=== PATIENT | female | born 1960 | race Caucasian/White ===

== ENCOUNTER 2020-07-20 10:47 | Outpatient (REF) | payer MEDICARE, OTHER, SELFPAY ==
[2020-07-20 12:17] LABS: MANUAL DIFF FLAG NO
[2020-07-20 12:38] LABS: Appearance Urine CLEAR; Color Urine YELLOW; Glucose Urine UA NEG (NEG); Leukocyte Esterase Urine NEG (NEG); Nitrite Urine NEG (NEG); PH 5.5 (5.0-8.0); Urine Blood NEG (NEG); Urine Ketones NEG (NEG); Urine Protein NEG (NEG-TRACE)
[2020-07-20 12:40] LABS: Basophils Percent Auto 0.5 % (0-2); Eosinophils Absolute Auto 0.1 X10*3/uL (0.0-0.4); Eosinophils Percent Auto 2.1 % (0-4); Hematocrit 36.8 % (37-47); Imm Gran Abs Auto 0.01 X10*3/uL (0.00-0.03); Imm Gran Pct Auto 0.2 % (0.0-0.4); Lymphocytes Absolute Auto 2.4 X10*3/uL (1.2-4.9); Lymphocytes Percent Auto 38.3 % (20-40); Mean Corpuscular HGB Conc 32.6 g/dl (31.0-35.0); Mean Corpuscular Hemoglobin 30.4 pg (27.0-33.0); Mean Corpuscular Volume 93.2 fL (80-98); Monocytes Absolute Auto 0.5 X10*3/uL (0.1-1.2); Monocytes Percent Auto 7.3 % (2-11); Neutrophils Absolute Auto 3.2 X10*3/uL (2.0-8.3); Neutrophils Percent Auto 51.6 % (45-73); Platelet Count 289 X10*3/uL (160-400); Red Blood Count 3.95 X10*6/uL (4.20-5.50); Red Cell Distribution Width 13.2 % (11.0-16.0); White Blood Count 6.2 X10*3/uL (4.8-10.8)
[2020-07-20 12:48] LABS: RBC Urine 0 /HPF (0); Squamous Epithelial Cell Urine TRACE /LPF; WBC Urine 0 /HPF (0-4)
[2020-07-20 13:18] LABS: Alanine Aminotransferase 17 U/L (0-31); Albumin Level 4.4 g/dL (3.5-5.0); Alkaline Phosphatase 54 U/L (39-117); Anion Gap 11 (12-20); Aspartate Amino Transferase 20 U/L (5-31); Bilirubin Total 0.3 mg/dL (0.0-1.0); Blood Urea Nitrogen 20 mg/dL (9-16); Calcium 8.9 mg/dL (8.4-10.2); Carbon Dioxide 25 mmol/L (22-29); Chloride 103 mmol/L (96-108); Cholesterol 201 mg/dL; Estimated Glomerular Filt Rate > 60; Glucose Fasting 85 mg/dL (60-99); HDL Cholesterol 62 mg/dL; LDL Cholesterol Calculated 114 mg/dl; Potassium 4.2 mmol/l (3.3-5.1); Total Protein 7.2 g/dL (6.5-8.0); Triglycerides 129 mg/dL
[2020-07-20 13:20] LABS: Sodium 135 mmol/L (135-145)
[2020-07-20 13:42] LABS: TSH reflex Free T4 0.51 mIU/mL (0.32-4.0)
[2020-07-20 13:46] LABS: Erythrocyte Sedimentation Rate 12 MM/HR (0-20)
== END 2020-07-20 10:48 | disposition home or self-care (01) ==
LOC: HO.LAB 10:47
PROVIDERS: PCP Internal Medicine; Visit Provider Internal Medicine
DX: E78.5 Hyperlipidemia, unspecified (principal); K59.00 Constipation, unspecified; N83.292 Other ovarian cyst, left side; M51.36 Other intervertebral disc degeneration, lumbar region; M47.12 Other spondylosis with myelopathy, cervical region; G43.909 Migraine, unspecified, not intractable, without status migrainosus; R32 Unspecified urinary incontinence; E66.3 Overweight
CPT/HCPCS: 36415; 80053; 80061; 81001; 84443; 85025; 85652

== ENCOUNTER 2020-11-17 09:11 | Outpatient (REF) | payer MEDICARE, SELFPAY ==
[2020-11-17 09:43] LABS: MANUAL DIFF FLAG NO
[2020-11-17 09:46] LABS: Basophils Percent Auto 0.5 % (0-2); Eosinophils Absolute Auto 0.1 X10*3/uL (0.0-0.4); Eosinophils Percent Auto 1.5 % (0-4); Hematocrit 37.3 % (37-47); Hemoglobin 12.4 g/dl (12.0-16.0); Imm Gran Abs Auto 0.02 X10*3/uL (0.00-0.03); Imm Gran Pct Auto 0.3 % (0.0-0.4); Lymphocytes Percent Auto 30.8 % (20-40); Mean Corpuscular HGB Conc 33.2 g/dl (31.0-35.0); Mean Corpuscular Hemoglobin 30.2 pg (27.0-33.0); Mean Corpuscular Volume 90.8 fL (80-98); Mean Platelet Volume 8.6 fL (9.4-12.3); Monocytes Absolute Auto 0.5 X10*3/uL (0.1-1.2); Neutrophils Absolute Auto 3.8 X10*3/uL (2.0-8.3); Neutrophils Percent Auto 58.9 % (45-73); Platelet Count 290 X10*3/uL (160-400); Red Blood Count 4.11 X10*6/uL (4.20-5.50); Red Cell Distribution Width 13.1 % (11.0-16.0); White Blood Count 6.5 X10*3/uL (4.8-10.8)
[2020-11-17 10:12] LABS: Alanine Aminotransferase 20 U/L (0-31); Albumin Level 4.4 g/dL (3.5-5.0); Alkaline Phosphatase 55 U/L (39-117); Anion Gap 12 (12-20); Aspartate Amino Transferase 21 U/L (5-31); Bilirubin Total 0.4 mg/dL (0.0-1.0); Blood Urea Nitrogen 15 mg/dL (9-16); Calcium 8.9 mg/dL (8.4-10.2); Carbon Dioxide 23 mmol/L (22-29); Chloride 109 mmol/L (96-108); Cholesterol 190 mg/dL; Estimated Glomerular Filt Rate > 60; Glucose Fasting 108 mg/dL (60-99); HDL Cholesterol 66 mg/dL; LDL Cholesterol Calculated 106 mg/dl; Potassium 4.2 mmol/L (3.3-5.1); Sodium 140 mmol/L (135-145); Total Protein 7.4 g/dL (6.5-8.0); Triglycerides 91 mg/dL
[2020-11-17 10:21] LABS: Glucose Urine UA NEG (NEG); Leukocyte Esterase Urine NEG (NEG); Nitrite Urine NEG (NEG); PH 7.5 (5.0-8.0); Specific Gravity - Urine 1.015 (1.005-1.025); Urine Blood NEG (NEG); Urine Ketones NEG (NEG); Urine Protein NEG (NEG-TRACE)
[2020-11-17 10:26] LABS: Appearance Urine CLEAR; Color Urine YELLOW
[2020-11-17 10:32] LABS: TSH reflex Free T4 0.22 uIU/mL (0.32-4.0)
[2020-11-17 11:07] LABS: Free T4 (Free Thyroxine) 0.84 ng/dL (0.71-1.85)
== END 2020-11-17 09:12 | disposition home or self-care (01) ==
LOC: HO.LAB 09:11
PROVIDERS: PCP Internal Medicine; Visit Provider Internal Medicine
DX: K21.9 Gastro-esophageal reflux disease without esophagitis (principal); E78.00 Pure hypercholesterolemia, unspecified; R32 Unspecified urinary incontinence; G43.909 Migraine, unspecified, not intractable, without status migrainosus; E66.3 Overweight
CPT/HCPCS: 36415; 80053; 80061; 81003; 84439; 84443; 85025

== ENCOUNTER 2021-03-04 07:56 | Outpatient (REF) | payer MEDICARE, SELFPAY ==
[2021-03-04 08:20] LABS: MANUAL DIFF FLAG NO
[2021-03-04 08:27] LABS: Basophils Percent Auto 0.4 % (0-2); Eosinophils Absolute Auto 0.1 X10*3/uL (0.0-0.4); Hematocrit 37.1 % (37-47); Hemoglobin 12.2 g/dl (12.0-16.0); Imm Gran Abs Auto 0.02 X10*3/uL (0.00-0.03); Imm Gran Pct Auto 0.3 % (0.0-0.4); Lymphocytes Absolute Auto 3.1 X10*3/uL (1.2-4.9); Lymphocytes Percent Auto 44.2 % (20-40); Mean Corpuscular HGB Conc 32.9 g/dl (31.0-35.0); Mean Corpuscular Hemoglobin 30.1 pg (27.0-33.0); Mean Corpuscular Volume 91.6 fL (80-98); Mean Platelet Volume 8.7 fL (9.4-12.3); Monocytes Absolute Auto 0.6 X10*3/uL (0.1-1.2); Monocytes Percent Auto 8.8 % (2-11); Neutrophils Absolute Auto 3.1 X10*3/uL (2.0-8.3); Neutrophils Percent Auto 44.3 % (45-73); Platelet Count 285 X10*3/uL (160-400); Red Blood Count 4.05 X10*6/uL (4.20-5.50); Red Cell Distribution Width 13.8 % (11.0-16.0)
[2021-03-04 08:56] LABS: Alanine Aminotransferase 23 U/L (0-31); Albumin Level 4.4 g/dL (3.5-5.0); Alkaline Phosphatase 54 U/L (39-117); Anion Gap 12 (12-20); Aspartate Amino Transferase 21 U/L (5-31); Bilirubin Total 0.3 mg/dL (0.0-1.0); Blood Urea Nitrogen 17 mg/dL (9-16); Calcium 9.6 mg/dL (8.4-10.2); Carbon Dioxide 25 mmol/L (22-29); Chloride 107 mmol/L (96-108); Cholesterol 202 mg/dL; Estimated Glomerular Filt Rate > 60; Glucose Fasting 100 mg/dL (60-99); HDL Cholesterol 66 mg/dL; LDL Cholesterol Calculated 109 mg/dl; Sodium 140 mmol/L (135-145); Total Protein 7.3 g/dL (6.5-8.0); Triglycerides 137 mg/dL
[2021-03-04 09:02] LABS: Glucose Urine UA NEG (NEG); Leukocyte Esterase Urine NEG (NEG); Nitrite Urine NEG (NEG); Urine Blood NEG (NEG); Urine Ketones NEG (NEG); Urine Protein NEG (NEG-TRACE)
[2021-03-04 09:03] LABS: Appearance Urine CLEAR; Color Urine YELLOW
[2021-03-04 09:18] LABS: Free T4 (Free Thyroxine) 0.85 ng/dL (0.71-1.85); Thyroid Stimulating Hormone 0.55 uIU/mL (0.32-4.0)
== END 2021-03-04 07:57 | disposition home or self-care (01) ==
LOC: HO.LAB 07:56
PROVIDERS: PCP Internal Medicine; Visit Provider Internal Medicine
DX: E66.3 Overweight (principal); E78.00 Pure hypercholesterolemia, unspecified; R79.89 Other specified abnormal findings of blood chemistry; N83.292 Other ovarian cyst, left side; R32 Unspecified urinary incontinence; K21.9 Gastro-esophageal reflux disease without esophagitis; K59.00 Constipation, unspecified
CPT/HCPCS: 36415; 80053; 80061; 81003; 84439; 84443; 85025

== ENCOUNTER 2021-05-20 08:24 | Outpatient (REF) | payer MEDICARE, SELFPAY ==
[2021-05-20 09:31] LABS: MANUAL DIFF FLAG NO
[2021-05-20 09:47] LABS: Appearance Urine CLEAR; Color Urine YELLOW; Glucose Urine UA NEG (NEG); Leukocyte Esterase Urine NEG (NEG); Nitrite Urine NEG (NEG); PH 6.5 (5.0-8.0); Specific Gravity - Urine 1.015 (1.005-1.025); Urine Blood NEG (NEG); Urine Ketones NEG (NEG); Urine Protein NEG (NEG-TRACE)
[2021-05-20 09:52] LABS: Basophils Percent Auto 0.3 % (0-2); Eosinophils Absolute Auto 0.1 X10*3/uL (0.0-0.4); Eosinophils Percent Auto 1.5 % (0-4); Hematocrit 38.2 % (37-47); Hemoglobin 12.5 g/dl (12.0-16.0); Imm Gran Abs Auto 0.02 X10*3/uL (0.00-0.03); Imm Gran Pct Auto 0.3 % (0.0-0.4); Lymphocytes Absolute Auto 2.8 X10*3/uL (1.2-4.9); Lymphocytes Percent Auto 42.7 % (20-40); Mean Corpuscular HGB Conc 32.7 g/dl (31.0-35.0); Mean Corpuscular Hemoglobin 29.8 pg (27.0-33.0); Mean Platelet Volume 8.8 fL (9.4-12.3); Monocytes Absolute Auto 0.6 X10*3/uL (0.1-1.2); Monocytes Percent Auto 9.2 % (2-11); Platelet Count 295 X10*3/uL (160-400); Red Cell Distribution Width 13.6 % (11.0-16.0); White Blood Count 6.6 X10*3/uL (4.8-10.8)
[2021-05-20 10:12] LABS: Alanine Aminotransferase 25 U/L (0-31); Albumin Level 4.2 g/dL (3.5-5.0); Alkaline Phosphatase 59 U/L (39-117); Anion Gap 11 (12-20); Aspartate Amino Transferase 23 U/L (5-31); Bilirubin Total 0.3 mg/dL (0.0-1.0); Blood Urea Nitrogen 14 mg/dL (9-16); Calcium 9.4 mg/dL (8.4-10.2); Carbon Dioxide 24 mmol/L (22-29); Chloride 108 mmol/L (96-108); Cholesterol 197 mg/dL; Estimated Glomerular Filt Rate > 60; Glucose Fasting 93 mg/dL (60-99); HDL Cholesterol 55 mg/dL; LDL Cholesterol Calculated 97 mg/dl; Potassium 4.2 mmol/L (3.3-5.1); Sodium 139 mmol/L (135-145); Total Protein 6.9 g/dL (6.5-8.0); Triglycerides 227 mg/dL
[2021-05-20 10:20] LABS: Free T4 (Free Thyroxine) 0.89 ng/dL (0.71-1.85); Thyroid Stimulating Hormone 0.57 uIU/mL (0.32-4.0)
== END 2021-05-20 08:25 | disposition home or self-care (01) ==
LOC: HO.LAB 08:24
PROVIDERS: PCP Internal Medicine; Visit Provider Internal Medicine
DX: E78.00 Pure hypercholesterolemia, unspecified (principal); R32 Unspecified urinary incontinence; R79.89 Other specified abnormal findings of blood chemistry; E66.3 Overweight; R53.83 Other fatigue; B94.8 Sequelae of other specified infectious and parasitic diseases; K21.9 Gastro-esophageal reflux disease without esophagitis
CPT/HCPCS: 36415; 80053; 80061; 81003; 84439; 84443; 85025

== ENCOUNTER 2021-05-25 07:41 | Outpatient (REF) | payer MEDICARE, SELFPAY ==
[2021-05-27 01:07] LABS: Follicle Stimulating Hormone 62.1 mIU/mL; Lutenizing Hormone 30.8 mIU/mL
[2021-06-01 21:46] LABS: Estrogen 166.5 pg/mL
== END 2021-05-25 07:42 | disposition home or self-care (01) ==
LOC: HO.LAB 07:41
PROVIDERS: PCP Internal Medicine; Visit Provider Internal Medicine
DX: R23.2 Flushing (principal); R61 Generalized hyperhidrosis
CPT/HCPCS: 36415; 82672; 83001; 83002

== ENCOUNTER → 2021-05-29 15:11 | Outpatient (BNVA) | payer MEDICARE, SELFPAY | PROVIDERS: PCP Internal Medicine; Visit Provider Internal Medicine | DX: M51.36 Other intervertebral disc degeneration, lumbar region (principal); E78.00 Pure hypercholesterolemia, unspecified; H72.90 Unspecified perforation of tympanic membrane, unspecified ear; E66.3 Overweight; F41.8 Other specified anxiety disorders; G93.3 Postviral and related fatigue syndromes; Z68.28 Body mass index [BMI] 28.0-28.9, adult; Z86.16 Personal history of COVID-19; Z79.899 Other long term (current) drug therapy | CPT/HCPCS: 99202 ==

== ENCOUNTER 2021-05-31 12:17 | Outpatient (REF) | payer MEDICARE, SELFPAY ==
--- NOTE | ~2021-05-31 | MM_ITS ---
EXAMINATION: MM SCREENING DIGITAL BREAST TOMOSYNTHESIS, BILATERAL CLINICAL INFORMATION: Screening. Asymptomatic. The lifetime risk of breast cancer based on the Tyrer-Cuzick Model is 4.8%. COMPARISON: Mammography: May 25, 2020 and studies dating back to January 29, 2014 TECHNIQUE: Digital breast tomosynthesis is performed in both the craniocaudal and mediolateral oblique views along with computer-aided detection (CAD). Synthesized 2D images are generated from the tomosynthesis. FINDINGS: There are scattered areas of fibroglandular density (ACR BI-RADS breast composition Category b). There are no significant masses, abnormal calcifications, or other abnormalities. MM/MM tomosynthesis screening BI IMPRESSION: There are no significant changes from prior study. ASSESSMENT: BI-RADS 1: Negative RECOMMENDATION: Routine annual mammography screening. This patient's information was entered into a reminder system with a target due date for their next mammogram.
== END 2021-05-31 12:18 | disposition home or self-care (01) ==
LOC: HO.MAMMO 12:17
PROVIDERS: PCP Internal Medicine; Visit Provider Internal Medicine
DX: Z12.31 Encounter for screening mammogram for malignant neoplasm of breast (principal)
CPT/HCPCS: 77063; 77067

== ENCOUNTER → 2021-06-26 14:50 | Outpatient (BNVA) | payer MEDICARE, SELFPAY | PROVIDERS: PCP Internal Medicine; Visit Provider Internal Medicine | DX: M51.36 Other intervertebral disc degeneration, lumbar region (principal); M54.16 Radiculopathy, lumbar region; M25.512 Pain in left shoulder; E78.00 Pure hypercholesterolemia, unspecified; U09.9 Post COVID-19 condition, unspecified | CPT/HCPCS: 99212 ==

== ENCOUNTER 2021-07-04 15:43 | Outpatient (REF) | payer MEDICARE, SELFPAY ==
--- NOTE | ~2021-07-04 | MR_ITS ---
EXAMINATION: MR LUMBAR SPINE WITHOUT CONTRAST CLINICAL INFORMATION: Pain degeneration, lumbar. COMPARISON: None TECHNIQUE: MRI of the lumbar spine was obtained using routine sequences without contrast. FINDINGS: The lumbar vertebral bodies maintain normal heights and alignment. The disc heights are preserved. Mild endplate edema is seen at the anterior-inferior corner of L1. Mild endplate edema is also seen superiorly at L5, asymmetrically on the right. The distal spinal cord appears normal. The conus medullaris terminates normally at the L2 level. The visualized paraspinal muscles and intra-abdominal and pelvic contents are within normal limits. SPINAL LEVELS: L1-L2: No posterior disc abnormality. No spinal canal or neural foraminal stenosis. L2-L3: No posterior disc abnormality. Mild facet arthropathy. No spinal canal or neural foraminal stenosis. L3-L4: Minimal disc bulging with mild facet arthropathy. No spinal canal or neural foraminal stenosis. L4-L5: Disc bulging with ligamentum flavum infolding moderate facet arthropathy. No spinal canal or neural foraminal stenosis. L5-S1: Disc bulging with ligamentum flavum infolding moderate facet arthropathy. Small left subarticular protrusion with annular fissuring without definite traversing nerve root compression. No spinal canal or neural foraminal stenosis. MR/MR lumbar spine wo con IMPRESSION: Mild degenerative spondylotic changes. No significant narrowing of the spinal canal or neural foramina. No nerve root compression is seen. A subarticular protrusion with annular fissuring is noted at L5-S1.
== END 2021-07-04 15:44 | disposition home or self-care (01) ==
LOC: HO.MRI 15:43
PROVIDERS: Visit Provider Internal Medicine
DX: M51.36 Other intervertebral disc degeneration, lumbar region (principal)
CPT/HCPCS: 72148

== ENCOUNTER → 2021-07-17 14:49 | Outpatient (BNVA) | payer MEDICARE, SELFPAY | PROVIDERS: PCP Internal Medicine; Visit Provider Internal Medicine | DX: M54.51 Vertebrogenic low back pain (principal); M47.812 Spondylosis without myelopathy or radiculopathy, cervical region; M51.36 Other intervertebral disc degeneration, lumbar region | CPT/HCPCS: 99212 ==

== ENCOUNTER 2021-08-17 08:28 | Outpatient (REF) | payer MEDICARE, SELFPAY ==
[2021-08-17 08:49] LABS: MANUAL DIFF FLAG NO
[2021-08-17 09:33] LABS: Basophils Percent Auto 0.3 % (0-2); Eosinophils Absolute Auto 0.1 X10*3/uL (0.0-0.4); Hematocrit 37.1 % (37.0-47.0); Hemoglobin 12.1 g/dl (12.0-16.0); Imm Gran Abs Auto 0.01 X10*3/uL (0.00-0.03); Imm Gran Pct Auto 0.1 % (0.0-0.4); Lymphocytes Absolute Auto 3.1 X10*3/uL (1.2-4.9); Lymphocytes Percent Auto 45.5 % (20-40); Mean Corpuscular HGB Conc 32.6 g/dl (31.0-35.0); Mean Corpuscular Hemoglobin 30.3 pg (27.0-33.0); Mean Platelet Volume 8.8 fL (9.4-12.3); Monocytes Absolute Auto 0.7 X10*3/uL (0.1-1.2); Monocytes Percent Auto 9.6 % (2-11); Neutrophils Absolute Auto 2.9 x10*3/uL (2.0-8.3); Neutrophils Percent Auto 42.5 % (45-73); Platelet Count 281 X10*3/uL (160-400); Red Blood Count 3.99 X10*6/uL (4.20-5.50); Red Cell Distribution Width 13.4 % (11.0-16.0); White Blood Count 6.8 X10*3/uL (4.8-10.8)
[2021-08-17 10:07] LABS: Alanine Aminotransferase 17 U/L (0-31); Albumin Level 4.2 g/dL (3.5-5.0); Alkaline Phosphatase 48 U/L (39-117); Anion Gap 10 (12-20); Aspartate Amino Transferase 19 U/L (5-31); Bilirubin Total 0.2 mg/dL (0.0-1.0); Blood Urea Nitrogen 13 mg/dL (9-16); Calcium 9.1 mg/dL (8.4-10.2); Carbon Dioxide 27 mmol/L (22-29); Chloride 107 mmol/L (96-108); Cholesterol 180 mg/dL; Estimated Glomerular Filt Rate > 60; Glucose Fasting 91 mg/dL (60-99); HDL Cholesterol 60 mg/dL; LDL Cholesterol Calculated 95 mg/dl; Potassium 4.2 mmol/L (3.3-5.1); Sodium 140 mmol/L (135-145); Total Protein 6.9 g/dL (6.5-8.0); Triglycerides 127 mg/dL
[2021-08-17 10:18] LABS: Free T4 (Free Thyroxine) 0.87 ng/dL (0.71-1.85); Thyroid Stimulating Hormone 0.48 uIU/mL (0.32-4.0); Vitamin D 25-OH Total 33.7 ng/mL (>30)
[2021-08-17 10:47] LABS: Appearance Urine CLEAR; Color Urine YELLOW; Glucose Urine UA NEG (NEG); Leukocyte Esterase Urine NEG (NEG); Nitrite Urine NEG (NEG); Urine Blood NEG (NEG); Urine Ketones NEG (NEG); Urine Protein NEG (NEG-TRACE)
== END 2021-08-17 08:29 | disposition home or self-care (01) ==
LOC: HO.LAB 08:28
PROVIDERS: PCP Internal Medicine; Visit Provider Internal Medicine
DX: E55.9 Vitamin D deficiency, unspecified (principal); E03.9 Hypothyroidism, unspecified; I10 Essential (primary) hypertension; E78.00 Pure hypercholesterolemia, unspecified
CPT/HCPCS: 36415; 80053; 80061; 81003; 82306; 84439; 84443; 85025

== ENCOUNTER 2021-08-23 06:12 | Outpatient (REF) | payer MEDICARE, SELFPAY ==
--- NOTE | ~2021-08-23 | FL_ITS ---
EXAMINATION: XR FLUOROSCOPY WITH IMAGES CLINICAL INFORMATION: M54.51 - Vertebrogenic low back pain COMPARISON: MR lumbar spine 07/04/2021 TECHNIQUE: Fluoroscopy performed by Dr. Narinder Verdin. Fluoroscopy time: 0.4 minutes DAP: 4.00 Gycm2 Images: 4 FINDINGS: There are spinal needles overlying the bilateral outer L4 and L5 neural foramen. There is contrast seen in the respective nerve sheaths and also at bilateral L3. Some early transforaminal epidural extension is suggested. No visible vascular communication. FL/FL guidance in treatment room IMPRESSION: Fluoroscopy for pain management procedures.
== END 2021-08-23 06:13 | disposition home or self-care (01) ==
LOC: HO.RADIR 06:12
PROVIDERS: Visit Provider Internal Medicine
DX: M47.816 Spondylosis without myelopathy or radiculopathy, lumbar region (principal); M51.36 Other intervertebral disc degeneration, lumbar region; M54.16 Radiculopathy, lumbar region; M54.51 Vertebrogenic low back pain; Z79.899 Other long term (current) drug therapy; Z80.0 Family history of malignant neoplasm of digestive organs; Z80.8 Family history of malignant neoplasm of other organs or systems
CPT/HCPCS: 64493; 64494; Q9967

== ENCOUNTER 2021-08-30 05:54 | Outpatient (REF) | payer MEDICARE, SELFPAY | END 2021-08-30 05:55 | disposition home or self-care (01) | LOC: HO.RADIR 05:54 | PROVIDERS: Visit Provider Internal Medicine | DX: Z13.89 Encounter for screening for other disorder (principal) ==

== ENCOUNTER → 2021-08-31 08:03 | Outpatient (BNVA) | payer MEDICARE, SELFPAY | PROVIDERS: PCP Internal Medicine; Visit Provider Nurse Practitioner Family | DX: M51.36 Other intervertebral disc degeneration, lumbar region (principal); M47.816 Spondylosis without myelopathy or radiculopathy, lumbar region | CPT/HCPCS: Q3014 ==

== ENCOUNTER 2021-11-01 06:38 | Outpatient (REF) | payer MEDICARE, SELFPAY ==
--- NOTE | ~2021-11-01 | FL_ITS ---
EXAMINATION: XR FLUOROSCOPY WITH IMAGES CLINICAL INFORMATION: Spondylosis without myelopathy or radiculopathy. COMPARISON: None. TECHNIQUE: Fluoroscopy performed by: Dr Epperson Fluoroscopy time: 0.2 minutes DAP: 0.7 Gycm2 Images: 3 FINDINGS: Images demonstrate needle placement and contrast injection adjacent to the bilateral lateral L3-L4 and L5 vertebral bodies. FL/FL guidance in treatment room IMPRESSION: Fluoroscopy guidance for pain management procedure.
== END 2021-11-01 06:39 | disposition home or self-care (01) ==
LOC: HO.RADIR 06:38
PROVIDERS: Visit Provider Internal Medicine
DX: M47.816 Spondylosis without myelopathy or radiculopathy, lumbar region (principal)
CPT/HCPCS: 64493; 64494; Q9967

== ENCOUNTER → 2021-11-03 09:40 | Outpatient (BNVA) | payer MEDICARE, SELFPAY | PROVIDERS: PCP Internal Medicine; Visit Provider Internal Medicine | DX: M47.816 Spondylosis without myelopathy or radiculopathy, lumbar region (principal); M54.51 Vertebrogenic low back pain; M51.36 Other intervertebral disc degeneration, lumbar region | CPT/HCPCS: Q3014 ==

== ENCOUNTER 2021-11-06 10:12 | Outpatient (REF) | payer MEDICARE, SELFPAY ==
[2021-11-06 11:42] LABS: Alanine Aminotransferase 13 U/L (0-31); Albumin Level 4.3 g/dL (3.5-5.0); Alkaline Phosphatase 50 U/L (39-117); Anion Gap 11 (12-20); Aspartate Amino Transferase 20 U/L (5-31); Bilirubin Total 0.4 mg/dL (0.0-1.0); Blood Urea Nitrogen 10 mg/dL (9-16); Calcium 9.8 mg/dL (8.4-10.2); Carbon Dioxide 26 mmol/L (22-29); Chloride 107 mmol/L (96-108); Cholesterol 187 mg/dL; Estimated Glomerular Filt Rate > 60; Glucose Fasting 97 mg/dL (60-99); HDL Cholesterol 62 mg/dL; LDL Cholesterol Calculated 106 mg/dl; Potassium 4.1 mmol/L (3.3-5.1); Sodium 140 mmol/L (135-145); Total Protein 7.1 g/dL (6.5-8.0); Triglycerides 98 mg/dL
[2021-11-06 11:52] LABS: Vitamin D 25-OH Total 36.9 ng/mL (>30)
== END 2021-11-06 10:13 | disposition home or self-care (01) ==
LOC: HO.LAB 10:12
PROVIDERS: PCP Internal Medicine; Visit Provider Internal Medicine
DX: E55.9 Vitamin D deficiency, unspecified (principal); E78.00 Pure hypercholesterolemia, unspecified
CPT/HCPCS: 36415; 80053; 80061; 82306; 84443

== ENCOUNTER → 2021-11-08 11:36 | Outpatient (REF) | payer MEDICARE, OTHER, SELFPAY ==
--- NOTE | 2021-11-08 11:41 | ECG_ITS ---
Test Reason : PREOP Blood Pressure : / mmHG Vent. Rate : 103 BPM Atrial Rate : 103 BPM P-R Int : 138 ms QRS Dur : 084 ms QT Int : 328 ms P-R-T Axes : 041 053 036 degrees QTc Int : 429 ms Sinus tachycardia Otherwise normal ECG When compared with ECG of 28-MAR-2009 11:44, No significant change was found Referred By: Richar Verma Electronically Signed By:Praful Pratt
[2021-11-08 11:44] LABS: MANUAL DIFF FLAG NO
[2021-11-08 12:07] LABS: Basophils Percent Auto 0.4 % (0-2); Eosinophils Absolute Auto 0.1 X10*3/uL (0.0-0.4); Eosinophils Percent Auto 1.5 % (0-4); Hematocrit 36.7 % (37.0-47.0); Imm Gran Abs Auto 0.03 X10*3/uL (0.00-0.03); Imm Gran Pct Auto 0.4 % (0.0-0.4); Lymphocytes Absolute Auto 2.6 X10*3/uL (1.2-4.9); Mean Corpuscular HGB Conc 32.7 g/dl (31.0-35.0); Mean Corpuscular Hemoglobin 30.5 pg (27.0-33.0); Mean Corpuscular Volume 93.1 fL (80.0-98.0); Mean Platelet Volume 8.8 fL (9.4-12.3); Monocytes Absolute Auto 0.7 X10*3/uL (0.1-1.2); Monocytes Percent Auto 9.6 % (2-11); Neutrophils Absolute Auto 4.1 x10*3/uL (2.0-8.3); Neutrophils Percent Auto 54.1 % (45-73); Platelet Count 277 X10*3/uL (160-400); Red Blood Count 3.94 X10*6/uL (4.20-5.50); Red Cell Distribution Width 13.2 % (11.0-16.0); White Blood Count 7.5 X10*3/uL (4.8-10.8)
[2021-11-08 12:11] LABS: Prothrombin Time 11.6 SEC (9.9-13.0)
[2021-11-08 12:14] LABS: Partial Thromboplastin Time 30.8 SEC (24.1-38.0)
== END ==
LOC: HO.CARD 11:36
PROVIDERS: PCP Internal Medicine; Visit Provider Internal Medicine
DX: Z01.818 Encounter for other preprocedural examination (principal)
CPT/HCPCS: 36415; 85025; 85610; 85730; 93005

== ENCOUNTER 2021-11-29 06:15 | Outpatient (REF) | payer MEDICARE, SELFPAY ==
--- NOTE | ~2021-11-29 | FL_ITS ---
EXAMINATION: XR FL GUIDANCE WITH IMAGES CLINICAL INFORMATION: Spondylosis without myelopathy or radiculopathy. COMPARISON: Previous exam most recent October 2021. TECHNIQUE: Fluoroscopy performed by JEFFREY Lou. Fluoroscopy Time: 0.3 minutes. DAP: 2 Gycm2. Images: 3. FINDINGS: Images demonstrate needle placement and contrast injection adjacent to the bilateral L3-L4 and L5 vertebral bodies. FL/FL guidance in treatment room IMPRESSION: Fluoroscopy guidance for pain management procedure.
== END 2021-11-29 06:16 | disposition home or self-care (01) ==
LOC: HO.RADIR 06:15
PROVIDERS: Visit Provider Internal Medicine
DX: M47.816 Spondylosis without myelopathy or radiculopathy, lumbar region (principal)
CPT/HCPCS: 64493; 64494; Q9967

== ENCOUNTER → 2022-01-12 09:40 | Outpatient (BNVA) | payer MEDICARE, SELFPAY | PROVIDERS: PCP Internal Medicine; Visit Provider Internal Medicine | DX: M47.816 Spondylosis without myelopathy or radiculopathy, lumbar region (principal) | CPT/HCPCS: Q3014 ==

== ENCOUNTER 2022-02-14 08:21 | Outpatient (REF) | payer MEDICARE, SELFPAY ==
[2022-02-14 09:07] LABS: Alanine Aminotransferase 19 U/L (0-31); Albumin Level 4.5 g/dL (3.5-5.0); Alkaline Phosphatase 57 U/L (39-117); Anion Gap 11 (12-20); Aspartate Amino Transferase 22 U/L (5-31); Bilirubin Total 0.5 mg/dL (0.0-1.0); Blood Urea Nitrogen 6 mg/dL (9-16); Calcium 9.8 mg/dL (8.4-10.2); Carbon Dioxide 28 mmol/L (22-29); Chloride 106 mmol/L (96-108); Cholesterol 200 mg/dL; Estimated Glomerular Filt Rate > 60; Glucose Fasting 109 mg/dL (60-99); HDL Cholesterol 63 mg/dL; LDL Cholesterol Calculated 119 mg/dl; Potassium 4.2 mmol/L (3.3-5.1); Sodium 141 mmol/L (135-145); Total Protein 7.4 g/dL (6.5-8.0); Triglycerides 90 mg/dL
== END 2022-02-14 08:22 | disposition home or self-care (01) ==
LOC: HO.LAB 08:21
PROVIDERS: PCP Internal Medicine; Visit Provider Internal Medicine
DX: E78.00 Pure hypercholesterolemia, unspecified (principal)
CPT/HCPCS: 36415; 80053; 80061

== ENCOUNTER 2022-03-07 08:56 | Day surgery (SDC) | payer MEDICARE, SELFPAY ==
--- NOTE | ~2022-03-07 | FL_ITS ---
EXAMINATION: XR FLUOROSCOPY WITH IMAGES CLINICAL INFORMATION: Lumbar MB RFA COMPARISON: MRI lumbar spine 07/04/2021 TECHNIQUE: Fluoroscopy performed by Dr. Narinder Verdin. Fluoroscopy time: 30 second Cumulative dose: 9.63 mGy Images: 2 FINDINGS: There are spinal needles overlying the outer left L3, L4, and L5 neural foramen. FL/FL guidance in OR IMPRESSION: Fluoroscopy for pain management procedures.
[2022-03-07 09:22] VITALS: BP 134/85; PULSE 104; RESP 16; TEMP 36.4; O2SAT 100; BMI 27.4
[2022-03-07 11:26] VITALS: BP 115/64; PULSE 108; RESP 18; TEMP 37.5; O2SAT 99
--- NOTE | 2022-03-13 13:21 | MHC.SHP ---
Pre-Procedural Eval Section A Date of Service: 03/07/22 The patient is an INPATIENT: No Changes since office visit: Yes Patient answered all questions The History & Physical has been completed within 30 days and I have reviewed it.: Yes Section B Chief Complaint: lumbar spondylosis Relevant Family History (Specify if Yes): No Relevant Social History: None Present Medications: see Short Stay Collaborative assessment Medical History: Significant History (low back pain) History of Previous Operations: No relevant previous surgery Allergies: Allergies Allergy/AdvReac Type Severity Reaction Status Date / Time No Known Allergies Allergy Verified 03/01/22 10:53 Review of Systems Sugical H&P ROS: Negative: Constitution, Cardiovascular, Respiratory and Neurological Exam Surgical H&P Exam: Normal: HEENT, Normal: Heart and Normal: Lungs Plan Diagnosis/Plan: Unchanged I have reviewed the history and physical and performed a pertinent physical examination on my patient. No changes have occurred unless specified.
--- NOTE | 2022-03-13 13:22 | PM.OP ---
Brief Operative Note Date of Service: 03/07/22 Pre-op diagnosis: Lumbar spondylosis Post-op diagnosis: same Procedure: Left L3, L4, L5 medial branch radiofrequency ablation Implants: None Surgeon: Narinder Verdin MD Anesthesia: local Was an Casino Supervisor used for this Procedure?: No Estimated blood loss (mL): 2 Pathology: none sent Condition: stable Disposition: same day
--- NOTE | 2022-03-13 13:28 | P.OP_ITS ---
Operative Note Operative Note Date of Service: 03/07/22 Narrative: Radiofrequency lesioning medial branch nerves, Left L3, L4 medial branches and L5 dorsal ramus (L4/5 and L5/S1) (2 levels, 3 nerves) After obtaining written consent, pre-procedure blood pressure and heart rate were stable and recorded in the nursing record. The patient was placed in the prone position. The lumbar area was prepped with chloraprep and draped in sterile fashion. The skin over the target for each medial branch nerve was anesthetized with 0.5% lidocaine. An 18 gauge radiofrequency cannula was advanced to each target site under fluoroscopic guidance. No paresthesias were elicited with needle placement and aspiration was negative for heme and CSF. Impedences were verified under 600 ohms. Sensory testing (50 Hz) and then motor testing (2 Hz) confirmed needle placement at each site within the appropriate voltage thresholds. Each site was injected with 0.5 ml 2% preservative-free lidocaine. Radiofrequency lesioning was performed for 90 seconds at 80 deg Celcius. Each site was then injected with 0.5ml 2% lidocaine. The needle was removed, skin cleansed and a sterile bandage was applied. The patient tolerated the procedure well and no complications were encountered. Following the proc edure the patient's vital signs were stable. The patient was discharged home in good condition with post-procedural instructions. Time Out: Immediately prior to the procedure, the following was verbally confirmed that there is a signed consent form and that the correct patient, planned procedure, site and side are consistent with documentation and that necessary equipment and/or blood products are available prior to the start of the case. Complications: none EBL: <5 cc
== END 2022-03-07 11:49 | disposition home or self-care (01) ==
PROVIDERS: PCP Internal Medicine; Visit Provider Internal Medicine
PROC: (CPT 64635; principal; 2022-03-07 10:00)
DX: M47.816 Spondylosis without myelopathy or radiculopathy, lumbar region (principal); F41.8 Other specified anxiety disorders
CPT/HCPCS: 64635; 64636

== ENCOUNTER → 2022-04-30 13:52 | Outpatient (BNVA) | payer MEDICARE, SELFPAY | PROVIDERS: PCP Internal Medicine; Visit Provider Internal Medicine | DX: M47.816 Spondylosis without myelopathy or radiculopathy, lumbar region (principal); M47.812 Spondylosis without myelopathy or radiculopathy, cervical region; Z79.899 Other long term (current) drug therapy | CPT/HCPCS: 99212 ==

== ENCOUNTER 2022-06-04 16:17 | Outpatient (REF) | payer MEDICARE, OTHER, SELFPAY ==
[2022-06-04 16:40] LABS: MANUAL DIFF FLAG NO
[2022-06-04 17:43] LABS: Basophils Percent Auto 0.6 % (0-2); Eosinophils Absolute Auto 0.1 X10*3/uL (0.0-0.4); Eosinophils Percent Auto 1.3 % (0-4); Hematocrit 38.3 % (37.0-47.0); Hemoglobin 12.4 g/dl (12.0-16.0); Imm Gran Abs Auto 0.01 X10*3/uL (0.00-0.03); Imm Gran Pct Auto 0.1 % (0.0-0.4); Lymphocytes Percent Auto 43.9 % (20-40); Mean Corpuscular HGB Conc 32.4 g/dl (31.0-35.0); Mean Corpuscular Hemoglobin 29.8 pg (27.0-33.0); Mean Corpuscular Volume 92.1 fL (80.0-98.0); Monocytes Absolute Auto 0.5 X10*3/uL (0.1-1.2); Monocytes Percent Auto 7.9 % (2-11); Neutrophils Absolute Auto 3.1 x10*3/uL (2.0-8.3); Neutrophils Percent Auto 46.2 % (45-73); Platelet Count 287 X10*3/uL (160-400); Red Blood Count 4.16 X10*6/uL (4.20-5.50); Red Cell Distribution Width 13.4 % (11.0-16.0); White Blood Count 6.7 X10*3/uL (4.8-10.8)
[2022-06-04 17:47] LABS: Appearance Urine Clear; Color Urine Yellow; Glucose Urine UA Negative (Negative); Leukocyte Esterase Urine Trace (Negative); Nitrite Urine Negative (Negative); PH 5.5 (5.0-9.0); UMIC TRIGGER UACC YES; Urine Blood Negative (Negative); Urine Ketones Negative (Negative); Urine Protein Negative (Neg-Trace)
[2022-06-04 17:53] LABS: Bacteria Urine None Seen (None Seen); Hyaline Casts Urine 0-2 /LPF (0-2); RBC Urine 0-2 /HPF (0-2); Squamous Epithelial Cell Urine 0-2 /HPF (0-2); WBC Urine 0-5 /HPF (0-5)
[2022-06-04 17:56] LABS: Estimated Average Glucose 103 mg/dL; Hemoglobin A1c % 5.2 %
[2022-06-04 18:04] LABS: Blood Urea Nitrogen 12 mg/dL (9-16); Estimated Glomerular Filt Rate > 60
[2022-06-04 18:10] LABS: Alanine Aminotransferase 18 U/L (0-31); Albumin Level 4.6 g/dL (3.5-5.0); Alkaline Phosphatase 53 U/L (39-117); Anion Gap 14 (12-20); Aspartate Amino Transferase 21 U/L (5-31); Blood Urea Nitrogen 12 mg/dL (9-16); Calcium 9.5 mg/dL (8.4-10.2); Carbon Dioxide 24 mmol/L (22-29); Chloride 106 mmol/L (96-108); Cholesterol 191 mg/dL; Estimated Glomerular Filt Rate > 60; Glucose Fasting 87 mg/dL (60-99); HDL Cholesterol 64 mg/dL; LDL Cholesterol Calculated 92 mg/dl; Potassium 4.2 mmol/L (3.3-5.1); Sodium 140 mmol/L (135-145); Total Protein 7.4 g/dL (6.5-8.0); Triglycerides 175 mg/dL
[2022-06-04 18:18] LABS: Bilirubin Total 0.3 mg/dL (0.0-1.0)
[2022-06-04 18:25] LABS: TSH reflex Free T4 0.53 uIU/mL (0.32-4.0); Vitamin D 25-OH Total 38.9 ng/mL (>30)
== END 2022-06-04 16:18 | disposition home or self-care (01) ==
LOC: HO.LAB 16:17
PROVIDERS: PCP Internal Medicine; Visit Provider Surgery
DX: R10.9 Unspecified abdominal pain (principal); E78.00 Pure hypercholesterolemia, unspecified; R73.01 Impaired fasting glucose; E55.9 Vitamin D deficiency, unspecified; I10 Essential (primary) hypertension
CPT/HCPCS: 36415; 80053; 80061; 81001; 82306; 82565; 83036; 84443; 84520; 85025; 99212

== ENCOUNTER 2022-06-06 11:56 | Outpatient (REF) | payer MEDICARE, OTHER, SELFPAY ==
--- NOTE | ~2022-06-06 | MM_ITS ---
EXAMINATION: MM SCREENING DIGITAL BREAST TOMOSYNTHESIS, BILATERAL CLINICAL INFORMATION: Screening. Asymptomatic. The lifetime risk of breast cancer based on the Tyrer-Cuzick Model is 5%. COMPARISON: Mammography: 05/31/2021, 05/25/2020, 05/22/2019, 05/16/2018 TECHNIQUE: Digital breast tomosynthesis is performed in both the craniocaudal and mediolateral oblique views along with computer-aided detection (CAD). Synthesized 2D images are generated from the tomosynthesis. FINDINGS: There are scattered areas of fibroglandular density (ACR BI-RADS breast composition Category b). There are no significant masses, abnormal calcifications, or other abnormalities. Parenchymal pattern is similar to prior studies. There is no developing density or architectural abnormality. The axilla and skin contours are unremarkable. No significant changes. MM/MM tomosynthesis screening BI IMPRESSION: No mammographic evidence of malignancy. ASSESSMENT: BI-RADS 1: Negative RECOMMENDATION: Routine annual mammography screening. This patient's information was entered into a reminder system with a target due date for their next mammogram.
== END 2022-06-06 11:57 | disposition home or self-care (01) ==
LOC: HO.MAMMO 11:56
PROVIDERS: PCP Internal Medicine; Visit Provider Internal Medicine
DX: Z12.31 Encounter for screening mammogram for malignant neoplasm of breast (principal)
CPT/HCPCS: 77063; 77067

== ENCOUNTER 2022-06-07 08:08 | Outpatient (REF) | payer MEDICARE, OTHER, SELFPAY ==
--- NOTE | ~2022-06-07 | CT_ITS ---
EXAMINATION: CT ABDOMEN AND PELVIS WITH CONTRAST CLINICAL INFORMATION: Unspecified abdominal pain. COMPARISON: X-ray abdomen 06/24/2018. TECHNIQUE: Multidetector volumetric images were obtained from the superior aspect of the liver through the pubic symphysis following administration 85 mL of Omnipaque 350 intravenous contrast. Sagittal and coronal reformatted images were obtained on the technologist's workstation. Oral contrast: No This CT examination was performed using dose optimization techniques as appropriate, variously including the following: *Automated exposure control *Adjustment of mA and/or kV according to patient size (this includes techniques or standardized protocols for targeted exams where dose is matched to indication/reason for exam; i.e. extremities or head) *Use of iterative reconstruction technique DLP: 298 mGy-cm FINDINGS: LUNG BASES: The lung bases are clear. Heart size is normal. LIVER, GALLBLADDER, AND BILIARY TREE: The liver is normal in size, shape, and attenuation. No focal hepatic lesion or biliary ductal dilatation is present. The gallbladder is unremarkable with no evidence of radiopaque gallstones, gallbladder wall thickening, or obvious pericholecystic inflammatory changes. PANCREAS: Unremarkable. SPLEEN: Unremarkable. ADRENAL GLANDS: Unremarkable. KIDNEYS AND URETERS: The kidneys are normal in size, shape, and attenuation. No hydronephrosis, hydroureter, or calculi seen. No perinephric stranding. BLADDER: Unremarkable. GASTROINTESTINAL TRACT: There is scattered stool and gas seen throughout the colon without distention. The small bowel loops are normal caliber. Appendix is normal caliber. Stomach is nondistended. ABDOMINAL WALL: Tiny umbilical hernia containing fat. LYMPH NODES: Normal. VASCULAR: Unremarkable. PELVIC VISCERA: The uterus is anteverted and appears unremarkable. There is no free fluid. No abnormal pelvic or inguinal lymph nodes. OSSEOUS STRUCTURES: No aggressive lytic or sclerotic process. CT/CT abdomen pelvis w IV con IMPRESSION: No acute intra-abdominal process seen. Moderate constipation without obstruction. Fleischner guidelines were followed.
[2022-06-07] MEDS: iohexoL 350 MG/ML 100 ML INFUS..BTL IV (09:03)
== END 2022-06-07 08:09 | disposition home or self-care (01) ==
LOC: HO.CT 08:08
PROVIDERS: PCP Internal Medicine; Visit Provider Surgery
DX: R10.9 Unspecified abdominal pain (principal)
CPT/HCPCS: 74177; Q9967

== ENCOUNTER 2022-06-13 11:13 | Day surgery (SDC) | payer MEDICARE, OTHER, SELFPAY ==
--- NOTE | ~2022-06-13 | FL_ITS ---
EXAMINATION: XR FLUOROSCOPY WITH IMAGES CLINICAL INFORMATION: Medial branch radiofrequency. COMPARISON: None. TECHNIQUE: Fluoroscopy performed by Dr. Verdin. Fluoroscopy time: 0.4. Cumulative Dose: 7.72 mGy. DAP: 1.07 Gycm2. Images: 3. FINDINGS: There are 3 digital images obtained. There are needles positioned adjacent to L4, L5 and S1 right pedicles for radiofrequency ablation. Visualized bones are grossly unremarkable. The disc heights L5-S1 and L4-L5 disc level is preserved. FL/FL guidance in OR IMPRESSION: Fluoroscopy guidance was provided to referring physician during pain management.
[2022-06-13 11:57] VITALS: BP 121/73; PULSE 103; RESP 18; TEMP 36.7; O2SAT 98; BMI 28.3
[2022-06-13 13:25] VITALS: PULSE 108; RESP 16; TEMP 36.8; O2SAT 99
--- NOTE | 2022-06-13 14:36 | MHC.SHP ---
Pre-Procedural Eval Section A Date of Service: 06/13/22 The patient is an INPATIENT: No Changes since office visit: Yes Patient answered all questions The History & Physical has been completed within 30 days and I have reviewed it.: No Section B Chief Complaint: Lumbar spondylosis Relevant Family History (Specify if Yes): No Relevant Social History: None Present Medications: see Short Stay Collaborative assessment Medical History: No relevant PMH History of Previous Operations: No relevant previous surgery Allergies: Allergies Allergy/AdvReac Type Severity Reaction Status Date / Time No Known Allergies Allergy Verified 06/12/22 15:24 Review of Systems Sugical H&P ROS: Negative: Constitution, Cardiovascular and Respiratory Exam Surgical H&P Exam: Normal: HEENT, Normal: Heart and Normal: Lungs Plan Diagnosis/Plan: Unchanged I have reviewed the history and physical and performed a pertinent physical examination on my patient. No changes have occurred unless specified.
--- NOTE | 2022-06-13 14:41 | PM.OP ---
Brief Operative Note Date of Service: 06/13/22 Pre-op diagnosis: Lumbar spondylosis Post-op diagnosis: same Procedure: Radiofrequency ablation of the L3, L4 medial branches and the L5 dorsal ramus Surgeon: Narinder Verdin MD Anesthesia: local Was an [employer] Operator used for this Procedure?: No Estimated blood loss (mL): 2 Pathology: none sent Condition: stable Disposition: same day
--- NOTE | 2022-06-13 14:42 | W.PM.OPN ---
Operative Note Operative Note Date of Service: 06/13/22 Narrative: Radiofrequency lesioning medial branch nerves, Right L3, L4 medial branches and L5 dorsal ramus (L4/5 and L5/S1) (2 levels, 3 nerves) After obtaining written consent, pre-procedure blood pressure and heart rate were stable and recorded in the nursing record. The patient was placed in the prone position. The lumbar area was prepped with chloraprep and draped in sterile fashion. The skin over the target for each medial branch nerve was anesthetized with 0.75% lidocaine. An 18 gauge radiofrequency cannula was advanced to each target site under fluoroscopic guidance. No paresthesias were elicited with needle placement and aspiration was negative for heme and CSF. Impedences were verified under 600 ohms. Sensory testing (50 Hz) and then motor testing (2 Hz) confirmed needle placement at each site within the appropriate voltage thresholds. Each site was injected with 0.5 ml 2% preservative-free lidocaine. Radiofrequency lesioning was performed for 90 seconds at 80 deg Celcius. Each site was then injected with 0.5ml ropivacaine 0.5%. The needle was removed, skin cleansed and a sterile bandage was applied. The patient tolerated the procedure well and no complications were encountered. Following the procedure the patient's vital signs were stable. The patient was discharged home in good condition with post-procedural instructions. Time Out: Immediately prior to the procedure, the following was verbally confirmed that there is a signed consent form and that the correct patient, planned procedure, site and side are consistent with documentation and that necessary equipment and/or blood products are available prior to the start of the case. Complications: none EBL: <5 cc
== END 2022-06-13 13:51 | disposition home or self-care (01) ==
PROVIDERS: PCP Internal Medicine; Visit Provider Internal Medicine
PROC: (CPT 64635; principal; 2022-06-13 12:30)
DX: M47.816 Spondylosis without myelopathy or radiculopathy, lumbar region (principal); M54.51 Vertebrogenic low back pain; M47.812 Spondylosis without myelopathy or radiculopathy, cervical region; R73.01 Impaired fasting glucose; E78.00 Pure hypercholesterolemia, unspecified; R94.6 Abnormal results of thyroid function studies; R53.83 Other fatigue; F32.A Depression, unspecified; F41.1 Generalized anxiety disorder; G43.909 Migraine, unspecified, not intractable, without status migrainosus; G47.00 Insomnia, unspecified; Z79.899 Other long term (current) drug therapy; Z98.890 Other specified postprocedural states
CPT/HCPCS: 64635; 64636

== ENCOUNTER → 2022-06-14 13:09 | Outpatient (BNVA) | payer MEDICARE, OTHER, SELFPAY | PROVIDERS: PCP Internal Medicine; Visit Provider Surgery | DX: R10.9 Unspecified abdominal pain (principal) | CPT/HCPCS: 99212 ==

== ENCOUNTER 2022-06-27 06:15 | Outpatient (REF) | payer MEDICARE, SELFPAY ==
--- NOTE | ~2022-06-27 | FL_ITS ---
EXAMINATION: XR FLUOROSCOPY WITH IMAGES CLINICAL INFORMATION: M47.812 - Spondylosis without myelopathy or radiculopathy, cervical region COMPARISON: None. TECHNIQUE: Fluoroscopy performed by Dr. Narinder Verdin. Fluoroscopy time: 0.2 minutes. Cumulative Dose: 2.7 mGy. DAP: 0.290 Gy-cm2. Images: 3. FINDINGS: There are spinal needles overlying the left lateral masses cervical spine approximately C3, C4, and C5. There is contrast in the paraspinal soft tissues and nerve sheaths. No visible vascular communication. There is anterior cervical vertebral spurring at C5. FL/FL guidance in treatment room IMPRESSION: Fluoroscopy for pain management procedure.
== END 2022-06-27 06:16 | disposition home or self-care (01) ==
LOC: CF 06:15
PROVIDERS: Visit Provider Internal Medicine
DX: M47.812 Spondylosis without myelopathy or radiculopathy, cervical region (principal)
CPT/HCPCS: 64490; 64491

== ENCOUNTER → 2022-06-29 11:37 | Outpatient (BNVA) | payer MEDICARE, SELFPAY | PROVIDERS: PCP Internal Medicine; Visit Provider Internal Medicine | DX: M47.812 Spondylosis without myelopathy or radiculopathy, cervical region (principal) | CPT/HCPCS: Q3014 ==

== ENCOUNTER 2022-07-24 09:15 | Outpatient (REF) | payer MEDICARE, OTHER, SELFPAY ==
--- NOTE | ~2022-07-24 | US_ITS ---
EXAMINATION: US ABDOMEN LIMITED CLINICAL INFORMATION: Unspecified abdominal pain, rule out gallstones. COMPARISON: CT abdomen and pelvis with contrast 06/07/2022. X-ray abdomen KUB 06/24/2018. TECHNIQUE: Real-time imaging of the right upper quadrant abdominal viscera. FINDINGS: PANCREAS: Normal. LIVER: Normal. The liver is normal in size. The liver contour is normal. Parenchymal echogenicity is normal. No focal hepatic lesion. There is no intrahepatic biliary duct dilatation seen. GALLBLADDER: The gallbladder is physiologically distended. Multiple mobile gallstones are present. No evidence of gallbladder wall thickening or pericholecystic fluid. There are echogenic nonmobile multiple lesions along the inner gallbladder wall most likely adenomyomatosis. COMMON BILE DUCT: Normal in caliber measuring 0.6 cm in diameter. RIGHT KIDNEY: Normal. No hydronephrosis. No renal calculi or focal parenchymal lesions. The kidney measures 11.1 cm in maximum dimension. FREE FLUID: None. US/US abdomen limited IMPRESSION: 1. Cholelithiasis without wall thickening or tenderness in the right upper quadrant. 2. Likely adenomyomatosis. 3. Visualized pancreas, liver, CBD and right kidney is unremarkable.
== END 2022-07-24 09:16 | disposition home or self-care (01) ==
LOC: HO.US 09:15
PROVIDERS: Visit Provider Surgery
DX: R10.9 Unspecified abdominal pain (principal)
CPT/HCPCS: 76705

== ENCOUNTER → 2022-08-01 11:33 | Outpatient (BNVA) | payer MEDICARE, SELFPAY | PROVIDERS: PCP Internal Medicine; Visit Provider Surgery | DX: K80.20 Calculus of gallbladder without cholecystitis without obstruction (principal) | CPT/HCPCS: 99212 ==

== ENCOUNTER 2022-09-11 06:50 | Day surgery (SDC) | payer MEDICARE, OTHER, SELFPAY ==
[2022-09-04 15:11] VITALS: BMI 28.4
[2022-09-05 16:08] VITALS: BMI 28.3
--- NOTE | 2022-09-06 15:11 | HO.ANESPROP2 ---
Documented by User: Lauren Kraus NP 09/06/22 15:13 HPI - Anesthesia Eval Consult details Narrative: 62yo F for Cholecystectomy Laparoscopic possible open PMFSH Active Problems Active Problems: All Active Problems (Updated 09/05/22 @ 16:07 by Юлия Crews RN) Hyperhidrosis (Acute) Shoulder pain (Acute) Preoperative examination (Acute) Tympanic membrane perforation, marginal (Acute) Gallstones (Acute) History of gallstones (Acute) Right sided abdominal pain (Acute) Impaired fasting glucose (Acute) Lumbar spondylosis (Acute) Vertebrogenic low back pain (Acute) Lumbar radiculitis (Acute) Tympanic membrane perforation (Acute) Persistent fatigue after COVID-19 (Acute) Low TSH level (Acute) Overweight (BMI 25.0-29.9) (Acute) Anxiety (Acute) Insomnia (Acute) Complex cyst of left ovary (Acute) Urinary incontinence (Acute) GERD without esophagitis (Acute) Constipation (Acute) Migraine (Acute) Degenerative arthritis of cervical spine (Acute) Lumbar degenerative disc disease (Acute) Pure hypercholesterolemia (Acute) Depression (Acute) Past Medical History Medical History Anxiety Complex cyst of left ovary Constipation Degenerative arthritis of cervical spine Depression Fatigue Gallstones GERD without esophagitis History of gallstones History of tachycardia Impaired fasting glucose Insomnia Low back pain Low TSH level Lumbar degenerative disc disease Lumbar radiculitis Lumbar spondylosis Migraine Overweight (BMI 25.0-29.9) Persistent fatigue after COVID-19 PONV (postoperative nausea and vomiting) Pure hypercholesterolemia Right sided abdominal pain Tympanic membrane perforation Urinary incontinence Vertebrogenic low back pain Family History Family History Father Colon cancer Mother Bone cancer Surgical History Surgical History History of bladder surgery History of nasal surgery History of surgery History of tympanoplasty of left ear Hx of colonoscopy Social History Social History Housing: House Are you a primary health care coach to a significant other at home: No Do you presently have visiting nurse or other home services: No Alcohol intake: current Alcohol intake frequency: holidays/special occasions only Alcohol type: wine Patient Tobacco Use Status: Never used Tobacco Second Hand Smoke Exposure: Yes Use of substances other than those prescribed or required for medical reasons: No Have you been hit, kicked, punched, or otherwise hurt by someone within the past year? If so, by whom?: No Are you DNR?: No Advance Directives: No Advance Directives Information Provided: Yes Advance Directives on File: No Recently lost weight without trying: No Poor oral hygiene: No (permanent bridge upper, 2 crowns front upper) service: No Current occupational status: disabled Cognitive needs: No Hearing needs: No Vision needs: No Meds Allergies Allergy/AdvReac Type Severity Reaction Status Date / Time No Known Allergies Allergy Verified 09/05/22 11:22 Home Medications Medication Instructions Recorded Confirmed Last Taken Type Probiotic 1 cap PO DAILY 09/05/22 09/05/22 Unknown History multivitamin 1 tab PO DAILY 09/05/22 09/05/22 Unknown History Exam Exam Date and Time: September 06, 2022 1511 Height,Weight and Vital Signs: Height 5 ft 1 in Weight 68.039 kg Pertinent Lab Results Pertinent Lab Results: Laboratory Tests 06/04/22 06/04/22 16:38 16:38 WBC 6.7 Hgb 12.4 Hct 38.3 Plt Count 287 Sodium 140 Potassium 4.2 Chloride 106 Carbon Dioxide 24 BUN 12 D Creatinine 0.78 Narrative Narrative: EKG 11/2021 Vent. Rate : 103 BPM ? ? Atrial Rate : 103 BPM ?? P-R Int : 138 ms? QRS Dur : 084 ms ? ? QT Int : 328 ms ? ? ? P-R-T Axes : 041 053 036 degrees ?? QTc Int : 429 ms ? Sinus tachycardia Otherwise normal ECG When compared with ECG of 28-MAR-2009 11:44, No significant change was found Assessment and Plan Assessment Anesthesia Assessment: Chart Reviewed Documented by User: Kat Meadows MD 09/11/22 09:00 PMF Past Medical History Medical History Anxiety Complex cyst of left ovary Constipation Degenerative arthritis of cervical spine Depression Fatigue Gallstones GERD without esophagitis History of gallstones History of tachycardia Impaired fasting glucose Insomnia Low back pain Low TSH level Lumbar degenerative disc disease Lumbar radiculitis Lumbar spondylosis Migraine Overweight (BMI 25.0-29.9) Persistent fatigue after COVID-19 PONV (postoperative nausea and vomiting) Pure hypercholesterolemia Right sided abdominal pain Tympanic membrane perforation Urinary incontinence Vertebrogenic low back pain Functional capacity: independent ambulation Patient : No Family History Family History Father Colon cancer Mother Bone cancer Family history of problems with anesthesia: No Surgical History Surgical History History of bladder surgery History of nasal surgery History of surgery History of tympanoplasty of left ear Hx of colonoscopy History of Problems with Anesthesia: No Social History Social History Housing: House Are you a primary health care coach to a significant other at home: No Do you presently have visiting nurse or other home services: No Alcohol intake: current Alcohol intake frequency: holidays/special occasions only Alcohol type: wine Patient Tobacco Use Status: Never used Tobacco Second Hand Smoke Exposure: Yes Use of substances other than those prescribed or required for medical reasons: No Have you been hit, kicked, punched, or otherwise hurt by someone within the past year? If so, by whom?: No Are you DNR?: No Advance Directives: No Advance Directives Information Provided: Yes Advance Directives on File: No Recently lost weight without trying: No Poor oral hygiene: No (permanent bridge upper, 2 crowns front upper) service: No Current occupational status: disabled Cognitive needs: No Hearing needs: No Vision needs: No Meds Allergies Allergy/AdvReac Type Severity Reaction Status Date / Time No Known Allergies Allergy Verified 09/05/22 11:22 Home Medications Medication Instructions Recorded Confirmed Last Taken Type Probiotic 1 cap PO DAILY 09/05/22 09/05/22 Unknown History multivitamin 1 tab PO DAILY 09/05/22 09/05/22 Unknown History Exam Airway Mallampati Class: II TM Dist: >3cm Neck ROM: Full Heart: RRR Lungs: CTA Assessment and Plan Final Anesthetic Review Family History of Problems with Anesthesia: No History of Problems with Anesthesia: No ASA Class: II Final Preanesthetic Review: No Changes in Pt Med Stat, Meds/Allgs Chart Reviewed, Consent Obtained/Reviewed and Anes Risks/Benef Reviewed Patient Risk: Intermediate Procedure Risk: Intermediate Anesthetic Plan Anesthetic Plan: GA Disposition: Standard PACU
[2022-09-11] VITALS (16 sets, daily range): BP systolic 115–157; BP diastolic 55–86; PULSE 90–116; RESP 16–20; TEMP 36.7–37.4; O2SAT 95–907
[2022-09-11] MEDS: Scopolamine 1.5 MG PATCH.TD.3 TRANSDERMA (07:19)
[2022-09-11] MEDS: Lactated Ringers 1,000 ML 100 ML IVCONT (07:26)
--- NOTE | 2022-09-11 08:24 | MHC.SHP ---
Pre-Procedural Eval Section A Date of Service: 09/11/22 Section B Chief Complaint: Calculus of gallbladder without cholecystitis Details of Present Illness: Has had chronic right-sided abdominal pain, along with gallstones Relevant Family History (Specify if Yes): No Relevant Social History: None Present Medications: see Short Stay Collaborative assessment Medical History: Significant History (Chronic back pain, shoulder pain, impaired fasting glucose) Allergies: Allergies Allergy/AdvReac Type Severity Reaction Status Date / Time No Known Allergies Allergy Verified 09/05/22 11:22 Review of Systems Sugical H&P ROS: Negative: Constitution, Cardiovascular, Respiratory, Neurological, Psychiatric, Hem-Onc, Allergic/Immunologic, Gastrointestinal, Genitourinary, Musculoskeletal, Integumentary, Endocrine and Eyes/Ears/Nose/Throat Exam Surgical H&P Exam: Normal: HEENT, Normal: Heart, Normal: Lungs, Normal: Extremities, Normal: Abdomen, Normal: Skin and Normal: Neurological Plan Diagnosis/Plan: Unchanged I have reviewed the history and physical and performed a pertinent physical examination on my patient. No changes have occurred unless specified. Time Spent With Patient Time: Total time managing care of this patient today ____ minutes.
--- NOTE | 2022-09-11 10:19 | P.CONAN_ITS ---
[facility] Active Problems Active Problems: All Active Problems (Updated 09/05/22 @ 16:07 by Юлия Crews RN) Hyperhidrosis (Acute) Shoulder pain (Acute) Preoperative examination (Acute) Tympanic membrane perforation, marginal (Acute) Gallstones (Acute) History of gallstones (Acute) Right sided abdominal pain (Acute) Impaired fasting glucose (Acute) Lumbar spondylosis (Acute) Vertebrogenic low back pain (Acute) Lumbar radiculitis (Acute) Tympanic membrane perforation (Acute) Persistent fatigue after COVID-19 (Acute) Low TSH level (Acute) Overweight (BMI 25.0-29.9) (Acute) Anxiety (Acute) Insomnia (Acute) Complex cyst of left ovary (Acute) Urinary incontinence (Acute) GERD without esophagitis (Acute) Constipation (Acute) Migraine (Acute) Degenerative arthritis of cervical spine (Acute) Lumbar degenerative disc disease (Acute) Pure hypercholesterolemia (Acute) Depression (Acute) Past Medical History Medical History Anxiety Complex cyst of left ovary Constipation Degenerative arthritis of cervical spine Depression Fatigue Gallstones GERD without esophagitis History of gallstones History of tachycardia Impaired fasting glucose Insomnia Low back pain Low TSH level Lumbar degenerative disc disease Lumbar radiculitis Lumbar spondylosis Migraine Overweight (BMI 25.0-29.9) Persistent fatigue after COVID-19 PONV (postoperative nausea and vomiting) Pure hypercholesterolemia Right sided abdominal pain Tympanic membrane perforation Urinary incontinence Vertebrogenic low back pain Functional capacity: independent ambulation Patient : No Family History Family History Father Colon cancer Mother Bone cancer Family history of problems with anesthesia: No Surgical History Surgical History History of bladder surgery History of nasal surgery History of surgery History of tympanoplasty of left ear Hx of colonoscopy History of Problems with Anesthesia: No Social History Social History Housing: House Are you a primary certified social workers in health care to a significant other at home: No Do you presently have visiting nurse or other home services: No Alcohol intake: current Alcohol intake frequency: holidays/special occasions only Alcohol type: wine Patient Tobacco Use Status: Never used Tobacco Second Hand Smoke Exposure: Yes Use of substances other than those prescribed or required for medical reasons: No Have you been hit, kicked, punched, or otherwise hurt by someone within the past year? If so, by whom?: No Are you DNR?: No Advance Directives: No Advance Directives Information Provided: Yes Advance Directives on File: No Recently lost weight without trying: No Patient : No Poor oral hygiene: No (permanent bridge upper, 2 crowns front upper) service: No Current occupational status: disabled Cognitive needs: No Hearing needs: No Vision needs: No Meds Allergies Allergy/AdvReac Type Severity Reaction Status Date / Time No Known Allergies Allergy Verified 09/05/22 11:22 Active Medications: Current Medications Fentanyl (Fentanyl Citrate/Pf 100 Mcg/2 Ml Vial) 25 mcg IVPUSH Q5M PRN; Protocol PRN Reason: Pain, Moderate (Pain Scale 4-6 Lactated Ringer's (Lr) 1,000 mls @ 100 mls/hr IVCONT .Q10H GABRIELLA Last Admin: 09/11/22 07:26 Dose: 100 mls/hr Ondansetron HCl (Ondansetron Hcl 4 Mg/2 Ml Vial) 4 mg IVPUSH ONCE PRN PRN Reason: Nausea and Vomiting Home Medications Medication Instructions Recorded Confirmed Last Taken Type Probiotic 1 cap PO DAILY 09/05/22 09/05/22 Unknown History multivitamin 1 tab PO DAILY 09/05/22 09/05/22 Unknown History Exam Exam Date and Time: September 11, 2022 1019 Height,Weight and Vital Signs: Height 5 ft 1 in Weight 68.039 kg Last Vital Signs Temp 98.0 F 09/11/22 07:14 Pulse 116 H 09/11/22 07:14 Resp 16 09/11/22 07:14 BP 133/83 09/11/22 07:14 Pulse Ox 99 09/11/22 07:14 O2 Del Method 09/11/22 07:14 Airway Mallampati Class: II TM Dist: >3cm Neck ROM: Full Heart: RRR Lungs: CTA Assessment and Plan Final Anesthetic Review Family History of Problems with Anesthesia: No History of Problems with Anesthesia: No ASA Class: III Final Preanesthetic Review: No Changes in Pt Med Stat, Meds/Allgs Chart Reviewed, Consent Obtained/Reviewed and Anes Risks/Benef Reviewed Patient Risk: Intermediate Procedure Risk: Low Anesthetic Plan Anesthetic Plan: GA Disposition: Standard PACU
--- NOTE | 2022-09-11 10:26 | W.PM.OPN ---
Operative Note Operative Note Date of Service: 09/11/22 Narrative: Preop diagnosis: Gallstones with symptoms Postop diagnosis: Gallstones with symptoms Procedure: Laparoscopic cholecystectomy Surgeon: Niles Sky MD apartment assistant manager: ALINE Rivera Patient is a 62 year female with chronic right-sided abdominal pain with note of gallstones. In view of her symptoms that appear to be suggestive of gallbladder disease, she wanted to proceed with cholecystectomy. She understood the technique of laparoscopic cholecystectomy and possible open cholecystectomy. She was aware of the risks, benefits, and alternatives She was brought to the operating room placed supine under general anesthesia via endotracheal tube. The abdomen was prepped and draped in the usual sterile fashion. Surgical time-out was done. The patient received Cefotan 2 g IV preoperatively I made a short supraumbilical incision using blade 15. This was carried down through the full-thickness of the skin subcutaneous fat down to the fascia. The fascia was incised. The peritoneum was entered. Through this incision a Wilbur port was introduced. Pneumoperitoneum was introduced to a pressure of 15 mm hg. From here on the rest of the procedure was done under vision with the laparoscope. With laparoscopic visualization a proceeded to then insert a 5/12 mm port in the epigastric area below the subcostal margin. Two 5 mm ports were introduced a small seizures below the subcostal margin along the anterior axillary line and the midclavicular line. The patient was placed in head-up and [id number] position. The gallbladder was seen. This was supple although large and did not appear to be acutely inflamed. I was able to apply grasper at the fundus and this was used to retract the gallbladder cephalad. I applied another grasper towards the pouch of the gallbladder and this was used to retract the gallbladder laterally. At this point therefore the gallbladder was being retracted in a cephalad and lateral fashion to put the area of the cystic duct on stretch. We then proceeded to gently dissect adhesions off of the neck of the gallbladder until was able to see the cystic duct. I carefully dissected the cystic duct using the [place] dissector to confirm its confluence with the neck of the gallbladder. By doing so we are able to achieve a critical view of the hepato cystic triangle. I could see the cystic artery as well alongside this. With the confluence of the thick duct with the neck of the gallbladder confirmed, I proceeded to apply clips on the cystic duct. Two clips were applied distally. The cystic duct was transected between clips with Endo scissors. We then proceeded to gently divide through the hilum with electrocautery until I reached the interface of the gallbladder wall and the liver bed. Made an incision on the peritoneum the gallbladder using electrocautery and define a plane of dissection between the gallbladder wall and the liver bed along this incision. I the gallbladder from the liver using combination of blunt dissection with the tip of the spatula and electrocautery. We proceeded to continue with this manner of dissection until the entire gallbladder was completely from the liver bed. The gallbladder was was then retrieved using an endobag through the umbilical incision We reinserted all ports and re-insufflated. There was note of some bleeding from the liver bed. We had to cauterize this multiple times. I then applied Surgicel. We observed for about 2 minutes until hemostasis was confirmed. Once we had achieved hemostasis, I observed all other 4 quadrants and there was no other pathology nor any evidence of any bleeding are bowel injury I re-examined the area of dissection. This remained dry. We left the Surgicel in place. I had ligated earlier because of a little bit of bile leak from a small tear in the gallbladder Once hemostasis was confirmed, we desufflated to the ports. I removed all ports under vision the laparoscoped. The umbilical port was removed last. The fascia of the umbilical incision was closed with [id number] Dexon 0 stitch. Skin closure was achieved on all incisions using Dexon 4-0 subcuticular running sutures. Steri-Strips and dressings were applied. All incisions were infiltrated with Marcaine 0.5% for postop analgesia. The procedure was then completed The patient tolerated procedure well. There were no immediate complications. Initial and final counts of sponges and instruments were correct. Estimated blood loss was about 75 cc The patient was extubated without difficulty and transferred to the recovery room with stable vital signs.
[2022-09-11] MEDS: fentaNYL citrate/PF 100 MCG/2 ML VIAL 25 MCG IVPUSH ×4 (10:47→11:08)
[2022-09-11] MEDS: Acetaminophen 1,000 MG/100 ML PIGGYBACK 400 MG IV (10:47)
--- NOTE | 2022-09-11 11:17 | P.CONAN_ITS ---
[facility] Active Problems Active Problems: All Active Problems (Updated 09/05/22 @ 16:07 by Юлия Crews RN) Hyperhidrosis (Acute) Shoulder pain (Acute) Preoperative examination (Acute) Tympanic membrane perforation, marginal (Acute) Gallstones (Acute) History of gallstones (Acute) Right sided abdominal pain (Acute) Impaired fasting glucose (Acute) Lumbar spondylosis (Acute) Vertebrogenic low back pain (Acute) Lumbar radiculitis (Acute) Tympanic membrane perforation (Acute) Persistent fatigue after COVID-19 (Acute) Low TSH level (Acute) Overweight (BMI 25.0-29.9) (Acute) Anxiety (Acute) Insomnia (Acute) Complex cyst of left ovary (Acute) Urinary incontinence (Acute) GERD without esophagitis (Acute) Constipation (Acute) Migraine (Acute) Degenerative arthritis of cervical spine (Acute) Lumbar degenerative disc disease (Acute) Pure hypercholesterolemia (Acute) Depression (Acute) Past Medical History Medical History Anxiety Complex cyst of left ovary Constipation Degenerative arthritis of cervical spine Depression Fatigue Gallstones GERD without esophagitis History of gallstones History of tachycardia Impaired fasting glucose Insomnia Low back pain Low TSH level Lumbar degenerative disc disease Lumbar radiculitis Lumbar spondylosis Migraine Overweight (BMI 25.0-29.9) Persistent fatigue after COVID-19 PONV (postoperative nausea and vomiting) Pure hypercholesterolemia Right sided abdominal pain Tympanic membrane perforation Urinary incontinence Vertebrogenic low back pain Functional capacity: independent ambulation Family History Family History Father Colon cancer Mother Bone cancer Family history of problems with anesthesia: No Surgical History Surgical History History of bladder surgery History of nasal surgery History of surgery History of tympanoplasty of left ear Hx of colonoscopy History of Problems with Anesthesia: No Social History Social History Housing: House Are you a primary career technical education instructor to a significant other at home: No Do you presently have visiting nurse or other home services: No Alcohol intake: current Alcohol intake frequency: holidays/special occasions only Alcohol type: wine Patient Tobacco Use Status: Never used Tobacco Second Hand Smoke Exposure: Yes Use of substances other than those prescribed or required for medical reasons: No Have you been hit, kicked, punched, or otherwise hurt by someone within the past year? If so, by whom?: No Are you DNR?: No Advance Directives: No Advance Directives Information Provided: Yes Advance Directives on File: No Recently lost weight without trying: No Patient : No Poor oral hygiene: No (permanent bridge upper, 2 crowns front upper) service: No Current occupational status: disabled Cognitive needs: No Hearing needs: No Vision needs: No Meds Allergies Allergy/AdvReac Type Severity Reaction Status Date / Time No Known Allergies Allergy Verified 09/05/22 11:22 Active Medications: Current Medications Fentanyl (Fentanyl Citrate/Pf 100 Mcg/2 Ml Vial) 25 mcg IVPUSH Q5M PRN; Protocol PRN Reason: Pain, Moderate (Pain Scale 4-6 Lactated Ringer's (Lr) 1,000 mls @ 100 mls/hr IVCONT .Q10H GABRIELLA Last Admin: 09/11/22 07:26 Dose: 100 mls/hr Ondansetron HCl (Ondansetron Hcl 4 Mg/2 Ml Vial) 4 mg IVPUSH ONCE PRN PRN Reason: Nausea and Vomiting Ondansetron HCl (Ondansetron Hcl 4 Mg/2 Ml Vial) 4 mg IVPUSH ONCE PRN PRN Reason: Nausea and Vomiting Home Medications Medication Instructions Recorded Confirmed Last Taken Type Probiotic 1 cap PO DAILY 09/05/22 09/05/22 Unknown History multivitamin 1 tab PO DAILY 09/05/22 09/05/22 Unknown History Exam Exam Date and Time: September 11, 2022 1117 Height,Weight and Vital Signs: Height 5 ft 1 in Weight 68.039 kg Last Vital Signs Temp 99.3 F 09/11/22 10:33 Pulse 94 09/11/22 11:03 Resp 18 09/11/22 11:08 BP 137/77 09/11/22 11:03 Pulse Ox 97 09/11/22 11:03 O2 Del Method 09/11/22 11:03 Airway Mallampati Class: II TM Dist: >3cm Neck ROM: Full Heart: RRR Lungs: CTA Assessment and Plan Final Anesthetic Review Family History of Problems with Anesthesia: No History of Problems with Anesthesia: No ASA Class: III Final Preanesthetic Review: No Changes in Pt Med Stat and Consent Obtained/Reviewed Patient Risk: Intermediate Procedure Risk: Low Anesthetic Plan Anesthetic Plan: GA Disposition: Standard PACU
[2022-09-11] MEDS: oxyCODONE HCl Immed Release 5 MG TABLET 10 MG PO (11:18)
[2022-09-11] MEDS: HYDROmorphone HCl 0.5 MG/0.5 ML SYRINGE IVPUSH (11:33)
== END 2022-09-11 12:30 | disposition home or self-care (01) ==
PROVIDERS: PCP Internal Medicine; Visit Provider Surgery
PROC: 0FT44ZZ Resection of Gallbladder, Percutaneous Endoscopic Approach (ICD-10-PCS; CPT 47562; principal; 2022-09-11 08:40)
DX: K80.10 Calculus of gallbladder with chronic cholecystitis without obstruction (principal); K82.8 Other specified diseases of gallbladder; K21.9 Gastro-esophageal reflux disease without esophagitis; K59.00 Constipation, unspecified; R73.01 Impaired fasting glucose; R53.83 Other fatigue; Z79.899 Other long term (current) drug therapy; Z86.16 Personal history of COVID-19
CPT/HCPCS: 47562; 88304; J0131; J1100; J1170; J2250; J2405; J2795; J3010

== ENCOUNTER 2022-09-27 10:39 | Outpatient (REF) | payer MEDICARE, MEDICAID, SELFPAY ==
[2022-09-27 11:27] LABS: MANUAL DIFF FLAG NO
[2022-09-27 11:48] LABS: Basophils Absolute Auto 0.1 X10*3/uL (0.0-0.2); Basophils Percent Auto 1.1 % (0-2); Eosinophils Absolute Auto 0.2 X10*3/uL (0.0-0.4); Eosinophils Percent Auto 2.6 % (0-4); Hematocrit 35.9 % (37.0-47.0); Hemoglobin 11.9 g/dl (12.0-16.0); Imm Gran Abs Auto 0.01 X10*3/uL (0.00-0.03); Imm Gran Pct Auto 0.2 % (0.0-0.4); Lymphocytes Absolute Auto 2.7 X10*3/uL (1.2-4.9); Lymphocytes Percent Auto 42.9 % (20-40); Mean Corpuscular HGB Conc 33.1 g/dl (31.0-35.0); Mean Corpuscular Hemoglobin 30.2 pg (27.0-33.0); Mean Corpuscular Volume 91.1 fL (80.0-98.0); Mean Platelet Volume 8.5 fL (9.4-12.3); Monocytes Absolute Auto 0.5 X10*3/uL (0.1-1.2); Monocytes Percent Auto 7.8 % (2-11); Neutrophils Absolute Auto 2.9 x10*3/uL (2.0-8.3); Neutrophils Percent Auto 45.4 % (45-73); Platelet Count 357 X10*3/uL (160-400); Red Blood Count 3.94 X10*6/uL (4.20-5.50); Red Cell Distribution Width 12.5 % (11.0-16.0); White Blood Count 6.3 X10*3/uL (4.8-10.8)
[2022-09-27 12:24] LABS: Alanine Aminotransferase 29 U/L (0-31); Albumin Level 4.2 g/dL (3.5-5.0); Alkaline Phosphatase 81 U/L (39-117); Anion Gap 12 (12-20); Aspartate Amino Transferase 21 U/L (5-31); Bilirubin Total 0.4 mg/dL (0.0-1.0); Blood Urea Nitrogen 17 mg/dL (9-16); Calcium 9.3 mg/dL (8.4-10.2); Carbon Dioxide 26 mmol/L (22-29); Chloride 105 mmol/L (96-108); Cholesterol 189 mg/dL; Estimated Glomerular Filt Rate > 60; Glucose Fasting 90 mg/dL (60-99); HDL Cholesterol 51 mg/dL; LDL Cholesterol Calculated 110 mg/dl; Potassium 4.3 mmol/L (3.3-5.1); Sodium 139 mmol/L (135-145); Total Protein 7.1 g/dL (6.5-8.0); Triglycerides 143 mg/dL
[2022-09-27 12:42] LABS: Free T4 (Free Thyroxine) 0.87 ng/dL (0.71-1.85); Vitamin D 25-OH Total 38.3 ng/mL (>30)
== END 2022-09-27 10:40 | disposition home or self-care (01) ==
LOC: HO.LAB 10:39
PROVIDERS: PCP Internal Medicine; Referring Provider Internal Medicine; Visit Provider Physician Assistant Surgical
DX: E55.9 Vitamin D deficiency, unspecified (principal); R79.89 Other specified abnormal findings of blood chemistry; E78.00 Pure hypercholesterolemia, unspecified; I10 Essential (primary) hypertension; Z48.815 Encounter for surgical aftercare following surgery on the digestive system; Z90.49 Acquired absence of other specified parts of digestive tract; Z79.891 Long term (current) use of opiate analgesic
CPT/HCPCS: 36415; 80053; 80061; 82306; 84439; 84443; 85025; 99212

== ENCOUNTER → 2022-10-08 13:31 | Outpatient (BNVA) | payer MEDICARE, MEDICAID, SELFPAY | PROVIDERS: PCP Internal Medicine; Visit Provider Internal Medicine | DX: H72.92 Unspecified perforation of tympanic membrane, left ear (principal); M47.816 Spondylosis without myelopathy or radiculopathy, lumbar region | CPT/HCPCS: 99212 ==

== ENCOUNTER 2022-10-31 06:02 | Outpatient (REF) | payer MEDICARE, MEDICAID, SELFPAY ==
--- NOTE | ~2022-10-31 | FL_ITS ---
EXAMINATION: XR FLUOROSCOPY WITH IMAGES CLINICAL INFORMATION: M47.812 - Spondylosis without myelopathy or radiculopathy, cervical region COMPARISON: Fluoroscopic spot views cervical spine 06/27/2022 TECHNIQUE: Fluoroscopy Supervised By: Dr. Narinder Verdin. Fluoroscopy Time: 0.2 minutes. Cumulative Dose: 1.43 mGy. DAP: 0.1978 Gycm2. Images: 2. FINDINGS: There are spinal needles overlying the left lateral masses cervical spine approximately C2, C3, and C4. There is contrast in the paraspinal soft tissues and nerve sheaths. No visible vascular communication. FL/FL guidance in treatment room IMPRESSION: Fluoroscopy for pain management procedure.
== END 2022-10-31 06:03 | disposition home or self-care (01) ==
LOC: CF 06:02
PROVIDERS: Visit Provider Internal Medicine
DX: M47.812 Spondylosis without myelopathy or radiculopathy, cervical region (principal)
CPT/HCPCS: 64490; 64491

== ENCOUNTER 2022-12-29 08:09 | Outpatient (REF) | payer MEDICARE, MEDICAID, SELFPAY ==
[2022-12-29 08:22] LABS: MANUAL DIFF FLAG NO
[2022-12-29 08:33] LABS: Basophils Percent Auto 0.5 % (0-2); Eosinophils Absolute Auto 0.1 X10*3/uL (0.0-0.4); Eosinophils Percent Auto 1.9 % (0-4); Hematocrit 34.8 % (37.0-47.0); Hemoglobin 11.5 g/dl (12.0-16.0); Imm Gran Abs Auto 0.01 X10*3/uL (0.00-0.03); Imm Gran Pct Auto 0.2 % (0.0-0.4); Lymphocytes Percent Auto 47.8 % (20-40); Mean Corpuscular Hemoglobin 30.7 pg (27.0-33.0); Mean Corpuscular Volume 92.8 fL (80.0-98.0); Mean Platelet Volume 8.6 fL (9.4-12.3); Monocytes Absolute Auto 0.6 X10*3/uL (0.1-1.2); Monocytes Percent Auto 8.6 % (2-11); Neutrophils Absolute Auto 2.6 x10*3/uL (2.0-8.3); Platelet Count 243 X10*3/uL (160-400); Red Blood Count 3.75 X10*6/uL (4.20-5.50); Red Cell Distribution Width 13.7 % (11.0-16.0); White Blood Count 6.4 X10*3/uL (4.8-10.8)
[2022-12-29 09:04] LABS: Alanine Aminotransferase 107 U/L (0-31); Albumin Level 4.1 g/dL (3.5-5.0); Alkaline Phosphatase 72 U/L (39-117); Anion Gap 11 (12-20); Aspartate Amino Transferase 51 U/L (5-31); Bilirubin Total 0.5 mg/dL (0.0-1.0); Blood Urea Nitrogen 10 mg/dL (9-16); Carbon Dioxide 24 mmol/L (22-29); Chloride 111 mmol/L (96-108); Cholesterol 175 mg/dL; Estimated Glomerular Filt Rate > 60; Glucose Fasting 95 mg/dL (60-99); HDL Cholesterol 54 mg/dL; LDL Cholesterol Calculated 98 mg/dl; Potassium 3.8 mmol/L (3.3-5.1); Sodium 142 mmol/L (135-145); Total Protein 6.5 g/dL (6.5-8.0); Triglycerides 115 mg/dL
[2022-12-29 09:07] LABS: Appearance Urine Clear; Color Urine Yellow; Glucose Urine UA Negative (Negative); Leukocyte Esterase Urine Negative (Negative); Nitrite Urine Negative (Negative); Urine Blood Negative (Negative); Urine Ketones Negative (Negative); Urine Protein Negative (Neg-Trace)
[2022-12-29 09:19] LABS: Free T4 (Free Thyroxine) 0.91 ng/dL (0.71-1.85); Thyroid Stimulating Hormone 0.48 uIU/mL (0.32-4.0); Vitamin D 25-OH Total 52.4 ng/mL (>30)
== END 2022-12-29 08:10 | disposition home or self-care (01) ==
LOC: HO.LAB 08:09
PROVIDERS: PCP Internal Medicine; Visit Provider Internal Medicine
DX: I10 Essential (primary) hypertension (principal); R30.0 Dysuria; E78.00 Pure hypercholesterolemia, unspecified; E03.9 Hypothyroidism, unspecified; E55.9 Vitamin D deficiency, unspecified
CPT/HCPCS: 36415; 80053; 80061; 81003; 82306; 84439; 84443; 85025

== ENCOUNTER 2023-01-17 07:59 | Outpatient (REF) | payer MEDICARE, MEDICAID, SELFPAY ==
--- NOTE | ~2023-01-17 | US_ITS ---
EXAMINATION: US ABDOMEN COMPLETE CLINICAL INFORMATION: Other specified abnormal findings of blood chemistry. COMPARISON: Ultrasound abdomen limited dated 07/24/2022. CT abdomen and pelvis with intravenous contrast dated 06/07/2022. X-ray abdomen dated 06/24/2018. Ultrasound abdomen complete dated 03/17/2009. TECHNIQUE: Real-time imaging of the abdominal viscera. FINDINGS: PANCREAS: Normal. ABDOMINAL AORTA: The proximal, mid, and distal segments are normal in caliber. INFERIOR VENA CAVA: Visualized portions are normal. LIVER: The liver is normal in size. The liver contour is normal. Parenchymal echogenicity is normal. No focal hepatic lesion. There is mild intrahepatic biliary duct dilatation. GALLBLADDER: Surgically absent. COMMON BILE DUCT: Slightly dilated measuring 1.0 cm in diameter. RIGHT KIDNEY: Normal. No hydronephrosis. No renal calculi or focal parenchymal lesions. The kidney measures 9.0 cm in maximum dimension. LEFT KIDNEY: Normal. No hydronephrosis. No renal calculi or focal parenchymal lesions. The kidney measures 10.9 cm in maximum dimension. SPLEEN: Normal. The spleen measures 8.6 cm in maximum dimension. FREE FLUID: None. US/US abdomen complete IMPRESSION: Slightly dilated intrahepatic and extrahepatic bile ducts. The common bile duct measures 1.0 cm. Post cholecystectomy.
--- NOTE | ~2023-01-17 | XR_ITS ---
EXAMINATION: Bilateral knee x-ray CLINICAL INFORMATION: Pain COMPARISON: None. TECHNIQUE: 3 views of each knee FINDINGS: Right: Bone alignment is normal. No acute fracture or dislocation. Mild arthritis at the patellofemoral joint with small osteophytes. Osteophyte at the quadriceps tendon insertion to the patella. Well-corticated soft tissue ossification projecting over the posterior medial femoral tibial joint questionable for ossified intra-articular loose body. No joint effusion. Left: Bone alignment is normal. No fracture or dislocation. Small osteophytes at the patellofemoral joint. Small osteophyte at the quadriceps tendon insertion to the patella. No joint effusion. XR/XR knee LT 4V IMPRESSION: Right: Mild degenerative changes at the patellofemoral joint. Small ossification in the posterior medial femoral tibial joint questionable for ossified intra-articular loose body. Left: Mild degenerative changes at the patellofemoral joint.
--- NOTE | ~2023-01-17 | XR_ITS ---
EXAMINATION: Bilateral knee x-ray CLINICAL INFORMATION: Pain COMPARISON: None. TECHNIQUE: 3 views of each knee FINDINGS: Right: Bone alignment is normal. No acute fracture or dislocation. Mild arthritis at the patellofemoral joint with small osteophytes. Osteophyte at the quadriceps tendon insertion to the patella. Well-corticated soft tissue ossification projecting over the posterior medial femoral tibial joint questionable for ossified intra-articular loose body. No joint effusion. Left: Bone alignment is normal. No fracture or dislocation. Small osteophytes at the patellofemoral joint. Small osteophyte at the quadriceps tendon insertion to the patella. No joint effusion. XR/XR knee RT 4V IMPRESSION: Right: Mild degenerative changes at the patellofemoral joint. Small ossification in the posterior medial femoral tibial joint questionable for ossified intra-articular loose body. Left: Mild degenerative changes at the patellofemoral joint.
== END 2023-01-17 08:00 | disposition home or self-care (01) ==
LOC: HO.US 07:59
PROVIDERS: PCP Internal Medicine; Visit Provider Internal Medicine
DX: M25.561 Pain in right knee (principal); M25.562 Pain in left knee; R10.11 Right upper quadrant pain; R19.7 Diarrhea, unspecified; R79.89 Other specified abnormal findings of blood chemistry; Z90.49 Acquired absence of other specified parts of digestive tract
CPT/HCPCS: 73564; 76700

== ENCOUNTER → 2023-02-11 09:48 | Outpatient (BNVA) | payer MEDICARE, MEDICAID, SELFPAY | PROVIDERS: PCP Internal Medicine; Visit Provider Internal Medicine | DX: M47.816 Spondylosis without myelopathy or radiculopathy, lumbar region (principal); M47.812 Spondylosis without myelopathy or radiculopathy, cervical region | CPT/HCPCS: 99212 ==

== ENCOUNTER 2023-03-27 05:58 | Outpatient (REF) | payer MEDICARE, MEDICAID, SELFPAY ==
--- NOTE | ~2023-03-27 | FL_ITS ---
EXAMINATION: XR FLUOROSCOPY WITH IMAGES CLINICAL INFORMATION: Spondylosis without myelopathy or radiculopathy, lumbar region. COMPARISON: None available. TECHNIQUE: Fluoroscopy Supervised By: Dr. Narinder Verdin. Fluoroscopy Time: 0.2 minutes. Cumulative Dose: 6.57 mGy. DAP: 0.814 Gycm2. Images: 3. FINDINGS: There are 3 digital images obtained with needle positioned bilaterally at L3, L4 and L5 pedicles with contrast opacifying the adjacent soft tissues. FL/FL guidance in treatment room IMPRESSION: Fluoroscopy was provided to referring physician for pain management.
== END 2023-03-27 05:59 | disposition home or self-care (01) ==
LOC: CF 05:58
PROVIDERS: Visit Provider Internal Medicine
DX: M47.816 Spondylosis without myelopathy or radiculopathy, lumbar region (principal)
CPT/HCPCS: 64493; 64494; J1040

== ENCOUNTER 2023-03-27 07:24 | Outpatient (AMB) | payer MEDICARE, MEDICAID, SELFPAY ==
[2023-03-27 07:28] VITALS: BP 110/66; PULSE 91; RESP 14; O2SAT 98
--- NOTE | 2023-03-27 07:28 | MHC.OFFVIS ---
Intake Vital Signs 03/27/23 07:28 BP 110/66 Blood Pressure Location Rt brachial Position Sitting Respiration 14 Pulse 91 Pulse Source Pulse Oximeter Pulse Oximetry (%) 98 Oxygen Delivery Method Room Air Intake Visit Reasons: ángela Dx L3-L4-L5 MBB Allergies No Known Allergies Allergy (Verified 03/27/23 07:29) HPI ángela Dx L3-L4-L5 MBB HPI Details Patient presents for scheduled procedure. Denies any recent cough, cold, infection, fever or other significant changes in medical history since last office visit. [facility] Medical History Allergic rhinitis Anxiety Bilateral knee pain Complex cyst of left ovary Constipation Degenerative arthritis of cervical spine Depression Fatigue Gallstones GERD without esophagitis History of gallstones History of tachycardia Impaired fasting glucose Insomnia Low back pain Low TSH level Lumbar degenerative disc disease Lumbar radiculitis Lumbar spondylosis Migraine Overweight (BMI 25.0-29.9) Persistent fatigue after COVID-19 PONV (postoperative nausea and vomiting) Pure hypercholesterolemia Right sided abdominal pain Tympanic membrane perforation Urinary incontinence Vertebrogenic low back pain Surgical History History of bladder surgery History of nasal surgery History of surgery History of tympanoplasty of left ear Hx laparoscopic cholecystectomy (~09/11/22) Hx of colonoscopy Family History Father Colon cancer Mother Bone cancer Social History Housing: House Are you a primary customer care specialist to a significant other at home: No Do you presently have visiting nurse or other home services: No Alcohol intake: current Alcohol intake frequency: holidays/special occasions only Alcohol type: wine Patient Tobacco Use Status: Never used Tobacco e-Cigarette/Vaping Use: Never Used Second Hand Smoke Exposure: Yes service: No Current occupational status: disabled Cognitive needs: No Hearing needs: No Vision needs: No Physical Exam Vital Signs: Last Vital Signs Pulse 91 03/27/23 07:28 Resp 14 03/27/23 07:28 BP 110/66 03/27/23 07:28 Pulse Ox 98 03/27/23 07:28 Oxygen Delivery Method Room Air 03/27/23 07:28 Office Procedures Lumbar/Sacral Facet Inj Details: Lumbar Medial Branch Block, Bilateral L3, L4 medial branches and L5 Dorsal Ramus (2 levels, 3 nerves) After obtaining written consent, pre-procedure blood pressure and pulse were recorded and are in the nursing record for review. The patient was placed in a prone position. The respective lumbosacral area was prepped with chloraprep and draped in sterile fashion. The skin over the target medial branch nerves was anesthetized with 0.5% lidocaine. A 22 gauge 3.5 inch needle was inserted into the target medial branch nerve under fluoroscopic guidance. No paresthesias were elicited with needle placement and aspiration was negative for blood and CSF. Next, 0.2cc of omnipaque 180 was injected to verify positioning. Next 0.5 ml 0.5% ropivicaine was injected (0.5cc total per level). The identical procedure was performed at the remaining levels. The skin was cleansed and a sterile bandage was applied. Following the procedure the patient's vital signs were stable. The patient tolerated the procedure well and no complications were encountered. Following the procedure the patient's vital signs were stable. The patient was discharged home in good condition with post-procedural instructions. Time Out: Immediately prior to the procedure, the following was verbally confirmed that there is a signed consent form and that the correct patient, planned procedure, site and side are consistent with documentation and that necessary equipment and/or blood products are available prior to the start of the case. Complications: none EBL: <5 cc 35319 - with Fluoroscopy 02714 - second level, with Fluoroscopy (bilateral) Procedure code (CPT) selection complete Results Reviewed Results Reviewed: 03/27/23 08:06 Lidocaine HCl 2 % MPF [Xylocaine 2 % MPF] 5 ml .ROUTE .STK-MED ONE methylPREDNISolone acetate [DEPO-MedroL] 80 mg .ROUTE .STK-MED ONE Assessment & Plan Assessment & Plan (1) Lumbar spondylosis: Code(s): M47.816 - Spondylosis without myelopathy or radiculopathy, lumbar region Plan Patient is status post bilateral L3, L4 MB and L5 DR blocks with local anesthetic only. Patient tolerated procedure well and was discharged home in stable condition with discharge instructions. All questions were answered. We will follow-up via telephone or in clinic to assess response to therapy. A follow-up appointment was made during today's visit. Orders: Orders FL guidance in treatment room Today M47.816 - Spondylosis without myelopathy or radiculopathy, lumbar region Coding Level of Care Code Procedure Only Diagnoses Lumbar spondylosis M47.816 CPT Codes Facet Injection-Lumbar/Sacral - CPT: 67805 - with Fluoroscopy ([id number]) Facet Injection-Lumbar/Sacral - CPT: 11332 - second level, with Fluoroscopy ([id number])
== END 2023-03-27 08:32 | disposition home or self-care (01) ==
PROVIDERS: PCP Internal Medicine; Visit Provider Internal Medicine
DX: M47.816 Spondylosis without myelopathy or radiculopathy, lumbar region (principal)
CPT/HCPCS: 64493; 64494

== ENCOUNTER 2023-04-11 09:42 | Outpatient (REF) | payer MEDICARE, MEDICAID, SELFPAY ==
[2023-04-11 09:55] LABS: MANUAL DIFF FLAG NO
[2023-04-11 10:30] LABS: Basophils Percent Auto 0.4 % (0-2); Eosinophils Absolute Auto 0.1 X10*3/uL (0.0-0.4); Eosinophils Percent Auto 0.8 % (0-4); Hematocrit 38.1 % (37.0-47.0); Hemoglobin 12.6 g/dl (12.0-16.0); Imm Gran Abs Auto 0.01 X10*3/uL (0.00-0.03); Imm Gran Pct Auto 0.1 % (0.0-0.4); Lymphocytes Absolute Auto 2.4 X10*3/uL (1.2-4.9); Lymphocytes Percent Auto 31.3 % (20-40); Mean Corpuscular HGB Conc 33.1 g/dl (31.0-35.0); Mean Corpuscular Hemoglobin 30.6 pg (27.0-33.0); Mean Corpuscular Volume 92.5 fL (80.0-98.0); Mean Platelet Volume 8.7 fL (9.4-12.3); Monocytes Absolute Auto 0.6 X10*3/uL (0.1-1.2); Monocytes Percent Auto 8.3 % (2-11); Neutrophils Absolute Auto 4.5 x10*3/uL (2.0-8.3); Neutrophils Percent Auto 59.1 % (45-73); Platelet Count 265 X10*3/uL (160-400); Red Blood Count 4.12 X10*6/uL (4.20-5.50); Red Cell Distribution Width 13.2 % (11.0-16.0); White Blood Count 7.6 X10*3/uL (4.8-10.8)
[2023-04-11 11:13] LABS: Alanine Aminotransferase 57 U/L (0-31); Albumin Level 4.3 g/dL (3.5-5.0); Alkaline Phosphatase 55 U/L (39-117); Anion Gap 17 (12-20); Aspartate Amino Transferase 33 U/L (5-31); Bilirubin Total 0.6 mg/dL (0.0-1.0); Blood Urea Nitrogen 12 mg/dL (9-16); Calcium 9.6 mg/dL (8.4-10.2); Carbon Dioxide 22 mmol/L (22-29); Chloride 106 mmol/L (96-108); Cholesterol 228 mg/dL; Estimated Glomerular Filt Rate > 60; Glucose Fasting 109 mg/dL (60-99); HDL Cholesterol 60 mg/dL; LDL Cholesterol Calculated 139 mg/dl; Potassium 3.8 mmol/L (3.3-5.1); Sodium 141 mmol/L (135-145); Total Protein 7.4 g/dL (6.5-8.0); Triglycerides 148 mg/dL
[2023-04-11 11:34] LABS: Free T4 (Free Thyroxine) 0.94 ng/dL (0.71-1.85); Thyroid Stimulating Hormone 0.18 uIU/mL (0.32-4.0)
== END 2023-04-11 09:43 | disposition home or self-care (01) ==
LOC: HO.LAB 09:42
PROVIDERS: PCP Internal Medicine; Visit Provider Internal Medicine
DX: I10 Essential (primary) hypertension (principal); R79.89 Other specified abnormal findings of blood chemistry; E78.00 Pure hypercholesterolemia, unspecified
CPT/HCPCS: 36415; 80053; 80061; 84439; 84443; 85025

== ENCOUNTER 2023-04-16 14:17 | Outpatient (AMB) | payer MEDICARE, MEDICAID, SELFPAY ==
--- NOTE | 2023-04-16 14:21 | A.OFFPC_ITS ---
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 Accompanied by: Self / Same As Patient Allergies No Known Allergies Allergy (Verified 04/16/23 19:15) Medication List - Last Reconciled 04/16/23 by Richar Verma MD cetirizine 10 mg PO DAILY PRN 90 days cyclobenzaprine 10 mg PO TID PRN gabapentin 600 mg PO TID 30 days lorazepam 1 mg PO BEDTIME PRN 30 days multivitamin 1 tab PO DAILY omeprazole 20 mg PO DAILY oxycodone-acetaminophen 5-325 mg 1 tab PO Q6H PRN 28 days paroxetine HCl 20 mg PO DAILY 30 days [Probiotic 1 cap PO DAILY] rosuvastatin 5 mg PO .every other day 60 days topiramate 25 mg PO BEDTIME trazodone 50 mg PO BEDTIME PRN 30 days zolpidem 10 mg PO BEDTIME PRN 30 days Tobacco use date assessed: 04/16/23 Dental Screening Dental Screen Date: 04/16/23 Did you have a dental visit in the last 12 months?: Yes Did you have a dental problem in the last 6 months where you did not have access to dental care?: No Was dental information given to patient?: Patient has dentist HPI 3 month f/u HPI Details Patient comes in today for her follow up visit States that she feels okay She denies any dizziness; still has on and off headaches Denies any chest pains, no increased SOB No nausea/vomiting, no abdominal pain No change in bowel habits noted States that her chronic neck pain, low back pain and joint pains remain adequately controlled on her current Rx Had her follow up labs done a few days ago - to discuss her results Would also like to know how her US done a couple of months ago came out [facility] Medical History Allergic rhinitis Anxiety Bilateral knee pain Complex cyst of left ovary Constipation Degenerative arthritis of cervical spine Depression Fatigue Gallstones GERD without esophagitis History of gallstones History of tachycardia Impaired fasting glucose Insomnia Low back pain Low TSH level Lumbar degenerative disc disease Lumbar radiculitis Lumbar spondylosis Migraine Overweight (BMI 25.0-29.9) Persistent fatigue after COVID-19 PONV (postoperative nausea and vomiting) Pure hypercholesterolemia Right sided abdominal pain Tympanic membrane perforation Urinary incontinence Vertebrogenic low back pain Surgical History History of bladder surgery History of nasal surgery History of surgery History of tympanoplasty of left ear Hx laparoscopic cholecystectomy (~09/11/22) Hx of colonoscopy Family History Father Colon cancer Mother Bone cancer Social History Housing: House Are you a primary veterinarian laboratory animal care to a significant other at home: No Do you presently have visiting nurse or other home services: No Alcohol intake: current Alcohol intake frequency: holidays/special occasions only Alcohol type: wine Patient Tobacco Use Status: Never used Tobacco e-Cigarette/Vaping Use: Never Used Second Hand Smoke Exposure: Yes service: No Current occupational status: disabled Cognitive needs: No Hearing needs: No Vision needs: No Questionnaire PHQ-9 Over the last 2 weeks, how often have you been bothered by any of the following problems? 1. Little interest or pleasure in doing things: several days 2. Feeling down, depressed, or hopeless: several days 3. Trouble falling or staying asleep, or sleeping too much: several days 4. Feeling tired or having little energy: several days 5. Poor appetite or overeating: not at all 6. Feeling bad about yourself - or that you are a failure or have let yourself or your family down: not at all 7. Trouble concentrating on things, such as reading the newspaper or watching television: not at all 8. Moving or speaking so slowly that other people could have noticed. Or the opposite - being so fidgety or restless that you have been moving around a lot more than usual: not at all 9. Thoughts that you would be better off or of hurting yourself in some way: not at all Total score: 4 Depression Screening Interpretation: Positive Depression Screening Follow-up: Existing condition and In treatment 94212 - PHQ-9 Billing: Yes Source: Developed by Drs. Angel Anthony, Clau Saleh, Guzman Moreno and colleagues, with an educational maria d from [employer]. Thrive Questionnaire Date Thrive assessed: 04/16/23 I am a: Patient What is your living situation today?: I have a steady place to live Within the past 12 months, did the food you bought not last and you didn't have the money to get more?: Never true Within the past 12 months, did you worry whether your food would run out before you got money to buy more?: Never true Do you have trouble paying for medicines?: No Do you have trouble getting transportation to medical appointments?: No Do you have trouble paying your heating and electricity bill?: No Do you have trouble taking care of your child, family member or friend?: No Do you have trouble with day-to-day activities such as bathing, preparing meals, shopping, managing finances, etc.?: No Are you currently unemployed and looking for a job?: No Are you interested in more education?: No Please select the resources that you would like help with: None Currently or been in a relationship where the following occur: no concerns reported AUDIT C Alcohol Use Questionnaire (AUDIT-C) 1. How often do you have a drink containing alcohol?: Monthly or less 2. How many drinks containing alcohol do you have on a typical day when you are drinking?: 1 or 2 3. How often do you have six or more drinks on one occasion?: Never Total Score: 1 Score Reviewed/Action Taken: Yes ACE-7 AMB Questionnaire ACE-7 Date ACE - 7 assessed: 04/16/23 Feeling nervous, anxious, or on edge: 0 = Not at all Not being able to stop or control worryin = Not at all Worrying too much about different things: 0 = Not at all Trouble relaxin = Not at all Being so restless that it is hard to sit still: 0 = Not at all Becoming easily annoyed or irritable: 0 = Not at all Feeling afraid as if something awful might happen: 0 = Not at all Total ACE-7 score (0-4 normal; 5-9 mild; 10-14 moderate; 15-21 severe): 0 Source: Developed by Clau Lozano Kurt Kroenke and colleagues, with an educational maria d from [employer]. ACE-7 Assessment Billing ACE-7 Assessment Tool: ACE-7 Assessment 79479 Review of Systems Const Denies chills, Reports difficulty sleeping, Reports fatigue, Denies fever(s) and Reports headache(s) (on and off) ENT Denies dysphagia, Denies dizziness, Denies otalgia, Reports headache(s) (on and off), Reports hearing loss, Reports neck pain (chronic), Reports tinnitus (left ear) and Denies sore throat Card Denies chest pain, Denies palpitations and Denies dyspnea Resp Denies cough and Denies dyspnea GI Denies abdominal pain, Denies constipation, Denies dysphagia, Denies heartburn, Reports loose stools (recurrent), Denies nausea and Denies vomiting Denies nocturia and Denies dysuria Musc Reports back pain (over the lumbar spine - chronic), Reports arthralgias (over both knees) and Reports neck pain (chronic) Neuro Denies dizziness and Reports headache(s) (on and off) Psych Reports depression (increasing) Endo Reports fatigue and Denies palpitations Physical exam (Primary Care) Vital Signs: Last Vital Signs Pulse 93 04/16/23 14:22 BP 122/86 04/16/23 14:22 Pulse Ox 98 04/16/23 14:22 Oxygen Delivery Method Room Air 04/16/23 14:22 BMI result Body Mass Index 26.9 Tobacco/Smoking Status: Tobacco use Status Tobacco use date assessed 04/16/23 04/16/23 14:27 Patient Tobacco Use Status Never used Tobacco 04/16/23 14:27 e-Cigarette/Vaping Use Never Used 04/16/23 14:27 PHQ-9: PHQ-9 Score PHQ-9: Total score 4 04/16/23 15:08 Depression Screening Interpretation: Positive Depression Screening Follow-up: Existing condition and In treatment Thrive Assessment: Date of Thrive Assessment Date Thrive assessed 04/16/23 04/16/23 14:27 Currently or been in a relationship where the following occur: no concerns reported Const General: no acute distress and alert Orientation/consciousness: patient oriented x3 HENMT Throat: Yes posterior oropharynx normal and Yes tonsils normal (no TP congestion noted) Neck Neck: Yes no lymphadenopathy and Yes tender (over the back of the neck - chronic) Resp Auscultation: clear to auscultation bilaterally, no rales and no wheezes Cardio Rate: regular rate Rhythm: regular rhythm Heart sounds: no murmurs GI Palpation (GI): Soft to palpation, Tenderness to palpation present (GI) (mild ) in the RUQ, no guarding, not rigid, No hepatosplenomegaly present and No Rebound tenderness present Back/Spine/Pelvis Cervical Spine: Cervical spine tenderness Thoracic/Lumbar Spine: lumbar spinal tenderness Neuro General: patient oriented x3 Extrem General: Yes no clubbing, cyanosis or edema Right lower extremity: knee Details: tenderness and crepitus; no swelling Left lower extremity: knee Details: tenderness and crepitus; no swelling Results Reviewed Results Reviewed: Laboratory Tests 04/11/23 04/11/23 09:53 09:53 WBC 7.6 Hgb 12.6 Hct 38.1 Plt Count 265 Sodium 141 Potassium 3.8 Creatinine 0.80 Estimated GFR > 60 Fasting Glucose 109 H Calcium 9.6 D AST 33 H ALT 57 H Triglycerides 148 Cholesterol 228 LDL Cholesterol, Calc 139 HDL Cholesterol 60 TSH 0.18 L Free T4 0.94 Assessment and Plan Assessment & Plan (1) Pure hypercholesterolemia: Code(s): E78.00 - Pure hypercholesterolemia, unspecified Plan: Results of her labs done a few days ago reviewed and discussed with patient - lipids have increased from previous Reinforced low cholesterol diet Atorvastatin 10 mg QD was previously held due to her elevated LFTs; will now D/C Atorvastatin and start patient on Rosuvastatin 5 mg QOD for now Will recheck her labs in 3 months for follow-up (2) Lumbar degenerative disc disease: Code(s): M51.36 - Other intervertebral disc degeneration, lumbar region Plan: Reinforced activity and weight lifting restrictions to avoid aggravating her back pain Continue?Cyclobenzaprine?10 mg 3 times a day as needed and?Oxycodone- Acetaminophen?5-325 mg 1 tablet every 6 hours as needed?as well as Gabapentin to 600 mg TID Follow up with pain management as scheduled; has been receiving injections into her lower back recently with some relief of her symptoms Is S/P RFA of the lumbar spine in February 2022 and diagnostic MBB of the cervical spine in June 2022 - states that her chronic pains have improved with ablation Tx (3) Degenerative arthritis of cervical spine: Code(s): M47.812 - Spondylosis without myelopathy or radiculopathy, cervical region Qualifiers: Spinal osteoarthritis complication: unspecified spinal osteoarthritis Qualified Code(s): M47.812 - Spondylosis without myelopathy or radiculopathy, cervical region Plan: States that her current medications help keep her neck pain manageable S/P RFA of the lumbar spine in February 2022 and diagnostic MBB of the cervical spine in June 2022 with (+) pain relief Follow up with pain management as scheduled (4) Migraine: Code(s): G43.909 - Migraine, unspecified, not intractable, without status migrainosus Qualifiers: Intractability: not intractable Migraine type: unspecified Status migrainosus presence: without status migrainosus Qualified Code(s): G43.909 - Migraine, unspecified, not intractable, without status migrainosus Plan: Reinforced avoidance of migraine triggers Continue Topiramate 50 mg 2 tablets once a day at bedtime for headache prophylaxis Continue Fioricet PRN Has been advised by Neurology in the past that her headaches are most likely multifactorial is and are not just simple migraine headaches and will most likely require a multifaceted approach involving medical as well as behavioral therapy and intervention -? was advised to continue to follow-up with her psychiatrist for this as well Follow up with neurology as scheduled (5) Constipation: Code(s): K59.00 - Constipation, unspecified Qualifiers: Constipation type: unspecified constipation type Qualified Code(s): K59.00 - Constipation, unspecified Plan: Most likely opioid-induced Encouraged increased oral fluids and dietary fiber Abdominal x-rays done a couple of years ago came out normal Continue Senna 8.6 mg 1-2 tablets daily at bedtime as needed (6) Allergic rhinitis: Code(s): J30.9 - Allergic rhinitis, unspecified Qualifiers: Allergic rhinitis seasonality: unspecified Allergic rhinitis trigger: unspecified Qualified Code(s): J30.9 - Allergic rhinitis, unspecified Plan: Continue Cetirizine 10 mg QD PRN (7) GERD without esophagitis: Code(s): K21.9 - Gastro-esophageal reflux disease without esophagitis Plan: Dietary restrictions reinforced Continue Omeprazole 20 mg QD (8) Low TSH level: Code(s): R79.89 - Other specified abnormal findings of blood chemistry Plan: Serum TSH is still low but her free T4 level is normal on her recent labs Patient is clinically euthyroid Will continue to monitor her TFTs regularly for now (9) Elevated LFTs: Comment: S/P lap gerald in September 2022 Code(s): R79.89 - Other specified abnormal findings of blood chemistry Plan: Improving - may have been related to her cholecystitis earlier this year Her liver appeared normal on abdominal US done in July 2022 Repeat abdominal US done in January 2023 also came out normal Will continue to monitor her LFTs regularly (10) Bilateral knee pain: Code(s): M25.561 - Pain in right knee; M25.562 - Pain in left knee Qualifiers: Chronicity: unspecified Qualified Code(s): M25.561 - Pain in right knee; M25.562 - Pain in left knee Plan: Bilateral knee x-rays done in January 2023 revealed (+) mild degenerative changes in the patellofemoral areas in both knees Will consider referring her to orthopedics for further management if her knee pain progresses (11) Urinary incontinence: Code(s): R32 - Unspecified urinary incontinence Qualifiers: Urinary Incontinence type: unspecified incontinence Qualified Code(s): R32 - Unspecified urinary incontinence Plan: Follow up with urology (Dr.? Back) as scheduled (12) Complex cyst of left ovary: Code(s): N83.292 - Other ovarian cyst, left side Plan: Is being followed by [facility] at [facility] regularly for this - her cyst has been < 1 cm and has remained stable in size over the past 2-3 years (likely a dermoid cyst) and will continue surveillance with regular ultrasound and CA-125 measurement (13) Insomnia: Code(s): G47.00 - Insomnia, unspecified Qualifiers: Insomnia type: unspecified Qualified Code(s): G47.00 - Insomnia, unspecified Plan: Sleep hygiene reinforced Continue Zolpidem 10 mg once a day at bedtime as needed and Trazodone 50 mg Q HS PRN only (14) Anxiety: Code(s): F41.9 - Anxiety disorder, unspecified Plan: Continue Lorazepam 1 mg daily at bedtime as needed (15) Depression: Code(s): F32.9 - Major depressive disorder, single episode, unspecified Qualifiers: Active/Remission status: currently active Depression Type: major depressive disorder Major depression episode severity: unspecified Major depression recurrence: recurrent Qualified Code(s): F33.9 - Major depressive disorder, recurrent, unspecified Plan: Continue Paroxetine 20 mg Q AM Follow-up with Psychiatry as scheduled (16) Overweight (BMI 25.0-29.9): Code(s): E66.3 - Overweight Plan: Reinforced diet/exercise as tolerated/lose weight Plan Follow up in 3 months Orders: Orders Complete Blood Count Auto Diff 3 Months I10 - Essential (primary) hypertension Comprehensive [place]. Panel Fast 3 Months E78.00 - Pure hypercholesterolemia, unspecified Lipid Panel 3 Months E78.00 - Pure hypercholesterolemia, unspecified UA CC w/rflx Micro + Cult 3 Months R30.0 - Dysuria Vitamin D 25-OH Total 3 Months E55.9 - Vitamin D deficiency, unspecified Free T4 (Free Thyroxine) 3 Months R79.89 - Other specified abnormal findings of blood chemistry Thyroid Stimulating Hormone 3 Months R79.89 - Other specified abnormal findings of blood chemistry Medications: New rosuvastatin 5 mg PO .every other day 30 tabs 2RF 60 days E78.00 - Pure hypercholesterolemia, unspecified Discontinued atorvastatin Discontinued Reason: Doctor's Order 10 mg PO DAILY 90 days 90 tabs 1RF Coding Level of Care Code Est Pt Level 4 (90919) Diagnoses Pure hypercholesterolemia E78.00 Lumbar degenerative disc disease M51.36 Degenerative arthritis of cervical spine M47.812 Spinal osteoarthritis complication: unspecified spinal osteoarthritis Migraine G43.909 Intractability: not intractable Migraine type: unspecified Status migrainosus presence: without status migrainosus Constipation K59.00 Constipation type: unspecified constipation type Allergic rhinitis J30.9 Allergic rhinitis seasonality: unspecified Allergic rhinitis trigger: unspecified GERD without esophagitis K21.9 Low TSH level R79.89 Elevated LFTs R79.89 Bilateral knee pain M25.561; M25.562 Chronicity: unspecified Urinary incontinence R32 Urinary Incontinence type: unspecified incontinence Complex cyst of left ovary N83.292 Insomnia G47.00 Insomnia type: unspecified Anxiety F41.9 Depression F33.9 Active/Remission status: currently active Depression Type: major depressive disorder Major depression episode severity: unspecified Major depression recurrence: recurrent Overweight (BMI 25.0-29.9) E66.3 Additional Codes ACE-7 Assessment Billing - ACE-7 Assessment Tool: ACE-7 Assessment 42889 ([id number])
[2023-04-16 14:22] VITALS: BP 122/86; PULSE 93; O2SAT 98; BMI 26.9
== END 2023-04-16 15:14 | disposition home or self-care (01) ==
PROVIDERS: Visit Provider Internal Medicine
DX: G43.909 Migraine, unspecified, not intractable, without status migrainosus (principal); K21.9 Gastro-esophageal reflux disease without esophagitis; F33.9 Major depressive disorder, recurrent, unspecified; F41.9 Anxiety disorder, unspecified; E78.00 Pure hypercholesterolemia, unspecified; M51.36 Other intervertebral disc degeneration, lumbar region; M47.812 Spondylosis without myelopathy or radiculopathy, cervical region; K59.00 Constipation, unspecified; J30.9 Allergic rhinitis, unspecified; R79.89 Other specified abnormal findings of blood chemistry; M25.561 Pain in right knee; M25.562 Pain in left knee
CPT/HCPCS: 99214

== ENCOUNTER 2023-06-12 11:46 | Outpatient (REF) | payer MEDICARE, MEDICAID, SELFPAY | END 2023-06-12 11:47 | disposition home or self-care (01) | LOC: HO.MAMMO 11:46 | PROVIDERS: PCP Internal Medicine; Visit Provider Internal Medicine | DX: Z12.31 Encounter for screening mammogram for malignant neoplasm of breast (principal) | CPT/HCPCS: 77063; 77067 ==

== ENCOUNTER → 2023-06-12 12:00 | Outpatient (BNV) | payer MEDICARE, MEDICAID, SELFPAY | PROVIDERS: PCP Internal Medicine; Visit Provider Radiology Diagnostic Radiology | DX: Z12.31 Encounter for screening mammogram for malignant neoplasm of breast (principal) | CPT/HCPCS: 77063; 77067 ==

== ENCOUNTER 2023-06-20 13:20 | Outpatient (AMB) | payer MEDICARE, MEDICAID, SELFPAY ==
--- NOTE | 2023-06-20 13:25 | A.OFFVIS_ITS ---
Intake Vital Signs 06/20/23 13:26 Height 5 ft 1 in Weight 139 lb BMI 26.3 BP 108/62 Blood Pressure Location Lt brachial Position Sitting Pulse 106 H Intake Visit Reasons: Recall colonoscopy 2018 Intake Note: This patient presents for a recall colonoscopy screening. Patient c/o; last colonoscopy 2018, reports no rectal bleeding, reports pain when has diarrhea, reports no constipation. 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 Accompanied by: Daughter Allergies No Known Allergies Allergy (Verified 06/20/23 13:32) Medication List - Last Reconciled 06/20/23 by Niles Sky MD cetirizine 10 mg PO DAILY PRN 90 days cyclobenzaprine 10 mg PO TID PRN gabapentin 600 mg PO TID 30 days lorazepam 1 mg PO BEDTIME PRN 30 days multivitamin 1 tab PO DAILY omeprazole 20 mg PO DAILY oxycodone-acetaminophen 5-325 mg 1 tab PO Q6H PRN 28 days paroxetine HCl 20 mg PO DAILY 30 days [Probiotic 1 cap PO DAILY] rosuvastatin 5 mg PO .every other day 60 days sodium,potassium,mag sulfates 17.5-3.13-1.6 gram (Suprep Bowel Prep Kit) DILUTE; drink full amount early evening before AND next morning at least 2 hr before procedure; follow w 960 mL water PO topiramate 25 mg PO BEDTIME trazodone 50 mg PO BEDTIME PRN 30 days zolpidem 10 mg PO BEDTIME PRN 30 days HPI Recall colonoscopy 2018 HPI Details 60-year-old female referred for a follow -up colonoscopy. She has a k nown family history of colon cancer. Her last colonoscopy was in 2009 and this was unremarkable. She undergoes screening colonoscopy every 5 years shows is due this year She denies any significant GI complaints at this time. Her father was diagnosed to have colon cancer at age of 62. [facility] Medical History (Updated 06/20/23 @ 13:32 by Niles Sky MD) Family history of colon cancer Bilateral knee pain Allergic rhinitis Low back pain Fatigue History of tachycardia PONV (postoperative nausea and vomiting) Gallstones History of gallstones Right sided abdominal pain Impaired fasting glucose Lumbar spondylosis Vertebrogenic low back pain Lumbar radiculitis Tympanic membrane perforation Persistent fatigue after COVID-19 Low TSH level Overweight (BMI 25.0-29.9) Anxiety Insomnia Complex cyst of left ovary Urinary incontinence GERD without esophagitis Constipation Migraine Degenerative arthritis of cervical spine Lumbar degenerative disc disease Pure hypercholesterolemia Depression Surgical History Hx laparoscopic cholecystectomy (~09/11/22) Hx of colonoscopy History of tympanoplasty of left ear History of surgery History of nasal surgery History of bladder surgery Family History Father Colon cancer Mother Bone cancer Social History Housing: House Are you a primary home care nurse to a significant other at home: No Do you presently have visiting nurse or other home services: No Alcohol intake: current Alcohol intake frequency: holidays/special occasions only Alcohol type: wine Patient Tobacco Use Status: Never used Tobacco e-Cigarette/Vaping Use: Never Used Second Hand Smoke Exposure: Yes service: No Current occupational status: disabled Cognitive needs: No Hearing needs: No Vision needs: No Review of Systems Const Denies chills and Denies fever(s) ENT Reports neck pain Card Denies chest pain, Denies dyspnea and Denies dyspnea on exertion Resp Denies cough, Denies dyspnea and Denies dyspnea on exertion GI Denies hematochezia and Denies change in bowel habits Denies hematuria Musc Reports back pain, Reports myalgias, Denies limited range of motion and Reports neck pain Neuro Denies focal weakness and Denies convulsions Psych Denies depression and Denies mood swings Physical Exam Const General: comfortable and no acute distress Orientation/consciousness: patient oriented x3 Neck Neck: Yes no lymphadenopathy Resp Auscultation: clear to auscultation bilaterally Cardio Rhythm: regular rhythm GI Palpation (GI): Soft to palpation, nontender and no guarding Neuro General: patient oriented x3 Assessment & Plan Assessment & Plan (1) Family history of colon cancer: Code(s): Z80.0 - Family history of malignant neoplasm of digestive organs Plan: I reviewed with her the technique of colonoscopy for screening. I explained the risks including but not limited to bleeding, perforation, as well as the benefits and alternatives. She understands and wants to proceed. She states that she is still familiar with the procedure. Medications: New sodium,potassium,mag sulfates 17.5-3.13-1.6 gram (Suprep Bowel Prep Kit) DILUTE; drink full amount early evening before AND next morning at least 2 hr before procedure; follow w 960 mL water PO 354 mL 0RF pain Coding Level of Care Code Est Pt Level 3 (03280) Diagnoses Family history of colon cancer Z80.0
[2023-06-20 13:26] VITALS: BP 108/62; PULSE 106; BMI 26.3
== END 2023-06-20 13:58 | disposition home or self-care (01) ==
PROVIDERS: PCP Internal Medicine; Visit Provider Surgery
DX: Z80.0 Family history of malignant neoplasm of digestive organs (principal)
CPT/HCPCS: 99213

== ENCOUNTER → 2023-06-20 13:20 | Outpatient (BNVA) | payer MEDICARE, MEDICAID, SELFPAY | PROVIDERS: PCP Internal Medicine; Visit Provider Surgery | DX: Z01.818 Encounter for other preprocedural examination (principal); Z80.0 Family history of malignant neoplasm of digestive organs | CPT/HCPCS: 99212 ==

== ENCOUNTER 2023-07-12 06:17 | Day surgery (SDC) | payer MEDICARE, MEDICAID, SELFPAY ==
[2023-07-09 15:38] VITALS: BMI 26.3
[2023-07-12 06:38] VITALS: BP 137/72; PULSE 90; RESP 16; TEMP 36.3; O2SAT 100
--- NOTE | 2023-07-12 07:15 | HO.ANESPROP2 ---
Documented by User: Lauren Kraus NP 07/11/23 09:40 HPI - Anesthesia Eval Consult details Narrative: 63yo F for Colonoscopy,poss Polypectomy s/p lap gerald 09/2022 with GA-ETT 7.5 PMFSH Active Problems Active Problems: All Active Problems (Updated 06/20/23 @ 13:32 by Niles Sky MD) Diarrhea (Acute) RUQ abdominal pain (Acute) Elevated LFTs (Acute) S/P laparoscopic cholecystectomy (Acute) Tympanic membrane perforation, marginal (Acute) Preoperative examination (Acute) Shoulder pain (Acute) Hyperhidrosis (Acute) Family history of colon cancer (Acute) Bilateral knee pain (Acute) Allergic rhinitis (Acute) Gallstones (Acute) History of gallstones (Acute) Right sided abdominal pain (Acute) Impaired fasting glucose (Acute) Lumbar spondylosis (Acute) Vertebrogenic low back pain (Acute) Lumbar radiculitis (Acute) Tympanic membrane perforation (Acute) Persistent fatigue after COVID-19 (Acute) Low TSH level (Acute) Overweight (BMI 25.0-29.9) (Acute) Anxiety (Acute) Insomnia (Acute) Complex cyst of left ovary (Acute) Urinary incontinence (Acute) GERD without esophagitis (Acute) Constipation (Acute) Migraine (Acute) Degenerative arthritis of cervical spine (Acute) Lumbar degenerative disc disease (Acute) Pure hypercholesterolemia (Acute) Depression (Acute) Past Medical History Medical History (Updated 06/20/23 @ 13:32 by Niles Sky MD) Family history of colon cancer Bilateral knee pain Allergic rhinitis Low back pain Fatigue History of tachycardia PONV (postoperative nausea and vomiting) Gallstones History of gallstones Right sided abdominal pain Impaired fasting glucose Lumbar spondylosis Vertebrogenic low back pain Lumbar radiculitis Tympanic membrane perforation Persistent fatigue after COVID-19 Low TSH level Overweight (BMI 25.0-29.9) Anxiety Insomnia Complex cyst of left ovary Urinary incontinence GERD without esophagitis Constipation Migraine Degenerative arthritis of cervical spine Lumbar degenerative disc disease Pure hypercholesterolemia Depression Family History Family History Father Colon cancer Mother Bone cancer Family history of problems with anesthesia: No Surgical History Surgical History (Updated 07/09/23 @ 15:36 by Maria Luisa Ross RN) Hx laparoscopic cholecystectomy (~01/03/23) Hx of colonoscopy History of tympanoplasty of left ear History of surgery History of nasal surgery History of bladder surgery History of Problems with Anesthesia: No Social History Social History Housing: House Are you a primary managed care coordinator to a significant other at home: No Do you presently have visiting nurse or other home services: No Alcohol intake: current Alcohol intake frequency: holidays/special occasions only Alcohol type: wine Patient Tobacco Use Status: Never used Tobacco e-Cigarette/Vaping Use: Never Used Second Hand Smoke Exposure: Yes Use of substances other than those prescribed or required for medical reasons: No Have you been hit, kicked, punched, or otherwise hurt by someone within the past year? If so, by whom?: No Are you DNR?: No Advance Directives: No Advance Directives Information Provided: Yes Advance Directives on File: No Recently lost weight without trying: No Eating poorly because of decreased appetite: No Nutrition Risks: No Nutritional Risk Poor oral hygiene: No (upper permanent bridge/2 crowns upper front) service: No Current occupational status: disabled Cognitive needs: No Hearing needs: No Vision needs: No Meds Allergies Allergy/AdvReac Type Severity Reaction Status Date / Time No Known Allergies Allergy Verified 07/12/23 06:44 Home Medications Medication Instructions Recorded Confirmed Last Taken Type Probiotic 1 cap PO DAILY 09/05/22 07/12/23 Unknown History multivitamin 1 tab PO DAILY 09/05/22 07/12/23 Unknown History Exam Exam Date and Time: July 11, 2023 0937 Height,Weight and Vital Signs: Height 5 ft 1 in Weight 63.049 kg Pertinent Lab Results Pertinent Lab Results: Laboratory Tests 04/11/23 09:53 WBC 7.6 Hgb 12.6 Hct 38.1 Plt Count 265 Sodium 141 Potassium 3.8 Chloride 106 Carbon Dioxide 22 BUN 12 Creatinine 0.80 Assessment and Plan Assessment Anesthesia Assessment: Chart Reviewed Final Anesthetic Review Family History of Problems with Anesthesia: No History of Problems with Anesthesia: No Documented by User: Melanie Reinoso DO 07/12/23 07:20 PMF Past Medical History Medical History (Updated 06/20/23 @ 13:32 by Niles Sky MD) Family history of colon cancer Bilateral knee pain Allergic rhinitis Low back pain Fatigue History of tachycardia PONV (postoperative nausea and vomiting) Gallstones History of gallstones Right sided abdominal pain Impaired fasting glucose Lumbar spondylosis Vertebrogenic low back pain Lumbar radiculitis Tympanic membrane perforation Persistent fatigue after COVID-19 Low TSH level Overweight (BMI 25.0-29.9) Anxiety Insomnia Complex cyst of left ovary Urinary incontinence GERD without esophagitis Constipation Migraine Degenerative arthritis of cervical spine Lumbar degenerative disc disease Pure hypercholesterolemia Depression Family History Family History Father Colon cancer Mother Bone cancer Family history of problems with anesthesia: No Surgical History Surgical History (Updated 07/09/23 @ 15:36 by Maria Luisa Ross RN) Hx laparoscopic cholecystectomy (~09/11/22) Hx of colonoscopy History of tympanoplasty of left ear History of surgery History of nasal surgery History of bladder surgery History of Problems with Anesthesia: No Social History Social History Housing: House Are you a primary managed care coordinator to a significant other at home: No Do you presently have visiting nurse or other home services: No Alcohol intake: current Alcohol intake frequency: holidays/special occasions only Alcohol type: wine Patient Tobacco Use Status: Never used Tobacco e-Cigarette/Vaping Use: Never Used Second Hand Smoke Exposure: Yes Use of substances other than those prescribed or required for medical reasons: No Have you been hit, kicked, punched, or otherwise hurt by someone within the past year? If so, by whom?: No Are you DNR?: No Advance Directives: No Advance Directives Information Provided: Yes Advance Directives on File: No Recently lost weight without trying: No Eating poorly because of decreased appetite: No Nutrition Risks: No Nutritional Risk Poor oral hygiene: No (upper permanent bridge/2 crowns upper front) service: No Current occupational status: disabled Cognitive needs: No Hearing needs: No Vision needs: No Meds Allergies Allergy/AdvReac Type Severity Reaction Status Date / Time No Known Allergies Allergy Verified 07/12/23 06:44 Home Medications Medication Instructions Recorded Confirmed Last Taken Type Probiotic 1 cap PO DAILY 09/05/22 07/12/23 Unknown History multivitamin 1 tab PO DAILY 09/05/22 07/12/23 Unknown History Exam Exam Date and Time: July 12, 2023 0715 Height,Weight and Vital Signs: Height 5 ft 1 in Weight 63.049 kg Vital Signs Temperature 97.4 F 07/12/23 06:38 Pulse Rate 90 07/12/23 06:38 Respiratory Rate 16 07/12/23 06:38 Blood Pressure 137/72 07/12/23 06:38 Pulse Oximetry 100 07/12/23 06:38 Oxygen Delivery Method Room Air 07/12/23 06:38 Temperature 97.4 F 07/12/23 06:38 Pulse Rate 90 07/12/23 06:38 Respiratory Rate 16 07/12/23 06:38 Blood Pressure 137/72 07/12/23 06:38 Pulse Oximetry 100 07/12/23 06:38 Oxygen Delivery Method Room Air 07/12/23 06:38 Airway Mallampati Class: II TM Dist: >3cm Neck ROM: Full Loose/Missing/Broken Teeth: No Heart: S1S2 Lungs: CTAB Assessment and Plan Assessment Anesthesia Assessment: Anesthesia Plan Discussed and Chart Reviewed Final Anesthetic Review Family History of Problems with Anesthesia: No History of Problems with Anesthesia: No NPO: Yes ASA Class: II Final Preanesthetic Review: No Changes in Pt Med Stat, Meds/Allgs Chart Reviewed, Consent Obtained/Reviewed and Anes Risks/Benef Reviewed Patient Risk: Low Procedure Risk: Low Anesthetic Plan Anesthetic Plan: MAC: and Agree w/ Assess. and Plan Disposition: Standard PACU
--- NOTE | 2023-07-12 07:21 | MHC.SHP ---
Pre-Procedural Eval Section A Date of Service: 07/12/23 The patient is an INPATIENT: No Changes since office visit: No Cold of Flu in the past 2 weeks, No New Medical Problems, No Changes in Medication and No Patient answered all questions The History & Physical has been completed within 30 days and I have reviewed it.: Yes Section B Chief Complaint: Family history of malignant neoplasm of digestive Allergies: Allergies Allergy/AdvReac Type Severity Reaction Status Date / Time No Known Allergies Allergy Verified 07/12/23 06:44 Plan I have reviewed the history and physical and performed a pertinent physical examination on my patient. No changes have occurred unless specified. Time Spent With Patient Time: Total time managing care of this patient today ____ minutes.
--- NOTE | 2023-07-12 08:01 | W.PM.OPN ---
Operative Note Operative Note Date of Service: 07/12/23 Narrative: Preop diagnosis: Family history of colon cancer Postop diagnosis: Normal colonoscopy findings Procedure: Colonoscopy Surgeon: Niles Sky MD The patient is a 63-year-old female with family history of colon cancer, and therefore undergoes a colonoscopy every 5 years. She understands the technique of the procedure as well as the risks, benefits, and alternatives. The patient was brought to the operating room and placed in left lateral decubitus position under monitored anesthesia care. A surgical time-out was done. A full digital rectal exam was done and this did not reveal any significant anal lesions. The tip of the Olympus colonoscope was gently introduced through the anal orifice advanced with insufflation all the way to the cecum. The cecum was intubated. The cecum was identified by visualization of the ileocecal valve as well as the appendiceal orifice. The cecal mucosa was unremarkable. The scope was gradually withdrawn with careful examination of the entire colonic mucosa being done with scope withdrawal. The patient had adequate bowel prep so it was unlikely that any lesion may have been missed. The rectum was reached and there were no lesions seen. The anal canal was unremarkable. The scope was then withdrawn completely with desufflation. The patient tolerated the procedure well. There were no immediate complications. Her next colonoscopy may be in the next 5 years.
[2023-07-12 08:05] VITALS: BP 84/42; PULSE 74; RESP 16; TEMP 36.3; O2SAT 96
[2023-07-12 08:20] VITALS: BP 101/61; PULSE 72; RESP 16; O2SAT 99
[2023-07-12 08:35] VITALS: BP 108/65; PULSE 68; RESP 16; TEMP 36.2; O2SAT 100
== END 2023-07-12 08:58 | disposition home or self-care (01) ==
PROVIDERS: PCP Internal Medicine; Visit Provider Surgery
PROC: 0DBE8ZZ Excision of Large Intestine, Via Natural or Artificial Opening Endoscopic (ICD-10-PCS; CPT G0105; principal; 2023-07-12 07:30)
DX: Z12.11 Encounter for screening for malignant neoplasm of colon (principal); Z80.0 Family history of malignant neoplasm of digestive organs; K59.00 Constipation, unspecified; K21.9 Gastro-esophageal reflux disease without esophagitis; R73.01 Impaired fasting glucose; E78.00 Pure hypercholesterolemia, unspecified; F32.A Depression, unspecified; F41.9 Anxiety disorder, unspecified; R53.83 Other fatigue; Z86.16 Personal history of COVID-19; E66.3 Overweight; Z68.26 Body mass index [BMI] 26.0-26.9, adult; Z79.899 Other long term (current) drug therapy; Z90.49 Acquired absence of other specified parts of digestive tract; Z98.890 Other specified postprocedural states
CPT/HCPCS: G0105

== ENCOUNTER → 2023-07-12 06:17 | Outpatient (BNV) | payer MEDICARE, MEDICAID, SELFPAY | PROVIDERS: PCP Internal Medicine; Visit Provider Surgery | DX: Z12.11 Encounter for screening for malignant neoplasm of colon (principal); Z80.0 Family history of malignant neoplasm of digestive organs | CPT/HCPCS: G0105 ==

== ENCOUNTER 2023-07-18 10:16 | Outpatient (REF) | payer MEDICARE, MEDICAID, SELFPAY ==
[2023-07-18 10:33] LABS: MANUAL DIFF FLAG NO
[2023-07-18 10:54] LABS: Basophils Percent Auto 0.4 % (0-2); Eosinophils Absolute Auto 0.1 X10*3/uL (0.0-0.4); Eosinophils Percent Auto 1.8 % (0-4); Hematocrit 36.2 % (37.0-47.0); Imm Gran Abs Auto 0.01 X10*3/uL (0.00-0.03); Imm Gran Pct Auto 0.2 % (0.0-0.4); Lymphocytes Absolute Auto 2.1 X10*3/uL (1.2-4.9); Lymphocytes Percent Auto 41.8 % (20-40); Mean Corpuscular HGB Conc 33.1 g/dl (31.0-35.0); Mean Corpuscular Hemoglobin 30.6 pg (27.0-33.0); Mean Corpuscular Volume 92.3 fL (80.0-98.0); Mean Platelet Volume 8.5 fL (9.4-12.3); Monocytes Absolute Auto 0.4 X10*3/uL (0.1-1.2); Neutrophils Absolute Auto 2.3 x10*3/uL (2.0-8.3); Neutrophils Percent Auto 46.8 % (45-73); Platelet Count 256 X10*3/uL (160-400); Red Blood Count 3.92 X10*6/uL (4.20-5.50); White Blood Count 4.9 X10*3/uL (4.8-10.8)
[2023-07-18 11:24] LABS: Alanine Aminotransferase 32 U/L (0-31); Albumin Level 4.3 g/dL (3.5-5.0); Alkaline Phosphatase 42 U/L (39-117); Anion Gap 12 (12-20); Aspartate Amino Transferase 30 U/L (5-31); Bilirubin Total 0.5 mg/dL (0.0-1.0); Blood Urea Nitrogen 15 mg/dL (9-16); Calcium 9.2 mg/dL (8.4-10.2); Carbon Dioxide 28 mmol/L (22-29); Chloride 104 mmol/L (96-108); Cholesterol 191 mg/dL (<200); Estimated Glomerular Filt Rate > 60; Glucose Fasting 96 mg/dL (60-99); HDL Cholesterol 61 mg/dL (>40); LDL Cholesterol Calculated 115 mg/dL (<100); Potassium 4.3 mmol/L (3.3-5.1); Sodium 140 mmol/L (135-145); Total Protein 7.3 g/dL (6.5-8.0); Triglycerides 78 mg/dL (<150)
[2023-07-18 11:52] LABS: Free T4 (Free Thyroxine) 0.83 ng/dL (0.71-1.85); Thyroid Stimulating Hormone 0.42 uIU/mL (0.32-4.0); Vitamin D 25-OH Total 54.3 ng/mL (>30)
[2023-07-18 12:09] LABS: Appearance Urine Clear; Color Urine Yellow; Glucose Urine UA Negative (Negative); Leukocyte Esterase Urine Trace (Negative); Nitrite Urine Negative (Negative); UMIC TRIGGER UACC YES; Urine Blood Negative (Negative); Urine Ketones Negative (Negative); Urine Protein Negative (Neg-Trace)
[2023-07-18 12:13] LABS: Bacteria Urine None Seen (None Seen); Hyaline Casts Urine 0-2 /LPF (0-2); RBC Urine 0-2 /HPF (0-2); Squamous Epithelial Cell Urine 0-2 /HPF (0-2); WBC Urine 0-5 /HPF (0-5)
== END 2023-07-18 10:17 | disposition home or self-care (01) ==
LOC: HO.LAB 10:16
PROVIDERS: PCP Internal Medicine; Visit Provider Internal Medicine
DX: E78.00 Pure hypercholesterolemia, unspecified (principal); R30.0 Dysuria; E55.9 Vitamin D deficiency, unspecified; R79.89 Other specified abnormal findings of blood chemistry
CPT/HCPCS: 36415; 80053; 80061; 81001; 82306; 84439; 84443; 85025

== ENCOUNTER 2023-07-22 14:43 | Outpatient (AMB) | payer MEDICARE, MEDICAID, SELFPAY ==
[2023-07-22 15:15] VITALS: BP 136/79; PULSE 111; RESP 12
--- NOTE | 2023-07-22 15:15 | A.OFFVIS_ITS ---
Intake Vital Signs 07/22/23 15:15 Height 5 ft 1 in BP 136/79 Blood Pressure Location Lt brachial Position Sitting Respiration 12 Pulse 111 H Pulse Source Pulse Oximeter Intake Visit Reasons: medicare denial MBB/confirmed Allergies No Known Allergies Allergy (Verified 07/22/23 15:16) Medication List - Last Reconciled 07/22/23 by Karolyn Crenshaw, ABEL cetirizine 10 mg PO DAILY PRN 90 days cyclobenzaprine 10 mg PO TID PRN gabapentin 600 mg PO TID 30 days lorazepam 1 mg PO BEDTIME PRN 30 days multivitamin 1 tab PO DAILY omeprazole 20 mg PO DAILY oxycodone-acetaminophen 5-325 mg 1 tab PO Q6H PRN 28 days paroxetine HCl 20 mg PO DAILY 30 days [Probiotic 1 cap PO DAILY] rosuvastatin 5 mg PO .every other day 60 days topiramate 25 mg PO BEDTIME trazodone 50 mg PO BEDTIME PRN 30 days zolpidem 10 mg PO BEDTIME PRN 30 days HPI medicare denial MBB/confirmed HPI Details 63-year-old female who presents today to the office for a follow-up. The patient?s procedure was declined by her insurance. Her pain is primarily axial in her neck and shoulders. Her left side is worse compared to right side. She also reports pain in her leg. She completed physical therapy for back pain last year. She has difficulty driving due to inability to rotate her neck laterally, which limits her transportation services. She walks with her dog daily. She occasionally performs physical therapy exercises at home. Past procedures: 03/27/23: Lumbar Medial Branch Block, Bi lateral L3, L4 medial branches and L5 Dorsal Ramus (2 levels, 3 nerves): Moderate relief 10/31/22: Diagnostic Cervical Medial Bra nch Block, Left C3, C4, C5 medial branches: 80% relief for 2 months 06/27/22: Left Diagnostic C3-C4-C5 MBBs ? 100% relief for 2 months. 03/07/22: Left L4-L5 Medial Branch RFA ? 100% relief. 11/29/21: Bilateral Diagnostic L3-L4-L5 M BBs - 80% pain relief for 2 days, more noticeable on the left side. 11/01/21: Bilateral Diagnostic L3-L4-L5 M BB ? 40% relief. 08/23/21 Bilateral Diagnostic L3-L4-L5 M BB ? 50% relief. [facility] Medical History (Updated 06/20/23 @ 13:32 by Niles Sky MD) Family history of colon cancer Bilateral knee pain Allergic rhinitis Low back pain Fatigue History of tachycardia PONV (postoperative nausea and vomiting) Gallstones History of gallstones Right sided abdominal pain Impaired fasting glucose Lumbar spondylosis Vertebrogenic low back pain Lumbar radiculitis Tympanic membrane perforation Persistent fatigue after COVID-19 Low TSH level Overweight (BMI 25.0-29.9) Anxiety Insomnia Complex cyst of left ovary Urinary incontinence GERD without esophagitis Constipation Migraine Degenerative arthritis of cervical spine Lumbar degenerative disc disease Pure hypercholesterolemia Depression Surgical History (Updated 07/09/23 @ 15:36 by Maria Luisa Ross RN) Hx laparoscopic cholecystectomy (~09/11/22) Hx of colonoscopy History of tympanoplasty of left ear History of surgery History of nasal surgery History of bladder surgery Family History Father Colon cancer Mother Bone cancer Social History Housing: House Are you a primary home care associate to a significant other at home: No Do you presently have visiting nurse or other home services: No Alcohol intake: current Alcohol intake frequency: holidays/special occasions only Alcohol type: wine Patient Tobacco Use Status: Never used Tobacco e-Cigarette/Vaping Use: Never Used Second Hand Smoke Exposure: Yes service: No Current occupational status: disabled Cognitive needs: No Hearing needs: No Vision needs: No Review of Systems Const All systems reviewed & are unremarkable except as noted in HPI and below Physical Exam Vital Signs: Last Vital Signs Pulse 111 H 07/22/23 15:15 Resp 12 07/22/23 15:15 BP 136/79 07/22/23 15:15 General: Appears afebrile. Alert and oriented. Mood and affect appropriate. Follows and participates in conversation appropriately. Respiratory effort is unlabored. Able to transition from sit to stand unassisted. Ambulates with bilaterally normal heel strike and toe off. Neck extension and lateral rotation are limited. Results Reviewed Results Reviewed: No imaging is available for review. Assessment & Plan Assessment & Plan (1) Degenerative arthritis of cervical spine: Code(s): M47.812 - Spondylosis without myelopathy or radiculopathy, cervical region Qualifiers: Spinal osteoarthritis complication: unspecified spinal osteoarthritis Qualified Code(s): M47.812 - Spondylosis without myelopathy or radiculopathy, cervical region Plan 63-year-old female with cervical spondylosis with excellent response to diagnostic cervical medial branch blocks in the past. She is interested in proceeding with therapeutic cervical MBBs given her good response to facet blocks in the past. We will plan to proceed with therapeutic medial branch blocks at C3, C4 and C5 for axial neck pain given more than 80% relief on diagnostic injections in the past. She is not interested in a radiofrequency ablation at this time. An KATYA questionnaire was administered on the last visit which showed a score of 36 indicating severe disability. For her low back pain encouraged her to continue her home exercise program. She last participated in formal PT last year and has materials with diagrams and pictures available from that time. She will resume and HEP with the same exercises for lumbar spondylosis and radiculitis. If these are not helpful we may consider a round of diagnostic lumbar medial branch blocks in the future. Scribed for Dr. Verdin by Delvin Howard, mobile paramedical examiner, on 07/22/2023. I, Dr. Verdin, have personally reviewed and agree with the information entered by the scribe. Coding Level of Care Code Est Pt Level 4 (30033) Diagnoses Osteoarthritis of cervical spine, unspecified spinal osteoarthritis complication status M47.812 Spinal osteoarthritis complication: unspecified spinal osteoarthritis
== END 2023-07-22 15:37 | disposition home or self-care (01) ==
PROVIDERS: PCP Internal Medicine; Visit Provider Internal Medicine
DX: M47.812 Spondylosis without myelopathy or radiculopathy, cervical region (principal)
CPT/HCPCS: 99213

== ENCOUNTER → 2023-07-22 14:43 | Outpatient (BNVA) | payer MEDICARE, MEDICAID, SELFPAY | PROVIDERS: PCP Internal Medicine; Visit Provider Internal Medicine | DX: M47.812 Spondylosis without myelopathy or radiculopathy, cervical region (principal) | CPT/HCPCS: 99212 ==

== ENCOUNTER 2023-07-23 14:16 | Outpatient (AMB) | payer MEDICARE, MEDICAID, SELFPAY ==
[2023-07-23 14:19] VITALS: BP 128/72; PULSE 90; O2SAT 96; BMI 26.3
--- NOTE | 2023-07-23 14:19 | MHC.PC.OV ---
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 Required: No Accompanied by: Self / Same As Patient Allergies No Known Allergies Allergy (Verified 07/23/23 15:32) Medication List - Last Reconciled 07/23/23 by Richar Verma MD cetirizine 10 mg PO DAILY PRN 90 days cyclobenzaprine 10 mg PO TID PRN gabapentin 600 mg PO TID 30 days lorazepam 1 mg PO BEDTIME PRN 30 days multivitamin 1 tab PO DAILY omeprazole 20 mg PO DAILY oxycodone-acetaminophen 5-325 mg 1 tab PO Q6H PRN 28 days paroxetine HCl 20 mg PO DAILY 30 days [Probiotic 1 cap PO DAILY] rosuvastatin 5 mg PO .every other day 60 days topiramate 25 mg PO BEDTIME trazodone 50 mg PO BEDTIME PRN 30 days zolpidem 10 mg PO BEDTIME PRN 30 days Tobacco use date assessed: 07/23/23 Dental Screening Dental Screen Date: 07/23/23 Did you have a dental visit in the last 12 months?: Yes Did you have a dental problem in the last 6 months where you did not have access to dental care?: No Was dental information given to patient?: Patient has dentist HPI 3mon f/u HPI Details Patient comes in today for her follow up visit States that she is still experiencing recurrent headaches - notes that she has migraine headaches at least a couple of times a week Relates (+) associated nausea and occasional photophobia with her migraine headaches Adds that she has been experiencing increased pain in her left ear for the past couple of weeks - states that her left ear also feels like there is some fluid in there but has not noticed any fluid draining from her ear She denies any fever or sore throat; notes (+) occasional dizziness Denies any ches pains, no increased SOB Still has occasional epigastric pain but no vomiting and no change in bowel habits noted She just had her repeat colonoscopy done with Dr. Sky a couple of weeks ago on 07/12/23- was advised that her colonoscopy came out okay and recommend repeat again in 5 years States that she still has chronic low back pain and multiple joint pains but her current Rx helps keep her pains manageable Needs her Percocet Rx refilled today Had her follow up labs done a few days ago - to discuss her results Would also like to get her flu shot today [facility] Medical History (Updated 07/24/23 @ 06:13 by Richar Verma MD) Family history of colon cancer Bilateral knee pain Allergic rhinitis Low back pain Fatigue History of tachycardia PONV (postoperative nausea and vomiting) Gallstones History of gallstones Right sided abdominal pain Impaired fasting glucose Lumbar spondylosis Vertebrogenic low back pain Lumbar radiculitis Tympanic membrane perforation Persistent fatigue after COVID-19 Low TSH level Overweight (BMI 25.0-29.9) Anxiety Insomnia Complex cyst of left ovary Urinary incontinence GERD without esophagitis Constipation Migraine Degenerative arthritis of cervical spine Lumbar degenerative disc disease Pure hypercholesterolemia Depression Surgical History (Updated 07/24/23 @ 06:00 by Richar Verma MD) Hx laparoscopic cholecystectomy (~09/11/22) Hx of colonoscopy History of tympanoplasty of left ear History of surgery History of nasal surgery History of bladder surgery Family History Father Colon cancer Mother Bone cancer Social History Housing: House Are you a primary acute care clinical nurse specialist to a significant other at home: No Do you presently have visiting nurse or other home services: No Alcohol intake: current Alcohol intake frequency: holidays/special occasions only Alcohol type: wine Patient Tobacco Use Status: Never used Tobacco e-Cigarette/Vaping Use: Never Used Second Hand Smoke Exposure: Yes service: No Current occupational status: disabled Cognitive needs: No Hearing needs: No Vision needs: No Questionnaire PHQ-9 Over the last 2 weeks, how often have you been bothered by any of the following problems? 1. Little interest or pleasure in doing things: several days 2. Feeling down, depressed, or hopeless: several days 3. Trouble falling or staying asleep, or sleeping too much: several days 4. Feeling tired or having little energy: several days 5. Poor appetite or overeating: not at all 6. Feeling bad about yourself - or that you are a failure or have let yourself or your family down: not at all 7. Trouble concentrating on things, such as reading the newspaper or watching television: not at all 8. Moving or speaking so slowly that other people could have noticed. Or the opposite - being so fidgety or restless that you have been moving around a lot more than usual: not at all 9. Thoughts that you would be better off or of hurting yourself in some way: not at all Total score: 4 Depression Screening Interpretation: Positive Depression Screening Follow-up: Existing condition and In treatment Depression Screening Done: Yes Source: Developed by Drs. Angel Anthony, Clau Saleh, Guzman Moreno and colleagues, with an educational maria d from [employer]. Thrive Questionnaire Date Thrive assessed: 07/23/23 I am a: Patient What is your living situation today?: I have a steady place to live Within the past 12 months, did the food you bought not last and you didn't have the money to get more?: Never true Within the past 12 months, did you worry whether your food would run out before you got money to buy more?: Never true Do you have trouble paying for medicines?: No Do you have trouble getting transportation to medical appointments?: No Do you have trouble paying your heating and electricity bill?: No Do you have trouble taking care of your child, family member or friend?: No Do you have trouble with day-to-day activities such as bathing, preparing meals, shopping, managing finances, etc.?: No Are you currently unemployed and looking for a job?: No Are you interested in more education?: No Please select the resources that you would like help with: None Currently or been in a relationship where the following occur: no concerns reported AUDIT C Alcohol Use Questionnaire (AUDIT-C) 1. How often do you have a drink containing alcohol?: Monthly or less 2. How many drinks containing alcohol do you have on a typical day when you are drinking?: 1 or 2 3. How often do you have six or more drinks on one occasion?: Never Total Score: 1 Score Reviewed/Action Taken: Yes ACE-7 AMB Questionnaire ACE-7 Date CAE - 7 assessed: 07/23/23 Feeling nervous, anxious, or on edge: 0 = Not at all Not being able to stop or control worryin = Not at all Worrying too much about different things: 0 = Not at all Trouble relaxin = Not at all Being so restless that it is hard to sit still: 0 = Not at all Becoming easily annoyed or irritable: 0 = Not at all Feeling afraid as if something awful might happen: 0 = Not at all Total ACE-7 score (0-4 normal; 5-9 mild; 10-14 moderate; 15-21 severe): 0 Source: Developed by Drs. Angel Anthony, Clau Saleh, Guzman Moreno and colleagues, with an educational maria d from [employer]. ACE-7 Assessment Billing ACE-7 Assessment Tool: ACE-7 Assessment 47409 Review of Systems Const Denies chills, Reports difficulty sleeping, Reports fatigue, Denies fever(s) and Reports headache(s) (on and off) ENT Denies dysphagia, Denies dizziness, Reports otalgia (left ear), Reports headache(s) (on and off), Reports hearing loss, Reports neck pain (chronic), Denies odynophagia, Reports tinnitus (left ear) and Denies sore throat Card Denies chest pain, Denies palpitations and Denies dyspnea Resp Denies cough and Denies dyspnea GI Denies abdominal pain, Denies constipation, Denies dysphagia, Denies heartburn, Reports loose stools (recurrent), Denies nausea, Denies odynophagia and Denies vomiting Denies nocturia and Denies dysuria Musc Reports back pain (over the lumbar spine - chronic), Reports myalgias, Reports arthralgias (over both knees) and Reports neck pain (chronic) Neuro Denies dizziness and Reports headache(s) (on and off) Psych Reports depression (increasing) Endo Reports fatigue and Denies palpitations Physical exam (Primary Care) Vital Signs: Last Vital Signs Pulse 90 07/23/23 14:19 BP 128/72 07/23/23 14:19 Pulse Ox 96 07/23/23 14:19 Oxygen Delivery Method Room Air 07/23/23 14:19 BMI result Body Mass Index 26.3 Tobacco/Smoking Status: Tobacco use Status Tobacco use date assessed 07/23/23 07/23/23 14:21 Patient Tobacco Use Status Never used Tobacco 07/23/23 14:21 e-Cigarette/Vaping Use Never Used 07/23/23 14:21 PHQ-9: PHQ-9 Score PHQ-9: Total score 4 07/23/23 15:45 Depression Screening Interpretation: Positive Depression Screening Follow-up: Existing condition and In treatment Thrive Assessment: Date of Thrive Assessment Date Thrive assessed 07/23/23 07/23/23 14:21 Currently or been in a relationship where the following occur: no concerns reported Const General: no acute distress Orientation/consciousness: patient oriented x3 HENMT Ears: TM normal on the right and Abnormal EAC present erythema (increased) on the left, edema on the left and EAC tenderness on the left; no otic discharge Throat: Yes posterior oropharynx normal and Yes tonsils normal (no TP congestion noted) Neck Neck: Yes no lymphadenopathy and Yes tender (over the back of the neck - chronic) Resp Auscultation: clear to auscultation bilaterally, no rales and no wheezes Cardio Rate: regular rate Rhythm: regular rhythm Heart sounds: no murmurs GI Palpation (GI): Soft to palpation, Tenderness to palpation present (GI) (mild ) in the RUQ, no guarding, not rigid, No hepatosplenomegaly present and No Rebound tenderness present Back/Spine/Pelvis Cervical Spine: Cervical spine tenderness Thoracic/Lumbar Spine: lumbar spinal tenderness Neuro General: patient oriented x3 Extrem General: Yes no clubbing, cyanosis or edema Right lower extremity: knee Details: tenderness and crepitus; no swelling Left lower extremity: knee Details: tenderness and crepitus; no swelling Office Procedures Flu Questionnaire Does the patient have a severe egg allergy?: No Does the patient have severe life threatening allergies?: No Does the patient have a fever or illness today?: No Has the patient ever had Guillain-Deshler Syndrome?: No Has the patient ever had any past reaction to a flu shot?: No Immunizations flu vacc [id number] 6mos up(PF) 60 mcg(15 mcgx4)/0.5 mL IM syringe Performing Provider: Richar Verma MD Performing Location: [facility] Administered by: Tyrese Jacobo on 07/23/23 15:45 Dose Route Admin Location Dispensed Lot Number Expiration Date NDC [employer] 0.5 mL IM Left Deltoid 0.5 mL [id number] 03/08/24 [id number] Smart Devices VIS Given Date VIS Provided VIS Publication Date 07/23/23 Single Vaccine 21 Eligibility Eligibility Date Funding Source Not [facility] Eligible 07/23/23 Private Results Reviewed Results Reviewed: Laboratory Tests 07/18/23 07/18/23 10:30 10:31 WBC 4.9 Hgb 12.0 Hct 36.2 L Plt Count 256 Sodium 140 Potassium 4.3 Creatinine 0.77 Estimated GFR > 60 Fasting Glucose 96 Calcium 9.2 AST 30 ALT 32 H Triglycerides 78 Cholesterol 191 LDL Cholesterol, Calc 115 H HDL Cholesterol 61 25-OH Vitamin D Total 54.3 TSH 0.42 Free T4 0.83 Ur Specific [place] 1.020 Urine Protein Negative Urine Glucose (UA) Negative Urine Blood Negative Assessment and Plan Assessment & Plan (1) Pure hypercholesterolemia: Code(s): E78.00 - Pure hypercholesterolemia, unspecified Plan: Results of her labs done a few days ago reviewed and discussed with patient - advised that her cholesterol numbers have improved slightly from previous Reinforced low cholesterol diet Continue Rosuvastatin 5 mg QOD - patient appears to be tolerating this well and her LFTs have remained normal so far Atorvastatin 10 mg QD was discontinued due to elevated LFTs Will recheck her labs and fasting lipids in 3 months for follow-up (2) Lumbar degenerative disc disease: Code(s): M51.36 - Other intervertebral disc degeneration, lumbar region Plan: Reinforced activity and weight lifting restrictions to avoid aggravating her back pain Continue?Cyclobenzaprine?10 mg 3 times a day as needed and?Oxycodone-Acetaminophen?5-325 mg 1 tablet every 6 hours as needed?as well as Gabapentin to 600 mg TID Follow up with pain management as scheduled; has been receiving injections into her lower back recently with some relief of her symptoms Is S/P RFA of the lumbar spine in February 2022 and diagnostic MBB of the cervical spine in June 2022 - states that her chronic pains have improved somewhat with ablation Tx but insurance is now declining to cover any further procedures and intervention for her chronic back pain and that pain management is still working on trying to get these approved (3) Degenerative arthritis of cervical spine: Code(s): M47.812 - Spondylosis without myelopathy or radiculopathy, cervical region Qualifiers: Spinal osteoarthritis complication: unspecified spinal osteoarthritis Qualified Code(s): M47.812 - Spondylosis without myelopathy or radiculopathy, cervical region Plan: States that her current medications help keep her neck pain manageable S/P RFA of the lumbar spine in February 2022 and diagnostic MBB of the cervical spine in June 2022 with (+) pain relief Follow up with pain management as scheduled (4) Migraine: Code(s): G43.909 - Migraine, unspecified, not intractable, without status migrainosus Qualifiers: Intractability: not intractable Migraine type: unspecified Status migrainosus presence: without status migrainosus Qualified Code(s): G43.909 - Migraine, unspecified, not intractable, without status migrainosus Plan: Reinforced avoidance of migraine triggers Will try increasing her Topiramate from 25 mg to 50 mg once a day at bedtime for headache prophylaxis Continue Fioricet PRN Has been advised by Neurology in the past that her headaches are most likely multifactorial is and are not just simple migraine headaches and will most likely require a multifaceted approach involving medical as well as behavioral therapy and intervention -? was advised to continue to follow-up with her psychiatrist for this as well Follow up with neurology as scheduled (5) Otitis externa of left ear: Code(s): H60.92 - Unspecified otitis externa, left ear Qualifiers: Otitis externa type: unspecified type Chronicity: acute Qualified Code(s): H60.502 - Unspecified acute noninfective otitis externa, left ear Plan: Will start patient on Augmentin 875 mg BID x 7 days (6) Constipation: Code(s): K59.00 - Constipation, unspecified Qualifiers: Constipation type: unspecified constipation type Qualified Code(s): K59.00 - Constipation, unspecified Plan: Most likely opioid-induced Encouraged increased oral fluids and dietary fiber Abdominal x-rays done a couple of years ago came out normal Continue Senna 8.6 mg 1-2 tablets daily at bedtime as needed (7) Allergic rhinitis: Code(s): J30.9 - Allergic rhinitis, unspecified Qualifiers: Allergic rhinitis seasonality: unspecified Allergic rhinitis trigger: unspecified Qualified Code(s): J30.9 - Allergic rhinitis, unspecified Plan: Continue Cetirizine 10 mg QD PRN (8) GERD without esophagitis: Code(s): K21.9 - Gastro-esophageal reflux disease without esophagitis Plan: Dietary restrictions reinforced Continue Omeprazole 20 mg QD (9) Low TSH level: Code(s): R79.89 - Other specified abnormal findings of blood chemistry Plan: Her TFTs were normal on her recent labs Patient is clinically euthyroid Will continue to monitor her TFTs regularly for now (10) Elevated LFTs: Comment: S/P lap gerald in September 2022 Code(s): R79.89 - Other specified abnormal findings of blood chemistry Plan: Resolved - may have been related to her cholecystitis earlier this year and also due to Atorvastatin Her liver appeared normal on abdominal US done in July 2022 Repeat abdominal US done in January 2023 also came out normal Will continue to monitor her LFTs regularly (11) Bilateral knee pain: Code(s): M25.561 - Pain in right knee; M25.562 - Pain in left knee Qualifiers: Chronicity: unspecified Qualified Code(s): M25.561 - Pain in right knee; M25.562 - Pain in left knee Plan: Bilateral knee x-rays done in January 2023 revealed (+) mild degenerative changes in the patellofemoral areas in both knees Will consider referring her to orthopedics for further management if her knee pain progresses (12) Urinary incontinence: Code(s): R32 - Unspecified urinary incontinence Qualifiers: Urinary Incontinence type: unspecified incontinence Qualified Code(s): R32 - Unspecified urinary incontinence Plan: Follow up with urology (Dr.? Back) as scheduled (13) Complex cyst of left ovary: Code(s): N83.292 - Other ovarian cyst, left side Plan: Is being followed by [facility] regularly for this - her cyst has been < 1 cm and has remained stable in size over the past 2-3 years (likely a dermoid cyst) and will continue surveillance with regular ultrasound and CA-125 measurement (14) Insomnia: Code(s): G47.00 - Insomnia, unspecified Qualifiers: Insomnia type: unspecified Qualified Code(s): G47.00 - Insomnia, unspecified Plan: Sleep hygiene reinforced Continue Zolpidem 10 mg once a day at bedtime as needed and Trazodone 50 mg Q HS PRN only (15) Anxiety: Code(s): F41.9 - Anxiety disorder, unspecified Plan: Continue Lorazepam 1 mg daily at bedtime as needed (16) Depression: Code(s): F32.9 - Major depressive disorder, single episode, unspecified Qualifiers: Active/Remission status: currently active Depression Type: major depressive disorder Major depression episode severity: unspecified Major depression recurrence: recurrent Qualified Code(s): F33.9 - Major depressive disorder, recurrent, unspecified Plan: Continue Paroxetine 20 mg Q AM Follow-up with Psychiatry as scheduled (17) Overweight (BMI 25.0-29.9): Code(s): E66.3 - Overweight Plan: Reinforced diet/exercise as tolerated/lose weight Plan Flu vaccine given today Follow up in 3 months Orders: Orders Complete Blood Count Auto Diff 3 Months I10 - Essential (primary) hypertension Influenza [id number] Immunization 07/23/23 Z23 - Encounter for immunization Thyroid Stimulating Hormone 3 Months R79.89 - Other specified abnormal findings of blood chemistry Free T4 (Free Thyroxine) 3 Months R79.89 - Other specified abnormal findings of blood chemistry UA CC w/rflx Micro + Cult 3 Months R30.0 - Dysuria Comprehensive [place]. Panel Fast 3 Months E78.00 - Pure hypercholesterolemia, unspecified Lipid Panel 3 Months E78.00 - Pure hypercholesterolemia, unspecified Vitamin D 25-OH Total 3 Months E55.9 - Vitamin D deficiency, unspecified Medications: New amoxicillin-pot clavulanate 875-125 mg 1 tab PO BID 7 days 14 tabs 0RF Changed From topiramate 25 mg PO BEDTIME 90 tabs 1RF for headache G43.909 - Migraine, unspecified, not intractable, without status migrainosus To topiramate 50 mg PO BEDTIME 30 days 30 tabs 3RF for headache prevention G43.909 - Migraine, unspecified, not intractable, without status migrainosus Refilled oxycodone-acetaminophen 5-325 mg 1 tab PO Q6H 28 days PRN 112 tabs 0RF pain M47.812 - Spondylosis without myelopathy or radiculopathy, cervical region, M51.36 - Other intervertebral disc degeneration, lumbar region Coding Level of Care Code Est Pt Level 4 (81905) Diagnoses Pure hypercholesterolemia E78.00 Lumbar degenerative disc disease M51.36 Osteoarthritis of cervical spine, unspecified spinal osteoarthritis complication status M47.812 Spinal osteoarthritis complication: unspecified spinal osteoarthritis Migraine without status migrainosus, not intractable, unspecified migraine type G43.909 Intractability: not intractable Migraine type: unspecified Status migrainosus presence: without status migrainosus Acute otitis externa of left ear, unspecified type H60.502 Otitis externa type: unspecified type Chronicity: acute Constipation, unspecified constipation type K59.00 Constipation type: unspecified constipation type Allergic rhinitis, unspecified seasonality, unspecified trigger J30.9 Allergic rhinitis seasonality: unspecified Allergic rhinitis trigger: unspecified GERD without esophagitis K21.9 Low TSH level R79.89 Elevated LFTs R79.89 Pain in both knees, unspecified chronicity M25.561; M25.562 Chronicity: unspecified Urinary incontinence, unspecified type R32 Urinary Incontinence type: unspecified incontinence Complex cyst of left ovary N83.292 Insomnia, unspecified type G47.00 Insomnia type: unspecified Anxiety F41.9 Episode of recurrent major depressive disorder, unspecified depression episode severity F33.9 Active/Remission status: currently active Depression Type: major depressive disorder Major depression episode severity: unspecified Major depression recurrence: recurrent Overweight (BMI 25.0-29.9) E66.3 Additional Codes ACE-7 Assessment Billing - ACE-7 Assessment Tool: ACE-7 Assessment [id number] ([id number])
== END 2023-07-23 15:46 | disposition home or self-care (01) ==
PROVIDERS: PCP Internal Medicine; Visit Provider Internal Medicine
DX: F41.9 Anxiety disorder, unspecified (principal); F32.9 Major depressive disorder, single episode, unspecified
CPT/HCPCS: 90471; 90686; 96127; 99214

== ENCOUNTER 2023-07-29 09:46 | Outpatient (AMB) | payer MEDICARE, MEDICAID, SELFPAY ==
--- NOTE | 2023-07-29 09:50 | MHC.OFFVIS ---
Intake Vital Signs 07/29/23 10:07 Height 5 ft 1 in Weight 138 lb 0.15 oz BMI 26.1 Pulse 62 Intake Visit Reasons: s/p colonoscopy Intake Note: Patient is seen in office for post op assessment post colonoscopy. Patient c/o: denies any concerns here for colonoscopy results Reporting Consultant Required: No Accompanied by: Other Relationship Allergies No Known Allergies Allergy (Verified 07/29/23 09:51) Medication List - Last Reconciled 07/29/23 by Niles Sky MD amoxicillin-pot clavulanate 875-125 mg 1 tab PO BID 7 days cetirizine 10 mg PO DAILY PRN 90 days cyclobenzaprine 10 mg PO TID PRN gabapentin 600 mg PO TID 30 days lorazepam 1 mg PO BEDTIME PRN 30 days multivitamin 1 tab PO DAILY omeprazole 20 mg PO DAILY oxycodone-acetaminophen 5-325 mg 1 tab PO Q6H PRN 28 days paroxetine HCl 20 mg PO DAILY 30 days [Probiotic 1 cap PO DAILY] rosuvastatin 5 mg PO .every other day 60 days topiramate 50 mg PO BEDTIME 30 days trazodone 50 mg PO BEDTIME PRN 30 days zolpidem 10 mg PO BEDTIME PRN 30 days HPI s/p colonoscopy HPI Details She had undergone colonoscopy last 07/12/2023 for family history of colon cancer. She tolerated procedure well. She denies any significant complaints at this time. [facility] Medical History Family history of colon cancer Bilateral knee pain Allergic rhinitis Low back pain Fatigue History of tachycardia PONV (postoperative nausea and vomiting) Gallstones History of gallstones Right sided abdominal pain Impaired fasting glucose Lumbar spondylosis Vertebrogenic low back pain Lumbar radiculitis Tympanic membrane perforation Persistent fatigue after COVID-19 Low TSH level Overweight (BMI 25.0-29.9) Anxiety Insomnia Complex cyst of left ovary Urinary incontinence GERD without esophagitis Constipation Migraine Degenerative arthritis of cervical spine Lumbar degenerative disc disease Pure hypercholesterolemia Depression Surgical History H/O colonoscopy (07/12/23) Hx laparoscopic cholecystectomy (~09/11/22) Hx of colonoscopy History of tympanoplasty of left ear History of surgery History of nasal surgery History of bladder surgery Family History Father Colon cancer Mother Bone cancer Social History Housing: House Are you a primary career and transition teacher to a significant other at home: No Do you presently have visiting nurse or other home services: No Alcohol intake: current Alcohol intake frequency: holidays/special occasions only Alcohol type: wine Patient Tobacco Use Status: Never used Tobacco e-Cigarette/Vaping Use: Never Used Second Hand Smoke Exposure: Yes service: No Current occupational status: disabled Cognitive needs: No Hearing needs: No Vision needs: No Review of Systems Const Denies chills and Denies fever(s) Card Denies chest pain, Denies dyspnea and Denies dyspnea on exertion Resp Denies cough, Denies dyspnea and Denies dyspnea on exertion GI Denies hematochezia and Denies change in bowel habits Denies hematuria Musc Denies back pain and Denies limited range of motion Neuro Denies focal weakness and Denies convulsions Psych Denies depression and Denies mood swings Physical Exam Vital Signs: Last Vital Signs Pulse 62 07/29/23 10:07 BMI result Body Mass Index 26.1 Const General: comfortable and no acute distress GI Palpation (GI): Soft to palpation, not firm and nontender Assessment & Plan Assessment & Plan (1) Family history of colon cancer: Code(s): Z80.0 - Family history of malignant neoplasm of digestive organs Plan: Status post colonoscopy. She had unremarkable colonoscopy and I did not find any polyps or any lesions. She should continue with a colonoscopy for screening every 5 years. I reminded her about this. She therefore can follow up with me on a p.r.n. basis. Coding Level of Care Code Global (93661) Diagnoses Family history of colon cancer Z80.0
[2023-07-29 10:07] VITALS: PULSE 62; BMI 26.1
== END 2023-07-29 10:34 | disposition home or self-care (01) ==
PROVIDERS: PCP Internal Medicine; Visit Provider Surgery
DX: Z80.0 Family history of malignant neoplasm of digestive organs (principal)
CPT/HCPCS: 99212

== ENCOUNTER → 2023-07-29 09:46 | Outpatient (BNVA) | payer MEDICARE, MEDICAID, SELFPAY | PROVIDERS: PCP Internal Medicine; Visit Provider Surgery | DX: Z09 Encounter for follow-up examination after completed treatment for conditions other than malignant neoplasm (principal); Z80.0 Family history of malignant neoplasm of digestive organs | CPT/HCPCS: 99212 ==

== ENCOUNTER 2023-10-17 09:59 | Outpatient (REF) | payer MEDICARE, MEDICAID, SELFPAY ==
[2023-10-17 10:20] LABS: MANUAL DIFF FLAG NO
[2023-10-17 10:46] LABS: Basophils Percent Auto 0.8 % (0-2); Eosinophils Absolute Auto 0.1 X10*3/uL (0.0-0.4); Eosinophils Percent Auto 1.7 % (0-4); Hematocrit 39.3 % (37.0-47.0); Hemoglobin 12.7 g/dl (12.0-16.0); Imm Gran Abs Auto 0.02 X10*3/uL (0.00-0.03); Imm Gran Pct Auto 0.4 % (0.0-0.4); Lymphocytes Absolute Auto 2.1 X10*3/uL (1.2-4.9); Lymphocytes Percent Auto 39.3 % (20-40); Mean Corpuscular HGB Conc 32.3 g/dl (31.0-35.0); Mean Corpuscular Hemoglobin 30.1 pg (27.0-33.0); Mean Corpuscular Volume 93.1 fL (80.0-98.0); Mean Platelet Volume 8.6 fL (9.4-12.3); Monocytes Absolute Auto 0.4 X10*3/uL (0.1-1.2); Neutrophils Absolute Auto 2.7 x10*3/uL (2.0-8.3); Neutrophils Percent Auto 50.8 % (45-73); Platelet Count 261 X10*3/uL (160-400); Red Blood Count 4.22 X10*6/uL (4.20-5.50); Red Cell Distribution Width 13.3 % (11.0-16.0); White Blood Count 5.3 X10*3/uL (4.8-10.8)
[2023-10-17 11:18] LABS: Appearance Urine Cloudy; Color Urine Yellow; Glucose Urine UA Negative (Negative); Leukocyte Esterase Urine Negative (Negative); Nitrite Urine Negative (Negative); PH >= 9.0 (5.0-9.0); Specific Gravity - Urine 1.015 (1.005-1.025); Urine Blood Negative (Negative); Urine Ketones Negative (Negative); Urine Protein Negative (Neg-Trace)
[2023-10-17 11:19] LABS: Alanine Aminotransferase 93 U/L (0-31); Albumin Level 4.6 g/dL (3.5-5.0); Alkaline Phosphatase 63 U/L (39-117); Anion Gap 12 (12-20); Aspartate Amino Transferase 49 U/L (5-31); Bilirubin Total 0.3 mg/dL (0.0-1.0); Blood Urea Nitrogen 14 mg/dL (9-16); Calcium 9.6 mg/dL (8.4-10.2); Carbon Dioxide 26 mmol/L (22-29); Chloride 105 mmol/L (96-108); Cholesterol 206 mg/dL (<200); Estimated Glomerular Filt Rate > 60; Glucose Fasting 97 mg/dL (60-99); HDL Cholesterol 79 mg/dL (>40); LDL Cholesterol Calculated 107 mg/dL (<100); Potassium 3.8 mmol/L (3.3-5.1); Sodium 139 mmol/L (135-145); Total Protein 7.7 g/dL (6.5-8.0); Triglycerides 102 mg/dL (<150)
[2023-10-17 11:42] LABS: Free T4 (Free Thyroxine) 0.86 ng/dL (0.71-1.85); Thyroid Stimulating Hormone 0.34 uIU/mL (0.32-4.0); Vitamin D 25-OH Total 58.8 ng/mL (>30)
== END 2023-10-17 10:00 | disposition home or self-care (01) ==
LOC: HO.LAB 09:59
PROVIDERS: PCP Internal Medicine; Visit Provider Internal Medicine
DX: I10 Essential (primary) hypertension (principal); R30.0 Dysuria; R79.89 Other specified abnormal findings of blood chemistry; E78.00 Pure hypercholesterolemia, unspecified; E55.9 Vitamin D deficiency, unspecified
CPT/HCPCS: 36415; 80053; 80061; 81003; 82306; 84439; 84443; 85025

== ENCOUNTER 2023-10-23 12:34 | Outpatient (AMB) | payer MEDICARE, MEDICAID, SELFPAY ==
[2023-10-23 12:47] VITALS: BP 122/74; PULSE 103; O2SAT 98; BMI 26.5
--- NOTE | 2023-10-23 12:47 | MHC.PC.OV ---
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 Required: No Accompanied by: Self / Same As Patient Allergies No Known Allergies Allergy (Verified 10/23/23 12:48) Tobacco use date assessed: 10/23/23 Dental Screening Dental Screen Date: 10/23/23 Did you have a dental visit in the last 12 months?: Yes Did you have a dental problem in the last 6 months where you did not have access to dental care?: No Was dental information given to patient?: Patient has dentist [facility] Medical History Family history of colon cancer Bilateral knee pain Allergic rhinitis Low back pain Fatigue History of tachycardia PONV (postoperative nausea and vomiting) Gallstones History of gallstones Right sided abdominal pain Impaired fasting glucose Lumbar spondylosis Vertebrogenic low back pain Lumbar radiculitis Tympanic membrane perforation Persistent fatigue after COVID-19 Low TSH level Overweight (BMI 25.0-29.9) Anxiety Insomnia Complex cyst of left ovary Urinary incontinence GERD without esophagitis Constipation Migraine Degenerative arthritis of cervical spine Lumbar degenerative disc disease Pure hypercholesterolemia Depression Surgical History H/O colonoscopy (07/12/23) Hx laparoscopic cholecystectomy (~09/11/22) Hx of colonoscopy History of tympanoplasty of left ear History of surgery History of nasal surgery History of bladder surgery Family History Father Colon cancer Mother Bone cancer Social History Housing: House Are you a primary acute care nursing assistant to a significant other at home: No Do you presently have visiting nurse or other home services: No Alcohol intake: current Alcohol intake frequency: holidays/special occasions only Alcohol type: wine Comment: pt reports this is her baseline pain level Patient Tobacco Use Status: Never used Tobacco e-Cigarette/Vaping Use: Never Used Second Hand Smoke Exposure: Yes service: No Current occupational status: disabled Cognitive needs: No Hearing needs: No Vision needs: No Questionnaire PHQ-9 Over the last 2 weeks, how often have you been bothered by any of the following problems? 1. Little interest or pleasure in doing things: several days 2. Feeling down, depressed, or hopeless: several days 3. Trouble falling or staying asleep, or sleeping too much: several days 4. Feeling tired or having little energy: several days 5. Poor appetite or overeating: not at all 6. Feeling bad about yourself - or that you are a failure or have let yourself or your family down: not at all 7. Trouble concentrating on things, such as reading the newspaper or watching television: not at all 8. Moving or speaking so slowly that other people could have noticed. Or the opposite - being so fidgety or restless that you have been moving around a lot more than usual: not at all 9. Thoughts that you would be better off or of hurting yourself in some way: not at all Total score: 4 Depression Screening Interpretation: Positive Depression Screening Follow-up: Existing condition and In treatment Depression Screening Done: Yes Source: Developed by Drs. Angel Anthony, Clau Saleh, Guzman Moreno and colleagues, with an educational maria d from [employer]. Thrive Questionnaire Date Thrive assessed: 10/23/23 I am a: Patient What is your living situation today?: I have a steady place to live Within the past 12 months, did the food you bought not last and you didn't have the money to get more?: Never true Within the past 12 months, did you worry whether your food would run out before you got money to buy more?: Never true Do you have trouble paying for medicines?: No Do you have trouble getting transportation to medical appointments?: No Do you have trouble paying your heating and electricity bill?: No Do you have trouble taking care of your child, family member or friend?: No Do you have trouble with day-to-day activities such as bathing, preparing meals, shopping, managing finances, etc.?: No Are you currently unemployed and looking for a job?: No Are you interested in more education?: No Please select the resources that you would like help with: None Currently or been in a relationship where the following occur: no concerns reported THRIVE Score: 0 AUDIT C Alcohol Use Questionnaire (AUDIT-C) 1. How often do you have a drink containing alcohol?: Monthly or less 2. How many drinks containing alcohol do you have on a typical day when you are drinking?: 1 or 2 3. How often do you have six or more drinks on one occasion?: Never Total Score: 1 Score Reviewed/Action Taken: Yes ACE-7 AMB Questionnaire ACE-7 Date ACE - 7 assessed: 10/23/23 Feeling nervous, anxious, or on edge: 0 = Not at all Not being able to stop or control worryin = Not at all Worrying too much about different things: 0 = Not at all Trouble relaxin = Not at all Being so restless that it is hard to sit still: 0 = Not at all Becoming easily annoyed or irritable: 0 = Not at all Feeling afraid as if something awful might happen: 0 = Not at all Total ACE-7 score (0-4 normal; 5-9 mild; 10-14 moderate; 15-21 severe): 0 Source: Developed by Drs. Angel Anthony, Clau Saleh, Guzman Moreno and colleagues, with an educational maria d from [employer]. ACE-7 Assessment Billing ACE-7 Assessment Tool: ACE-7 Assessment 64684 Physical exam (Primary Care) Tobacco/Smoking Status: Tobacco use Status Tobacco use date assessed 07/23/23 07/23/23 14:21 Patient Tobacco Use Status Never used Tobacco 07/23/23 14:21 e-Cigarette/Vaping Use Never Used 07/23/23 14:21 Depression Screening Interpretation: Positive Depression Screening Follow-up: Existing condition and In treatment Thrive Assessment: Date of Thrive Assessment Date Thrive assessed 07/23/23 07/23/23 14:21 Currently or been in a relationship where the following occur: no concerns reported Coding Additional Codes ACE-7 Assessment Billing - ACE-7 Assessment Tool: ACE-7 Assessment 13139 ([id number])
--- NOTE | 2023-10-23 13:24 | MHC.PC.OV ---
Vital Signs 10/23/23 12:47 Height 5 ft 1 in Weight 140 lb 8 oz BMI 26.5 BP 122/74 Blood Pressure Location Lt brachial Position Sitting Pulse 103 H Pulse Source Pulse Oximeter Pulse Oximetry (%) 98 Oxygen Delivery Method Room Air Intake Visit Reasons: 3mth f/u Accompanied by: Self / Same As Patient Allergies No Known Allergies Allergy (Verified 10/23/23 13:46) Medication List - Last Reconciled 10/23/23 by Richar Verma MD amoxicillin-pot clavulanate 875-125 mg 1 tab PO BID 7 days cetirizine 10 mg PO DAILY PRN 90 days cyclobenzaprine 10 mg PO TID PRN gabapentin 600 mg PO TID 30 days lorazepam 1 mg PO BEDTIME PRN 30 days multivitamin 1 tab PO DAILY omeprazole 20 mg PO DAILY oxycodone-acetaminophen 5-325 mg 1 tab PO Q6H PRN 28 days paroxetine HCl 20 mg PO DAILY 30 days [Probiotic 1 cap PO DAILY] rosuvastatin 5 mg PO .every other day 60 days topiramate 50 mg PO BEDTIME 30 days trazodone 50 mg PO BEDTIME PRN 30 days zolpidem 10 mg PO BEDTIME PRN 30 days Tobacco use date assessed: 10/23/23 Dental Screening Dental Screen Date: 10/23/23 Did you have a dental visit in the last 12 months?: Yes Did you have a dental problem in the last 6 months where you did not have access to dental care?: No Was dental information given to patient?: Patient has dentist HPI 3mth f/u HPI Details Patient comes in today for her follow up visit States that she still has on and off headaches but they are not much worse than before; she denies any dizziness Is again experiencing increased pain in her left ear, which she states has been going on for a few days now; denies any fever or sore throat Denies any chest pains, no increased SOB No nausea/vomiting, no abdominal pain No change in bowel habits noted States that her chronic low back pain and joint pains remain adequately controlled on her current Rx - needs her pain med and Cetirizine Rx refilled Relates increased neck pain lately - states that pain management was helping her but her insurance is now refusing to cover any further procedures for her Per pain management report, she was responding well to nerve blocks in the past but is unable to proceed due to insurance denials Had her follow up labs done last week - to discuss her results [facility] Medical History Family history of colon cancer Bilateral knee pain Allergic rhinitis Low back pain Fatigue History of tachycardia PONV (postoperative nausea and vomiting) Gallstones History of gallstones Right sided abdominal pain Impaired fasting glucose Lumbar spondylosis Vertebrogenic low back pain Lumbar radiculitis Tympanic membrane perforation Persistent fatigue after COVID-19 Low TSH level Overweight (BMI 25.0-29.9) Anxiety Insomnia Complex cyst of left ovary Urinary incontinence GERD without esophagitis Constipation Migraine Degenerative arthritis of cervical spine Lumbar degenerative disc disease Pure hypercholesterolemia Depression Surgical History H/O colonoscopy (07/12/23) Hx laparoscopic cholecystectomy (~09/11/22) Hx of colonoscopy History of tympanoplasty of left ear History of surgery History of nasal surgery History of bladder surgery Family History Father Colon cancer Mother Bone cancer Social History Housing: House Are you a primary child day care teacher to a significant other at home: No Do you presently have visiting nurse or other home services: No Alcohol intake: current Alcohol intake frequency: holidays/special occasions only Alcohol type: wine Comment: pt reports this is her baseline pain level Patient Tobacco Use Status: Never used Tobacco e-Cigarette/Vaping Use: Never Used Second Hand Smoke Exposure: Yes service: No Current occupational status: disabled Cognitive needs: No Hearing needs: No Vision needs: No Questionnaire PHQ-9 Over the last 2 weeks, how often have you been bothered by any of the following problems? 1. Little interest or pleasure in doing things: several days 2. Feeling down, depressed, or hopeless: several days 3. Trouble falling or staying asleep, or sleeping too much: several days 4. Feeling tired or having little energy: several days 5. Poor appetite or overeating: not at all 6. Feeling bad about yourself - or that you are a failure or have let yourself or your family down: not at all 7. Trouble concentrating on things, such as reading the newspaper or watching television: not at all 8. Moving or speaking so slowly that other people could have noticed. Or the opposite - being so fidgety or restless that you have been moving around a lot more than usual: not at all 9. Thoughts that you would be better off or of hurting yourself in some way: not at all Total score: 4 Depression Screening Interpretation: Positive Depression Screening Follow-up: Existing condition and In treatment Depression Screening Done: Yes 35329 - PHQ-9 Billing: Yes Source: Developed by Drs. Angel Anthony, lCau Saleh, Guzman Moreno and colleagues, with an educational maria d from [employer] Thrive Questionnaire Date Thrive assessed: 10/23/23 I am a: Patient What is your living situation today?: I have a steady place to live Within the past 12 months, did the food you bought not last and you didn't have the money to get more?: Never true Within the past 12 months, did you worry whether your food would run out before you got money to buy more?: Never true Do you have trouble paying for medicines?: No Do you have trouble getting transportation to medical appointments?: No Do you have trouble paying your heating and electricity bill?: No Do you have trouble taking care of your child, family member or friend?: No Do you have trouble with day-to-day activities such as bathing, preparing meals, shopping, managing finances, etc.?: No Are you currently unemployed and looking for a job?: No Are you interested in more education?: No Please select the resources that you would like help with: None Currently or been in a relationship where the following occur: no concerns reported THRIVE Score: 0 AUDIT C Alcohol Use Questionnaire (AUDIT-C) 1. How often do you have a drink containing alcohol?: Monthly or less 2. How many drinks containing alcohol do you have on a typical day when you are drinking?: 1 or 2 3. How often do you have six or more drinks on one occasion?: Never Total Score: 1 Score Reviewed/Action Taken: Yes ACE-7 AMB Questionnaire ACE-7 Date ACE - 7 assessed: 10/23/23 Feeling nervous, anxious, or on edge: 0 = Not at all Not being able to stop or control worryin = Not at all Worrying too much about different things: 0 = Not at all Trouble relaxin = Not at all Being so restless that it is hard to sit still: 0 = Not at all Becoming easily annoyed or irritable: 0 = Not at all Feeling afraid as if something awful might happen: 0 = Not at all Total ACE-7 score (0-4 normal; 5-9 mild; 10-14 moderate; 15-21 severe): 0 Source: Developed by Drs. Angel Anthony, Clau Saleh, Guzman Moreno and colleagues, with an educational maria d from [employer] ACE-7 Assessment Billing ACE-7 Assessment Tool: ACE-7 Assessment 53648 Review of Systems Const Denies chills, Reports difficulty sleeping, Reports fatigue, Denies fever(s) and Reports headache(s) (on and off) ENT Denies dysphagia, Denies dizziness, Reports otalgia (increased pain in the left ear), Reports headache(s) (on and off), Reports hearing loss, Reports neck pain (chronic - increasing lately), Denies odynophagia, Reports tinnitus (left ear) and Denies sore throat Card Denies chest pain, Denies palpitations and Denies dyspnea Resp Denies cough and Denies dyspnea GI Denies abdominal pain, Denies hematochezia, Denies constipation, Denies dysphagia, Denies heartburn, Reports loose stools (at times), Denies nausea, Denies odynophagia and Denies vomiting Denies nocturia, Denies dysuria and Denies urinary urgency Musc Reports back pain (over the lumbar spine - chronic), Reports myalgias, Reports arthralgias (over both knees) and Reports neck pain (chronic - increasing lately) Skin/Breast Denies rash Neuro Denies dizziness and Reports headache(s) (on and off) Psych Reports depression (increasing) Endo Reports fatigue and Denies palpitations Physical exam (Primary Care) Vital Signs: Last Vital Signs Pulse 103 H 10/23/23 12:47 BP 122/74 10/23/23 12:47 Pulse Ox 98 10/23/23 12:47 Oxygen Delivery Method Room Air 10/23/23 12:47 BMI result Body Mass Index 26.5 Tobacco/Smoking Status: Tobacco use Status Tobacco use date assessed 10/23/23 10/23/23 13:27 Patient Tobacco Use Status Never used Tobacco 10/23/23 13:27 e-Cigarette/Vaping Use Never Used 10/23/23 13:27 PHQ-9: PHQ-9 Score PHQ-9: Total score 4 10/23/23 13:34 Depression Screening Interpretation: Positive Depression Screening Follow-up: Existing condition and In treatment Thrive Assessment: Date of Thrive Assessment Date Thrive assessed 10/23/23 10/23/23 13:27 Currently or been in a relationship where the following occur: no concerns reported Const General: no acute distress HENMT Ears: TM's normal bilaterally and Abnormal EAC present erythema on the left and EAC tenderness on the left Throat: Yes posterior oropharynx normal and Yes tonsils normal (no TP congestion noted) Neck Neck: Yes no lymphadenopathy and Yes tender (over the back of the neck - increased lately) Thyroid: Thyroid normal Resp Auscultation: clear to auscultation bilaterally, no rales and no wheezes Cardio Rate: regular rate Rhythm: regular rhythm Heart sounds: no murmurs GI Palpation (GI): Soft to palpation, Tenderness to palpation present (GI) (mild ) in the RUQ, no guarding and No Rebound tenderness present Auscultation: normal bowel sounds General: Yes no CVA tenderness Back/Spine/Pelvis Back: no CVA tenderness Cervical Spine: Cervical spine tenderness Thoracic/Lumbar Spine: lumbar spinal tenderness Extrem General: Yes no clubbing, cyanosis or edema Right lower extremity: knee Details: tenderness and crepitus; no swelling Left lower extremity: knee Details: tenderness and crepitus; no swelling Results Reviewed Results Reviewed: Laboratory Tests 10/17/23 10/17/23 10/17/23 10:15 10:15 10:19 WBC 5.3 Hgb 12.7 Hct 39.3 Plt Count 261 Sodium 139 Potassium 3.8 Creatinine 0.83 Estimated GFR > 60 Fasting Glucose 97 Calcium 9.6 AST 49 H ALT 93 H Triglycerides 102 Cholesterol 206 H LDL Cholesterol, Calc HDL Cholesterol 25-OH Vitamin D Total 58.8 TSH 0.34 Free T4 0.86 Ur Specific [place] 1.015 Urine Protein Negative Urine Glucose (UA) Negative Urine Blood Negative Urine Nitrite Negative Ur Leukocyte Esterase Negative 10/17/23 10/17/23 10:19 10:19 WBC Hgb Hct Plt Count Sodium Potassium Creatinine Estimated GFR Fasting Glucose Calcium AST ALT Triglycerides Cholesterol LDL Cholesterol, Calc 107 H HDL Cholesterol 79 25-OH Vitamin D Total TSH Free T4 Ur Specific [place] Urine Protein Urine Glucose (UA) Urine Blood Urine Nitrite Ur Leukocyte Esterase Assessment and Plan Assessment & Plan (1) Pure hypercholesterolemia: Code(s): E78.00 - Pure hypercholesterolemia, unspecified Plan: Results of her labs done last week reviewed and discussed with patient Reinforced low cholesterol diet Patient was tolerating Rosuvastatin 5 mg QOD previously but as her LFTs are now starting to go up again, will try to have her lower this further to 1 tablet every 3 days Atorvastatin 10 mg QD was discontinued previously due to elevated LFTs Will recheck her labs and fasting lipids in 3 months for follow-up and advised that if her LFTs stay elevated or go up further, then we will need to completely take her off Rosuvastatin and will then need to consider switching her over to the newer injectable PCSK9 inhibitors but will again have to deal with trying to get her insurance to cover the Rx (as it seems like her insurance is really NOT WILLING TO COVER anything other than the basic and cheaper meds or procedures) (2) Lumbar degenerative disc disease: Code(s): M51.36 - Other intervertebral disc degeneration, lumbar region Plan: Reinforced activity and weight lifting restrictions to avoid aggravating her back pain Continue?Cyclobenzaprine?10 mg 3 times a day as needed and?Oxycodone-Acetaminophen?5-325 mg 1 tablet every 6 hours as needed?as well as Gabapentin to 600 mg TID Follow up with pain management as scheduled; has received injections into her lower back before with some relief of her symptoms (3) Degenerative arthritis of cervical spine: Code(s): M47.812 - Spondylosis without myelopathy or radiculopathy, cervical region Qualifiers: Spinal osteoarthritis complication: unspecified spinal osteoarthritis Qualified Code(s): M47.812 - Spondylosis without myelopathy or radiculopathy, cervical region Plan: States that her current medications help keep her neck pain manageable Is S/P RFA of the lumbar spine in February 2022 and diagnostic MBB of the cervical spine in June 2022 - states that her chronic pains have improved somewhat with ablation Tx but insurance is now declining to cover any further procedures and intervention for her chronic back pain Patient states that pain management has tried working on getting these approved unsuccessfully Have advised patient that her possibly only option now is to call up her insurance company herself and demand for an explanation as to why they would not cover the procedures if they are helping her and to emphatically ask them IF they would rather just have her keep taking more and more pain meds, which they may also not necessarily approve and even if they did, would not be in the patient's best interest (but may be on the insurance side as they always would prefer to save money rather than have patient's best interest as the primary objective) Follow up with pain management as scheduled (4) Migraine: Code(s): G43.909 - Migraine, unspecified, not intractable, without status migrainosus Qualifiers: Migraine type: unspecified Status migrainosus presence: without status migrainosus Intractability: not intractable Qualified Code(s): G43.909 - Migraine, unspecified, not intractable, without status migrainosus Plan: Reinforced avoidance of migraine triggers Continue Topiramate 50 mg once a day at bedtime for headache prophylaxis - states that her headaches are now back under control since her dose was raised at her last visit Continue Fioricet PRN She has been advised by Neurology in the past that her headaches are most likely multifactorial and are not just simple migraine headaches and will most likely require a multifaceted approach involving medical as well as behavioral therapy and intervention -? was advised to continue to follow-up with her psychiatrist for this as well Follow up with neurology as scheduled (5) Otitis externa of left ear: Code(s): H60.92 - Unspecified otitis externa, left ear Qualifiers: Otitis externa type: unspecified type Chronicity: acute Qualified Code(s): H60.502 - Unspecified acute noninfective otitis externa, left ear Plan: Will start patient on Cipro-HC otic 3 drops into the left ear BID x 7 days (6) Constipation: Code(s): K59.00 - Constipation, unspecified Qualifiers: Constipation type: unspecified constipation type Qualified Code(s): K59.00 - Constipation, unspecified Plan: Most likely opioid-induced Encouraged increased oral fluids and dietary fiber Abdominal x-rays done a couple of years ago came out normal Continue Senna 8.6 mg 1-2 tablets daily at bedtime as needed (7) Allergic rhinitis: Code(s): J30.9 - Allergic rhinitis, unspecified Qualifiers: Allergic rhinitis trigger: unspecified Allergic rhinitis seasonality: unspecified Qualified Code(s): J30.9 - Allergic rhinitis, unspecified Plan: Continue Cetirizine 10 mg QD PRN - Rx refilled (8) GERD without esophagitis: Code(s): K21.9 - Gastro-esophageal reflux disease without esophagitis Plan: Dietary restrictions reinforced Continue Omeprazole 20 mg QD (9) Low TSH level: Code(s): R79.89 - Other specified abnormal findings of blood chemistry Plan: Her TFTs were normal on her recent labs Patient is clinically euthyroid Will continue to monitor her TFTs regularly for now (10) Elevated LFTs: Comment: S/P rakan gerald in September 2022 Code(s): R79.89 - Other specified abnormal findings of blood chemistry Plan: Advised that her LFTs have increased again significantly from previous Her liver appeared normal on abdominal US done in July 2022 Repeat abdominal US done in January 2023 also came out normal Will continue to monitor her LFTs regularly and if her LFTs stay high or go up further even after she cut back on her Rosuvastatin dosing starting today to every 3 days, then we will need to find a different method of controlling her cholesterol levels (11) Bilateral knee pain: Code(s): M25.561 - Pain in right knee; M25.562 - Pain in left knee Qualifiers: Chronicity: unspecified Qualified Code(s): M25.561 - Pain in right knee; M25.562 - Pain in left knee Plan: Bilateral knee x-rays done in January 2023 revealed (+) mild degenerative changes in the patellofemoral areas in both knees Will consider referring her to orthopedics for further management if her knee pain progresses (12) Urinary incontinence: Code(s): R32 - Unspecified urinary incontinence Qualifiers: Urinary Incontinence type: unspecified incontinence Qualified Code(s): R32 - Unspecified urinary incontinence Plan: Follow up with urology (Dr.? Back) as scheduled (13) Complex cyst of left ovary: Code(s): N83.292 - Other ovarian cyst, left side Plan: Is being followed by [facility] regularly for this - her cyst has been < 1 cm and has remained stable in size over the past 2-3 years (likely a dermoid cyst) and will continue surveillance with regular ultrasound and CA-125 measurement (14) Insomnia: Code(s): G47.00 - Insomnia, unspecified Qualifiers: Insomnia type: unspecified Qualified Code(s): G47.00 - Insomnia, unspecified Plan: Sleep hygiene reinforced Continue Zolpidem 10 mg once a day at bedtime as needed and Trazodone 50 mg Q HS PRN only (15) Anxiety: Code(s): F41.9 - Anxiety disorder, unspecified Plan: Continue Lorazepam 1 mg daily at bedtime as needed (16) Depression: Code(s): F32.9 - Major depressive disorder, single episode, unspecified Qualifiers: Depression Type: major depressive disorder Major depression recurrence: recurrent Active/Remission status: currently active Major depression episode severity: unspecified Qualified Code(s): F33.9 - Major depressive disorder, recurrent, unspecified Plan: Continue Paroxetine 20 mg Q AM Follow-up with Psychiatry as scheduled (17) Overweight (BMI 25.0-29.9): Code(s): E66.3 - Overweight Plan: Reinforced diet/exercise as tolerated/lose weight Plan Follow up in 3 months Orders: Orders Lipid Panel 3 Months E78.00 - Pure hypercholesterolemia, unspecified UA CC w/rflx Micro + Cult 3 Months R30.0 - Dysuria Complete Blood Count Auto Diff 3 Months D64.9 - Anemia, unspecified Comprehensive [place]. Panel Fast 3 Months E78.00 - Pure hypercholesterolemia, unspecified TSH reflex Free T4 3 Months E78.00 - Pure hypercholesterolemia, unspecified Vitamin D 25-OH Total 3 Months E55.9 - Vitamin D deficiency, unspecified Medications: New ciprofloxacin-hydrocortisone 0.2-1 % (Cipro HC) 3 drps otic (ear) left BID 7 days 10 mL 0RF Changed From rosuvastatin 5 mg PO .every other day 60 days 30 tabs 2RF E78.00 - Pure hypercholesterolemia, unspecified To rosuvastatin 5 mg PO Q3D 60 days 20 tabs 2RF E78.00 - Pure hypercholesterolemia, unspecified Refilled oxycodone-acetaminophen 5-325 mg 1 tab PO Q6H 28 days PRN 112 tabs 0RF pain M47.812 - Spondylosis without myelopathy or radiculopathy, cervical region, M51.36 - Other intervertebral disc degeneration, lumbar region cetirizine Take daily in the evening 10 mg PO DAILY 90 days PRN 90 tabs 1RF allergy symptoms Coding Level of Care Code Est Pt Level 4 (78016) Diagnoses Pure hypercholesterolemia E78.00 Lumbar degenerative disc disease M51.36 Osteoarthritis of cervical spine, unspecified spinal osteoarthritis complication status M47.812 Spinal osteoarthritis complication: unspecified spinal osteoarthritis Migraine without status migrainosus, not intractable, unspecified migraine type G43.909 Migraine type: unspecified Status migrainosus presence: without status migrainosus Intractability: not intractable Acute otitis externa of left ear, unspecified type H60.502 Otitis externa type: unspecified type Chronicity: acute Constipation, unspecified constipation type K59.00 Constipation type: unspecified constipation type Allergic rhinitis, unspecified seasonality, unspecified trigger J30.9 Allergic rhinitis trigger: unspecified Allergic rhinitis seasonality: unspecified GERD without esophagitis K21.9 Low TSH level R79.89 Elevated LFTs R79.89 Pain in both knees, unspecified chronicity M25.561; M25.562 Chronicity: unspecified Urinary incontinence, unspecified type R32 Urinary Incontinence type: unspecified incontinence Complex cyst of left ovary N83.292 Insomnia, unspecified type G47.00 Insomnia type: unspecified Anxiety F41.9 Episode of recurrent major depressive disorder, unspecified depression episode severity F33.9 Depression Type: major depressive disorder Major depression recurrence: recurrent Active/Remission status: currently active Major depression episode severity: unspecified Overweight (BMI 25.0-29.9) E66.3 Additional Codes ACE-7 Assessment Billing - ACE-7 Assessment Tool: ACE-7 Assessment 54397 ([id number])
== END 2023-10-23 14:08 | disposition home or self-care (01) ==
PROVIDERS: PCP Internal Medicine; Visit Provider Internal Medicine
DX: E78.00 Pure hypercholesterolemia, unspecified (principal); F33.9 Major depressive disorder, recurrent, unspecified; M51.36 Other intervertebral disc degeneration, lumbar region; M47.812 Spondylosis without myelopathy or radiculopathy, cervical region; G43.909 Migraine, unspecified, not intractable, without status migrainosus; H60.502 Unspecified acute noninfective otitis externa, left ear; K59.00 Constipation, unspecified; J30.9 Allergic rhinitis, unspecified; K21.9 Gastro-esophageal reflux disease without esophagitis; R79.89 Other specified abnormal findings of blood chemistry; M25.561 Pain in right knee; M25.562 Pain in left knee
CPT/HCPCS: 99214

== ENCOUNTER 2023-12-16 10:44 | Outpatient (AMB) | payer MEDICARE, MEDICAID, SELFPAY ==
--- NOTE | 2023-12-16 10:47 | MHC.OFFVIS ---
Intake Vital Signs 12/16/23 10:50 Height 5 ft 1 in Weight 139 lb BMI 26.3 BP 140/79 H Blood Pressure Location Lt brachial Position Sitting Respiration 12 Pulse 114 H Pulse Source Pulse Oximeter Pulse Oximetry (%) 99 Oxygen Delivery Method Room Air Intake Visit Reasons: Follow Up Allergies No Known Allergies Allergy (Verified 12/16/23 10:51) Medication List - Last Reconciled 12/16/23 by Karolyn Crenshaw LPN cetirizine 10 mg PO DAILY PRN 90 days cyclobenzaprine 10 mg PO TID PRN gabapentin 600 mg PO TID 30 days lorazepam 1 mg PO BEDTIME PRN 30 days multivitamin 1 tab PO DAILY omeprazole 20 mg PO DAILY oxycodone-acetaminophen 5-325 mg 1 tab PO Q6H PRN 28 days paroxetine HCl 20 mg PO DAILY 30 days [Probiotic 1 cap PO DAILY] rosuvastatin 5 mg PO Q3D 60 days topiramate 50 mg PO BEDTIME 30 days trazodone 50 mg PO BEDTIME PRN 30 days zolpidem 10 mg PO BEDTIME PRN 30 days HPI Follow Up HPI Details 63-year-old female who presents today to the office for a follow up. She reports worsening of the back pain, which is bothersome. Her left side is worse than her right side. She has a history of arthritis. She reports the worsening of her neck pain for the past two days. She has a limited ROM. She reports arm pain, which is manageable. Her insurance company denied her prior authorization. Scott disability score is 74% Lower back disability score is 68% Past procedures: 03/27/23: Lumbar Medial Branch Block, Bilateral L3, L4 medial branches and L5 Dorsal Ramus (2 levels, 3 nerves): Moderate relief 10/31/22: Diagnostic Cervical Medial Branch Block, Left C3, C4, C5 medial branches: 80% relief for 2 months 06/27/22: Left Diagnostic C3-C4-C5 MBBs ? 100% relief for 2 months. 03/07/22: Left L4-L5 Medial Branch RFA ? 100% relief. 11/29/21: Bilateral Diagnostic L3-L4-L5 MBBs - 80% pain relief for 2 days, more noticeable on the left side. 11/01/21: Bilateral Diagnostic L3-L4-L5 MBB ? 40% relief. 08/23/21 Bilateral Diagnostic L3-L4-L5 MBB ? 50% relief. [facility] Medical History Family history of colon cancer Bilateral knee pain Allergic rhinitis Low back pain Fatigue History of tachycardia PONV (postoperative nausea and vomiting) Gallstones History of gallstones Right sided abdominal pain Impaired fasting glucose Lumbar spondylosis Vertebrogenic low back pain Lumbar radiculitis Tympanic membrane perforation Persistent fatigue after COVID-19 Low TSH level Overweight (BMI 25.0-29.9) Anxiety Insomnia Complex cyst of left ovary Urinary incontinence GERD without esophagitis Constipation Migraine Degenerative arthritis of cervical spine Lumbar degenerative disc disease Pure hypercholesterolemia Depression Surgical History H/O colonoscopy (07/12/23) Hx laparoscopic cholecystectomy (~09/11/22) Hx of colonoscopy History of tympanoplasty of left ear History of surgery History of nasal surgery History of bladder surgery Family History Father Colon cancer Mother Bone cancer Social History Housing: House Are you a primary technical healthcare consultant to a significant other at home: No Do you presently have visiting nurse or other home services: No Alcohol intake: current Alcohol intake frequency: holidays/special occasions only Alcohol type: wine Comment: pt reports this is her baseline pain level Patient Tobacco Use Status: Never used Tobacco e-Cigarette/Vaping Use: Never Used Second Hand Smoke Exposure: Yes service: No Current occupational status: disabled Cognitive needs: No Hearing needs: No Vision needs: No Review of Systems Const All systems reviewed & are unremarkable except as noted in HPI and below Physical Exam Vital Signs: Last Vital Signs Pulse 114 H 12/16/23 10:50 Resp 12 12/16/23 10:50 BP 140/79 H 12/16/23 10:50 Pulse Ox 99 12/16/23 10:50 Oxygen Delivery Method Room Air 12/16/23 10:50 BMI result Body Mass Index 26.3 General: Appears afebrile. Alert and oriented. Mood and affect appropriate. Follows and participates in conversation appropriately. Respiratory effort is unlabored. Able to transition from sit to stand unassisted. Ambulates with bilaterally normal heel strike and toe off. Facet loading is positive, left more than right. Lumbar extension reproduces pain. Results Reviewed Results Reviewed: No imaging is available for review. Assessment & Plan Assessment & Plan (1) Lumbar spondylosis: Code(s): M47.816 - Spondylosis without myelopathy or radiculopathy, lumbar region Plan We will schedule her for a bilateral diagnostic lumbar L3-L4-L5 MBB. Discussed the risks and benefits of the procedure with the patient in detail. All questions were answered. The patient is on board with the plan. Justification for interventional therapy: ? Patient with average pain > 6/10 ? Patient has exhausted conservative therapy ? Patient unable to tolerate physical therapy due to pain ? Previous injection provided >75% relief x > 2 weeks. . Patient has a good understanding of their pain condition and has appropriate mental and social support Scribed for Dr. Verdin by Delvin Howard, anesthesiology medical doctor, on 12/16/2023. I, Dr. Verdin, have personally reviewed and agree with the information entered by the scribe. Coding Level of Care Code Est Pt Level 3 (37227) Diagnoses Lumbar spondylosis M47.816
[2023-12-16 10:50] VITALS: BP 140/79; PULSE 114; RESP 12; O2SAT 99; BMI 26.3
== END 2023-12-16 11:19 | disposition home or self-care (01) ==
PROVIDERS: PCP Internal Medicine; Visit Provider Internal Medicine
DX: M47.816 Spondylosis without myelopathy or radiculopathy, lumbar region (principal)
CPT/HCPCS: 99213

== ENCOUNTER → 2023-12-16 10:44 | Outpatient (BNVA) | payer MEDICARE, MEDICAID, SELFPAY | PROVIDERS: PCP Internal Medicine; Visit Provider Internal Medicine | DX: M47.816 Spondylosis without myelopathy or radiculopathy, lumbar region (principal) | CPT/HCPCS: 99212 ==

== ENCOUNTER 2024-01-27 09:38 | Outpatient (REF) | payer MEDICARE, MEDICAID, SELFPAY ==
[2024-01-27 09:57] LABS: MANUAL DIFF FLAG NO
[2024-01-27 10:08] LABS: Basophils Percent Auto 0.5 % (0-2); Eosinophils Absolute Auto 0.1 X10*3/uL (0.0-0.4); Eosinophils Percent Auto 1.6 % (0-4); Hematocrit 36.3 % (37.0-47.0); Imm Gran Abs Auto 0.01 X10*3/uL (0.00-0.03); Imm Gran Pct Auto 0.2 % (0.0-0.4); Mean Corpuscular HGB Conc 33.1 g/dl (31.0-35.0); Mean Corpuscular Hemoglobin 30.8 pg (27.0-33.0); Mean Corpuscular Volume 93.1 fL (80.0-98.0); Mean Platelet Volume 8.4 fL (9.4-12.3); Monocytes Absolute Auto 0.4 X10*3/uL (0.1-1.2); Monocytes Percent Auto 7.8 % (2-11); Neutrophils Absolute Auto 2.9 x10*3/uL (2.0-8.3); Neutrophils Percent Auto 52.9 % (45-73); Platelet Count 254 X10*3/uL (160-400); Red Cell Distribution Width 13.7 % (11.0-16.0); White Blood Count 5.5 X10*3/uL (4.8-10.8)
[2024-01-27 10:52] LABS: Appearance Urine Clear; Color Urine Yellow; Glucose Urine UA Negative (Negative); Leukocyte Esterase Urine Trace (Negative); Nitrite Urine Negative (Negative); UMIC TRIGGER UACC YES; Urine Blood Negative (Negative); Urine Ketones Negative (Negative); Urine Protein Negative (Neg-Trace)
[2024-01-27 11:07] LABS: Alanine Aminotransferase 88 U/L (0-31); Albumin Level 4.2 g/dL (3.5-5.0); Alkaline Phosphatase 61 U/L (39-117); Anion Gap 14 (12-20); Aspartate Amino Transferase 37 U/L (5-31); Bilirubin Total 0.4 mg/dL (0.0-1.0); Blood Urea Nitrogen 10 mg/dL (9-16); Carbon Dioxide 21 mmol/L (22-29); Chloride 109 mmol/L (96-108); Cholesterol 194 mg/dL (<200); Estimated Glomerular Filt Rate > 60; Glucose Fasting 101 mg/dL (60-99); HDL Cholesterol 67 mg/dL (>40); LDL Cholesterol Calculated 106 mg/dL (<100); Potassium 3.6 mmol/L (3.3-5.1); Sodium 140 mmol/L (135-145); TSH reflex Free T4 0.16 uIU/mL (0.32-4.0); Total Protein 7.2 g/dL (6.5-8.0); Triglycerides 105 mg/dL (<150); Vitamin D 25-OH Total 55.1 ng/mL (>30)
[2024-01-27 11:08] LABS: Bacteria Urine None Seen (None Seen); Hyaline Casts Urine 0-2 /LPF (0-2); RBC Urine 0-2 /HPF (0-2); Squamous Epithelial Cell Urine 0-2 /HPF (0-2); WBC Urine 0-5 /HPF (0-5)
[2024-01-27 11:37] LABS: Free T4 (Free Thyroxine) 0.92 ng/dL (0.71-1.85)
== END 2024-01-27 09:39 | disposition home or self-care (01) ==
LOC: HO.LAB 09:38
PROVIDERS: PCP Internal Medicine; Visit Provider Internal Medicine
DX: D64.9 Anemia, unspecified (principal); E78.00 Pure hypercholesterolemia, unspecified; E55.9 Vitamin D deficiency, unspecified
CPT/HCPCS: 36415; 80053; 80061; 81001; 82306; 84439; 84443; 85025

== ENCOUNTER 2024-01-29 12:32 | Outpatient (AMB) | payer MEDICARE, MEDICAID, SELFPAY ==
[2024-01-29 12:38] VITALS: BP 92/68; PULSE 103; O2SAT 98; BMI 26.3
--- NOTE | 2024-01-29 12:38 | A.OFFPC_ITS ---
Vital Signs 01/29/24 12:38 Height 5 ft 1 in Weight 139 lb 0.4 oz BMI 26.3 BP 92/68 Blood Pressure Location Lt brachial Position Sitting Pulse 103 H Pulse Source Pulse Oximeter Pulse Oximetry (%) 98 Oxygen Delivery Method Room Air Intake Visit Reasons: 3 months Allergies No Known Allergies Allergy (Verified 01/29/24 13:16) Medication List - Last Reconciled 01/29/24 by Richar Verma MD cetirizine 10 mg PO DAILY PRN 90 days cyclobenzaprine 10 mg PO TID PRN gabapentin 600 mg PO TID 30 days lorazepam 1 mg PO BEDTIME PRN 30 days multivitamin 1 tab PO DAILY omeprazole 20 mg PO DAILY oxycodone-acetaminophen 5-325 mg 1 tab PO Q6H PRN 28 days paroxetine HCl 20 mg PO DAILY 30 days [Probiotic 1 cap PO DAILY] rosuvastatin 5 mg PO Q3D 60 days topiramate 50 mg PO BEDTIME 30 days trazodone 50 mg PO BEDTIME PRN 30 days zolpidem 10 mg PO BEDTIME PRN 30 days Tobacco use date assessed: 10/23/23 Dental Screening Dental Screen Date: 10/23/23 HPI 3 months HPI Details Patient comes in today for her follow up visit States that she feels okay She denies any dizziness lately but still has on and off headaches Thinks that her headaches may be due to her chronic neck pain as well as her left ear pain - she continues to experience frequent (chronic) pain and discomfort in her left ear Denies any chest pains, no SOB No nausea/vomiting; still has recurrent right upper abdominal pain - states that this has been going on for a year or so now No change in bowel habits noted Still has chronic pains over her neck and lower back but states that her current Rx help keep her pains manageable Needs a few of her Rx refilled but states that they are not actually due until next week but would like to try having them refilled now as it is very difficult to call into the office on a regular day Had her follow up labs done a couple of days ago - to discuss her results [facility] Medical History Family history of colon cancer Bilateral knee pain Allergic rhinitis Low back pain Fatigue History of tachycardia PONV (postoperative nausea and vomiting) Gallstones History of gallstones Right sided abdominal pain Impaired fasting glucose Lumbar spondylosis Vertebrogenic low back pain Lumbar radiculitis Tympanic membrane perforation Persistent fatigue after COVID-19 Low TSH level Overweight (BMI 25.0-29.9) Anxiety Insomnia Complex cyst of left ovary Urinary incontinence GERD without esophagitis Constipation Migraine Degenerative arthritis of cervical spine Lumbar degenerative disc disease Pure hypercholesterolemia Depression Surgical History H/O colonoscopy (07/12/23) Hx laparoscopic cholecystectomy (~09/11/22) Hx of colonoscopy History of tympanoplasty of left ear History of surgery History of nasal surgery History of bladder surgery Family History Father Colon cancer Mother Bone cancer Social History Housing: House Are you a primary career development coordinator to a significant other at home: No Do you presently have visiting nurse or other home services: No Alcohol intake: current Alcohol intake frequency: holidays/special occasions only Alcohol type: wine Comment: pt reports this is her baseline pain level Patient Tobacco Use Status: Never used Tobacco e-Cigarette/Vaping Use: Never Used Second Hand Smoke Exposure: Yes service: No Current occupational status: disabled Cognitive needs: No Hearing needs: No Vision needs: No Questionnaire Thrive Questionnaire Date Thrive assessed: 10/23/23 AUDIT C Alcohol Use Questionnaire (AUDIT-C) 1. How often do you have a drink containing alcohol?: Monthly or less 2. How many drinks containing alcohol do you have on a typical day when you are drinking?: 1 or 2 3. How often do you have six or more drinks on one occasion?: Never Total Score: 1 Score Reviewed/Action Taken: Yes ACE-7 AMB Questionnaire ACE-7 Date ACE - 7 assessed: 10/23/23 Source: Developed by Drs. Angel Anthony, Clau Saleh, Guzman Moreno and colleagues, with an educational maria d from [email or web address]. Review of Systems Const Denies chills, Reports difficulty sleeping, Reports fatigue, Denies fever(s) and Reports headache(s) (on and off) ENT Denies dysphagia, Denies dizziness, Reports otalgia (in the left ear - chronic), Reports headache(s) (on and off), Reports hearing loss, Reports neck pain (chronic - increasing lately), Denies odynophagia, Reports tinnitus (in the left ear) and Denies sore throat Card Denies chest pain, Denies palpitations and Denies dyspnea Resp Denies cough and Denies dyspnea GI Reports abdominal pain (on and off, over the RUQ), Denies hematochezia, Denies constipation, Denies dysphagia, Denies heartburn, Reports loose stools (at times), Denies nausea, Denies odynophagia and Denies vomiting Denies nocturia, Denies dysuria and Denies urinary urgency Musc Reports back pain (over the lumbar spine - chronic), Reports myalgias, Reports arthralgias (over both knees) and Reports neck pain (chronic - increasing lately) Skin/Breast Denies rash Neuro Denies dizziness and Reports headache(s) (on and off) Psych Reports depression (increasing) Endo Reports fatigue and Denies palpitations Physical exam (Primary Care) Vital Signs: Last Vital Signs Pulse 103 H 01/29/24 12:38 BP 92/68 01/29/24 12:38 Pulse Ox 98 01/29/24 12:38 Oxygen Delivery Method Room Air 01/29/24 12:38 BMI result Body Mass Index 26.3 Tobacco/Smoking Status: Tobacco use Status Tobacco use date assessed 10/23/23 01/29/24 12:44 Patient Tobacco Use Status Never used Tobacco 01/29/24 12:44 e-Cigarette/Vaping Use Never Used 01/29/24 12:44 Thrive Assessment: Date of Thrive Assessment Date Thrive assessed 10/23/23 01/29/24 12:44 Const General: no acute distress and alert HENMT Ears: TM normal on the right, EAC's normal and TM abnormal perforated (complete perforation/absent TM) without discharge on the left Throat: Yes posterior oropharynx normal and Yes tonsils normal (no TP congestion noted) Neck Neck: Yes no lymphadenopathy and Yes tender (over the back of the neck - increased lately) Thyroid: Thyroid normal Resp Auscultation: clear to auscultation bilaterally, no rales and no wheezes Cardio Rate: regular rate Rhythm: regular rhythm Heart sounds: no murmurs GI Palpation (GI): Soft to palpation, Tenderness to palpation present (GI) (mild ) in the RUQ, no guarding and No Rebound tenderness present Auscultation: normal bowel sounds General: Yes no CVA tenderness Back/Spine/Pelvis Back: no CVA tenderness Cervical Spine: Cervical spine tenderness Thoracic/Lumbar Spine: lumbar spinal tenderness Skin Rashes: no rashes Extrem General: Yes no clubbing, cyanosis or edema Right lower extremity: knee Details: tenderness and crepitus; no swelling Left lower extremity: knee Details: tenderness and crepitus; no swelling Results Reviewed Results Reviewed: Laboratory Tests 01/27/24 09:56 WBC 5.5 Hgb 12.0 Hct 36.3 L Plt Count 254 Sodium 140 Potassium 3.6 Creatinine 0.75 Estimated GFR > 60 Fasting Glucose 101 H Calcium 9.0 D AST 37 H ALT 88 H Triglycerides 105 Cholesterol 194 LDL Cholesterol, Calc 106 H HDL Cholesterol 67 25-OH Vitamin D Total 55.1 TSH 0.16 L Free T4 0.92 Ur Specific [place] 1.020 Urine Protein Negative Urine Glucose (UA) Negative Urine Blood Negative Urine Nitrite Negative Assessment and Plan Assessment & Plan (1) Pure hypercholesterolemia: Code(s): E78.00 - Pure hypercholesterolemia, unspecified Plan: Results of her labs done a couple of days ago reviewed and discussed with patient Reinforced low cholesterol diet Patient was tolerating Rosuvastatin 5 mg QOD previously but as her LFTs were starting to go up again, she was instructed to lower her Rx further to 1 tablet every 3 days (Atorvastatin 10 mg QD was discontinued previously due to si gnificantly elevated LFTs) Will recheck her labs and fasting lipids in 4 months for follow-up Have again advised patient that if her LFTs stay elevated or go up further, we may need to completely take her off Rosuvastatin and will then have to consider switching her over to the newer injectable PCSK9 inhibitors (2) Elevated LFTs: Comment: S/P lap gerald in September 2022 Code(s): R79.89 - Other specified abnormal findings of blood chemistry Plan: Patient is advised that her LFTs remain elevated but have decreased slightly from previous Her liver appeared normal on abdominal US done in July 2022 Repeat abdominal US done in January 2023 also came out normal Will continue to monitor her LFTs regularly and if her LFTs stay high or go up further even after she cut back on her Rosuvastatin dosing starting today to every 3 days, then we will need to find a different method of controlling her cholesterol levels (3) RUQ abdominal pain: Code(s): R10.11 - Right upper quadrant pain Plan: Patient states that this has been going on for a while now and imaging studies done in the past couple of years (abdominal US) have not revealed any abnormality or etiology for her symptoms Will refer her to GI for further evaluation and management (4) Lumbar degenerative disc disease: Code(s): M51.36 - Other intervertebral disc degeneration, lumbar region Plan: Reinforced activity and weight lifting restrictions to avoid aggravating her back pain Continue?Cyclobenzaprine?10 mg 3 times a day as needed and?Oxycodone- Acetaminophen?5-325 mg 1 tablet every 6 hours as needed?as well as Gabapentin to 600 mg TID Follow up with pain management as scheduled; has received injections into her lower back before with some relief of her symptoms It also appears that pain management is currently planning to try her on PNS (5) Degenerative arthritis of cervical spine: Code(s): M47.812 - Spondylosis without myelopathy or radiculopathy, cervical region Qualifiers: Spinal osteoarthritis complication: unspecified spinal osteoarthritis Qualified Code(s): M47.812 - Spondylosis without myelopathy or radiculopathy, cervical region Plan: States that her current medications help keep her neck pain manageable Is S/P RFA of the lumbar spine in February 2022 and diagnostic MBB of the cervical spine in June 2022 - states that her chronic pains have improved somewhat with ablation Tx but insurance is now declining to cover any further procedures and intervention for her chronic back pain Patient states that pain management has tried working on getting these approved unsuccessfully It appears that pain management is now going to try her on a PNS device Follow up with pain management as scheduled (6) Migraine: Code(s): G43.909 - Migraine, unspecified, not intractable, without status migrainosus Qualifiers: Migraine type: unspecified Status migrainosus presence: without status migrainosus Intractability: not intractable Qualified Code(s): G43.909 - Migraine, unspecified, not intractable, without status migrainosus Plan: Reinforced avoidance of migraine triggers Continue Topiramate 50 mg once a day at bedtime for headache prophylaxis Continue Fioricet PRN She has been advised by Neurology in the past that her headaches are most likely multifactorial and are not just simple migraine headaches and will most likely require a multifaceted approach involving medical as well as behavioral therapy and intervention -? was advised to continue to follow-up with her psychiatrist for this as well Follow up with neurology as scheduled (7) Constipation: Code(s): K59.00 - Constipation, unspecified Qualifiers: Constipation type: unspecified constipation type Qualified Code(s): K59.00 - Constipation, unspecified Plan: Most likely opioid-induced Encouraged increased oral fluids and dietary fiber Abdominal x-rays done a couple of years ago came out normal Continue Senna 8.6 mg 1-2 tablets daily at bedtime as needed (8) Allergic rhinitis: Code(s): J30.9 - Allergic rhinitis, unspecified Qualifiers: Allergic rhinitis trigger: unspecified Allergic rhinitis seasonality: unspecified Qualified Code(s): J30.9 - Allergic rhinitis, unspecified Plan: Continue Cetirizine 10 mg QD PRN (9) GERD without esophagitis: Code(s): K21.9 - Gastro-esophageal reflux disease without esophagitis Plan: Dietary restrictions reinforced Continue Omeprazole 20 mg QD (10) Chronic left ear pain: Code(s): H92.02 - Otalgia, left ear; G89.29 - Other chronic pain Plan: S/P tympanoplasty in 2021 Patient is advised that she currently does NOT have any TM covering her left ear and as her inner ear is completely exposed to the elements, this may be the primary reason for her chronic left ear pain She currently does not have any ear drainage or discharge or any ear findings to make one suspect that she has an ear infection Have advised her to try wearing some ear plug or ear covering to help protect her inner ear and this may result in some improvement of her ear pain (11) Low TSH level: Code(s): R79.89 - Other specified abnormal findings of blood chemistry Plan: Her TFTs were normal on her recent labs Patient is clinically euthyroid Will continue to monitor her TFTs regularly (12) Bilateral knee pain: Code(s): M25.561 - Pain in right knee; M25.562 - Pain in left knee Qualifiers: Chronicity: unspecified Qualified Code(s): M25.561 - Pain in right knee; M25.562 - Pain in left knee Plan: Bilateral knee x-rays done in January 2023 revealed (+) mild degenerative changes in the patellofemoral areas in both knees Will consider referring her to orthopedics for further management if her knee pain progresses (13) Urinary incontinence: Code(s): R32 - Unspecified urinary incontinence Qualifiers: Urinary Incontinence type: unspecified incontinence Qualified Code(s): R32 - Unspecified urinary incontinence Plan: Follow up with urology (Dr.? Back) as scheduled (14) Complex cyst of left ovary: Code(s): N83.292 - Other ovarian cyst, left side Plan: Is being followed by [facility] Promotion [facility] at [facility] regularly for this - her cyst has been < 1 cm and has remained stable in size over the past 2-3 years (likely a dermoid cyst) and will continue surveillance with regular ultrasound and CA-125 measurement (15) Insomnia: Code(s): G47.00 - Insomnia, unspecified Qualifiers: Insomnia type: unspecified Qualified Code(s): G47.00 - Insomnia, unspecified Plan: Sleep hygiene reinforced Continue Zolpidem 10 mg once a day at bedtime as needed and Trazodone 50 mg Q HS PRN only (16) Anxiety: Code(s): F41.9 - Anxiety disorder, unspecified Plan: Continue Lorazepam 1 mg daily at bedtime as needed (17) Depression: Code(s): F32.9 - Major depressive disorder, single episode, unspecified Qualifiers: Depression Type: major depressive disorder Major depression recurrence: recurrent Active/Remission status: currently active Major depression episode severity: unspecified Qualified Code(s): F33.9 - Major depressive disorder, recurrent, unspecified Plan: Continue Paroxetine 20 mg Q AM Follow-up with Psychiatry as scheduled (18) Overweight (BMI 25.0-29.9): Code(s): E66.3 - Overweight Plan: Reinforced diet/exercise as tolerated/lose weight Plan Follow up in 4 months Orders: Orders UA CC w/rflx Micro + Cult 4 Months R30.0 - Dysuria TSH reflex Free T4 4 Months E78.00 - Pure hypercholesterolemia, unspecified Vitamin D 25-OH Total 4 Months E55.9 - Vitamin D deficiency, unspecified Complete Blood Count Auto Diff 4 Months D64.9 - Anemia, unspecified Lipid Panel 4 Months E78.00 - Pure hypercholesterolemia, unspecified Comprehensive [place]. Panel Fast 4 Months E78.00 - Pure hypercholesterolemia, unspecified Referrals Gastroenterology Referral R10.11 - Right upper quadrant pain Medications: Refilled lorazepam 1 mg PO BEDTIME 30 days PRN 30 tabs 1RF anxiety zolpidem 10 mg PO BEDTIME 30 days PRN 30 tabs 1RF insomnia cyclobenzaprine 10 mg PO TID PRN 90 tabs 1RF for muscle spasm Coding Level of Care Code Est Pt Level 4 (11486) Diagnoses Pure hypercholesterolemia E78.00 Elevated LFTs R79.89 RUQ abdominal pain R10.11 Lumbar degenerative disc disease M51.36 Osteoarthritis of cervical spine, unspecified spinal osteoarthritis complication status M47.812 Spinal osteoarthritis complication: unspecified spinal osteoarthritis Migraine without status migrainosus, not intractable, unspecified migraine type G43.909 Migraine type: unspecified Status migrainosus presence: without status migrainosus Intractability: not intractable Constipation, unspecified constipation type K59.00 Constipation type: unspecified constipation type Allergic rhinitis, unspecified seasonality, unspecified trigger J30.9 Allergic rhinitis trigger: unspecified Allergic rhinitis seasonality: unspecified GERD without esophagitis K21.9 Chronic left ear pain H92.02; G89.29 Low TSH level R79.89 Pain in both knees, unspecified chronicity M25.561; M25.562 Chronicity: unspecified Urinary incontinence, unspecified type R32 Urinary Incontinence type: unspecified incontinence Complex cyst of left ovary N83.292 Insomnia, unspecified type G47.00 Insomnia type: unspecified Anxiety F41.9 Episode of recurrent major depressive disorder, unspecified depression episode severity F33.9 Depression Type: major depressive disorder Major depression recurrence: recurrent Active/Remission status: currently active Major depression episode severity: unspecified Overweight (BMI 25.0-29.9) E66.3
== END 2024-01-29 13:37 | disposition home or self-care (01) ==
PROVIDERS: PCP Internal Medicine; Visit Provider Internal Medicine
DX: E78.00 Pure hypercholesterolemia, unspecified (principal); R79.89 Other specified abnormal findings of blood chemistry; R10.11 Right upper quadrant pain; F33.9 Major depressive disorder, recurrent, unspecified; M51.36 Other intervertebral disc degeneration, lumbar region; M47.812 Spondylosis without myelopathy or radiculopathy, cervical region; G43.909 Migraine, unspecified, not intractable, without status migrainosus; K59.00 Constipation, unspecified; J30.9 Allergic rhinitis, unspecified; K21.9 Gastro-esophageal reflux disease without esophagitis; H92.02 Otalgia, left ear; G89.29 Other chronic pain
CPT/HCPCS: 99214

== ENCOUNTER 2024-01-30 06:14 | Outpatient (REF) | payer MEDICARE, SELFPAY | END 2024-01-30 06:15 | disposition home or self-care (01) | LOC: CF 06:14 | PROVIDERS: Visit Provider Internal Medicine | DX: Z13.89 Encounter for screening for other disorder (principal) ==

== ENCOUNTER 2024-03-11 09:19 | Outpatient (AMB) | payer MEDICARE, MEDICAID, SELFPAY ==
[2024-03-11 09:22] VITALS: BP 134/71; PULSE 108; RESP 14; O2SAT 99; BMI 26.4
--- NOTE | 2024-03-11 09:22 | A.OFFVIS_ITS ---
Vital Signs 03/11/24 09:22 Height 5 ft 1 in Weight 140 lb BMI 26.4 BP 134/71 Blood Pressure Location Rt brachial Position Sitting Respiration 14 Pulse 108 H Pulse Source Pulse Oximeter Pulse Oximetry (%) 99 Oxygen Delivery Method Room Air Intake Visit Reasons: FOLLOW UP FOR BACK PAIN Allergies No Known Allergies Allergy (Verified 03/11/24 09:23) Medication List - Last Reconciled 03/11/24 by Karolyn Crenshaw LPN cetirizine 10 mg PO DAILY PRN 90 days cyclobenzaprine 10 mg PO TID PRN gabapentin 600 mg PO TID 30 days lorazepam 1 mg PO BEDTIME PRN 30 days multivitamin 1 tab PO DAILY omeprazole 20 mg PO DAILY oxycodone-acetaminophen 5-325 mg 1 tab PO Q6H PRN 28 days paroxetine HCl 20 mg PO DAILY 30 days [Probiotic 1 cap PO DAILY] rosuvastatin 5 mg PO Q3D 60 days topiramate 50 mg PO BEDTIME 30 days trazodone 50 mg PO BEDTIME PRN 30 days zolpidem 10 mg PO BEDTIME PRN 30 days HPI HPI FOLLOW UP FOR BACK PAIN: Details: 64-year-old female who presents to the office for follow up back pain. She complains of worsening back pain, left side worse than right side. She has a long history of arthritis. Also has neck pain for the past few days. She admits to having limited range of motion. She was unable to keep her appointment for the temporary medial branch nerve stimulator trial. Since then, she has decided against proceeding with the nerve stimulator placement. She is interested in other potential injection options. Her request for prior fluoro guided injections for lumbar medial branch therapeutic blocks have been denied in the past. Past procedures: 03/27/23: Lumbar Medial Branch Block, Bilateral L3, L4 medial branches and L5 Dorsal Ramus (2 levels, 3 nerves): Moderate relief 10/31/22: Diagnostic Cervical Medial Branch Block, Left C3, C4, C5 medial branches: 80% relief for 2 months 06/27/22: Left Diagnostic C3-C4-C5 MBBs ? 100% relief for 2 months. 03/07/22: Left L4-L5 Medial Branch RFA ? 100% relief. 11/29/21: Bilateral Diagnostic L3-L4-L5 MBBs - 80% pain relief for 2 days, more noticeable on the left side. 11/01/21: Bilateral Diagnostic L3-L4-L5 MBB ? 40% relief. 08/23/21 Bilateral Diagnostic L3-L4-L5 MBB ? 50% relief. PFSH Medical History Family history of colon cancer Bilateral knee pain Allergic rhinitis Low back pain Fatigue History of tachycardia PONV (postoperative nausea and vomiting) Gallstones History of gallstones Right sided abdominal pain Impaired fasting glucose Lumbar spondylosis Vertebrogenic low back pain Lumbar radiculitis Tympanic membrane perforation Persistent fatigue after COVID-19 Low TSH level Overweight (BMI 25.0-29.9) Anxiety Insomnia Complex cyst of left ovary Urinary incontinence GERD without esophagitis Constipation Migraine Degenerative arthritis of cervical spine Lumbar degenerative disc disease Pure hypercholesterolemia Depression Surgical History H/O colonoscopy (07/12/23) Hx laparoscopic cholecystectomy (~09/11/22) Hx of colonoscopy History of tympanoplasty of left ear History of surgery History of nasal surgery History of bladder surgery Family History Father Colon cancer Mother Bone cancer Social History Housing: House Are you a primary infant caregiver to a significant other at home: No Do you presently have visiting nurse or other home services: No Alcohol intake: current Alcohol intake frequency: holidays/special occasions only Alcohol type: wine Comment: pt reports this is her baseline pain level Patient Tobacco Use Status: Never used Tobacco e-Cigarette/Vaping Use: Never Used Second Hand Smoke Exposure: Yes service: No Current occupational status: disabled Cognitive needs: No Hearing needs: No Vision needs: No Review of Systems Const All systems reviewed & are unremarkable except as noted in HPI and below Physical Exam Vital Signs: Last Vital Signs Pulse 108 H 03/11/24 09:22 Resp 14 03/11/24 09:22 BP 134/71 03/11/24 09:22 Pulse Ox 99 03/11/24 09:22 Oxygen Delivery Method Room Air 03/11/24 09:22 BMI result Body Mass Index 26.4 General: Appears afebrile. Alert and oriented. Mood and affect appropriate. Follows and participates in conversation appropriately. Respiratory effort is unlabored. Able to transition from sit to stand unassisted. Office Procedures Lumbar/Sacral Facet Inj Details: Left L4/5 and L5/S1 Facet Injections (2 levels), US Guided After obtaining written consent, pre-procedure blood pressure and pulse were recorded and are in the nursing record for review. The patient was placed in a prone position. The respective lumbosacral area was prepped with chloraprep and draped in sterile fashion. A 21 guage 100mm echostim needle was inserted into the target facet joint under ultrasound guidance. No paresthesias were elicited with needle placement and aspiration was negative for blood and CSF. Next 20 mg of triamcinilone mixed with 1 ml 0.5% ropivicaine was injected (1 cc total per level). The identical procedure was performed at the remaining levels. The skin was cleansed and a sterile bandage was applied. Following the procedure the patient's vital signs were stable. The patient tolerated the procedure well and no complications were encountered. Following the procedure the patient's vital signs were stable. The patient was discharged home in good condition with post-procedural instructions. Time Out: Immediately prior to the procedure, the following was verbally confirmed that there is a signed consent form and that the correct patient, planned procedure, site and side are consistent with documentation and that necessary equipment and/or blood products are available prior to the start of the case. Complications: none EBL: <5 cc 70392 - with Fluoroscopy 12983 - second level, with Fluoroscopy Additional procedure code (CPT) needed Results Reviewed Results Reviewed: MR LUMBAR SPINE WITHOUT CONTRAST - 07/04/21 FINDINGS: The lumbar vertebral bodies maintain normal heights and alignment. The disc heights are preserved. Mild endplate edema is seen at the anterior-inferior corner of L1. Mild endplate edema is also seen superiorly at L5, asymmetrically on the right. The distal spinal cord appears normal. The conus medullaris terminates normally at the L2 level. The visualized paraspinal muscles and intra-abdominal and pelvic contents are within normal limits. SPINAL LEVELS: L1-L2: No posterior disc abnormality. No spinal canal or neural foraminal stenosis. L2-L3: No posterior disc abnormality. Mild facet arthropathy. No spinal canal or neural foraminal stenosis. L3-L4: Minimal disc bulging with mild facet arthropathy. No spinal canal or neural foraminal stenosis. L4-L5: Disc bulging with ligamentum flavum infolding moderate facet arthropathy. No spinal canal or neural foraminal stenosis. L5-S1: Disc bulging with ligamentum flavum infolding moderate facet arthropathy. Small left subarticular protrusion with annular fissuring without definite traversing nerve root compression. No spinal canal or neural foraminal stenosis. IMPRESSION: Mild degenerative spondylotic changes. No significant narrowing of the spinal canal or neural foramina. No nerve root compression is seen. A subarticular protrusion with annular fissuring is noted at L5-S1. Assessment & Plan Assessment & Plan (1) Lumbar spondylosis: Code(s): M47.816 - Spondylosis without myelopathy or radiculopathy, lumbar region Category: Medical Plan Patient is status post therapeutic left L4-L5 and L5-S1 facet injection in office under US guidance for chronic low back pain secondary to lumbar spondylosis. Patient tolerated procedure well and was discharged home in stable condition with discharge instructions. All questions were answered. Follow-up as needed. Scribed for Dr. Verdin by Remberto Kim, biomedical engineering technician, on 03/11/2024. I, Dr. Verdin, have personally reviewed and agree with the information entered by the scribe. Coding Level of Care Code Est Pt Level 3 (66926) Diagnoses Lumbar spondylosis M47.816 CPT Codes Facet Injection-Lumbar/Sacral - CPT: 10315 - with Fluoroscopy ([id number]) Facet Injection-Lumbar/Sacral - CPT: 84555 - second level, with Fluoroscopy ([id number])
== END 2024-03-11 09:57 | disposition home or self-care (01) ==
PROVIDERS: PCP Internal Medicine; Visit Provider Internal Medicine
DX: M47.816 Spondylosis without myelopathy or radiculopathy, lumbar region (principal)
CPT/HCPCS: 64493; 64494

== ENCOUNTER → 2024-03-11 09:19 | Outpatient (BNVA) | payer MEDICARE, SELFPAY | PROVIDERS: PCP Internal Medicine; Visit Provider Internal Medicine | DX: M47.816 Spondylosis without myelopathy or radiculopathy, lumbar region (principal) | CPT/HCPCS: 64493; 64494; J2795; J3301 ==

== ENCOUNTER 2024-05-04 10:44 | Outpatient (AMB) | payer MEDICARE, MEDICAID, SELFPAY ==
--- NOTE | 2024-05-04 10:51 | MHC.OFFVIS ---
Vital Signs 05/04/24 10:52 Height 5 ft 1 in Weight 140 lb BMI 26.4 BP 149/79 H Blood Pressure Location Lt brachial Position Sitting Respiration 16 Pulse 115 H Pulse Source Pulse Oximeter Pulse Oximetry (%) 99 Oxygen Delivery Method Room Air Intake Visit Reasons: Follow Up for back pain/Neck pain Allergies No Known Allergies Allergy (Verified 05/04/24 10:54) Medication List - Last Reconciled 05/04/24 by Karolyn Crenshaw LPN cetirizine 10 mg PO DAILY PRN 90 days cyclobenzaprine 10 mg PO TID PRN gabapentin 600 mg PO TID 30 days lorazepam 1 mg PO BEDTIME PRN 30 days multivitamin 1 tab PO DAILY omeprazole 20 mg PO DAILY oxycodone-acetaminophen 5-325 mg 1 tab PO Q6H PRN 28 days paroxetine HCl 20 mg PO DAILY 30 days [Probiotic 1 cap PO DAILY] rosuvastatin 5 mg PO Q3D 60 days topiramate 50 mg PO BEDTIME 30 days trazodone 50 mg PO BEDTIME PRN 30 days zolpidem 10 mg PO BEDTIME PRN 30 days HPI HPI Follow Up for back pain/Neck pain: Details: 64-year-old female who presents today to the office for follow up for back pain and neck pain. She had pain relief for one month, and then her pain returned to the baseline. She reports neck stiffness and has limited ROM. She states that she usually lay down on the bed for relief. She states that her back and her neck pain are bothersome. She is amenable to receive an injection today for pain relief. Past procedures: 03/11/24: Left L4/5 and L5/S1 Facet Injections (2 levels), US Guided: % relief. 03/27/23: Lumbar Medial Branch Block, Bilateral L3, L4 medial branches and L5 Dorsal Ramus (2 levels, 3 nerves): Moderate relief 10/31/22: Diagnostic Cervical Medial Branch Block, Left C3, C4, C5 medial branches: 80% relief for 2 months 06/27/22: Left Diagnostic C3-C4-C5 MBBs ? 100% relief for 2 months. 03/07/22: Left L4-L5 Medial Branch RFA ? 100% relief. 11/29/21: Bilateral Diagnostic L3-L4-L5 MBBs - 80% pain relief for 2 days, more noticeable on the left side. 11/01/21: Bilateral Diagnostic L3-L4-L5 MBB ? 40% relief. 08/23/21 Bilateral Diagnostic L3-L4-L5 MBB ? 50% relief. PFSH Medical History Family history of colon cancer Bilateral knee pain Allergic rhinitis Low back pain Fatigue History of tachycardia PONV (postoperative nausea and vomiting) Gallstones History of gallstones Right sided abdominal pain Impaired fasting glucose Lumbar spondylosis Vertebrogenic low back pain Lumbar radiculitis Tympanic membrane perforation Persistent fatigue after COVID-19 Low TSH level Overweight (BMI 25.0-29.9) Anxiety Insomnia Complex cyst of left ovary Urinary incontinence GERD without esophagitis Constipation Migraine Degenerative arthritis of cervical spine Lumbar degenerative disc disease Pure hypercholesterolemia Depression Surgical History H/O colonoscopy (07/12/23) Hx laparoscopic cholecystectomy (~09/11/22) Hx of colonoscopy History of tympanoplasty of left ear History of surgery History of nasal surgery History of bladder surgery Family History Father Colon cancer Mother Bone cancer Social History Housing: House Are you a primary youth career specialist to a significant other at home: No Do you presently have visiting nurse or other home services: No Alcohol intake: current Alcohol intake frequency: holidays/special occasions only Alcohol type: wine Comment: pt reports this is her baseline pain level Patient Tobacco Use Status: Never used Tobacco e-Cigarette/Vaping Use: Never Used Second Hand Smoke Exposure: Yes service: No Current occupational status: disabled Cognitive needs: No Hearing needs: No Vision needs: No Review of Systems Const All systems reviewed & are unremarkable except as noted in HPI and below Physical Exam Vital Signs: Last Vital Signs Pulse 115 H 05/04/24 10:52 Resp 16 05/04/24 10:52 BP 149/79 H 05/04/24 10:52 Pulse Ox 99 05/04/24 10:52 Oxygen Delivery Method Room Air 05/04/24 10:52 BMI result Body Mass Index 26.4 General: Appears afebrile. Alert and oriented. Mood and affect appropriate. Follows and participates in conversation appropriately. Respiratory effort is unlabored. Able to transition from sit to stand unassisted. Ambulates with bilaterally normal heel strike and toe off. There is tenderness overlying the sacroiliac joint. Office Procedures Joint Injection/Aspiration Joint Injection/Aspiration Details: Left intra-articular sacroiliac joint injection, US guided Primary Site: other (Left SI joint) Prep: site was prepped using sterile technique Injected: 40 mg of, Kenalog and with 1 mL of (lidocaine 1% and ropivacaine 0.5% each) Approach Used: other (Posterior approach, ultrasound-guided) Procedure: The patient tolerated the procedure well Coding Details: An ultrasound image of the injection was taken and stored in the permanent record. 68917 - Sacroiliac Procedure code (CPT) selection complete Results Reviewed Results Reviewed: No imaging is available for review. Assessment & Plan Assessment & Plan (1) Sacroiliac dysfunction: Code(s): M53.3 - Sacrococcygeal disorders, not elsewhere classified Category: Medical Plan Patient is status post left intraarticular sacroiliac joint injection, US guided . Patient tolerated procedure well and was discharged home in stable condition with discharge instructions.? All questions were answered. We will follow-up in two weeks via telephone or in clinic to assess response to therapy. A follow-up appointment was made during today's visit. Scribed for Dr. Verdin by Delvin Howard, medical science liaison, on 05/04/2024. I, Dr. Verdin, have personally reviewed and agree with the information entered by the scribe. Coding Level of Care Code Est Pt Level 3 (82794) Diagnoses Sacroiliac dysfunction M53.3 CPT Codes Coding - Joint 9: 69762 - Sacroiliac ([id number])
[2024-05-04 10:52] VITALS: BP 149/79; PULSE 115; RESP 16; O2SAT 99; BMI 26.4
== END 2024-05-04 11:30 | disposition home or self-care (01) ==
PROVIDERS: PCP Internal Medicine; Visit Provider Internal Medicine
DX: M53.3 Sacrococcygeal disorders, not elsewhere classified (principal)
CPT/HCPCS: 27096; 99213

== ENCOUNTER → 2024-05-04 10:44 | Outpatient (BNVA) | payer MEDICARE, MEDICAID, SELFPAY | PROVIDERS: PCP Internal Medicine; Visit Provider Internal Medicine | DX: M53.3 Sacrococcygeal disorders, not elsewhere classified (principal) | CPT/HCPCS: 27096; 99212; J2795; J3301 ==

== ENCOUNTER 2024-05-21 09:28 | Outpatient (REF) | payer MEDICARE, MEDICAID, SELFPAY ==
[2024-05-21 10:01] LABS: MANUAL DIFF FLAG NO
[2024-05-21 11:01] LABS: Basophils Absolute Auto 0.1 X10*3/uL (0.0-0.2); Basophils Percent Auto 0.5 % (0-2); Eosinophils Absolute Auto 0.1 X10*3/uL (0.0-0.4); Eosinophils Percent Auto 1.5 % (0-4); Hematocrit 37.8 % (37.0-47.0); Hemoglobin 12.7 g/dl (12.0-16.0); Imm Gran Abs Auto 0.03 X10*3/uL (0.00-0.03); Imm Gran Pct Auto 0.3 % (0.0-0.4); Lymphocytes Absolute Auto 2.6 X10*3/uL (1.2-4.9); Lymphocytes Percent Auto 27.4 % (20-40); Mean Corpuscular HGB Conc 33.6 g/dl (31.0-35.0); Mean Corpuscular Hemoglobin 31.6 pg (27.0-33.0); Mean Platelet Volume 8.6 fL (9.4-12.3); Monocytes Absolute Auto 0.8 X10*3/uL (0.1-1.2); Monocytes Percent Auto 8.4 % (2-11); Neutrophils Absolute Auto 5.8 x10*3/uL (2.0-8.3); Neutrophils Percent Auto 61.9 % (45-73); Platelet Count 276 X10*3/uL (160-400); Red Blood Count 4.02 X10*6/uL (4.20-5.50); Red Cell Distribution Width 13.3 % (11.0-16.0); White Blood Count 9.3 X10*3/uL (4.8-10.8)
[2024-05-21 11:43] LABS: Alanine Aminotransferase 75 U/L (0-31); Albumin Level 4.1 g/dL (3.5-5.0); Alkaline Phosphatase 40 U/L (39-117); Anion Gap 12 (12-20); Aspartate Amino Transferase 35 U/L (5-31); Bilirubin Total 0.3 mg/dL (0.0-1.0); Blood Urea Nitrogen 12 mg/dL (9-16); Calcium 9.3 mg/dL (8.4-10.2); Carbon Dioxide 26 mmol/L (22-29); Chloride 107 mmol/L (96-108); Cholesterol 208 mg/dL (<200); Estimated Glomerular Filt Rate > 60; Glucose Fasting 93 mg/dL (60-99); HDL Cholesterol 75 mg/dL (>40); LDL Cholesterol Calculated 116 mg/dL (<100); Potassium 3.7 mmol/L (3.3-5.1); Sodium 141 mmol/L (135-145); TSH reflex Free T4 0.31 uIU/mL (0.32-4.0); Triglycerides 85 mg/dL (<150)
[2024-05-21 12:13] LABS: Appearance Urine Clear; Color Urine Yellow; Glucose Urine UA Negative (Negative); Leukocyte Esterase Urine Negative (Negative); Nitrite Urine Negative (Negative); PH 6.5 (5.0-9.0); Urine Blood Negative (Negative); Urine Ketones Negative (Negative); Urine Protein Negative (Neg-Trace)
[2024-05-21 12:21] LABS: Free T4 (Free Thyroxine) 0.84 ng/dL (0.71-1.85)
== END 2024-05-21 09:29 | disposition home or self-care (01) ==
LOC: HO.LAB 09:28
PROVIDERS: PCP Internal Medicine; Visit Provider Internal Medicine
DX: D64.9 Anemia, unspecified (principal); R30.0 Dysuria; E55.9 Vitamin D deficiency, unspecified; E78.00 Pure hypercholesterolemia, unspecified
CPT/HCPCS: 36415; 80053; 80061; 81003; 82306; 84439; 84443; 85025

== ENCOUNTER 2024-05-27 13:19 | Outpatient (AMB) | payer MEDICARE, MEDICAID, SELFPAY ==
[2024-05-27 13:29] VITALS: BP 118/80; PULSE 98; O2SAT 100; BMI 26.3
--- NOTE | 2024-05-27 13:29 | MHC.PC.OV ---
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: No Accompanied by: Self / Same As Patient Allergies No Known Allergies Allergy (Verified 05/27/24 14:11) Medication List - Last Reconciled 05/27/24 by Richar Verma MD cetirizine 10 mg PO DAILY PRN 90 days cyclobenzaprine 10 mg PO TID PRN gabapentin 600 mg PO TID 30 days lorazepam 1 mg PO BEDTIME PRN 30 days multivitamin 1 tab PO DAILY omeprazole 20 mg PO DAILY oxycodone-acetaminophen 5-325 mg 1 tab PO Q6H PRN 28 days paroxetine HCl 20 mg PO DAILY 30 days [Probiotic 1 cap PO DAILY] rosuvastatin 5 mg PO Q3D 60 days topiramate 50 mg PO BEDTIME 30 days trazodone 50 mg PO BEDTIME PRN 30 days zolpidem 10 mg PO BEDTIME PRN 30 days Tobacco use date assessed: 05/27/24 Fall risk assessment: No Falls in past year Last assessed Fall Risk: 05/27/24 Dental Screening Dental Screen Date: 05/27/24 Did you have a dental visit in the last 12 months?: Yes Did you have a dental problem in the last 6 months where you did not have access to dental care?: No Was dental information given to patient?: Patient has dentist [facility] HPI Details Patient comes in today for her follow up visit Reports that she has been experiencing frequent / recurrent headaches lately - states that she would get at least 1 to 2 bouts of increased headaches, which she attributes to her migraine headaches flaring up or getting worse She continues to take her Topiramate 50 mg Q HS for headache prophylaxis but does not think that it is working as well now as it used to She also reports some blurring of her vision recently when her headaches occur She denies any dizziness Denies any chest pains, no increased SOB No nausea/vomiting, no abdominal pains No change in bowel habits noted States that her chronic neck and low back pain remain adequately controlled on her current Rx She had her follow up labs done last week - to discuss her results [facility] Medical History Persistent fatigue after COVID-19 Tympanic membrane perforation Vertebrogenic low back pain Right sided abdominal pain History of gallstones Gallstones Shoulder pain Preoperative examination Tympanic membrane perforation, marginal Elevated LFTs Otitis externa of left ear Family history of colon cancer Bilateral knee pain Allergic rhinitis Low back pain Fatigue History of tachycardia PONV (postoperative nausea and vomiting) Impaired fasting glucose Lumbar spondylosis Lumbar radiculitis Low TSH level Overweight (BMI 25.0-29.9) Anxiety Insomnia Complex cyst of left ovary Urinary incontinence GERD without esophagitis Constipation Migraine Degenerative arthritis of cervical spine Lumbar degenerative disc disease Pure hypercholesterolemia Depression Surgical History Hx laparoscopic cholecystectomy (~09/11/22) Hx of colonoscopy History of tympanoplasty of left ear History of surgery History of nasal surgery History of bladder surgery Family History Father Colon cancer Mother Bone cancer Social History Housing: House Are you a primary residential care facility manager to a significant other at home: No Do you presently have visiting nurse or other home services: No Alcohol intake: current Alcohol intake frequency: holidays/special occasions only Alcohol type: wine Comment: pt reports this is her baseline pain level Patient Tobacco Use Status: Never used Tobacco e-Cigarette/Vaping Use: Never Used Second Hand Smoke Exposure: Yes service: No Current occupational status: disabled Cognitive needs: No Hearing needs: No Vision needs: No Questionnaire PHQ-9 Over the last 2 weeks, how often have you been bothered by any of the following problems? 1. Little interest or pleasure in doing things: several days 2. Feeling down, depressed, or hopeless: several days 3. Trouble falling or staying asleep, or sleeping too much: several days 4. Feeling tired or having little energy: several days 5. Poor appetite or overeating: not at all 6. Feeling bad about yourself - or that you are a failure or have let yourself or your family down: not at all 7. Trouble concentrating on things, such as reading the newspaper or watching television: not at all 8. Moving or speaking so slowly that other people could have noticed. Or the opposite - being so fidgety or restless that you have been moving around a lot more than usual: not at all 9. Thoughts that you would be better off or of hurting yourself in some way: not at all Total score: 4 Depression Screening Interpretation: Positive Depression Screening Follow-up: Existing condition and In treatment Depression Screening Done: Yes 40889 - PHQ-9 Billing: Yes Source: Developed by Drs. Angel Anthony, Clau Saleh, Guzman Moreno and colleagues, with an educational maria d from [employer]. Thrive Questionnaire Date Thrive assessed: 05/27/24 I am a: Patient What is your living situation today?: I have a steady place to live Within the past 12 months, did the food you bought not last and you didn't have the money to get more?: Never true Within the past 12 months, did you worry whether your food would run out before you got money to buy more?: Never true Do you have trouble paying for medicines?: No Do you have trouble getting transportation to medical appointments?: No Do you have trouble paying your heating and electricity bill?: No Do you have trouble taking care of your child, family member or friend?: No Do you have trouble with day-to-day activities such as bathing, preparing meals, shopping, managing finances, etc.?: No Are you currently unemployed and looking for a job?: No Are you interested in more education?: No Please select the resources that you would like help with: None Currently or been in a relationship where the following occur: No concerns reported THRIVE Score: 0 AUDIT C Alcohol Use Questionnaire (AUDIT-C) 1. How often do you have a drink containing alcohol?: Monthly or less 2. How many drinks containing alcohol do you have on a typical day when you are drinking?: 1 or 2 3. How often do you have six or more drinks on one occasion?: Never Total Score: 1 Score Reviewed/Action Taken: Yes ACE-7 AMB Questionnaire ACE-7 Date ACE - 7 assessed: 05/27/24 Feeling nervous, anxious, or on edge: 0 = Not at all Not being able to stop or control worryin = Not at all Worrying too much about different things: 0 = Not at all Trouble relaxin = Not at all Being so restless that it is hard to sit still: 0 = Not at all Becoming easily annoyed or irritable: 0 = Not at all Feeling afraid as if something awful might happen: 0 = Not at all Total ACE-7 score (0-4 normal; 5-9 mild; 10-14 moderate; 15-21 severe): 0 Source: Developed by Drs. Angel Anthony, Clau Saleh, Guzman Moreno and colleagues, with an educational maria d from [employer]. Review of Systems Const Denies chills, Reports difficulty sleeping, Reports fatigue, Denies fever(s) and Reports headache(s) (increasing lately) ENT Denies dysphagia, Denies dizziness, Reports otalgia (in the left ear - chronic), Reports headache(s) (increasing lately), Reports hearing loss, Reports neck pain (chronic - increasing lately), Denies odynophagia, Reports tinnitus (in the left ear) and Denies sore throat Card Denies chest pain, Denies palpitations and Denies dyspnea Resp Denies cough and Denies dyspnea GI Reports abdominal pain (on and off, over the RUQ), Denies hematochezia, Denies constipation, Denies dysphagia, Denies heartburn, Reports loose stools (at times), Denies nausea, Denies odynophagia and Denies vomiting Denies nocturia, Denies dysuria and Denies urinary urgency Musc Reports back pain (over the lumbar spine - chronic), Reports myalgias, Reports arthralgias (over both knees) and Reports neck pain (chronic - increasing lately) Skin/Breast Denies rash Neuro Denies dizziness and Reports headache(s) (increasing lately) Psych Reports depression (increasing) Endo Reports fatigue and Denies palpitations Physical exam (Primary Care) Vital Signs: Last Vital Signs Pulse 98 05/27/24 13:29 BP 118/80 05/27/24 13:29 Pulse Ox 100 05/27/24 13:29 Oxygen Delivery Method Room Air 05/27/24 13:29 BMI result Body Mass Index 26.3 Tobacco/Smoking Status: Tobacco use Status Tobacco use date assessed 05/27/24 05/27/24 13:37 Patient Tobacco Use Status Never used Tobacco 05/27/24 13:37 e-Cigarette/Vaping Use Never Used 05/27/24 13:37 PHQ-9: PHQ-9 Score PHQ-9: Total score 4 05/27/24 14:24 Depression Screening Interpretation: Positive Depression Screening Follow-up: Existing condition and In treatment Thrive Assessment: Date of Thrive Assessment Date Thrive assessed 05/27/24 05/27/24 13:37 Currently or been in a relationship where the following occur: No concerns reported Const General: no acute distress and alert HENMT Ears: TM normal on the right, EAC's normal and TM abnormal perforated (complete perforation/absent TM) without discharge on the left Throat: Yes posterior oropharynx normal and Yes tonsils normal (no TP congestion noted) Neck Neck: Yes no lymphadenopathy and Yes tender (over the back of the neck - chronic) Thyroid: Thyroid normal Resp Auscultation: clear to auscultation bilaterally, no rales and no wheezes Cardio Rate: regular rate Rhythm: regular rhythm Heart sounds: no murmurs GI Palpation (GI): Soft to palpation, Tenderness to palpation present (GI) (mild ) in the RUQ, no guarding and No Rebound tenderness present Auscultation: normal bowel sounds General: Yes no CVA tenderness Back/Spine/Pelvis Back: no CVA tenderness Cervical Spine: Cervical spine tenderness Thoracic/Lumbar Spine: lumbar spinal tenderness Skin Rashes: no rashes Extrem General: Yes no clubbing, cyanosis or edema Right lower extremity: knee Details: tenderness and crepitus; no swelling Left lower extremity: knee Details: tenderness and crepitus; no swelling Results Reviewed Results Reviewed: Laboratory Tests 05/21/24 05/21/24 09:55 09:58 WBC 9.3 Hgb 12.7 Hct 37.8 Plt Count 276 Sodium 141 Potassium 3.7 Creatinine 0.91 Estimated GFR > 60 Fasting Glucose 93 AST 35 H ALT 75 H Triglycerides 85 Cholesterol 208 H LDL Cholesterol, Calc 116 H HDL Cholesterol 75 25-OH Vitamin D Total 53.0 TSH 0.31 L Free T4 0.84 Ur Specific [place] 1.010 Urine Protein Negative Urine Glucose (UA) Negative Urine Blood Negative Urine Nitrite Negative Ur Leukocyte Esterase Negative Assessment and Plan Assessment & Plan (1) Migraine: Code(s): G43.909 - Migraine, unspecified, not intractable, without status migrainosus Qualifiers: Intractability: not intractable Migraine type: unspecified Status migrainosus presence: without status migrainosus Qualified Code(s): G43.909 - Migraine, unspecified, not intractable, without status migrainosus Plan: Reinforced avoidance of migraine triggers Continue Continue Fioricet PRN and Topiramate 50 mg once a day at bedtime for headache prophylaxis for now As her headaches seem to have increased significantly recently and in the absence of any brain imaging studies done in many years, wiil send her for a head CT for further evaluation If her head CT comes back negative, can consider increasing her Topiramate dose She has reportedly been advised by Neurology in the past that her headaches are most likely multifactorial and are not just simple migraine headaches and will most likely require a multifaceted approach involving medical as well as behavioral therapy and intervention -? was advised to continue to follow-up with her psychiatrist for this as well Follow up with neurology as scheduled (2) Pure hypercholesterolemia: Code(s): E78.00 - Pure hypercholesterolemia, unspecified Plan: Results of her labs done last week reviewed and discussed with patient Reinforced low cholesterol diet Continue Rosuvastatin 5 mg every 3 days - her LFTs have not increased further since her last visit but have actually declined slightly from previous Patient was tolerating Rosuvastatin 5 mg but we had to cut her dosing back further from every other day to every 3 days at her last visit as her LFTs continued to increase despite her reduced dosing frequency (Atorvastatin 10 mg QD was discontinued previously due to significantly elevated LFTs) Will recheck her labs and fasting lipids in 4 months for follow-up If her LFTs starts increasing again despite being on the lowest dose and reduced dosing on Rosuvastatin, we may need to completely take her off the Rx and will then have to consider switching her over to one of the newer injectable PCSK9 inhibitors (3) Elevated LFTs: Comment: S/P lap gerald in September 2022 Code(s): R79.89 - Other specified abnormal findings of blood chemistry Plan: Patient is advised that her LFTs remain elevated but have decreased slightly from previous Her liver appeared normal on abdominal US done in July 2022; repeat abdominal US done in January 2023 also came out normal Will continue to monitor her LFTs regularly and if her LFTs stay high or go up further even after she cut back on her Rosuvastatin dosing starting today to every 3 days, then we will need to find a different method of controlling her cholesterol levels (4) RUQ abdominal pain: Code(s): R10.11 - Right upper quadrant pain Plan: Patient states that this has been going on for a while now and imaging studies done in the past couple of years (abdominal US) have not revealed any abnormality or etiology for her symptoms She has been referred to GI for further evaluation and management and she is scheduled to be seen by GI next week (5) Lumbar degenerative disc disease: Code(s): M51.36 - Other intervertebral disc degeneration, lumbar region Plan: Reinforced activity and weight lifting restrictions to avoid aggravating her back pain Continue?Cyclobenzaprine?10 mg 3 times a day as needed and?Oxycodone-Acetaminophen?5-325 mg 1 tablet every 6 hours as needed?as well as Gabapentin to 600 mg TID Follow up with pain management as scheduled She has received injections into her lower back before with some relief of her symptoms and it appears that pain management is also currently planning to try her on PNS for better pain control (6) Degenerative arthritis of cervical spine: Code(s): M47.812 - Spondylosis without myelopathy or radiculopathy, cervical region Qualifiers: Spinal osteoarthritis complication: unspecified spinal osteoarthritis Qualified Code(s): M47.812 - Spondylosis without myelopathy or radiculopathy, cervical region Plan: States that her current medications help keep her neck pain manageable Is S/P RFA of the lumbar spine in February 2022 and diagnostic MBB of the cervical spine in June 2022 - states that her chronic pains have improved somewhat with ablation Tx but insurance is now declining to cover any further procedures and intervention for her chronic back pain Patient states that pain management has tried working on getting these approved unsuccessfully It appears that pain management is now going to try her on a PNS device Follow up with pain management as scheduled (7) Constipation: Code(s): K59.00 - Constipation, unspecified Qualifiers: Constipation type: unspecified constipation type Qualified Code(s): K59.00 - Constipation, unspecified Plan: This is most likely opioid-induced Abdominal x-rays done a couple of years ago came out normal She is again encouraged on increased oral fluids and dietary fiber Continue Senna 8.6 mg 1-2 tablets daily at bedtime as needed (8) GERD without esophagitis: Code(s): K21.9 - Gastro-esophageal reflux disease without esophagitis Plan: Dietary restrictions reinforced Continue Omeprazole 20 mg QD (9) Allergic rhinitis: Code(s): J30.9 - Allergic rhinitis, unspecified Qualifiers: Allergic rhinitis seasonality: unspecified Allergic rhinitis trigger: unspecified Qualified Code(s): J30.9 - Allergic rhinitis, unspecified Plan: Continue Cetirizine 10 mg QD PRN (10) Chronic left ear pain: Code(s): H92.02 - Otalgia, left ear; G89.29 - Other chronic pain Plan: S/P tympanoplasty in 2021 Patient is advised that she currently does NOT have any TM covering her left ear and as her inner ear is completely exposed to the elements and is likely the primary reason for her chronic left ear pain She currently does not have any ear drainage or discharge or any ear findings to suggest that she has an ear infection Have advised her to try wearing some ear plug or ear covering to help protect her inner ear at all times and this may help, at least somewhat, with her ear pain (11) Low TSH level: Code(s): R79.89 - Other specified abnormal findings of blood chemistry Plan: Her free T4 remains normal on her recent labs and patient is clinically euthyroid Will continue to monitor her TFTs regularly (12) Bilateral knee pain: Code(s): M25.561 - Pain in right knee; M25.562 - Pain in left knee Qualifiers: Chronicity: unspecified Qualified Code(s): M25.561 - Pain in right knee; M25.562 - Pain in left knee Plan: Bilateral knee x-rays done in January 2023 revealed (+) mild degenerative changes in the patellofemoral areas in both knees Will consider referring her to orthopedics for further management if her knee pain progresses (13) Urinary incontinence: Code(s): R32 - Unspecified urinary incontinence Qualifiers: Urinary Incontinence type: unspecified incontinence Qualified Code(s): R32 - Unspecified urinary incontinence Plan: Follow up with urology (Dr.? Back) as scheduled (14) Complex cyst of left ovary: Code(s): N83.292 - Other ovarian cyst, left side Plan: She is being followed by [facility] regularly for this - her cyst has been < 1 cm and has remained stable in size over the past 2-3 years (likely a dermoid cyst) and will continue surveillance with regular ultrasound and CA-125 measurement (15) Insomnia: Code(s): G47.00 - Insomnia, unspecified Qualifiers: Insomnia type: unspecified Qualified Code(s): G47.00 - Insomnia, unspecified Plan: Sleep hygiene reinforced Continue Zolpidem 10 mg once a day at bedtime as needed and Trazodone 50 mg Q HS PRN only (16) Anxiety: Code(s): F41.9 - Anxiety disorder, unspecified Plan: Continue Lorazepam 1 mg daily at bedtime as needed (17) Depression: Code(s): F32.9 - Major depressive disorder, single episode, unspecified Qualifiers: Active/Remission status: currently active Depression Type: major depressive disorder Major depression episode severity: unspecified Major depression recurrence: recurrent Qualified Code(s): F33.9 - Major depressive disorder, recurrent, unspecified Plan: Continue Paroxetine 20 mg Q AM Follow-up with Psychiatry as scheduled (18) Overweight (BMI 25.0-29.9): Code(s): E66.3 - Overweight Plan: Reinforced diet; exercise and weight loss are not realistic given patient's multiple physical issues Plan Follow up in 4 months Orders: Orders CT head/brain wo IV con 18/24 R51.9 - Headache, unspecified Complete Blood Count Auto Diff 4 Months D64.9 - Anemia, unspecified UA CC w/rflx Micro + Cult 4 Months R30.0 - Dysuria Vitamin B12 and Folate 4 Months E53.8 - Deficiency of other specified B group vitamins Comprehensive [place]. Panel Fast 4 Months E78.00 - Pure hypercholesterolemia, unspecified Lipid Panel 4 Months E78.00 - Pure hypercholesterolemia, unspecified Free T4 (Free Thyroxine) 4 Months R79.89 - Other specified abnormal findings of blood chemistry Thyroid Stimulating Hormone 4 Months R79.89 - Other specified abnormal findings of blood chemistry Vitamin D 25-OH Total 4 Months E55.9 - Vitamin D deficiency, unspecified Coding Level of Care Code Est Pt Level 4 (93278) Complex EM visit Add On G2211 Diagnoses Migraine without status migrainosus, not intractable, unspecified migraine type G43.909 Intractability: not intractable Migraine type: unspecified Status migrainosus presence: without status migrainosus Pure hypercholesterolemia E78.00 Elevated LFTs R79.89 RUQ abdominal pain R10.11 Lumbar degenerative disc disease M51.36 Osteoarthritis of cervical spine, unspecified spinal osteoarthritis complication status M47.812 Spinal osteoarthritis complication: unspecified spinal osteoarthritis Constipation, unspecified constipation type K59.00 Constipation type: unspecified constipation type GERD without esophagitis K21.9 Allergic rhinitis, unspecified seasonality, unspecified trigger J30.9 Allergic rhinitis seasonality: unspecified Allergic rhinitis trigger: unspecified Chronic left ear pain H92.02; G89.29 Low TSH level R79.89 Pain in both knees, unspecified chronicity M25.561; M25.562 Chronicity: unspecified Urinary incontinence, unspecified type R32 Urinary Incontinence type: unspecified incontinence Complex cyst of left ovary N83.292 Insomnia, unspecified type G47.00 Insomnia type: unspecified Anxiety F41.9 Episode of recurrent major depressive disorder, unspecified depression episode severity F33.9 Active/Remission status: currently active Depression Type: major depressive disorder Major depression episode severity: unspecified Major depression recurrence: recurrent Overweight (BMI 25.0-29.9) E66.3
== END 2024-05-27 14:13 | disposition home or self-care (01) ==
PROVIDERS: PCP Internal Medicine; Visit Provider Internal Medicine
DX: G43.909 Migraine, unspecified, not intractable, without status migrainosus (principal); F33.9 Major depressive disorder, recurrent, unspecified; E78.00 Pure hypercholesterolemia, unspecified; R79.89 Other specified abnormal findings of blood chemistry; R10.11 Right upper quadrant pain; M51.36 Other intervertebral disc degeneration, lumbar region; M47.812 Spondylosis without myelopathy or radiculopathy, cervical region; K59.00 Constipation, unspecified; K21.9 Gastro-esophageal reflux disease without esophagitis; J30.9 Allergic rhinitis, unspecified; H92.02 Otalgia, left ear; M25.561 Pain in right knee

== ENCOUNTER → 2024-05-27 13:19 | Outpatient (BNVA) | payer MEDICARE, MEDICAID, SELFPAY | PROVIDERS: PCP Internal Medicine; Visit Provider Internal Medicine | DX: G43.909 Migraine, unspecified, not intractable, without status migrainosus (principal); E78.00 Pure hypercholesterolemia, unspecified; R79.89 Other specified abnormal findings of blood chemistry; R10.10 Upper abdominal pain, unspecified; M51.36 Other intervertebral disc degeneration, lumbar region; M47.812 Spondylosis without myelopathy or radiculopathy, cervical region | CPT/HCPCS: 99212 ==

== ENCOUNTER 2024-06-04 13:50 | Outpatient (AMB) | payer MEDICARE, MEDICAID, SELFPAY ==
--- NOTE | 2024-06-04 14:00 | A.OFFVIS_ITS ---
Vital Signs 06/04/24 14:01 Height 5 ft 1 in Weight 138 lb 14.259 oz BMI 26.2 BP 127/57 L Blood Pressure Location Lt brachial Position Sitting Pulse 107 H Intake Visit Reasons: RLQ pain Intake Note: Jayant presents in the for RLQ pains. CC: Pains in the stomach, Constipation and diarrhea, No blood in the stool but she does deal with acid reflux. Allergies No Known Allergies Allergy (Verified 06/04/24 14:02) HPI HPI RLQ pain: Details: 64-year-old female here for initial evaluation of right lower quadrant pain. She is referred by Richar Verma PMX Allergic rhinitis Diarrhea Hyperhidrosis Lumbar and cervical degenerative disc disease Sacroiliac dysfunction GERD Constipation Migraines High cholesterol Depression * SURGICAL HISTORY Cholecystectomy Colonoscopy Tympanoplasty Hand surgery Nasal surgery Bladder surgery * ALLERGIES: NKDA * FANCRU LABS: Laboratory Tests 05/21/24 09:55 WBC 9.3 Hgb 12.7 Hct 37.8 MCV 94.0 MCH 31.6 Plt Count 276 Estimated GFR > 60 Total Bilirubin 0.3 AST 35 H ALT 75 H Alkaline Phosphatase 40 TSH 0.31 L Free T4 0.84 US ABDOMEN 01/23/23 FINDINGS: PANCREAS: Normal. ABDOMINAL AORTA: The proximal, mid, and distal segments are normal in caliber. INFERIOR VENA CAVA: Visualized portions are normal. LIVER: The liver is normal in size. The liver contour is normal. Parenchymal echogenicity is normal. No focal hepatic lesion. There is mild intrahepatic biliary duct dilatation. GALLBLADDER: Surgically absent. COMMON BILE DUCT: Slightly dilated measuring 1.0 cm in diameter. RIGHT KIDNEY: Normal. No hydronephrosis. No renal calculi or focal parenchymal lesions. The kidney measures 9.0 cm in maximum dimension. LEFT KIDNEY: Normal. No hydronephrosis. No renal calculi or focal parenchymal lesions. The kidney measures 10.9 cm in maximum dimension. SPLEEN: Normal. The spleen measures 8.6 cm in maximum dimension. FREE FLUID: None. US/US abdomen complete IMPRESSION: Slightly dilated intrahepatic and extrahepatic bile ducts. The common bile duct measures 1.0 cm. Post cholecystectomy. TODAY'S VISIT Her [place] language is [place] but she speaks Latvian fairly well. She is here today with her daughter who is supportive. She has had many years of pain in the periumbilical area. She also has frequent diarrhea that is life limiting. Her pain is intermittent occurring most days but not every day. When it does happen it will last anywhere from 1-3 hours. It ranges in intensity from 6 to 7/10 in pain. She describes it as being mostly around the umbilicus. She has thought about whether it is related to eating or moving her bowels but maybe she will give this a little further thought as we go forward. She is managing with Pepto-Bismol and Imodium but with using this she is also having episodes of constipation. I think she may be going into a yo-yo cycle mostly caused by Pepto-Bismol. She is status post cholecystectomy by a couple of years so post cholecystectomy syndrome would certainly be prominent in the differential diagnosis. I think will start her on a trial of cholestyramine. We were also going to test her for food allergies, and rule out things like IBD, pancreatic insufficiency etc.. She is agreeable to these tests. She had an ultrasound that was ordered by Dr. Sky a year ago that did not show any severe abnormalities. She does have some transaminitis so I will also add some liver labs since I noticed it just to be complete her workup. This likely is just fatty liver and nothing to be concerned about. She denies any nausea vomiting, dysphagia, severe weight loss or gain. I have reviewed her medications and there is no medicine that by itself would be of concern for causing diarrhea as a side effect. Return office visit in 6 weeks [facility] Medical History (Updated 06/04/24 @ 15:08 by KAYLIE Grande) RUQ abdominal pain Lumbar radiculitis Persistent fatigue after COVID-19 Tympanic membrane perforation Vertebrogenic low back pain Right sided abdominal pain History of gallstones Gallstones Shoulder pain Preoperative examination Tympanic membrane perforation, marginal Elevated LFTs Otitis externa of left ear Family history of colon cancer Bilateral knee pain Allergic rhinitis Low back pain Fatigue History of tachycardia PONV (postoperative nausea and vomiting) Impaired fasting glucose Lumbar spondylosis Low TSH level Overweight (BMI 25.0-29.9) Anxiety Insomnia Complex cyst of left ovary Urinary incontinence GERD without esophagitis Constipation Migraine Degenerative arthritis of cervical spine Lumbar degenerative disc disease Pure hypercholesterolemia Depression Surgical History (Updated 06/04/24 @ 14:05 by JOAO Ge) History of esophagogastroduodenoscopy (EGD) Hx laparoscopic cholecystectomy (~09/11/22) Hx of colonoscopy History of tympanoplasty of left ear History of surgery History of nasal surgery History of bladder surgery Family History Father Colon cancer Mother Bone cancer Social History Housing: House Are you a primary group care worker to a significant other at home: No Do you presently have visiting nurse or other home services: No Alcohol intake: current Alcohol intake frequency: holidays/special occasions only Alcohol type: wine Comment: pt reports this is her baseline pain level Patient Tobacco Use Status: Never used Tobacco e-Cigarette/Vaping Use: Never Used Second Hand Smoke Exposure: Yes service: No Current occupational status: disabled Cognitive needs: No Hearing needs: No Vision needs: No Review of Systems Const Denies fatigue, Denies fever(s), Denies night sweats, Denies poor appetite and Denies weight loss ENT Reports Normal hearing present, Denies dental pain, Denies dysphagia, Denies hearing loss, Denies mouth pain, Denies odynophagia, Denies throat swelling, Denies tongue swelling and Reports other (Dentition adequate) Card Reports no additional complaints Resp Reports no additional complaints GI Details: Reports abdominal pain, Denies melena, Denies bloating, Denies hematochezia, Reports constipation, Denies GI cramping, Denies dysphagia, Denies excessive flatus, Denies early satiety, Denies dyspepsia, Denies heartburn, Reports diarrhea, Denies nausea, Denies odynophagia, Denies vomiting and Denies hematemesis Skin/Breast Denies pruritus, Denies lesions, Denies rash and Denies jaundice Neuro Reports Normal hearing present, Denies Abnormal speech present and Reports tremor(s) Endo Denies fatigue Aller/Immun Denies throat swelling and Denies tongue swelling Physical Exam Vital Signs: Last Vital Signs Pulse 107 H 06/04/24 14:01 BP 127/57 L 06/04/24 14:01 BMI result Body Mass Index 26.2 Const General: cooperative, no acute distress, well developed and well groomed Nutritional Appearance: well nourished and obese Orientation/consciousness: oriented to person, oriented to place and oriented to time Limitations: No language barrier HEENT Head: Yes normocephalic and Yes atraumatic Eyes General: appearance normal, both eyes and all related structures Pupils: Equal, round and reactive pupils present Neck Neck: Yes normal visual inspection and Yes no lymphadenopathy Thyroid: Thyroid normal Resp Effort & Inspection: normal respiratory effort and able to speak in complete sentences Auscultation: clear to auscultation bilaterally Cardio Rate: regular rate Rhythm: regular rhythm Heart sounds: Normal, physiologic split S2 sound present Peripheral pulses: radial pulses present and posterior tibial pulses present GI Inspection: No distended, No Abdominal panniculus present and Yes obesity Palpation (GI): Soft to palpation, nontender, no guarding, not rigid and No hepatosplenomegaly present Percussion: Yes normal to percussion Auscultation: normal bowel sounds Rectal Exam - Female: deferred Skin General skin exam: no rashes or lesions noted, turgor normal, skin not dry, no jaundice, No spider nevi and no striae Rashes: no rashes Nails: normal Neuro General: oriented to person, oriented to place and oriented to time Cranial nerves: Yes Equal, round and reactive pupils present and Yes Normal hearing present Speech: No Abnormal speech present Motor exam (neuro): Tremors during motor activity present (Upper extremities) Extrem General: Yes normal to inspection, No clubbing, No cyanosis and No edema Psych Appearance: grossly normal and well kempt Mental Status: mental status grossly normal Speech and movement: Normal speech and movement present Affect: normal affect Attitude: cooperative Thought process: Normal thought process present and not confabulating Thought content: Normal thought content present Insight: Limited insight present (Psych) Judgement: Limited judgement present (Psych) Assessment & Plan Assessment & Plan (1) Constipation: Code(s): K59.00 - Constipation, unspecified Category: Medical Qualifiers: Constipation type: unspecified constipation type Qualified Code(s): K59.00 - Constipation, unspecified (2) GERD without esophagitis: Code(s): K21.9 - Gastro-esophageal reflux disease without esophagitis Category: Medical (3) Diarrhea: Code(s): R19.7 - Diarrhea, unspecified Category: Medical (4) Periumbilical abdominal pain: Code(s): R10.33 - Periumbilical pain Category: Medical (5) Transaminitis: Code(s): R74.01 - Elevation of levels of liver transaminase levels Category: Medical Plan Her [place] language is Armenian but she speaks Latvian fairly well. She is here today with her daughter who is supportive. She has had many years of pain in the periumbilical area. She also has frequent diarrhea that is life limiting. Her pain is intermittent occurring most days but not every day. When it does happen it will last anywhere from 1-3 hours. It ranges in intensity from 6 to 7/10 in pain. She describes it as being mostly around the umbilicus. She has thought about whether it is related to eating or moving her bowels but maybe she will give this a little further thought as we go forward. She is managing with Pepto-Bismol and Imodium but with using this she is also having episodes of constipation. I think she may be going into a yo-yo cycle mostly caused by Pepto-Bismol. She is status post cholecystectomy by a couple of years so post cholecystectomy syndrome would certainly be prominent in the differential diagnosis. I think will start her on a trial of cholestyramine. We were also going to test her for food allergies, and rule out things like IBD, pancreatic insufficiency etc.. She is agreeable to these tests. She had an ultrasound that was ordered by Dr. Sky a year ago that did not show any severe abnormalities. She does have some transaminitis so I will also add some liver labs since I noticed it just to be complete her workup. This likely is just fatty liver and nothing to be concerned about. She denies any nausea vomiting, dysphagia, severe weight loss or gain. I have reviewed her medications and there is no medicine that by itself would be of concern for causing diarrhea as a side effect. Return office visit in 6 weeks Orders: Orders C Reactive Protein Today R19.7 - Diarrhea, unspecified, R74.01 - Elevation of levels of liver transaminase levels Pancreatic Elastase-1 Today R19.7 - Diarrhea, unspecified, R74.01 - Elevation of levels of liver transaminase levels Calprotectin, Fecal Today R19.7 - Diarrhea, unspecified, R74.01 - Elevation of levels of liver transaminase levels Rast Allergen Today R19.7 - Diarrhea, unspecified, R74.01 - Elevation of levels of liver transaminase levels HIV Ab/Ag Today R19.7 - Diarrhea, unspecified, R74.01 - Elevation of levels of liver transaminase levels Mitochondrial Antibody Today R19.7 - Diarrhea, unspecified, R74.01 - Elevation of levels of liver transaminase levels Alpha Fetoprotein Today R19.7 - Diarrhea, unspecified, R74.01 - Elevation of levels of liver transaminase levels Ferritin Today R19.7 - Diarrhea, unspecified, R74.01 - Elevation of levels of liver transaminase levels Transglutaminase Ab IgG Today R19.7 - Diarrhea, unspecified, R74.01 - Elevation of levels of liver transaminase levels Transglutaminase IgA Today R19.7 - Diarrhea, unspecified, R74.01 - Elevation of levels of liver transaminase levels Hepatitis A,B,C Profile Today R19.7 - Diarrhea, unspecified, R74.01 - Elevation of levels of liver transaminase levels Smooth Muscle Antibody Today R19.7 - Diarrhea, unspecified, R74.01 - Elevation of levels of liver transaminase levels Medications: New cholestyramine-aspartame 4 gram (Cholestyramine Light) administer w/meal; avoid other meds within 1hr before or 4-6hr after dose 4 grams PO BID 60 ea 6RF R10.33 - Periumbilical pain, R19.7 - Diarrhea, unspecified Coding Level of Care Code New Pt Level 3 (00882) Diagnoses Constipation, unspecified constipation type K59.00 Constipation type: unspecified constipation type GERD without esophagitis K21.9 Diarrhea R19.7 Periumbilical abdominal pain R10.33 Transaminitis R74.01
[2024-06-04 14:01] VITALS: BP 127/57; PULSE 107; BMI 26.2
== END 2024-06-04 15:35 | disposition home or self-care (01) ==
PROVIDERS: PCP Internal Medicine; Visit Provider Nurse Practitioner
DX: K59.00 Constipation, unspecified (principal); K21.9 Gastro-esophageal reflux disease without esophagitis; R19.7 Diarrhea, unspecified; R10.33 Periumbilical pain; R74.01 Elevation of levels of liver transaminase levels
CPT/HCPCS: 99203

== ENCOUNTER → 2024-06-04 13:50 | Outpatient (BNVA) | payer MEDICARE, SELFPAY | PROVIDERS: PCP Internal Medicine; Visit Provider Nurse Practitioner | DX: K21.9 Gastro-esophageal reflux disease without esophagitis (principal); K59.00 Constipation, unspecified; R10.31 Right lower quadrant pain; R19.7 Diarrhea, unspecified; R10.33 Periumbilical pain; R74.01 Elevation of levels of liver transaminase levels | CPT/HCPCS: 99202 ==

== ENCOUNTER 2024-06-15 10:58 | Outpatient (AMB) | payer MEDICARE, MEDICAID, SELFPAY ==
--- NOTE | 2024-06-15 11:09 | MHC.OFFVIS ---
Vital Signs 06/15/24 11:10 Height 5 ft 1 in Weight 138 lb BMI 26.1 BP 110/64 Blood Pressure Location Lt brachial Position Sitting Respiration 15 Pulse 98 Pulse Source Pulse Oximeter Pulse Oximetry (%) 96 Oxygen Delivery Method Room Air Intake Visit Reasons: Follow Up Back/Neck Pain Allergies No Known Allergies Allergy (Verified 06/15/24 11:11) Medication List - Last Reconciled 06/15/24 by Karolyn Crenshaw LPN cetirizine 10 mg PO DAILY PRN 90 days cholestyramine-aspartame 4 gram (Cholestyramine Light) 4 grams PO BID cyclobenzaprine 10 mg PO TID PRN gabapentin 600 mg PO TID 30 days lorazepam 1 mg PO BEDTIME PRN 30 days multivitamin 1 tab PO DAILY omeprazole 20 mg PO DAILY oxycodone-acetaminophen 5-325 mg 1 tab PO Q6H PRN 28 days paroxetine HCl 20 mg PO DAILY 30 days [Probiotic 1 cap PO DAILY] rosuvastatin 5 mg PO Q3D 60 days topiramate 50 mg PO BEDTIME 30 days trazodone 50 mg PO BEDTIME PRN 30 days zolpidem 10 mg PO BEDTIME PRN 30 days HPI HPI Follow Up Back/Neck Pain: Details: 64-year-old female who presents today to the office for follow up back and neck pain. The patient reports 80% relief following the procedure. She states that last injection provided good relief. She states that her most bothersome pain today is in the right back region. Past procedures: 05/04/2024: Left intra-articular sacroiliac joint injection, US guided: 80% relief. 03/11/24: Left L4/5 and L5/S1 Facet Injections (2 levels), US Guided: % relief. 03/27/23: Lumbar Medial Branch Block, Bilateral L3, L4 medial branches and L5 Dorsal Ramus (2 levels, 3 nerves): Moderate relief 10/31/22: Diagnostic Cervical Medial Branch Block, Left C3, C4, C5 medial branches: 80% relief for 2 months 06/27/22: Left Diagnostic C3-C4-C5 MBBs ? 100% relief for 2 months. 03/07/22: Left L4-L5 Medial Branch RFA ? 100% relief. 11/29/21: Bilateral Diagnostic L3-L4-L5 MBBs - 80% pain relief for 2 days, more noticeable on the left side. 11/01/21: Bilateral Diagnostic L3-L4-L5 MBB ? 40% relief. 08/23/21 Bilateral Diagnostic L3-L4-L5 MBB ? 50% relief. PFSH Medical History (Updated 06/04/24 @ 15:08 by KAYLIE Grande) RUQ abdominal pain Lumbar radiculitis Persistent fatigue after COVID-19 Tympanic membrane perforation Vertebrogenic low back pain Right sided abdominal pain History of gallstones Gallstones Shoulder pain Preoperative examination Tympanic membrane perforation, marginal Elevated LFTs Otitis externa of left ear Family history of colon cancer Bilateral knee pain Allergic rhinitis Low back pain Fatigue History of tachycardia PONV (postoperative nausea and vomiting) Impaired fasting glucose Lumbar spondylosis Low TSH level Overweight (BMI 25.0-29.9) Anxiety Insomnia Complex cyst of left ovary Urinary incontinence GERD without esophagitis Constipation Migraine Degenerative arthritis of cervical spine Lumbar degenerative disc disease Pure hypercholesterolemia Depression Surgical History (Updated 06/04/24 @ 14:05 by JOAO Ge) History of esophagogastroduodenoscopy (EGD) Hx laparoscopic cholecystectomy (~09/11/22) Hx of colonoscopy History of tympanoplasty of left ear History of surgery History of nasal surgery History of bladder surgery Family History Father Colon cancer Mother Bone cancer Social History Housing: House Are you a primary customer care coordinator to a significant other at home: No Do you presently have visiting nurse or other home services: No Alcohol intake: current Alcohol intake frequency: holidays/special occasions only Alcohol type: wine Comment: pt reports this is her baseline pain level Patient Tobacco Use Status: Never used Tobacco e-Cigarette/Vaping Use: Never Used Second Hand Smoke Exposure: Yes service: No Current occupational status: disabled Cognitive needs: No Hearing needs: No Vision needs: No Review of Systems Const All systems reviewed & are unremarkable except as noted in HPI and below Physical Exam Vital Signs: Last Vital Signs Pulse 98 06/15/24 11:10 Resp 15 06/15/24 11:10 BP 110/64 06/15/24 11:10 Pulse Ox 96 06/15/24 11:10 Oxygen Delivery Method Room Air 10/07/24 11:10 BMI result Body Mass Index 26.1 General: Appears afebrile. Alert and oriented. Mood and affect appropriate. Follows and participates in conversation appropriately. Respiratory effort is unlabored. Able to transition from sit to stand unassisted. Ambulates with bilaterally normal heel strike and toe off. Sacroiliac joint compression, thrust, and Dora are positive. Results Reviewed Results Reviewed: No imaging is available for review. Assessment & Plan Assessment & Plan (1) Sacroiliac dysfunction: Code(s): M53.3 - Sacrococcygeal disorders, not elsewhere classified Category: Medical Plan We will schedule her for a bilateral diagnostic sacroiliac joint injection. Discussed the risks and benefits of the procedure with the patient in detail. All questions were answered. The patient is on board with the plan. Justification for interventional therapy: ? Patient with average pain > 6/10 ? Patient has exhausted conservative therapy ? Patient unable to tolerate physical therapy due to pain. ? Previous injection provided 80% relief. . Patient has a good understanding of their pain condition and has appropriate mental and social support. Scribed for Dr. Verdin by Delvin Howard, medical claims assistant, on 06/15/2024. I, Dr. Verdin, have personally reviewed and agree with the information entered by the scribe. Coding Level of Care Code Est Pt Level 3 (18045) Diagnoses Sacroiliac dysfunction M53.3
[2024-06-15 11:10] VITALS: BP 110/64; PULSE 98; RESP 15; O2SAT 96; BMI 26.1
== END 2024-06-15 11:30 | disposition home or self-care (01) ==
LOC: HO.PMC 10:58
PROVIDERS: PCP Internal Medicine; Visit Provider Internal Medicine
DX: M53.3 Sacrococcygeal disorders, not elsewhere classified (principal)
CPT/HCPCS: 99213

== ENCOUNTER → 2024-06-15 10:58 | Outpatient (BNVA) | payer MEDICARE, SELFPAY | PROVIDERS: PCP Internal Medicine; Visit Provider Internal Medicine | DX: M53.3 Sacrococcygeal disorders, not elsewhere classified (principal); M54.2 Cervicalgia | CPT/HCPCS: 99212 ==

== ENCOUNTER 2024-06-17 11:28 | Outpatient (REF) | payer MEDICARE, SELFPAY ==
--- NOTE | ~2024-06-17 | MM_ITS ---
EXAMINATION: MM SCREENING DIGITAL BREAST TOMOSYNTHESIS, BILATERAL CLINICAL INFORMATION: Screening. Asymptomatic. COMPARISON: Mammography: Comparison is made with available priors TECHNIQUE: Digital breast mammography with tomosynthesis is performed in both the craniocaudal and mediolateral oblique views along with computer-aided detection (CAD). FINDINGS: There are scattered areas of fibroglandular density (ACR BI-RADS breast composition Category b). There are no significant masses, abnormal calcifications, or other abnormalities. MM/MM tomosynthesis screening BI IMPRESSION: No mammographic evidence of malignancy. ASSESSMENT: BI-RADS BI-RADS 1 - Negative RECOMMENDATION: Routine annual mammography screening. 1 year F/U This examination should not preclude the clinical evaluation of a suspicious palpable abnormality. This patient's information was entered into a reminder system with a target due date for their next mammogram. Electronically signed by: Emily Beaver DO 06/29/2024 05:58 PM EDT
== END 2024-06-17 11:29 | disposition home or self-care (01) ==
LOC: HO.MAMMO 11:28
PROVIDERS: PCP Internal Medicine; Visit Provider Internal Medicine
DX: Z12.31 Encounter for screening mammogram for malignant neoplasm of breast (principal)
CPT/HCPCS: 77063; 77067

== ENCOUNTER → 2024-06-17 11:45 | Outpatient (BNV) | payer MEDICARE, MEDICAID, SELFPAY | PROVIDERS: PCP Internal Medicine; Visit Provider Internal Medicine | DX: Z12.31 Encounter for screening mammogram for malignant neoplasm of breast (principal) | CPT/HCPCS: 77063; 77067 ==

== ENCOUNTER 2024-06-18 08:21 | Outpatient (REF) | payer MEDICARE, MEDICAID, SELFPAY ==
--- NOTE | ~2024-06-18 | CT_ITS ---
EXAMINATION: CT HEAD WITHOUT CONTRAST CLINICAL INFORMATION: R51.9 - Headache, unspecified COMPARISON: CT dated March 14, 2018. TECHNIQUE: Contiguous axial imaging was performed from the skull base to vertex without intravenous administration of contrast. This CT examination was performed using dose optimization techniques as appropriate, variously including the following: *Automated exposure control *Adjustment of mA and/or kV according to patient size (this includes techniques or standardized protocols for targeted exams where dose is matched to indication/reason for exam; i.e. extremities or head) *Use of iterative reconstruction technique DLP: 785 mGy-cm FINDINGS: Submitted for interpretation on August 18, 2024. Bony calvarium is intact. Skull base is intact. Well marginated bubbly abnormality in the posterior aspect of the left occipital condyle. No acute intracranial hemorrhage, mass effect, midline shift, hydrocephalus or herniation. Jaime-white matter differentiation is normal. Posterior cranial fossa contents demonstrated no acute intracranial hemorrhage or mass effect. Sellar/suprasellar region demonstrated no gross masses. There is a retention cysts versus polyp, right maxillary sinus. Tympanic cavities and mastoid air cells are aerated. CT/CT head/brain wo IV con IMPRESSION: No acute intracranial hemorrhage or acute brain abnormality by CT. Bubbly sclerotic marginated abnormality in the posterior left occipital condyle/occipital bone. Consider IV contrast enhanced MRI brain/ IAC protocol. Electronically signed by: Gustavo Cisneros MD 08/18/2024 11:53 AM EST
[2024-06-18 09:54] LABS: C Reactive Protein 0.15 mg/dL (< or = 0.50)
[2024-06-18 09:59] LABS: Ferritin 63 ng/mL (10-250)
[2024-06-18 12:36] LABS: HBS Num1 0.45 mIU/mL (0-7.99); HBc Num1 0.15 S/CO (0.00-0.79); HBsAGNum1 0.34 S/CO (0.00-0.99); HIV AB/AG Nonreactive (Nonreactive); HIV Num 1 0.05 S/CO (0.00-0.99); Hepatitis A Antibody IgM 0.31 Index (0-0.79); Hepatitis B Core Antibody Nonreactive (Nonreactive); Hepatitis B Surface Antigen Negative (Negative); ~HepC Num1 0.16 S/CO (0.00-0.79); ~Hepatitis A Antibody IgM Nonreactive (Nonreactive); ~Hepatitis B Surface Antibody NONREACTIVE (Nonreactive); ~Hepatitis C Antibody Nonreactive (Nonreactive)
[2024-06-22 21:28] LABS: Transglutaminase Ab IgG <1.0 U/mL; Transglutaminase IgA <1.0 U/mL
[2024-06-23 09:18] LABS: Alpha Fetoprotein 5.1 ng/mL
[2024-06-23 10:18] LABS: Mitochondrial Antibodies NEGATIVE (NEGATIVE)
[2024-06-24 14:09] LABS: Smooth Muscle Antibody <20 U (<20)
== END 2024-06-18 08:22 | disposition home or self-care (01) ==
LOC: HO.CT 08:21
PROVIDERS: Absent Provider Nurse Practitioner; PCP Internal Medicine; Visit Provider Internal Medicine
DX: Z11.4 Encounter for screening for human immunodeficiency virus [HIV] (principal); R51.9 Headache, unspecified; R19.7 Diarrhea, unspecified; R74.01 Elevation of levels of liver transaminase levels; Z11.59 Encounter for screening for other viral diseases; Z72.89 Other problems related to lifestyle
CPT/HCPCS: 36415; 70450; 82105; 82728; 86003; 86015; 86140; 86364; 86381; 86704; 86706; 86709; 86803; 87340; 87389

== ENCOUNTER → 2024-06-18 08:43 | Outpatient (BNV) | payer MEDICARE, MEDICAID, SELFPAY | PROVIDERS: Absent Provider Nurse Practitioner; PCP Internal Medicine; Visit Provider Radiology Diagnostic Radiology | DX: R51.9 Headache, unspecified (principal) | CPT/HCPCS: 70450 ==

== ENCOUNTER 2024-06-24 12:11 | Outpatient (REF) | payer MEDICARE, SELFPAY ==
[2024-07-01 19:23] LABS: Calprotectin, Fecal 117 mcg/g
[2024-07-02 21:13] LABS: Pancreatic Elastase-1 >500 mcg/g
== END 2024-06-24 12:12 | disposition home or self-care (01) ==
LOC: HO.LNP 12:11
PROVIDERS: Visit Provider Nurse Practitioner
DX: R19.7 Diarrhea, unspecified (principal); R74.01 Elevation of levels of liver transaminase levels
CPT/HCPCS: 82656; 83993

== ENCOUNTER 2024-07-02 06:22 | Outpatient (REF) | payer MEDICARE, SELFPAY | END 2024-07-02 06:23 | disposition home or self-care (01) | LOC: CF 06:22 | PROVIDERS: Visit Provider Internal Medicine | DX: M53.3 Sacrococcygeal disorders, not elsewhere classified (principal) | CPT/HCPCS: 27096; J2003; J2795 ==

== ENCOUNTER 2024-07-02 09:56 | Outpatient (AMB) | payer MEDICARE, MEDICAID, SELFPAY ==
[2024-07-02 10:06] VITALS: BP 121/75; PULSE 96; O2SAT 99
--- NOTE | 2024-07-02 10:06 | A.OFFVIS_ITS ---
Vital Signs 07/02/24 10:06 07/02/24 11:07 BP 121/75 130/74 Blood Pressure Location Lt brachial Rt brachial Position Sitting Sitting Pulse 96 90 Pulse Source Pulse Oximeter Pulse Oximeter Pulse Oximetry (%) 99 99 Oxygen Delivery Method Room Air Room Air Intake Visit Reasons: Clyde dx SIJ inj Allergies No Known Allergies Allergy (Verified 06/15/24 11:11) HPI HPI Clyde dx SIJ inj: Details: Patient presents for scheduled procedure. Denies any recent cough, cold, infection, fever or other significant changes in medical history since last office visit. [facility] Medical History (Updated 06/04/24 @ 15:08 by KAYLIE Grande) RUQ abdominal pain Lumbar radiculitis Persistent fatigue after COVID-19 Tympanic membrane perforation Vertebrogenic low back pain Right sided abdominal pain History of gallstones Gallstones Shoulder pain Preoperative examination Tympanic membrane perforation, marginal Elevated LFTs Otitis externa of left ear Family history of colon cancer Bilateral knee pain Allergic rhinitis Low back pain Fatigue History of tachycardia PONV (postoperative nausea and vomiting) Impaired fasting glucose Lumbar spondylosis Low TSH level Overweight (BMI 25.0-29.9) Anxiety Insomnia Complex cyst of left ovary Urinary incontinence GERD without esophagitis Constipation Migraine Degenerative arthritis of cervical spine Lumbar degenerative disc disease Pure hypercholesterolemia Depression Surgical History (Updated 06/04/24 @ 14:05 by JOAO Ge) History of esophagogastroduodenoscopy (EGD) Hx laparoscopic cholecystectomy (~09/11/22) Hx of colonoscopy History of tympanoplasty of left ear History of surgery History of nasal surgery History of bladder surgery Family History Father Colon cancer Mother Bone cancer Social History Housing: House Are you a primary career technical education teacher to a significant other at home: No Do you presently have visiting nurse or other home services: No Alcohol intake: current Alcohol intake frequency: holidays/special occasions only Alcohol type: wine Comment: pt reports this is her baseline pain level Patient Tobacco Use Status: Never used Tobacco e-Cigarette/Vaping Use: Never Used Second Hand Smoke Exposure: Yes service: No Current occupational status: disabled Cognitive needs: No Hearing needs: No Vision needs: No Physical Exam Vital Signs: Last Vital Signs Pulse 96 07/02/24 10:06 BP 121/75 07/02/24 10:06 Pulse Ox 99 07/02/24 10:06 Oxygen Delivery Method Room Air 07/02/24 10:06 Office Procedures Joint Injection/Aspiration Joint Injection/Aspiration Details: Diagnostic Sacroiliac Joint Injection, Bilateral The procedure, its benefits, and its risks were explained and written informed consent was obtained from the patient. Immediately prior to starting the pro cedure, a time-out safety check was conducted. The patient's identification, procedure name, procedure site, and procedure laterality were confirmed with the patient. ? Patient was placed prone on the fluoroscopy table and the lumbosacral area was prepped using ChloraPrep and draped with sterile draped in standard fashion. The C-arm was rotated in a contralateral oblique fashion until the medial border of the iliac crest no longer foreshadowed the posterior sacroiliac joint line. The skin and subcutaneous tissue was anesthetized using 1 mL of 0.75% plain lidocaine with 1.5-inch 25-gauge needle in the middle region of the joint line.? A 3.5-inch 22-gauge spinal needle with small bend on the tip was slowly advanced towards the joint line, coaxial to the x-ray beam. Once bony content was ob tained, the needle was easily slid into the intra-articular space.? Intra- articular needle position was confirmed using lateral fluoroscopy.? A total volume of 2.5mL of solution containing 0.5% of ropivacaine was injected intra- articularly. The stylet was reinserted and needle was removed. The same process was then repeated on the other side. The patient tolerated the procedure well. Patient denied any lower extremity weakness or numbness. Patient was observed for 30 min and was discharged after fulfilling the standard discharge criteria. Coding 54605 - Sacroiliac (Bilateral) Procedure code (CPT) selection complete Assessment & Plan Assessment & Plan (1) Sacroiliac dysfunction: Code(s): M53.3 - Sacrococcygeal disorders, not elsewhere classified Category: Medical Plan Patient is status post bilateral diagnostic SI joint injections. Patient tolerated procedure well and was discharged home in stable condition with discharge instructions. All questions were answered. We will follow-up via telephone or in clinic to assess response to therapy. A follow-up appointment was made during today's visit. Orders: Orders [place] guidance in treatment room Today M53.3 - Sacrococcygeal disorders, not elsewhere classified Coding Level of Care Code Procedure Only Diagnoses Sacroiliac dysfunction M53.3 CPT Codes Coding - Joint 9: 49115 - Sacroiliac ([id number])
[2024-07-02 11:07] VITALS: BP 130/74; PULSE 90; O2SAT 99
== END 2024-07-02 11:07 | disposition home or self-care (01) ==
LOC: HO.PMCPRC 09:56
PROVIDERS: PCP Internal Medicine; Visit Provider Internal Medicine
DX: M53.3 Sacrococcygeal disorders, not elsewhere classified (principal)
CPT/HCPCS: 27096

== ENCOUNTER 2024-07-06 09:48 | Outpatient (AMB) | payer MEDICARE, MEDICAID, SELFPAY ==
[2024-07-06 09:54] VITALS: BP 138/78; PULSE 88; RESP 14; O2SAT 98; BMI 26.1
--- NOTE | 2024-07-06 09:54 | A.OFFVIS_ITS ---
Vital Signs 07/06/24 09:54 Height 5 ft 1 in Weight 138 lb BMI 26.1 BP 138/78 Blood Pressure Location Lt brachial Position Sitting Respiration 14 Pulse 88 Pulse Source Pulse Oximeter Pulse Oximetry (%) 98 Oxygen Delivery Method Room Air Intake Visit Reasons: s/p ángela Dx SIJ inj Allergies No Known Allergies Allergy (Verified 07/07/24 16:14) HPI HPI s/p ángela Dx SIJ inj: Details: 64-year-old female who presents today to the office for a status post bilateral diagnostic sacroiliac joint injection. The patient reports >90% relief following the procedure. She has good response from the injection. She reports neck pain left more than right side. She previously had neck injections with us that provided good relief. She is amenable to proceed with temporary PNS device. Past procedures 07/02/2024: Diagnostic Sacroiliac Joint Injection, Bilateral: >90% relief. 05/04/2024: Left intra-articular sacroiliac joint injection, US guided: 80% relief. 03/11/24: Left L4/5 and L5/S1 Facet Injections (2 levels), US Guided: % relief. 03/27/23: Lumbar Medial Branch Block, Bilateral L3, L4 medial branches and L5 Dorsal Ramus (2 levels, 3 nerves): Moderate relief 10/31/22: Diagnostic Cervical Medial Branch Block, Left C3, C4, C5 medial branch es: 80% relief for 2 months 06/27/22: Left Diagnostic C3-C4-C5 MBBs ? 100% relief for 2 months. 03/07/22: Left L4-L5 Medial Branch RFA ? 100% relief. 11/29/21: Bilateral Diagnostic L3-L4-L5 MBBs - 80% pain relief for 2 days, more noticeable on the left side. 11/01/21: Bilateral Diagnostic L3-L4-L5 MBB ? 40% relief. 08/23/21 Bilateral Diagnostic L3-L4-L5 MBB ? 50% relief. [facility] Medical History (Updated 07/28/24 @ 10:41 by Narinder Verdin MD) Constipation RUQ abdominal pain Lumbar radiculitis Persistent fatigue after COVID-19 Tympanic membrane perforation Vertebrogenic low back pain Right sided abdominal pain History of gallstones Gallstones Shoulder pain Preoperative examination Tympanic membrane perforation, marginal Elevated LFTs Otitis externa of left ear Family history of colon cancer Bilateral knee pain Allergic rhinitis Low back pain Fatigue History of tachycardia PONV (postoperative nausea and vomiting) Impaired fasting glucose Lumbar spondylosis Low TSH level Overweight (BMI 25.0-29.9) Anxiety Insomnia Complex cyst of left ovary Urinary incontinence GERD without esophagitis Migraine Degenerative arthritis of cervical spine Lumbar degenerative disc disease Pure hypercholesterolemia Depression Surgical History (Updated 06/04/24 @ 14:05 by JOAO Ge) History of esophagogastroduodenoscopy (EGD) Hx laparoscopic cholecystectomy (~09/11/22) Hx of colonoscopy History of tympanoplasty of left ear History of surgery History of nasal surgery History of bladder surgery Family History Father Colon cancer Mother Bone cancer Social History Housing: House Are you a primary care program resident to a significant other at home: No Do you presently have visiting nurse or other home services: No Alcohol intake: current Alcohol intake frequency: holidays/special occasions only Alcohol type: wine Comment: pt reports this is her baseline pain level Patient Tobacco Use Status: Never used Tobacco e-Cigarette/Vaping Use: Never Used Second Hand Smoke Exposure: Yes service: No Current occupational status: disabled Cognitive needs: No Hearing needs: No Vision needs: No Review of Systems Const All systems reviewed & are unremarkable except as noted in HPI and below Physical Exam Vital Signs: Last Vital Signs Pulse 88 07/06/24 09:54 Resp 14 07/06/24 09:54 BP 138/78 07/06/24 09:54 Pulse Ox 98 07/06/24 09:54 Oxygen Delivery Method Room Air 07/06/24 09:54 BMI result Body Mass Index 26.1 General: Appears afebrile. Alert and oriented. Mood and affect appropriate. Follows and participates in conversation appropriately. Respiratory effort is unlabored. Able to transition from sit to stand unassisted. Ambulates with bilaterally normal heel strike and toe off. Results Reviewed Results Reviewed: No imaging is available for review. Assessment & Plan Assessment & Plan (1) Sacroiliac dysfunction: Code(s): M53.3 - Sacrococcygeal disorders, not elsewhere classified Category: Medical (2) Chronic neck pain: Code(s): M54.2 - Cervicalgia; G89.29 - Other chronic pain Category: Medical (3) Cervical spondylosis: Code(s): M47.812 - Spondylosis without myelopathy or radiculopathy, cervical region Category: Medical Plan Sacroiliac joint pain is well-controlled. Her main complaint today was axial neck pain that has not been responsive to conservative management. Discussed temporary peripheral nerve stimulator as a possible treatment options for her cervical pain. A brochure was provided to the patient today in the office. We will schedule her for a left C4 medial branch nerve stimulator for intractable neck pain. Discussed the risks and benefits of the procedure with the patient in detail. All questions were answered. The patient is on board with the plan. Justification for interventional therapy: ? Patient with average pain > 6/10 ? Patient has exhausted conservative therapy including PT. ? Patient unable to tolerate physical therapy due to pain . Patient has a good understanding of their pain condition and has appropriate mental and social support. She will follow up as needed when her SIJ pain returns to repeat the injections. Scribed for Dr. Verdin by Delvin Howard, medical staff credentialing coordinator, on 07/06/2024. I, Dr. Verdin, have personally reviewed and agree with the information entered by the scribe. Coding Level of Care Code Est Pt Level 3 (87309) Diagnoses Sacroiliac dysfunction M53.3 Chronic neck pain M54.2; G89.29 Cervical spondylosis M47.812
== END 2024-07-06 10:09 | disposition home or self-care (01) ==
LOC: HO.PMC 09:48
PROVIDERS: PCP Internal Medicine; Visit Provider Internal Medicine
DX: M53.3 Sacrococcygeal disorders, not elsewhere classified (principal); M54.2 Cervicalgia; G89.29 Other chronic pain; M47.812 Spondylosis without myelopathy or radiculopathy, cervical region
CPT/HCPCS: 99213

== ENCOUNTER → 2024-07-06 09:48 | Outpatient (BNVA) | payer MEDICARE, SELFPAY | PROVIDERS: PCP Internal Medicine; Visit Provider Internal Medicine | DX: M53.3 Sacrococcygeal disorders, not elsewhere classified (principal); M54.2 Cervicalgia; G89.29 Other chronic pain; M47.812 Spondylosis without myelopathy or radiculopathy, cervical region | CPT/HCPCS: 99212 ==

== ENCOUNTER → 2024-07-07 16:07 | Outpatient (BNVA) | payer MEDICARE, SELFPAY | PROVIDERS: PCP Internal Medicine; Visit Provider Nurse Practitioner ==

== ENCOUNTER → 2024-10-13 10:47 | Outpatient (BNV) | payer MEDICARE, MEDICAID, SELFPAY | PROVIDERS: PCP Internal Medicine; Visit Provider Radiology Diagnostic Radiology | DX: M89.9 Disorder of bone, unspecified (principal); Q78.2 Osteopetrosis | CPT/HCPCS: 70553 ==

== ENCOUNTER 2024-11-10 15:39 | Outpatient (AMB) | payer MEDICARE, MEDICAID, SELFPAY ==
[2024-11-10 15:47] VITALS: BP 122/86; PULSE 104; O2SAT 98; BMI 27.1
--- NOTE | 2024-11-10 15:47 | A.OFFPC_ITS ---
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: No Accompanied by: Self / Same As Patient Allergies No Known Allergies Allergy (Verified 11/10/24 16:17) Medication List - Last Reconciled 11/10/24 by Richar Verma MD cetirizine 10 mg PO DAILY PRN 90 days cholestyramine-aspartame 4 gram (Cholestyramine Light) 4 grams PO BID cyclobenzaprine 10 mg PO TID PRN fluticasone propionate 50 mcg/actuation 2 sprays intranasal DAILY gabapentin 600 mg PO TID 30 days lorazepam 1 mg PO BEDTIME PRN 30 days multivitamin 1 tab PO DAILY omeprazole 20 mg PO DAILY oxycodone-acetaminophen 5-325 mg 1 tab PO Q6H PRN 28 days paroxetine HCl 20 mg PO DAILY 30 days [Probiotic 1 cap PO DAILY] rosuvastatin 5 mg PO Q3D 60 days topiramate 50 mg PO BEDTIME 30 days trazodone 50 mg PO BEDTIME PRN 30 days zolpidem 10 mg PO BEDTIME PRN 30 days Tobacco use date assessed: 11/10/24 Fall risk assessment: 1 Fall in past year Last assessed Fall Risk: 11/10/24 Dental Screening Dental Screen Date: 11/10/24 Did you have a dental visit in the last 12 months?: Yes Did you have a dental problem in the last 6 months where you did not have access to dental care?: No Was dental information given to patient?: Patient has dentist HPI 4 months F/U - Reschedule HPI Details Patient comes in today for her follow up visit States that she is currently still experiencing some pain in her pelvic area but feels okay otherwise She missed her last appointment in August 2024 as she fell down her stairs at home and sustained a mildly displaced pelvic fracture, which fortunately did not require surgery She was initially sent to the ER from the walk-in clinic, where she first presented to for evaluation of her pelvic pain the day following her fall in August 2024, when outpatient x-rays done revealed the pelvic fracture She was evaluated at the ER and after determining that she does not require surgery, was discharged home and referred instead to [facility] for further management She was advised conservative treatment and to return for follow-up in 4 weeks with repeat x-ray She was seen again for follow-up by Orthopedics last week and was advised that she was progressing well and to continue with conservative management and to follow up again in 3 months Patient states that she is currently ambulating reasonably well and no longer requires the use of walker like she did in the beginning She denies any headaches or dizziness Denies any chest pains, no increased shortness of breath No nausea/vomiting, no abdominal pain No change in bowel habits noted She had her follow-up labs done last month - to discuss her results [facility] Medical History (Updated 11/11/24 @ 02:00 by Richar Verma MD) RUQ abdominal pain Elevated LFTs Constipation Pelvic fracture Lumbar radiculitis Persistent fatigue after COVID-19 Tympanic membrane perforation Vertebrogenic low back pain Right sided abdominal pain History of gallstones Gallstones Shoulder pain Preoperative examination Tympanic membrane perforation, marginal Otitis externa of left ear Family history of colon cancer Bilateral knee pain Allergic rhinitis Low back pain Fatigue History of tachycardia PONV (postoperative nausea and vomiting) Impaired fasting glucose Lumbar spondylosis Low TSH level Overweight (BMI 25.0-29.9) Anxiety Insomnia Complex cyst of left ovary Urinary incontinence GERD without esophagitis Migraine Degenerative arthritis of cervical spine Lumbar degenerative disc disease Pure hypercholesterolemia Depression Surgical History History of esophagogastroduodenoscopy (EGD) Hx laparoscopic cholecystectomy (~09/11/22) Hx of colonoscopy History of tympanoplasty of left ear History of surgery History of nasal surgery History of bladder surgery Family History Father Colon cancer Mother Bone cancer Social History Housing: House Are you a primary daycare director to a significant other at home: No Do you presently have visiting nurse or other home services: No Alcohol intake: current Alcohol intake frequency: holidays/special occasions only Alcohol type: wine Comment: pt reports this is her baseline pain level Patient Tobacco Use Status: Never used Tobacco e-Cigarette/Vaping Use: Never Used Second Hand Smoke Exposure: Yes service: No Current occupational status: disabled Cognitive needs: No Hearing needs: No Vision needs: No Questionnaire PHQ-9 Over the last 2 weeks, how often have you been bothered by any of the following problems? 1. Little interest or pleasure in doing things: several days 2. Feeling down, depressed, or hopeless: several days 3. Trouble falling or staying asleep, or sleeping too much: several days 4. Feeling tired or having little energy: several days 5. Poor appetite or overeating: not at all 6. Feeling bad about yourself - or that you are a failure or have let yourself or your family down: not at all 7. Trouble concentrating on things, such as reading the newspaper or watching television: not at all 8. Moving or speaking so slowly that other people could have noticed. Or the opposite - being so fidgety or restless that you have been moving around a lot more than usual: not at all 9. Thoughts that you would be better off or of hurting yourself in some way: not at all Total score: 4 Depression Screening Interpretation: Positive Depression Screening Follow-up: Existing condition and In treatment Depression Screening Done: Yes 62959 - PHQ-9 Billing: Yes Source: Developed by Drs. Angel Anthony, Clau Saleh, Guzman Moreno and colleagues, with an educational maria d from [employer]. Thrive Questionnaire Date Thrive assessed: 11/10/24 I am a: Patient What is your living situation today?: I have a steady place to live Within the past 12 months, did the food you bought not last and you didn't have the money to get more?: Never true Within the past 12 months, did you worry whether your food would run out before you got money to buy more?: Never true Do you have trouble paying for medicines?: No Do you have trouble getting transportation to medical appointments?: No Do you have trouble paying your heating and electricity bill?: No Do you have trouble taking care of your child, family member or friend?: No Do you have trouble with day-to-day activities such as bathing, preparing meals, shopping, managing finances, etc.?: No Are you currently unemployed and looking for a job?: No Are you interested in more education?: No Please select the resources that you would like help with: None Currently or been in a relationship where the following occur: No concerns reported THRIVE Score: 0 AUDIT C Alcohol Use Questionnaire (AUDIT-C) 1. How often do you have a drink containing alcohol?: Monthly or less 2. How many drinks containing alcohol do you have on a typical day when you are drinking?: 1 or 2 3. How often do you have six or more drinks on one occasion?: Never Total Score: 1 Score Reviewed/Action Taken: Yes ACE-7 AMB Questionnaire ACE-7 Date ACE - 7 assessed: 11/10/24 Feeling nervous, anxious, or on edge: 0 = Not at all Not being able to stop or control worryin = Not at all Worrying too much about different things: 0 = Not at all Trouble relaxin = Not at all Being so restless that it is hard to sit still: 0 = Not at all Becoming easily annoyed or irritable: 0 = Not at all Feeling afraid as if something awful might happen: 0 = Not at all Total ACE-7 score (0-4 normal; 5-9 mild; 10-14 moderate; 15-21 severe): 0 Source: Developed by Drs. Angel Anthony, Clau Saleh, Guzman Moreno and colleagues, with an educational amria d from [employer]. Review of Systems Const Denies chills, Reports difficulty sleeping, Reports fatigue, Denies fever(s) and Denies headache(s) ENT Denies dysphagia, Denies dizziness, Reports otalgia (in the left ear - chronic), Denies headache(s), Reports hearing loss, Reports neck pain (chronic - increasing lately), Denies odynophagia, Reports tinnitus (in the left ear) and Denies sore throat Card Denies chest pain, Denies palpitations and Denies dyspnea Resp Denies cough and Denies dyspnea GI Reports abdominal pain (on and off, over the RUQ), Denies hematochezia, Denies constipation, Denies dysphagia, Denies heartburn, Reports loose stools (at times), Denies nausea, Denies odynophagia and Denies vomiting Denies nocturia, Denies dysuria and Denies urinary urgency Musc Details: (+) pelvic pain Reports back pain (over the lumbar spine - chronic), Reports myalgias, Reports arthralgias (over both knees) and Reports neck pain (chronic - increasing lately) Skin/Breast Denies rash Neuro Denies dizziness and Denies headache(s) Psych Reports depression (increasing) Endo Reports fatigue and Denies palpitations Physical exam (Primary Care) Vital Signs: Last Vital Signs Pulse 104 H 11/10/24 15:47 BP 122/86 11/10/24 15:47 Pulse Ox 98 11/10/24 15:47 Oxygen Delivery Method Room Air 11/10/24 15:47 BMI result Body Mass Index 27.1 Tobacco/Smoking Status: Tobacco use Status Tobacco use date assessed 11/10/24 11/10/24 15:50 Patient Tobacco Use Status Never used Tobacco 11/10/24 15:50 e-Cigarette/Vaping Use Never Used 11/10/24 15:50 PHQ-9: PHQ-9 Score PHQ-9: Total score 4 11/10/24 16:21 Depression Screening Interpretation: Positive Depression Screening Follow-up: Existing condition and In treatment Thrive Assessment: Date of Thrive Assessment Date Thrive assessed 11/10/24 11/10/24 15:56 Currently or been in a relationship where the following occur: No concerns reported Const General: no acute distress and alert HENMT Ears: TM normal on the right, EAC's normal and TM abnormal perforated (complete perforation/absent TM) without discharge on the left Throat: Yes posterior oropharynx normal and Yes tonsils normal (no TP congestion noted) Neck Neck: Yes no lymphadenopathy and Yes tender (over the back of the neck - chronic) Thyroid: Thyroid normal Resp Auscultation: clear to auscultation bilaterally, no rales and no wheezes Cardio Rate: regular rate Rhythm: regular rhythm Heart sounds: no murmurs GI Palpation (GI): Soft to palpation, Tenderness to palpation present (GI) (mild ) in the RUQ, no guarding and No Rebound tenderness present Auscultation: normal bowel sounds General: Yes no CVA tenderness Back/Spine/Pelvis Back: no CVA tenderness Cervical Spine: Cervical spine tenderness Thoracic/Lumbar Spine: lumbar spinal tenderness Skin Rashes: no rashes Extrem General: Yes no clubbing, cyanosis or edema Right lower extremity: knee Details: tenderness and crepitus; no swelling Left lower extremity: knee Details: tenderness and crepitus; no swelling Results Reviewed Results Reviewed: Laboratory Tests 10/13/24 10/13/24 10:51 10:55 WBC 6.0 Hgb 12.6 Hct 38.0 Plt Count 281 Sodium 143 Potassium 3.7 Creatinine 0.77 Estimated GFR > 60 Fasting Glucose 91 Calcium 9.3 AST 24 ALT 22 Triglycerides 97 Cholesterol 188 LDL Cholesterol, Calc 102 H HDL Cholesterol 67 Vitamin B12 630 25-OH Vitamin D Total 91.7 TSH 0.42 Free T4 0.97 Ur Specific [place] 1.020 Urine Protein Negative Urine Glucose (UA) Negative Urine Blood Negative Urine Nitrite Negative Ur Leukocyte Esterase Negative Coding Level of Care Code Est Pt Level 4 (23911) Diagnoses Pure hypercholesterolemia E78.00 Migraine without status migrainosus, not intractable, unspecified migraine type G43.909 Migraine type: unspecified Status migrainosus presence: without status migrainosus Intractability: not intractable Elevated LFTs R79.89 RUQ abdominal pain R10.11 Degeneration of intervertebral disc of lumbar region with discogenic back pain M51.360 Disc-related pain type: discogenic back pain only Osteoarthritis of cervical spine, unspecified spinal osteoarthritis complication status M47.812 Spinal osteoarthritis complication: unspecified spinal osteoarthritis Closed displaced fracture of pelvis, unspecified part of pelvis, sequela S32 .9XXS Encounter type: sequela Pelvic bone location: unspecified part of pelvis Fracture type: closed Fracture alignment: displaced Constipation, unspecified constipation type K59.00 Constipation type: unspecified constipation type GERD without esophagitis K21.9 Allergic rhinitis, unspecified seasonality, unspecified trigger J30.9 Allergic rhinitis trigger: unspecified Allergic rhinitis seasonality: unspecified Chronic left ear pain H92.02; G89.29 Low TSH level R79.89 Pain in both knees, unspecified chronicity M25.561; M25.562 Chronicity: unspecified Urinary incontinence, unspecified type R32 Urinary Incontinence type: unspecified incontinence Complex cyst of left ovary N83.292 Insomnia, unspecified type G47.00 Insomnia type: unspecified Anxiety F41.9 Episode of recurrent major depressive disorder, unspecified depression episode severity F33.9 Depression Type: major depressive disorder Major depression recurrence: recurrent Active/Remission status: currently active Major depression episode severity: unspecified Overweight (BMI 25.0-29.9) E66.3 Additional Codes PHQ-9 - 54220 - PHQ-9 Billing: Yes ([id number]) Assessment & Plan Assessment & Plan (1) Pure hypercholesterolemia: Code(s): E78.00 - Pure hypercholesterolemia, unspecified Category: Medical Plan: Results of her labs done last month reviewed and discussed with patient Reinforced low cholesterol diet Continue Rosuvastatin 5 mg every 3 days - her LFTs have improved from previous and are now normal Patient was tolerating Rosuvastatin 5 mg but we had to cut her dosing back further from every other day to every 3 days at her last visit as her LFTs continued to increase despite her reduced dosing frequency (Atorvastatin 10 mg QD was discontinued previously due to significantly elevated LFTs) Will recheck her labs and fasting lipids again in 4 months for follow-up (2) Migraine: Code(s): G43.909 - Migraine, unspecified, not intractable, without status migrainosus Category: Medical Qualifiers: Migraine type: unspecified Status migrainosus presence: without status migrainosus Intractability: not intractable Qualified Code(s): G43.909 - Migraine, unspecified, not intractable, without status migrainosus Plan: Reinforced avoidance of migraine triggers Continue Continue Fioricet PRN and Topiramate 50 mg once a day at bedtime for headache prophylaxis for now She has reportedly been advised by Neurology in the past that her headaches are most likely multifactorial and are not just simple migraine headaches and will most likely require a multifaceted approach involving medical as well as behavioral therapy and intervention -? she was advised to continue to follow-up with her psychiatrist for this as well As her headaches have increased significantly recently and in the absence of any brain imaging studies done in many years, she was sent for a head CT for further evaluation; if her head CT comes back negative and her headaches continue to occur frequently, can consider increasing her Topiramate dose Her head CT done in June 2024 was normal except for (+) bubbly sclerotic marginated abnormality in the posterior left occipital condyle/occipital bone for which IV contrast enhanced MRI brain/ IAC protocol was recommended Patient underwent a brain MRI last month (October 2024) which revealed no abnormal enhancement within the posterior left occipital condyle/left occipital bone. Stable since prior CT dated March 14, 2018 - probable benign. There is also a probable 10 x 6 x 8 mm meningioma at the left lesser wing of the sphenoid. Nonspecific T2 FLAIR signal foci supratentorial compartment Follow up with neurology as scheduled (3) Elevated LFTs: Comment: S/P lap gerald in September 2022 Code(s): R79.89 - Other specified abnormal findings of blood chemistry Category: Medical Plan: Her LFTs are now normal again on her recent labs Her liver appeared normal on abdominal US done in July 2022; repeat abdominal US done in January 2023 also came out normal Will continue to monitor her LFTs regularly (4) RUQ abdominal pain: Code(s): R10.11 - Right upper quadrant pain Category: Medical Plan: Patient states that this has been going on for a while now and imaging studies done in the past couple of years (abdominal US) have not revealed any abnormality or etiology for her symptoms She has been referred to GI and was seen in May 2024 and will continue to follow up with GI for this issue (5) Lumbar degenerative disc disease: Code(s): M51.36 - Other intervertebral disc degeneration, lumbar region Category: Medical Qualifiers: Disc-related pain type: discogenic back pain only Qualified Code(s): M51.360 - Other intervertebral disc degeneration, lumbar region with discogenic back pain only Plan: Reinforced activity and weight lifting restrictions to avoid aggravating her back pain Continue?Cyclobenzaprine?10 mg 3 times a day as needed and?Oxycodone- Acetaminophen?5-325 mg 1 tablet every 6 hours as needed?as well as Gabapentin to 600 mg TID She has received injections into her lower back before from pain management with some relief of her symptoms and it appears that pain management was also planning to try her on PNS for better pain control but her pelvic fracture affected her schedule and delayed/postponed all of her appointments Have advised her to try reaching out to pain management again at some point soon and to resume her regular follow up appointments with them (6) Degenerative arthritis of cervical spine: Code(s): M47.812 - Spondylosis without myelopathy or radiculopathy, cervical region Category: Medical Qualifiers: Spinal osteoarthritis complication: unspecified spinal osteoarthritis Qualified Code(s): M47.812 - Spondylosis without myelopathy or radiculopathy, cervical region Plan: States that her current medications help keep her neck pain manageable Is S/P RFA of the lumbar spine in February 2022 and diagnostic MBB of the cervical spine in June 2022 - states that her chronic pains have improved somewhat with ablation Tx but insurance is now declining to cover any further procedures and intervention for her chronic back pain Patient states that pain management has tried working on getting these approved unsuccessfully It appears that pain management was going to try her on a PNS device at her last visit with them a few months ago Follow up with pain management as scheduled (7) Pelvic fracture: Code(s): S32.9XXA - Fracture of unspecified parts of lumbosacral spine and pelvis, initial encounter for closed fracture Category: Medical Qualifiers: Encounter type: sequela Pelvic bone location: unspecified part of pelvis Fracture type: closed Fracture alignment: displaced Qualified Code(s): S32.9XXS - Fracture of unspecified parts of lumbosacral spine and pelvis, sequela Plan: Her pelvic fracture was mildly displaced and she did not require surgery and is being managed conservatively by [facility] Follow up with [facility] as scheduled (8) Constipation: Code(s): K59.00 - Constipation, unspecified Category: Medical Qualifiers: Constipation type: unspecified constipation type Qualified Code(s): K59.00 - Constipation, unspecified Plan: This is most likely opioid-induced Abdominal x-rays done a couple of years ago came out normal She is again encouraged on increased oral fluids and dietary fiber Continue Senna 8.6 mg 1-2 tablets daily at bedtime as needed (9) GERD without esophagitis: Code(s): K21.9 - Gastro-esophageal reflux disease without esophagitis Category: Medical Plan: Dietary restrictions reinforced Continue Omeprazole 20 mg QD (10) Allergic rhinitis: Code(s): J30.9 - Allergic rhinitis, unspecified Category: Medical Qualifiers: Allergic rhinitis trigger: unspecified Allergic rhinitis seasonality: unspecified Qualified Code(s): J30.9 - Allergic rhinitis, unspecified Plan: Continue Cetirizine 10 mg QD PRN (11) Chronic left ear pain: Code(s): H92.02 - Otalgia, left ear; G89.29 - Other chronic pain Category: Medical Plan: S/P tympanoplasty in 2021 Patient is advised that she currently does NOT have any TM covering her left ear and as her inner ear is completely exposed to the elements and is likely the primary reason for her chronic left ear pain She currently does not have any ear drainage or discharge or any ear findings to suggest that she has an ear infection Have advised her to try wearing some ear plug or ear covering to help protect her inner ear at all times and this may help, at least somewhat, with her ear pain (12) Low TSH level: Code(s): R79.89 - Other specified abnormal findings of blood chemistry Category: Medical Plan: Her free T4 remains normal on her recent labs and patient is clinically euthyroid; her TSH level is actually normal on her recent labs Will continue to monitor her TFTs regularly (13) Bilateral knee pain: Code(s): M25.561 - Pain in right knee; M25.562 - Pain in left knee Category: Medical Qualifiers: Chronicity: unspecified Qualified Code(s): M25.561 - Pain in right knee; M25.562 - Pain in left knee Plan: Bilateral knee x-rays done in January 2023 revealed (+) mild degenerative changes in the patellofemoral areas in both knees Will consider referring her to orthopedics for further management if her knee pain progresse (14) Urinary incontinence: Code(s): R32 - Unspecified urinary incontinence Category: Medical Qualifiers: Urinary Incontinence type: unspecified incontinence Qualified Code(s): R32 - Unspecified urinary incontinence Plan: Follow up with urology (Dr.? Bcak) as scheduled (15) Complex cyst of left ovary: Code(s): N83.292 - Other ovarian cyst, left side Category: Medical Plan: She is being followed by [facility] regularly for this - her cyst has been < 1 cm and has remained stable in size over the past 2-3 years (likely a dermoid cyst) and will continue surveillance with regular ultrasound and CA-125 measurement (16) Insomnia: Code(s): G47.00 - Insomnia, unspecified Category: Medical Qualifiers: Insomnia type: unspecified Qualified Code(s): G47.00 - Insomnia, unspecified Plan: Sleep hygiene reinforced Continue Zolpidem 10 mg once a day at bedtime as needed and Trazodone 50 mg Q HS PRN only (17) Anxiety: Code(s): F41.9 - Anxiety disorder, unspecified Category: Medical Plan: Continue Lorazepam 1 mg daily at bedtime as needed (18) Depression: Code(s): F32.9 - Major depressive disorder, single episode, unspecified Category: Medical Qualifiers: Depression Type: major depressive disorder Major depression recurrence: recurrent Active/Remission status: currently active Major depression episode severity: unspecified Qualified Code(s): F33.9 - Major depressive disorder, recurrent, unspecified Plan: Continue Paroxetine 20 mg Q AM Follow-up with Psychiatry as scheduled (19) Overweight (BMI 25.0-29.9): Code(s): E66.3 - Overweight Category: Medical Plan: Reinforced diet; exercise and weight loss are not realistic given patient's multiple physical issues Plan Follow up in 4 months Orders: Orders Free T4 (Free Thyroxine) 4 Months R79.89 - Other specified abnormal findings of blood chemistry Complete Blood Count Auto Diff 4 Months D64.9 - Anemia, unspecified Comprehensive [place]. Panel Fast 4 Months E78.00 - Pure hypercholesterolemia, unspecified Lipid Panel 4 Months E78.00 - Pure hypercholesterolemia, unspecified UA CC w/rflx Micro + Cult 4 Months R30.0 - Dysuria Thyroid Stimulating Hormone 4 Months R79.89 - Other specified abnormal findings of blood chemistry Vitamin B12 and Folate 4 Months E53.8 - Deficiency of other specified B group vitamins Vitamin D 25-OH Total 4 Months E55.9 - Vitamin D deficiency, unspecified Medications: Refilled trazodone 50 mg PO BEDTIME 30 days PRN 30 tabs 1RF sleep oxycodone-acetaminophen 5-325 mg 1 tab PO Q6H 28 days PRN 112 tabs 0RF pain M47.812 - Spondylosis without myelopathy or radiculopathy, cervical region, M51.36 - Other intervertebral disc degeneration, lumbar region
== END 2024-11-10 16:30 | disposition home or self-care (01) ==
PROVIDERS: PCP Internal Medicine; Visit Provider Internal Medicine
DX: E78.00 Pure hypercholesterolemia, unspecified (principal); G43.909 Migraine, unspecified, not intractable, without status migrainosus; F33.9 Major depressive disorder, recurrent, unspecified; R79.89 Other specified abnormal findings of blood chemistry; R10.11 Right upper quadrant pain; M51.360 Other intervertebral disc degeneration, lumbar region with discogenic back pain only; M47.812 Spondylosis without myelopathy or radiculopathy, cervical region; S32.9XXS Fracture of unspecified parts of lumbosacral spine and pelvis, sequela; K59.00 Constipation, unspecified; K21.9 Gastro-esophageal reflux disease without esophagitis; J30.9 Allergic rhinitis, unspecified; H92.02 Otalgia, left ear

== ENCOUNTER → 2024-11-10 15:39 | Outpatient (BNVA) | payer MEDICARE, MEDICAID, SELFPAY | PROVIDERS: PCP Internal Medicine; Visit Provider Internal Medicine | DX: E78.00 Pure hypercholesterolemia, unspecified (principal); G43.909 Migraine, unspecified, not intractable, without status migrainosus; R79.89 Other specified abnormal findings of blood chemistry; R10.11 Right upper quadrant pain; M51.360 Other intervertebral disc degeneration, lumbar region with discogenic back pain only; M47.812 Spondylosis without myelopathy or radiculopathy, cervical region; S32.9XXS Fracture of unspecified parts of lumbosacral spine and pelvis, sequela; K59.00 Constipation, unspecified; K21.9 Gastro-esophageal reflux disease without esophagitis; J30.9 Allergic rhinitis, unspecified; H92.02 Otalgia, left ear; G89.29 Other chronic pain; M25.561 Pain in right knee; M25.562 Pain in left knee; R32 Unspecified urinary incontinence; N83.292 Other ovarian cyst, left side; G47.00 Insomnia, unspecified; F41.9 Anxiety disorder, unspecified; F33.9 Major depressive disorder, recurrent, unspecified; E66.3 Overweight | CPT/HCPCS: 96127; 99212 ==

== ENCOUNTER 2025-01-18 12:49 | Outpatient (AMB) | payer MEDICARE, MEDICAID, SELFPAY ==
--- NOTE | 2025-01-18 12:59 | MHC.OFFVIS ---
Vital Signs 01/18/25 13:00 Height 5 ft 1 in Weight 142 lb BMI 26.8 BP 148/83 H Blood Pressure Location Lt brachial Position Sitting Respiration 16 Pulse 117 H Pulse Source Pulse Oximeter Pulse Oximetry (%) 98 Oxygen Delivery Method Room Air Intake Visit Reasons: FU back pain patient req Mother Baby Rn Required: No Allergies No Known Allergies Allergy (Verified 01/18/25 13:01) Medication List - Last Reconciled 01/18/25 by Karolyn Crenshaw LPN cetirizine 10 mg PO DAILY PRN 90 days cholestyramine-aspartame 4 gram (Cholestyramine Light) 4 grams PO BID cyclobenzaprine 10 mg PO TID PRN fluticasone propionate 50 mcg/actuation 2 sprays intranasal DAILY gabapentin 600 mg PO TID 30 days lorazepam 1 mg PO BEDTIME PRN 30 days multivitamin 1 tab PO DAILY omeprazole 20 mg PO DAILY oxycodone-acetaminophen 5-325 mg 1 tab PO Q6H PRN 28 days paroxetine HCl 20 mg PO DAILY 30 days [Probiotic 1 cap PO DAILY] rosuvastatin 5 mg PO Q3D 60 days topiramate 50 mg PO BEDTIME 30 days trazodone 50 mg PO BEDTIME PRN 30 days zolpidem 10 mg PO BEDTIME PRN 30 days HPI HPI FU back pain patient req: Details: History of Present Illness The patient is a 64-year-old female presenting with chronic pain management. She reports a history of a pelvic fracture sustained after falling down stairs, which has led to chronic back and leg pain. Over time, her mobility has improved with walking, although she continues to experience significant pain, especially in her back and legs. Last round of SIJ injections was extremely helpful and she would like to repeat bilateral SI injections. Pain Description - Pain onset: Chronic - Quality and character: Persistent, excruciating pain in the low back overlying SIJs - Alleviating factors: Past sacroiliac joint injections >80% relief - Daily activities interference: Impaired walking, ongoing significant pain Physical Exam - SIJ TTP Pain Management - Affect: Reports impact on daily life, difficulty due to pain and mental distress - Analgesia: Current medications include gabapentin, duloxetine, meloxicam, and Topamax; post-lumbar puncture exacerbation discussed - Adverse Effects: Reports difficulty sleeping due to pain; uses tizanidine at night - Activities of Daily Living: Impairment in walking and increased mobility challenges; aims to improve functionality - Aberrant Drug Related Behaviors: NONE reported PFSH Medical History (Updated 11/11/24 @ 02:00 by Richar Verma MD) RUQ abdominal pain Elevated LFTs Constipation Pelvic fracture Lumbar radiculitis Persistent fatigue after COVID-19 Tympanic membrane perforation Vertebrogenic low back pain Right sided abdominal pain History of gallstones Gallstones Shoulder pain Preoperative examination Tympanic membrane perforation, marginal Otitis externa of left ear Family history of colon cancer Bilateral knee pain Allergic rhinitis Low back pain Fatigue History of tachycardia PONV (postoperative nausea and vomiting) Impaired fasting glucose Lumbar spondylosis Low TSH level Overweight (BMI 25.0-29.9) Anxiety Insomnia Complex cyst of left ovary Urinary incontinence GERD without esophagitis Migraine Degenerative arthritis of cervical spine Lumbar degenerative disc disease Pure hypercholesterolemia Depression Surgical History History of esophagogastroduodenoscopy (EGD) Hx laparoscopic cholecystectomy (~09/11/22) Hx of colonoscopy History of tympanoplasty of left ear History of surgery History of nasal surgery History of bladder surgery Family History Father Colon cancer Mother Bone cancer Social History Housing: House Are you a primary hearing healthcare practitioner to a significant other at home: No Do you presently have visiting nurse or other home services: No Alcohol intake: current Alcohol intake frequency: holidays/special occasions only Alcohol type: wine Comment: pt reports this is her baseline pain level Patient Tobacco Use Status: Never used Tobacco e-Cigarette/Vaping Use: Never Used Second Hand Smoke Exposure: Yes service: No Current occupational status: disabled Cognitive needs: No Hearing needs: No Vision needs: No Physical Exam Vital Signs: Last Vital Signs Pulse 117 H 01/18/25 13:00 Resp 16 01/18/25 13:00 BP 148/83 H 01/18/25 13:00 Pulse Ox 98 01/18/25 13:00 Oxygen Delivery Method Room Air 01/18/25 13:00 BMI result Body Mass Index 26.8 Assessment & Plan Assessment & Plan (1) Sacroiliac dysfunction: Code(s): M53.3 - Sacrococcygeal disorders, not elsewhere classified Category: Medical Plan Plan - Arrange repeat bilateral sacroiliac joint injections post-insurance approval for axial LBP localized to SI area. Patient was informed and verbally consented to the use of an ambient scribe for clinic note documentation during this visit. Discussion Notes We planned for bilateral sacroiliac joint injections, having previously secured relief from such procedures. Instructions were provided for contact and plan confirmation, ensuring insurance details are appropriately managed. Patient Instructions - Wait for a call from the office regarding the schedule for sacroiliac joint injections. - Monitor and report changes in pain or new symptoms to the office. - Engage in light physical activities as tolerated without overexertion. Coding Level of Care Code Est Pt Level 3 (17523) Diagnoses Sacroiliac dysfunction M53.3
[2025-01-18 13:00] VITALS: BP 148/83; PULSE 117; RESP 16; O2SAT 98; BMI 26.8
== END 2025-01-18 13:13 | disposition home or self-care (01) ==
LOC: HO.PMC 12:49
PROVIDERS: PCP Internal Medicine; Visit Provider Internal Medicine
DX: M53.3 Sacrococcygeal disorders, not elsewhere classified (principal)
CPT/HCPCS: 99213

== ENCOUNTER → 2025-01-18 12:49 | Outpatient (BNVA) | payer MEDICARE, MEDICAID, SELFPAY | PROVIDERS: PCP Internal Medicine; Visit Provider Internal Medicine | DX: M53.3 Sacrococcygeal disorders, not elsewhere classified (principal) | CPT/HCPCS: 99212 ==

== ENCOUNTER 2025-01-28 06:21 | Outpatient (REF) | payer MEDICARE, MEDICAID, SELFPAY ==
--- NOTE | ~2025-01-28 | FL_ITS ---
EXAMINATION: FL GUIDANCE ONLY HISTORY: M53.3 - Sacrococcygeal disorders, not elsewhere classified COMPARISON: None available. TECHNIQUE: Fluoroscopy time: 0.4 minutes. Cumulative Dose: 7.51 mGy. DAP: 0.0438 mGym2 Images: 5. FINDINGS: Fluoroscopic spot films of the pelvis demonstrate needles in the regions of the bilateral sacroiliac joints. FL/FL guidance in treatment room IMPRESSION: Fluoroscopy during procedure. Please see procedure report for additional information. Electronically signed by: Angel Houser MD 01/28/2025 02:30 PM EDT
== END 2025-01-28 06:22 | disposition home or self-care (01) ==
LOC: CF 06:21
PROVIDERS: Visit Provider Internal Medicine
DX: M53.3 Sacrococcygeal disorders, not elsewhere classified (principal)
CPT/HCPCS: 27096; J2003; J2795; J3301; Q9967

== ENCOUNTER 2025-01-28 12:44 | Outpatient (AMB) | payer MEDICARE, MEDICAID, SELFPAY ==
--- NOTE | 2025-01-28 12:48 | A.OFFVIS_ITS ---
Vital Signs 01/28/25 12:49 01/28/25 13:34 BP 118/76 121/80 Blood Pressure Location Lt brachial Lt brachial Position Sitting Sitting Respiration 16 20 Pulse 104 H 98 Pulse Source Pulse Oximeter Pulse Oximeter Pulse Oximetry (%) 96 98 Oxygen Delivery Method Room Air Room Air Intake Visit Reasons: [place] theraputic SIJ inj [employer]ner Required: No Allergies No Known Allergies Allergy (Verified 01/28/25 12:50) Medication List - Last Reconciled 01/28/25 by Karolyn Cernshaw LPN cetirizine 10 mg PO DAILY PRN 90 days cholestyramine-aspartame 4 gram (Cholestyramine Light) 4 grams PO BID cyclobenzaprine 10 mg PO TID PRN fluticasone propionate 50 mcg/actuation 2 sprays intranasal DAILY gabapentin 600 mg PO TID 30 days lorazepam 1 mg PO BEDTIME PRN 30 days multivitamin 1 tab PO DAILY omeprazole 20 mg PO DAILY oxycodone-acetaminophen 5-325 mg 1 tab PO Q6H PRN 28 days paroxetine HCl 20 mg PO DAILY 30 days [Probiotic 1 cap PO DAILY] rosuvastatin 5 mg PO Q3D 60 days topiramate 50 mg PO BEDTIME 30 days trazodone 50 mg PO BEDTIME PRN 30 days zolpidem 10 mg PO BEDTIME PRN 30 days HPI HPI [place] theraputic SIJ inj: Details: Patient presents for scheduled procedure. Denies any recent cough, cold, infection, fever or other significant changes in medical history since last office visit. [facility] Medical History (Updated 11/11/24 @ 02:00 by Richar Verma MD) RUQ abdominal pain Elevated LFTs Constipation Pelvic fracture Lumbar radiculitis Persistent fatigue after COVID-19 Tympanic membrane perforation Vertebrogenic low back pain Right sided abdominal pain History of gallstones Gallstones Shoulder pain Preoperative examination Tympanic membrane perforation, marginal Otitis externa of left ear Family history of colon cancer Bilateral knee pain Allergic rhinitis Low back pain Fatigue History of tachycardia PONV (postoperative nausea and vomiting) Impaired fasting glucose Lumbar spondylosis Low TSH level Overweight (BMI 25.0-29.9) Anxiety Insomnia Complex cyst of left ovary Urinary incontinence GERD without esophagitis Migraine Degenerative arthritis of cervical spine Lumbar degenerative disc disease Pure hypercholesterolemia Depression Surgical History History of esophagogastroduodenoscopy (EGD) Hx laparoscopic cholecystectomy (~09/11/22) Hx of colonoscopy History of tympanoplasty of left ear History of surgery History of nasal surgery History of bladder surgery Family History Father Colon cancer Mother Bone cancer Social History Housing: House Are you a primary direct care professional to a significant other at home: No Do you presently have visiting nurse or other home services: No Alcohol intake: current Alcohol intake frequency: holidays/special occasions only Alcohol type: wine Comment: pt reports this is her baseline pain level Patient Tobacco Use Status: Never used Tobacco e-Cigarette/Vaping Use: Never Used Second Hand Smoke Exposure: Yes service: No Current occupational status: disabled Cognitive needs: No Hearing needs: No Vision needs: No Physical Exam Vital Signs: Last Vital Signs Pulse 98 01/28/25 13:34 Resp 20 01/28/25 13:34 BP 121/80 01/28/25 13:34 Pulse Ox 98 01/28/25 13:34 Oxygen Delivery Method Room Air 01/28/25 13:34 Office Procedures AMB Joint Injection/Aspiration Joint Injection/Aspiration Details: Sacroiliac Joint Injection, BILATERAL The procedure, its benefits, and its risks were explained and written informed consent was obtained from the patient. Immediately prior to starting the procedure, a time-out safety check was conducted. The patient's identification, procedure name, procedure site, and procedure laterality were confirmed with the patient. ? Patient was placed prone on the fluoroscopy table and the lumbosacral area was prepped using ChloraPrep and draped with sterile drapein standard fashion. The C-arm was rotated in a contralateral oblique fashion until the medial border of the iliac crest no longer foreshadowed the posterior sacroiliac joint line. The skin and subcutaneous tissue was anesthetized using 1 mL of 0.75% plain lidocaine with 1.5-inch 25-gauge needle in the middle region of the joint line.? A 3.5-inch 22-gauge spinal needle with small bend on the tip was slowly advanced towards the joint line, coaxial to the x-ray beam. Once bony content was obtained, the needle was easily slid into the intra-articular space.? Intra-articular needle position was confirmed using lateral fluoroscopy.? A total volume of 2.5mL of solution containing 20 mg triamcinolone and rest 0.5% of ropivacaine was injected intra-articularly. The stylet was reinserted and needle was removed. The same process was repeated on the other side. The patient tolerated the procedure well. Patient denied any lower extremity weakness or numbness. Patient was observed for 30 min and was discharged after fulfilling the standard discharge criteria. Coding 72785 - Sacroiliac (Bilateral) Procedure code (CPT) selection complete Assessment & Plan Assessment & Plan (1) Sacroiliac dysfunction: Code(s): M53.3 - Sacrococcygeal disorders, not elsewhere classified Category: Medical Plan Patient is status post bilateral sacroiliac joint injections. Patient tolerated procedure well and was discharged home in stable condition with discharge instructions. All questions were answered. We will follow-up via telephone or in clinic to assess response to therapy. A follow-up appointment was made during today's visit. Orders: Orders AMB Joint Injection/Aspiration Today Narinder Verdin MD M53.3 - Sacrococcygeal disorders, not elsewhere classified [place] guidance in treatment room Today Yarelis Combs APRN, SENIOR PIPING DESIGNER M53.3 - Sacrococcygeal disorders, not elsewhere classified Coding Level of Care Code Procedure Only Diagnoses Sacroiliac dysfunction M53.3 CPT Codes Coding - Joint 9: 03511 - Sacroiliac ([id number])
[2025-01-28 12:49] VITALS: BP 118/76; PULSE 104; RESP 16; O2SAT 96
[2025-01-28 13:34] VITALS: BP 121/80; PULSE 98; RESP 20; O2SAT 98
== END 2025-01-28 13:35 | disposition home or self-care (01) ==
LOC: HO.PMCPRC 12:44
PROVIDERS: PCP Internal Medicine; Visit Provider Internal Medicine
DX: M53.3 Sacrococcygeal disorders, not elsewhere classified (principal)
CPT/HCPCS: 27096

== ENCOUNTER 2025-02-02 13:56 | Outpatient (AMB) | payer MEDICARE, MEDICAID, SELFPAY ==
--- NOTE | 2025-02-02 14:07 | MHC.OFFVIS ---
Vital Signs 02/02/25 14:08 Height 5 ft 1 in Weight 138 lb 14.259 oz BMI 26.2 BP 133/78 Blood Pressure Location Lt brachial Position Sitting Pulse 108 H Intake Visit Reasons: Follow up labs and medication Intake Note: Diamond presents in the office as a follow up for her blood work results. CC: She states that her stomach pains come and go. Today she is good but on Saturday they were bad. 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: No Allergies No Known Allergies Allergy (Verified 01/28/25 12:50) HPI HPI Follow up labs and medication: Details: Assessment & Plan (1) Constipation: Code(s): K59.00 - Constipation, unspecified Category: Medical Qualifiers: Constipation type: unspecified constipation type Qualified Code(s): K59.00 - Constipation, unspecified (2) GERD without esophagitis: Code(s): K21.9 - Gastro-esophageal reflux disease without esophagitis Category: Medical (3) Diarrhea: Code(s): R19.7 - Diarrhea, unspecified Category: Medical (4) Periumbilical abdominal pain: Code(s): R10.33 - Periumbilical pain Category: Medical (5) Transaminitis: Code(s): R74.01 - Elevation of levels of liver transaminase levels Category: Medical Plan Her mentasta language is Mongolian but she speaks Mozambican fairly well. She is here today with her daughter who is supportive. She has had many years of pain in the periumbilical area. She also has frequent diarrhea that is life limiting. Her pain is intermittent occurring most days but not every day. When it does happen it will last anywhere from 1-3 hours. It ranges in intensity from 6 to 7/10 in pain. She describes it as being mostly around the umbilicus. She has thought about whether it is related to eating or moving her bowels but maybe she will give this a little further thought as we go forward. She is managing with Pepto-Bismol and Imodium but with using this she is also having episodes of constipation. I think she may be going into a yo-yo cycle mostly caused by Pepto-Bismol. She is status post cholecystectomy by a couple of years so post cholecystectomy syndrome would certainly be prominent in the differential diagnosis. I think will start her on a trial of cholestyramine. We were also going to test her for food allergies, and rule out things like IBD, pancreatic insufficiency etc.. She is agreeable to these tests. She had an ultrasound that was ordered by Dr. Sky a year ago that did not show any severe abnormalities. She does have some transaminitis so I will also add some liver labs since I noticed it just to be complete her workup. This likely is just fatty liver and nothing to be concerned about. She denies any nausea vomiting, dysphagia, severe weight loss or gain. I have reviewed her medications and there is no medicine that by itself would be of concern for causing diarrhea as a side effect. Return office visit in 6 weeks Orders: Orders C Reactive Protein Today R19.7 - Diarrhea, unspecified, R74.01 - Elevation of levels of liver transaminase levels Pancreatic Elastase-1 Today R19.7 - Diarrhea, unspecified, R74.01 - Elevation of levels of liver transaminase levels Calprotectin, Fecal Today R19.7 - Diarrhea, unspecified, R74.01 - Elevation of levels of liver transaminase levels Rast Allergen Today R19.7 - Diarrhea, unspecified, R74.01 - Elevation of levels of liver transaminase levels HIV Ab/Ag Today R19.7 - Diarrhea, unspecified, R74.01 - Elevation of levels of liver transaminase levels Mitochondrial Antibody Today R19.7 - Diarrhea, unspecified, R74.01 - Elevation of levels of liver transaminase levels Alpha Fetoprotein Today R19.7 - Diarrhea, unspecified, R74.01 - Elevation of levels of liver transaminase levels Ferritin Today R19.7 - Diarrhea, unspecified, R74.01 - Elevation of levels of liver transaminase levels Transglutaminase Ab IgG Today R19.7 - Diarrhea, unspecified, R74.01 - Elevation of levels of liver transaminase levels Transglutaminase IgA Today R19.7 - Diarrhea, unspecified, R74.01 - Elevation of levels of liver transaminase levels Hepatitis A,B,C Profile Today R19.7 - Diarrhea, unspecified, R74.01 - Elevation of levels of liver transaminase levels Smooth Muscle Antibody Today R19.7 - Diarrhea, unspecified, R74.01 - Elevation of levels of liver transaminase levels Medications: New cholestyramine-aspartame 4 gram (Cholestyramine Light) administer w/meal; avoid other meds within 1hr before or 4-6hr after dose 4 grams PO BID 60 ea 6RF R10.33 - Periumbilical pain, R19.7 - Diarrhea, unspecified LABS: Laboratory Tests 06/18/24 06/24/24 08:40 10:00 Ferritin 63 C-Reactive Protein 0.15 Alpha Fetoprotein 5.1 Stool Calprotectin 117 Stool Pancreat Elastase >500 Anti-Mitochondrial Ab NEGATIVE Anti-Smooth Muscle Ab <20 Tiss Transglutamin IgG <1.0 Tiss Transglutamin IgA <1.0 Hepatitis A IgM Ab Nonreactive Hep Bs Antigen Negative Hep Bs Antibody NONREACTIVE Hep B Core Total Ab Nonreactive Hepatitis C Ab (EIA) Nonreactive HIV 1&2 Ab/P24 Ag 4thGn Nonreactive RAST panel shows no significant food allergies TODAY'S VISIT She has a borderline elevated stool calprotectin. She is doing well on the cholestyramine, but at times needs tid. I will write for 4 times a day to make sure she has not enough counseling her to be where of constipation as that would be assigned she needs to back off her dosing. We review the labs and given the fact that her liver enzymes have normalized I reassure her that I think this may have had more to do with her gallbladder then with any severe liver disease. It is also possible she has an overlay of metabolic liver disease. She was quite concerned that medications were hurting her liver and I reassured her that there is no severe finding that would necessitate the limiting of either her statin or any other medicine she is currently taking. She broke her pelvis in September tripping on stairs at home! ROV 6 mos. [facility] Medical History (Updated 02/02/25 @ 15:07 by KAYLIE Grande) RUQ abdominal pain Constipation Diarrhea Periumbilical abdominal pain Elevated LFTs Pelvic fracture Lumbar radiculitis Persistent fatigue after COVID-19 Tympanic membrane perforation Vertebrogenic low back pain Right sided abdominal pain History of gallstones Gallstones Shoulder pain Preoperative examination Tympanic membrane perforation, marginal Otitis externa of left ear Family history of colon cancer Bilateral knee pain Allergic rhinitis Low back pain Fatigue History of tachycardia PONV (postoperative nausea and vomiting) Impaired fasting glucose Lumbar spondylosis Low TSH level Overweight (BMI 25.0-29.9) Anxiety Insomnia Complex cyst of left ovary Urinary incontinence GERD without esophagitis Migraine Degenerative arthritis of cervical spine Lumbar degenerative disc disease Pure hypercholesterolemia Depression Surgical History History of esophagogastroduodenoscopy (EGD) Hx laparoscopic cholecystectomy (~09/11/22) Hx of colonoscopy History of tympanoplasty of left ear History of surgery History of nasal surgery History of bladder surgery Family History Father Colon cancer Mother Bone cancer Social History Housing: House Are you a primary pet caregiver to a significant other at home: No Do you presently have visiting nurse or other home services: No Alcohol intake: current Alcohol intake frequency: holidays/special occasions only Alcohol type: wine Comment: pt reports this is her baseline pain level Patient Tobacco Use Status: Never used Tobacco e-Cigarette/Vaping Use: Never Used Second Hand Smoke Exposure: Yes service: No Current occupational status: disabled Cognitive needs: No Hearing needs: No Vision needs: No Review of Systems Const Denies fatigue, Denies fever(s), Denies night sweats, Denies poor appetite and Denies weight loss ENT Reports Normal hearing present, Denies dental pain, Denies dysphagia, Denies hearing loss, Denies mouth pain, Denies odynophagia, Denies throat swelling, Denies tongue swelling and Reports other (Dentition adequate) Card Reports no additional complaints Resp Reports no additional complaints GI Details: Reports abdominal pain, Denies melena, Denies bloating, Denies hematochezia, Denies constipation, Denies GI cramping, Denies dysphagia, Denies excessive flatus, Denies early satiety, Denies heartburn, Reports diarrhea, Denies nausea, Denies odynophagia, Denies vomiting and Denies hematemesis Reports urinary incontinence Musc Reports arthralgias Skin/Breast Denies pruritus, Denies lesions, Denies rash and Denies jaundice Neuro Reports Normal hearing present and Denies Abnormal speech present Psych Reports anxiety Endo Denies fatigue Aller/Immun Denies throat swelling and Denies tongue swelling Physical Exam Vital Signs: Last Vital Signs Pulse 108 H 02/02/25 14:08 BP 133/78 02/02/25 14:08 BMI result Body Mass Index 26.2 Const General: cooperative, no acute distress, well developed and well groomed Nutritional Appearance: average body habitus and well nourished Orientation/consciousness: oriented to person, oriented to place and oriented to time Limitations: No language barrier HEENT Head: Yes normocephalic and Yes atraumatic Eyes General: appearance normal, both eyes and all related structures Pupils: Equal, round and reactive pupils present Neck Neck: Yes normal visual inspection and Yes no lymphadenopathy Thyroid: Thyroid normal Resp Effort & Inspection: normal respiratory effort and able to speak in complete sentences Auscultation: clear to auscultation bilaterally Cardio Rate: regular rate Rhythm: regular rhythm Heart sounds: Normal, physiologic split S2 sound present Peripheral pulses: radial pulses present and posterior tibial pulses present GI Inspection: No distended, No Abdominal panniculus present and Yes obesity Palpation (GI): Soft to palpation, nontender, no guarding, not rigid and No hepatosplenomegaly present Percussion: Yes normal to percussion Auscultation: normal bowel sounds Rectal Exam - Female: deferred Skin General skin exam: no rashes or lesions noted, turgor normal, skin not dry, no jaundice, No spider nevi and no striae Rashes: no rashes Nails: normal Neuro General: oriented to person, oriented to place and oriented to time Cranial nerves: Yes Equal, round and reactive pupils present and Yes Normal hearing present Speech: No Abnormal speech present Extrem General: Yes normal to inspection, No clubbing, No cyanosis and No edema Psych Appearance: grossly normal and well kempt Mental Status: mental status grossly normal Speech and movement: Normal speech and movement present Affect: normal affect Attitude: cooperative Thought process: Normal thought process present and not confabulating Thought content: Normal thought content present Insight: Fair insight present (Psych) Judgement: Fair judgement present (Psych) Assessment & Plan Assessment & Plan (1) Post-cholecystectomy syndrome: Code(s): K91.5 - Postcholecystectomy syndrome Category: Medical (2) Elevated LFTs: Comment: S/P lap gerald in September 2022, appears resolved as of October of 2024 Code(s): R79.89 - Other specified abnormal findings of blood chemistry Category: Medical (3) Transaminitis: Comment: Appears resolved as of October 2024 this can be monitored by her primary care and return to us if the liver enzymes become more than twice the upper limit of normal Code(s): R74.01 - Elevation of levels of liver transaminase levels Category: Medical Plan She has a borderline elevated stool calprotectin. She is doing well on the cholestyramine, but at times needs tid. I will write for 4 times a day to make sure she has not enough counseling her to be where of constipation as that would be assigned she needs to back off her dosing. We review the labs and given the fact that her liver enzymes have normalized I reassure her that I think this may have had more to do with her gallbladder then with any severe liver disease. It is also possible she has an overlay of metabolic liver disease. She was quite concerned that medications were hurting her liver and I reassured her that there is no severe finding that would necessitate the limiting of either her statin or any other medicine she is currently taking. She broke her pelvis in September tripping on stairs at home! ROV 6 mos. Medications: New cholestyramine (Cholestyramine Light) 4 grams PO QID 120 ea 6RF K91.5 - Postcholecystectomy syndrome Coding Level of Care Code Est Pt Level 3 (23077) Diagnoses Post-cholecystectomy syndrome K91.5 Elevated LFTs R79.89 Transaminitis R74.01
[2025-02-02 14:08] VITALS: BP 133/78; PULSE 108; BMI 26.2
== END 2025-02-02 14:45 | disposition home or self-care (01) ==
LOC: HO.HGI 13:56
PROVIDERS: PCP Internal Medicine; Visit Provider Nurse Practitioner
DX: K91.5 Postcholecystectomy syndrome (principal); R79.89 Other specified abnormal findings of blood chemistry; R74.01 Elevation of levels of liver transaminase levels
CPT/HCPCS: 99213

== ENCOUNTER → 2025-02-02 13:56 | Outpatient (BNVA) | payer MEDICARE, MEDICAID, SELFPAY | PROVIDERS: PCP Internal Medicine; Visit Provider Nurse Practitioner | DX: K59.00 Constipation, unspecified (principal); K21.9 Gastro-esophageal reflux disease without esophagitis; K91.5 Postcholecystectomy syndrome; R19.7 Diarrhea, unspecified; R10.33 Periumbilical pain; R74.01 Elevation of levels of liver transaminase levels; R79.89 Other specified abnormal findings of blood chemistry | CPT/HCPCS: 99212 ==

== ENCOUNTER 2025-03-03 09:20 | Outpatient (AMB) | payer MEDICARE, SELFPAY ==
--- NOTE | 2025-03-03 09:27 | MHC.OFFVIS ---
Vital Signs 03/03/25 09:28 Height 5 ft 1 in Weight 139 lb BMI 26.3 BP 125/87 Blood Pressure Location Lt brachial Position Sitting Respiration 16 Pulse 97 Pulse Source Pulse Oximeter Pulse Oximetry (%) 98 Oxygen Delivery Method Room Air Intake Visit Reasons: s/p Clyde theraputic SIJ inj Bellperson Required: No Allergies No Known Allergies Allergy (Verified 03/03/25 09:29) Medication List - Last Reconciled 03/03/25 by Karolyn Crenshaw LPN cetirizine 10 mg PO DAILY PRN 90 days cholestyramine (Cholestyramine Light) 4 grams PO QID cyclobenzaprine 10 mg PO TID PRN fluticasone propionate 50 mcg/actuation 2 sprays intranasal DAILY gabapentin 600 mg PO TID 30 days lorazepam 1 mg PO BEDTIME PRN 30 days multivitamin 1 tab PO DAILY omeprazole 20 mg PO DAILY oxycodone-acetaminophen 5-325 mg 1 tab PO Q6H PRN 28 days paroxetine HCl 20 mg PO DAILY 30 days [Probiotic 1 cap PO DAILY] rosuvastatin 5 mg PO Q3D 60 days topiramate 50 mg PO BEDTIME 30 days trazodone 50 mg PO BEDTIME PRN 30 days zolpidem 10 mg PO BEDTIME PRN 30 days HPI HPI s/p Clyde theraputic SIJ inj: Details: History of Present Illness The patient is a 65-year-old female presenting with management of chronic pain related to greater trochanteric pain syndrome and cervical spondylosis. The patient reports significant relief from a previous injection, which she found very helpful. Currently, she experiences pain in the hip region, specifically when moving from a sitting to a standing position, and has tenderness over the right gluteus medius tendon insertion. She has been referred to physical therapy by Dr. Herrera and has started attending sessions twice a week for one month. The patient has a history of a pelvic fracture, which has impacted her mobility significantly, as she was unable to walk for three weeks following the injury. She has not had any prior therapy for this condition until recently. Regarding her cervical spondylosis, the patient reports neck pain, particularly on the left side, and is interested in pursuing radiofrequency ablation for pain management. She has previously undergone diagnostic injections with significant relief and is awaiting insurance authorization for the procedure. Pain Description - Pain onset: Chronic, with significant relief from previous injections - Pain location: Right hip, particularly when transitioning from sitting to standing - Exacerbating factors: Movement, particularly sitting to standing - Relieving factors: Previous injections provided significant relief - Interference: Affects mobility, especially after pelvic fracture Physical Exam - Musculoskeletal: Tenderness to palpation over the right gluteus medius tendon insertion Results Pain Management - Affect: Pain impacts mobility and daily activities - Analgesia: Previous injections provided significant relief - Activities of Daily Living: Limited mobility due to hip pain and previous pelvic fracture [facility] Medical History (Updated 02/02/25 @ 15:07 by KAYLIE Grande) RUQ abdominal pain Constipation Diarrhea Periumbilical abdominal pain Elevated LFTs Pelvic fracture Lumbar radiculitis Persistent fatigue after COVID-19 Tympanic membrane perforation Vertebrogenic low back pain Right sided abdominal pain History of gallstones Gallstones Shoulder pain Preoperative examination Tympanic membrane perforation, marginal Otitis externa of left ear Family history of colon cancer Bilateral knee pain Allergic rhinitis Low back pain Fatigue History of tachycardia PONV (postoperative nausea and vomiting) Impaired fasting glucose Lumbar spondylosis Low TSH level Overweight (BMI 25.0-29.9) Anxiety Insomnia Complex cyst of left ovary Urinary incontinence GERD without esophagitis Migraine Degenerative arthritis of cervical spine Lumbar degenerative disc disease Pure hypercholesterolemia Depression Surgical History History of esophagogastroduodenoscopy (EGD) Hx laparoscopic cholecystectomy (~09/11/22) Hx of colonoscopy History of tympanoplasty of left ear History of surgery History of nasal surgery History of bladder surgery Family History Father Colon cancer Mother Bone cancer Social History Housing: House Are you a primary team primary care physician to a significant other at home: No Do you presently have visiting nurse or other home services: No Alcohol intake: current Alcohol intake frequency: holidays/special occasions only Alcohol type: wine Comment: pt reports this is her baseline pain level Patient Tobacco Use Status: Never used Tobacco e-Cigarette/Vaping Use: Never Used Second Hand Smoke Exposure: Yes service: No Current occupational status: disabled Cognitive needs: No Hearing needs: No Vision needs: No Physical Exam Vital Signs: Last Vital Signs Pulse 97 03/03/25 09:28 Resp 16 03/03/25 09:28 BP 125/87 03/03/25 09:28 Pulse Ox 98 03/03/25 09:28 Oxygen Delivery Method Room Air 03/03/25 09:28 BMI result Body Mass Index 26.3 Assessment & Plan Assessment & Plan (1) Cervical spondylosis: Code(s): M47.812 - Spondylosis without myelopathy or radiculopathy, cervical region Category: Medical (2) Sacroiliac dysfunction: Code(s): M53.3 - Sacrococcygeal disorders, not elsewhere classified Category: Medical (3) Pelvic fracture: Code(s): S32.9XXA - Fracture of unspecified parts of lumbosacral spine and pelvis, initial encounter for closed fracture Category: Medical Qualifiers: Encounter type: sequela Pelvic bone location: unspecified part of pelvis Fracture type: closed Fracture alignment: displaced Qualified Code(s): S32.9XXS - Fracture of unspecified parts of lumbosacral spine and pelvis, sequela Plan Plan - Continue physical therapy twice weekly for one month to assess improvement in hip pain. - Plan for a right gluteus medius tendon injection if physical therapy does not provide sufficient relief. - Proceed with radiofrequency ablation for cervical spondylosis left C3, C4, C5 pending insurance authorization. She has had >80% relief with 2 rounds of diagnostic injections in the past. 10/31/22: Diagnostic Cervical Medial Branch Block, Left C3, C4, C5 medial branches: 80% relief for 2 months 06/27/22: Left Diagnostic C3-C4-C5 MBBs ? 100% relief for 2 months. - Monitor for any adverse effects from previous cortisone injections due to potential interference with bone healing. Patient was informed and verbally consented to the use of an ambient scribe for clinic note documentation during this visit. Discussion Notes I discussed with the patient the management of her greater trochanteric pain syndrome and cervical spondylosis. We agreed to continue physical therapy for one month and consider a right gluteus medius tendon injection if necessary. We also discussed the potential for radiofrequency ablation for her cervical spondylosis, pending insurance authorization. I explained the risks of cortisone injections, particularly regarding bone healing, and the patient understood and agreed with the plan. Patient Instructions - Continue attending physical therapy sessions twice a week for one month. - Monitor for any changes in pain or mobility and report them during the next visit. - Await further instructions regarding potential radiofrequency ablation for neck pain. Coding Level of Care Code Est Pt Level 4 (95484) Diagnoses Cervical spondylosis M47.812 Sacroiliac dysfunction M53.3 Closed displaced fracture of pelvis, unspecified part of pelvis, sequela S32.9XXS Encounter type: sequela Pelvic bone location: unspecified part of pelvis Fracture type: closed Fracture alignment: displaced
[2025-03-03 09:28] VITALS: BP 125/87; PULSE 97; RESP 16; O2SAT 98; BMI 26.3
== END 2025-03-03 10:00 | disposition home or self-care (01) ==
LOC: HO.PMC 09:20
PROVIDERS: PCP Internal Medicine; Visit Provider Internal Medicine
DX: M47.812 Spondylosis without myelopathy or radiculopathy, cervical region (principal); M53.3 Sacrococcygeal disorders, not elsewhere classified; S32.9XXS Fracture of unspecified parts of lumbosacral spine and pelvis, sequela
CPT/HCPCS: 99214

== ENCOUNTER → 2025-03-03 09:20 | Outpatient (BNVA) | payer MEDICARE, SELFPAY | PROVIDERS: PCP Internal Medicine; Visit Provider Internal Medicine | DX: M47.812 Spondylosis without myelopathy or radiculopathy, cervical region (principal); M53.3 Sacrococcygeal disorders, not elsewhere classified; S32.9XXD Fracture of unspecified parts of lumbosacral spine and pelvis, subsequent encounter for fracture with routine healing | CPT/HCPCS: 99212 ==

== ENCOUNTER 2025-03-19 09:30 | Outpatient (REF) | payer MEDICARE, SELFPAY ==
[2025-03-19 09:46] LABS: MANUAL DIFF FLAG NO
[2025-03-19 10:12] LABS: Appearance Urine Clear; Glucose Urine UA Negative (Negative); PH 7.5 (5.0-9.0); Specific Gravity - Urine 1.015 (1.005-1.025); UMIC TRIGGER UACC YES
[2025-03-19 10:24] LABS: Hematocrit 38.1 % (37.0-47.0); Hemoglobin 12.7 g/dl (12.0-16.0); Imm Gran Abs Auto 0.02 X10*3/uL (0.00-0.03); Imm Gran Pct Auto 0.3 % (0.0-0.4); Lymphocytes Absolute Auto 2.1 X10*3/uL (1.2-4.9); Mean Corpuscular HGB Conc 33.3 g/dl (31.0-35.0); Mean Corpuscular Hemoglobin 30.6 pg (27.0-33.0); Mean Corpuscular Volume 91.8 fL (80.0-98.0); NRBC Abs Auto 0.000 X10*3/uL (0.0-0.012); NRBC Pct Auto 0.0 /100WBC (0.0-0.2); Platelet Count 265 X10*3/uL (160-400); Red Blood Count 4.15 X10*6/uL (4.20-5.50); White Blood Count 6.2 X10*3/uL (4.8-10.8)
[2025-03-19 10:56] LABS: Alanine Aminotransferase 30 U/L (0-31); Albumin Level 4.6 g/dL (3.5-5.0); Alkaline Phosphatase 53 U/L (39-117); Anion Gap 12 (12-20); Aspartate Amino Transferase 27 U/L (5-31); Blood Urea Nitrogen 17 mg/dL (9-16); Calcium 9.8 mg/dL (8.4-10.2); Carbon Dioxide 26 mmol/L (22-29); Chloride 107 mmol/L (96-108); Cholesterol 227 mg/dL (<200); Estimated Glomerular Filt Rate > 60; HDL Cholesterol 68 mg/dL (>40); Potassium 3.8 mmol/L (3.3-5.1); Sodium 141 mmol/L (135-145); Total Protein 7.3 g/dL (6.5-8.0); Triglycerides 139 mg/dL (<150)
[2025-03-19 11:16] LABS: Free T4 (Free Thyroxine) 0.93 ng/dL (0.71-1.85); Thyroid Stimulating Hormone 0.36 uIU/mL (0.32-4.0)
[2025-03-19 11:21] LABS: Folate 13.2 ng/mL (> or = 4.0); Vitamin B12 700 pg/mL (200-900)
== END 2025-03-19 09:31 | disposition home or self-care (01) ==
LOC: HO.LAB 09:30
PROVIDERS: PCP Internal Medicine; Visit Provider Internal Medicine
DX: R79.89 Other specified abnormal findings of blood chemistry (principal); E78.00 Pure hypercholesterolemia, unspecified; E53.8 Deficiency of other specified B group vitamins; E55.9 Vitamin D deficiency, unspecified; D64.9 Anemia, unspecified
CPT/HCPCS: 36415; 80053; 80061; 81001; 82306; 82607; 82746; 84439; 84443; 85025

== ENCOUNTER 2025-03-24 13:09 | Outpatient (AMB) | payer MEDICARE, SELFPAY ==
[2025-03-24 13:11] VITALS: BP 130/82; PULSE 99; O2SAT 97; BMI 26.0
--- NOTE | 2025-03-24 13:11 | A.OFFPC_ITS ---
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 Required: No Accompanied by: Self / Same As Patient Allergies No Known Allergies Allergy (Verified 03/24/25 13:25) Medication List - Last Reconciled 03/24/25 by Richar Verma MD cetirizine 10 mg PO DAILY PRN 90 days cholestyramine (Cholestyramine Light) 4 grams PO QID cyclobenzaprine 10 mg PO TID PRN fluticasone propionate 50 mcg/actuation 2 sprays intranasal DAILY gabapentin 600 mg PO TID 30 days lorazepam 1 mg PO BEDTIME PRN 30 days multivitamin 1 tab PO DAILY omeprazole 20 mg PO DAILY oxycodone-acetaminophen 5-325 mg 1 tab PO Q6H PRN 28 days paroxetine HCl 20 mg PO DAILY 30 days [Probiotic 1 cap PO DAILY] rosuvastatin 5 mg PO Q3D 60 days topiramate 50 mg PO BEDTIME 30 days trazodone 50 mg PO BEDTIME PRN 30 days zolpidem 10 mg PO BEDTIME PRN 30 days Tobacco use date assessed: 03/24/25 Fall risk assessment: 1 Fall in past year Last assessed Fall Risk: 03/24/25 Dental Screening Dental Screen Date: 03/24/25 Did you have a dental visit in the last 12 months?: Yes Did you have a dental problem in the last 6 months where you did not have access to dental care?: No Was dental information given to patient?: Patient has dentist HPI 4 Months HPI Details Patient comes in today for her follow up visit States that she feels okay Is now seeing pain management for her hip/pelvic pain and states that the injection(s) that she recently had has helped a lot with her pain She denies any headaches or dizziness Denies any chest pains, no increased shortness of breath No nausea/vomiting, no abdominal pain No change in bowel habits noted She had her follow-up labs done a few days ago - to discuss her results [facility] Medical History RUQ abdominal pain Constipation Diarrhea Periumbilical abdominal pain Elevated LFTs Pelvic fracture Lumbar radiculitis Persistent fatigue after COVID-19 Tympanic membrane perforation Vertebrogenic low back pain Right sided abdominal pain History of gallstones Gallstones Shoulder pain Preoperative examination Tympanic membrane perforation, marginal Otitis externa of left ear Family history of colon cancer Bilateral knee pain Allergic rhinitis Low back pain Fatigue History of tachycardia PONV (postoperative nausea and vomiting) Impaired fasting glucose Lumbar spondylosis Low TSH level Overweight (BMI 25.0-29.9) Anxiety Insomnia Complex cyst of left ovary Urinary incontinence GERD without esophagitis Migraine Degenerative arthritis of cervical spine Lumbar degenerative disc disease Pure hypercholesterolemia Depression Surgical History History of esophagogastroduodenoscopy (EGD) Hx laparoscopic cholecystectomy (~09/11/22) Hx of colonoscopy History of tympanoplasty of left ear History of surgery History of nasal surgery History of bladder surgery Family History Father Colon cancer Mother Bone cancer Social History Housing: House Are you a primary acute care physician to a significant other at home: No Do you presently have visiting nurse or other home services: No Alcohol intake: current Alcohol intake frequency: holidays/special occasions only Alcohol type: wine Comment: pt reports this is her baseline pain level Patient Tobacco Use Status: Never used Tobacco e-Cigarette/Vaping Use: Never Used Second Hand Smoke Exposure: Yes service: No Current occupational status: disabled Cognitive needs: No Hearing needs: No Vision needs: No Questionnaire PHQ-9 Over the last 2 weeks, how often have you been bothered by any of the following problems? 1. Little interest or pleasure in doing things: several days 2. Feeling down, depressed, or hopeless: several days 3. Trouble falling or staying asleep, or sleeping too much: several days 4. Feeling tired or having little energy: several days 5. Poor appetite or overeating: not at all 6. Feeling bad about yourself - or that you are a failure or have let yourself or your family down: not at all 7. Trouble concentrating on things, such as reading the newspaper or watching television: not at all 8. Moving or speaking so slowly that other people could have noticed. Or the opposite - being so fidgety or restless that you have been moving around a lot more than usual: not at all 9. Thoughts that you would be better off or of hurting yourself in some way: not at all Total score: 4 Depression Screening Interpretation: Positive Depression Screening Follow-up: Existing condition and In treatment Depression Screening Done: Yes 32650 - PHQ-9 Billing: Yes Source: Developed by Drs. Angel Anthony, Clau Saleh, Guzman Moreno and colleagues, with an educational maria d from [employer]. Thrive Questionnaire Date Thrive assessed: 03/24/25 I am a: Patient What is your living situation today?: I have a steady place to live Within the past 12 months, did the food you bought not last and you didn't have the money to get more?: Never true Within the past 12 months, did you worry whether your food would run out before you got money to buy more?: Never true Do you have trouble paying for medicines?: No Do you have trouble getting transportation to medical appointments?: No Do you have trouble paying your heating and electricity bill?: No Do you have trouble taking care of your child, family member or friend?: No Do you have trouble with day-to-day activities such as bathing, preparing meals, shopping, managing finances, etc.?: No Are you currently unemployed and looking for a job?: No Are you interested in more education?: No Please select the resources that you would like help with: None Currently or been in a relationship where the following occur: No concerns reported THRIVE Score: 0 AUDIT C Alcohol Use Questionnaire (AUDIT-C) 1. How often do you have a drink containing alcohol?: Monthly or less 2. How many drinks containing alcohol do you have on a typical day when you are drinking?: 1 or 2 3. How often do you have six or more drinks on one occasion?: Never Total Score: 1 Score Reviewed/Action Taken: Yes ACE-7 AMB Questionnaire ACE-7 Date ACE - 7 assessed: 03/24/25 Feeling nervous, anxious, or on edge: 0 = Not at all Not being able to stop or control worryin = Not at all Worrying too much about different things: 0 = Not at all Trouble relaxin = Not at all Being so restless that it is hard to sit still: 0 = Not at all Becoming easily annoyed or irritable: 0 = Not at all Feeling afraid as if something awful might happen: 0 = Not at all Total ACE-7 score (0-4 normal; 5-9 mild; 10-14 moderate; 15-21 severe): 0 Source: Developed by Drs. Angel Anthony, Clau Saleh, Guzman Moreno and colleagues, with an educational maria d from [employer]. Review of Systems Const Denies chills, Reports difficulty sleeping, Reports fatigue, Denies fever(s) and Denies headache(s) ENT Denies dysphagia, Denies dizziness, Reports otalgia (in the left ear - chronic), Denies headache(s), Reports hearing loss, Reports neck pain (chronic - increasing lately), Denies odynophagia, Reports tinnitus (in the left ear) and Denies sore throat Card Denies chest pain, Denies palpitations and Denies dyspnea Resp Denies chest congestion, Denies cough and Denies dyspnea GI Reports abdominal pain (on and off, over the RUQ), Denies hematochezia, Denies constipation, Denies dysphagia, Denies heartburn, Reports loose stools (at times), Denies nausea, Denies odynophagia and Denies vomiting Denies difficulty voiding, Denies nocturia, Denies dysuria and Denies urinary urgency Musc Details: (+) pelvic pain Reports back pain (over the lumbar spine - chronic), Reports myalgias, Reports arthralgias (over both knees) and Reports neck pain (chronic - increasing lately) Skin/Breast Denies rash Neuro Denies dizziness and Denies headache(s) Psych Reports depression (increasing) Endo Reports fatigue and Denies palpitations Physical exam (Primary Care) Vital Signs: Last Vital Signs Pulse 99 03/24/25 13:11 BP 130/82 03/24/25 13:11 Pulse Ox 97 03/24/25 13:11 Oxygen Delivery Method Room Air 03/24/25 13:11 BMI result Body Mass Index 26.0 Tobacco/Smoking Status: Tobacco use Status Tobacco use date assessed 03/24/25 03/24/25 13:19 Patient Tobacco Use Status Never used Tobacco 03/24/25 13:19 e-Cigarette/Vaping Use Never Used 03/24/25 13:19 PHQ-9: PHQ-9 Score PHQ-9: Total score 4 03/24/25 13:19 Depression Screening Interpretation: Positive Depression Screening Follow-up: Existing condition and In treatment Thrive Assessment: Date of Thrive Assessment Date Thrive assessed 03/24/25 03/24/25 13:19 Currently or been in a relationship where the following occur: No concerns reported Const General: no acute distress and alert HENMT Ears: TM normal on the right, EAC's normal and TM abnormal perforated (complete perforation/absent TM) without discharge on the left Throat: Yes posterior oropharynx normal and Yes tonsils normal (no TP congestion noted) Neck Neck: No lymphadenopathy and Yes tender (over the back of the neck - chronic) Thyroid: Thyroid normal Resp Auscultation: clear to auscultation bilaterally, no rales and no wheezes Cardio Rate: regular rate Rhythm: regular rhythm Heart sounds: no murmurs GI Palpation (GI): Soft to palpation, Tenderness to palpation present (GI) (mild ) in the RUQ, no guarding and No Rebound tenderness present Auscultation: normal bowel sounds General: Yes no CVA tenderness Back/Spine/Pelvis Back: no CVA tenderness Cervical Spine: Cervical spine tenderness Thoracic/Lumbar Spine: lumbar spinal tenderness Skin Rashes: no rashes Extrem General: Yes no clubbing, cyanosis or edema Right lower extremity: knee Details: tenderness and crepitus; no swelling Left lower extremity: knee Details: tenderness and crepitus; no swelling Results Reviewed Results Reviewed: Laboratory Tests 03/19/25 03/19/25 09:40 09:45 WBC 6.2 Hgb 12.7 Hct 38.1 Plt Count 265 Sodium 141 Potassium 3.8 Creatinine 0.84 Estimated GFR > 60 Fasting Glucose 98 Calcium 9.8 AST 27 ALT 30 Triglycerides 139 Cholesterol 227 H LDL Cholesterol, Calc 132 H HDL Cholesterol 68 Vitamin B12 700 25-OH Vitamin D Total 60.7 TSH 0.36 Free T4 0.93 Ur Specific [place] 1.015 Urine Protein Negative Urine Glucose (UA) Negative Urine Blood Negative Urine Nitrite Negative Ur Leukocyte Esterase Trace H Coding Level of Care Code Est Pt Level 4 (81329) Diagnoses Pure hypercholesterolemia E78.00 Migraine without status migrainosus, not intractable, unspecified migraine type G43.909 Migraine type: unspecified Status migrainosus presence: without status migrainosus Intractability: not intractable Elevated LFTs R79.89 RUQ abdominal pain R10.11 Degeneration of intervertebral disc of lumbar region with discogenic back pain M51.360 Disc-related pain type: discogenic back pain only Osteoarthritis of cervical spine, unspecified spinal osteoarthritis complication status M47.812 Spinal osteoarthritis complication: unspecified spinal osteoarthritis Closed displaced fracture of pelvis, unspecified part of pelvis, sequela S32.9XXS Encounter type: sequela Pelvic bone location: unspecified part of pelvis Fracture type: closed Fracture alignment: displaced Constipation, unspecified constipation type K59.00 Constipation type: unspecified constipation type GERD without esophagitis K21.9 Allergic rhinitis, unspecified seasonality, unspecified trigger J30.9 Allergic rhinitis trigger: unspecified Allergic rhinitis seasonality: unspecified Chronic left ear pain H92.02; G89.29 Pain in both knees, unspecified chronicity M25.561; M25.562 Chronicity: unspecified Urinary incontinence, unspecified type R32 Urinary Incontinence type: unspecified incontinence Complex cyst of left ovary N83.292 Insomnia, unspecified type G47.00 Insomnia type: unspecified Anxiety F41.9 Episode of recurrent major depressive disorder, unspecified depression episode severity F33.9 Depression Type: major depressive disorder Major depression recurrence: recurrent Active/Remission status: currently active Major depression episode severity: unspecified Overweight (BMI 25.0-29.9) E66.3 Additional Codes PHQ-9 - 42109 - PHQ-9 Billing: Yes ([id number]) Assessment & Plan Assessment & Plan (1) Pure hypercholesterolemia: Code(s): E78.00 - Pure hypercholesterolemia, unspecified Category: Medical Plan: Results of her labs done a few days ago reviewed and discussed with patient - she is cautioned that her cholesterol levels have increased from previous Patient admits to forgetting to take her cholesterol medicine at times as she now only takes it every 3 days Reinforced low cholesterol diet Continue Rosuvastatin 5 mg every 3 days - her LFTs have remained normal on her recent labs Patient was tolerating Rosuvastatin 5 mg but we had to cut her dosing back further from every other day to every 3 days at her previous visit last year as her LFTs continued to increase despite her reduced dosing frequency (Atorvastatin 10 mg QD was discontinued previously due to significantly elevated LFTs) Will have her continue on her current dosing for now but she is advised that she needs to figure out a way to keep her from forgetting to take her medication on time Will recheck her labs and fasting lipids again in 4 months for follow-up (2) Migraine: Code(s): G43.909 - Migraine, unspecified, not intractable, without status migrainosus Category: Medical Qualifiers: Migraine type: unspecified Status migrainosus presence: without status migrainosus Intractability: not intractable Qualified Code(s): G43.909 - Migraine, unspecified, not intractable, without status migrainosus Plan: Reinforced avoidance of migraine triggers Continue Continue Fioricet PRN and Topiramate 50 mg once a day at bedtime for headache prophylaxis for now She has reportedly been advised by Neurology in the past that her headaches are most likely multifactorial and are not just simple migraine headaches and will most likely require a multifaceted approach involving medical as well as behavioral therapy and intervention -? she was advised to continue to follow-up with her psychiatrist for this as well As her headaches have increased significantly recently and in the absence of any brain imaging studies done in many years, she was sent for a head CT for further evaluation; if her head CT comes back negative and her headaches continue to occur frequently, can consider increasing her Topiramate dose Her head CT done in June 2024 was normal except for (+) bubbly sclerotic marginated abnormality in the posterior left occipital condyle/occipital bone for which IV contrast enhanced MRI brain/ IAC protocol was recommended Patient underwent a brain MRI last month (October 2024) which revealed no abnormal enhancement within the posterior left occipital condyle/left occipital bone. Stable since prior CT dated March 14, 2018 - probable benign. There is also a probable 10 x 6 x 8 mm meningioma at the left lesser wi ng of the sphenoid. Nonspecific T2 FLAIR signal foci supratentorial compartment Follow up with neurology as scheduled (3) Elevated LFTs: Comment: S/P lap gerald in September 2022, appears resolved as of October of 2024 Code(s): R79.89 - Other specified abnormal findings of blood chemistry Category: Medical Plan: Her LFTs are again normal on her recent labs Her liver appeared normal on abdominal US done in July 2022; repeat abdominal US done in January 2023 also came out normal Will continue to monitor her LFTs regularly (4) RUQ abdominal pain: Code(s): R10.11 - Right upper quadrant pain Category: Medical Plan: Patient states that this has been going on for a while now and imaging studies done in the past couple of years (abdominal US) have not revealed any abnormality or etiology for her symptoms She has been referred to GI and was seen in May 2024 and will continue to follow up with GI for this issue (5) Lumbar degenerative disc disease: Code(s): M51.36 - Other intervertebral disc degeneration, lumbar region Category: Medical Qualifiers: Disc-related pain type: discogenic back pain only Qualified Code(s): M51.360 - Other intervertebral disc degeneration, lumbar region with discogenic back pain only Plan: Reinforced activity and weight lifting restrictions to avoid aggravating her back pain Continue?Cyclobenzaprine?10 mg 3 times a day as needed (Rx refilled) and? Oxycodone-Acetaminophen?5-325 mg 1 tablet every 6 hours as needed?as well as Gabapentin to 600 mg TID She has received injections into her lower back before from pain management with some relief of her symptoms and it appears that pain management was also planning to try her on PNS for better pain control but her pelvic fracture affec fausto her schedule and delayed/postponed all of her appointments but she is now seeing pain management again regularly (6) Degenerative arthritis of cervical spine: Code(s): M47.812 - Spondylosis without myelopathy or radiculopathy, cervical region Category: Medical Qualifiers: Spinal osteoarthritis complication: unspecified spinal osteoarthritis Qualified Code(s): M47.812 - Spondylosis without myelopathy or radiculopathy, cervical region Plan: States that her current medications help keep her neck pain manageable Is S/P RFA of the lumbar spine in February 2022 and diagnostic MBB of the cervical spine in June 2022 - states that her chronic pains have improved somewhat with ablation Tx but insurance is now declining to cover any further procedures and intervention for her chronic back pain Patient states that pain management has tried working on getting these approved unsuccessfully It appears that pain management was going to try her on a PNS device at her last visit with them a few months ago Follow up with pain management as scheduled (7) Pelvic fracture: Code(s): S32.9XXA - Fracture of unspecified parts of lumbosacral spine and pelvis, initial encounter for closed fracture Category: Medical Qualifiers: Encounter type: sequela Pelvic bone location: unspecified part of pelvis Fracture type: closed Fracture alignment: displaced Qualified Code(s): S32.9XXS - Fracture of unspecified parts of lumbosacral spine and pelvis, seque la Plan: Her pelvic fracture was mildly displaced and she did not require surgery and is being managed conservatively by [facility] Follow up with [facility] as scheduled (8) Constipation: Code(s): K59.00 - Constipation, unspecified Category: Medical Qualifiers: Constipation type: unspecified constipation type Qualified Code(s): K59.00 - Constipation, unspecified Plan: This is most likely opioid-induced Abdominal x-rays done a couple of years ago came out normal She is again encouraged on increased oral fluids and dietary fiber Continue Senna 8.6 mg 1-2 tablets daily at bedtime as needed Follow up with GI as scheduled (9) GERD without esophagitis: Code(s): K21.9 - Gastro-esophageal reflux disease without esophagitis Category: Medical Plan: Dietary restrictions reinforced Continue Omeprazole 20 mg QD (10) Allergic rhinitis: Code(s): J30.9 - Allergic rhinitis, unspecified Category: Medical Qualifiers: Allergic rhinitis trigger: unspecified Allergic rhinitis seasonality: unspecified Qualified Code(s): J30.9 - Allergic rhinitis, unspecified Plan: Continue Cetirizine 10 mg QD PRN (11) Chronic left ear pain: Code(s): H92.02 - Otalgia, left ear; G89.29 - Other chronic pain Category: Medical Plan: S/P tympanoplasty in 2021 Patient is advised that she currently does NOT have any TM covering her left ear and as her inner ear is completely exposed to the elements and is likely the primary reason for her chronic left ear pain She currently does not have any ear drainage or discharge or any ear findings to suggest that she has an ear infection Have advised her to try wearing some ear plug or ear covering to help protect her inner ear at all times and this may help, at least somewhat, with her ear pain (12) Bilateral knee pain: Code(s): M25.561 - Pain in right knee; M25.562 - Pain in left knee Category: Medical Qualifiers: Chronicity: unspecified Qualified Code(s): M25.561 - Pain in right knee; M25.562 - Pain in left knee Plan: Bilateral knee x-rays done in January 2023 revealed (+) mild degenerative changes in the patellofemoral areas in both knees Will consider referring her to orthopedics for further management if her knee pain progresse (13) Urinary incontinence: Code(s): R32 - Unspecified urinary incontinence Category: Medical Qualifiers: Urinary Incontinence type: unspecified incontinence Qualified Code(s): R32 - Unspecified urinary incontinence Plan: Follow up with urology (Dr.? Back) as scheduled (14) Complex cyst of left ovary: Code(s): N83.292 - Other ovarian cyst, left side Category: Medical Plan: She is being followed by [facility] regularly for this - her cyst has been < 1 cm and has remained stable in size over the past 2-3 years (likely a dermoid cyst) and will continue surveillance with regular ultrasound and CA-125 measurement (15) Insomnia: Code(s): G47.00 - Insomnia, unspecified Category: Medical Qualifiers: Insomnia type: unspecified Qualified Code(s): G47.00 - Insomnia, unspecified Plan: Sleep hygiene reinforced Continue Zolpidem 10 mg once a day at bedtime as needed and Trazodone 50 mg Q HS PRN only (16) Anxiety: Code(s): F41.9 - Anxiety disorder, unspecified Category: Medical Plan: Continue Lorazepam 1 mg daily at bedtime as needed (17) Depression: Code(s): F32.9 - Major depressive disorder, single episode, unspecified Category: Medical Qualifiers: Depression Type: major depressive disorder Major depression recurrence: recurrent Active/Remission status: currently active Major depression episode severity: unspecified Qualified Code(s): F33.9 - Major depressive disorder, recurrent, unspecified Plan: Continue Paroxetine 20 mg Q AM Follow-up with Psychiatry as scheduled (18) Overweight (BMI 25.0-29.9): Code(s): E66.3 - Overweight Category: Medical Plan: Reinforced diet; exercise and weight loss are not realistic given patient's multiple physical issues Plan Follow up in 4 months Orders: Orders Lipid Panel 4 Months E78.00 - Pure hypercholesterolemia, unspecified Complete Blood Count Auto Diff 4 Months D64.9 - Anemia, unspecified Comprehensive [place]. Panel Fast 4 Months E78.00 - Pure hypercholesterolemia, unspecified TSH reflex Free T4 4 Months E78.00 - Pure hypercholesterolemia, unspecified UA CC w/rflx Micro + Cult 4 Months R30.0 - Dysuria Medications: Refilled cyclobenzaprine 10 mg PO TID PRN 90 tabs 1RF for muscle spasm
== END 2025-03-24 13:45 | disposition home or self-care (01) ==
LOC: HO.HMCH 13:09
PROVIDERS: PCP Internal Medicine; Visit Provider Internal Medicine
DX: E78.00 Pure hypercholesterolemia, unspecified (principal); G43.909 Migraine, unspecified, not intractable, without status migrainosus; R79.89 Other specified abnormal findings of blood chemistry; R10.11 Right upper quadrant pain; M51.360 Other intervertebral disc degeneration, lumbar region with discogenic back pain only; M47.812 Spondylosis without myelopathy or radiculopathy, cervical region; S32.9XXS Fracture of unspecified parts of lumbosacral spine and pelvis, sequela; K59.00 Constipation, unspecified; K21.9 Gastro-esophageal reflux disease without esophagitis; J30.9 Allergic rhinitis, unspecified; H92.02 Otalgia, left ear; G89.29 Other chronic pain; M25.561 Pain in right knee; M25.562 Pain in left knee; R32 Unspecified urinary incontinence; N83.292 Other ovarian cyst, left side; G47.00 Insomnia, unspecified; F41.9 Anxiety disorder, unspecified; F33.9 Major depressive disorder, recurrent, unspecified; E66.3 Overweight

== ENCOUNTER → 2025-03-24 13:09 | Outpatient (BNVA) | payer MEDICARE, SELFPAY | PROVIDERS: PCP Internal Medicine; Visit Provider Internal Medicine | DX: E78.00 Pure hypercholesterolemia, unspecified (principal); G43.909 Migraine, unspecified, not intractable, without status migrainosus; R79.89 Other specified abnormal findings of blood chemistry; R10.11 Right upper quadrant pain; M51.360 Other intervertebral disc degeneration, lumbar region with discogenic back pain only; M47.812 Spondylosis without myelopathy or radiculopathy, cervical region; S32.9XXS Fracture of unspecified parts of lumbosacral spine and pelvis, sequela; K59.00 Constipation, unspecified; K21.9 Gastro-esophageal reflux disease without esophagitis; J30.9 Allergic rhinitis, unspecified; H92.02 Otalgia, left ear; G89.29 Other chronic pain; M25.561 Pain in right knee; M25.562 Pain in left knee; R32 Unspecified urinary incontinence; N83.292 Other ovarian cyst, left side; G47.00 Insomnia, unspecified; F41.9 Anxiety disorder, unspecified; F33.9 Major depressive disorder, recurrent, unspecified; E66.3 Overweight; Z68.26 Body mass index [BMI] 26.0-26.9, adult | CPT/HCPCS: 96127; 99212 ==

== ENCOUNTER 2025-04-01 06:20 | Outpatient (REF) | payer MEDICARE, SELFPAY ==
--- NOTE | ~2025-04-01 | FL_ITS ---
EXAMINATION: XR FLUOROSCOPY WITH IMAGES CLINICAL INFORMATION: Cervical pain management procedure. Spondylosis without myelopathy or radiculopathy, cervical region. COMPARISON: None available. TECHNIQUE: Fluoroscopy provided to: Dr. Verdin Fluoroscopy time: 0.4 minutes DAP: 0.0122 mGycm2 Images: 4 FINDINGS: 4 fluoroscopic spot images obtained during cervical pain management procedure. Please refer to the full operative report for details. FL/FL guidance in treatment room IMPRESSION: Fluoroscopic guidance. Electronically signed by: Aaron Ho MD 04/01/2025 03:58 PM EDT
== END 2025-04-01 06:21 | disposition home or self-care (01) ==
LOC: CF 06:20
PROVIDERS: Visit Provider Internal Medicine
DX: M47.812 Spondylosis without myelopathy or radiculopathy, cervical region (principal); M47.816 Spondylosis without myelopathy or radiculopathy, lumbar region
CPT/HCPCS: 64633; 64634; J2003

== ENCOUNTER 2025-04-01 10:19 | Outpatient (AMB) | payer MEDICARE, SELFPAY ==
[2025-04-01 10:40] VITALS: BP 105/66; PULSE 90; RESP 16; O2SAT 98; BMI 25.7
--- NOTE | 2025-04-01 10:40 | A.OFFVIS_ITS ---
Vital Signs 04/01/25 10:40 04/01/25 10:47 Height 5 ft 1 in 5 ft 1 in Weight 136 lb 136 lb BMI 25.7 25.7 BP 105/66 126/74 Blood Pressure Location Lt brachial Lt brachial Position Sitting Sitting Respiration 16 16 Pulse 90 90 Pulse Source Pulse Oximeter Pulse Oximeter Pulse Oximetry (%) 98 96 Oxygen Delivery Method Room Air Room Air Intake Visit Reasons: Left C3-C4-C5 RFA/ valium only Allergies No Known Allergies Allergy (Verified 03/24/25 13:25) HPI HPI Left C3-C4-C5 RFA/ valium only: Details: Patient presents for scheduled procedure. Denies any recent cough, cold, infection, fever or other significant changes in medical history since last office visit. PFSH Medical History RUQ abdominal pain Constipation Diarrhea Periumbilical abdominal pain Elevated LFTs Pelvic fracture Lumbar radiculitis Persistent fatigue after COVID-19 Tympanic membrane perforation Vertebrogenic low back pain Right sided abdominal pain History of gallstones Gallstones Shoulder pain Preoperative examination Tympanic membrane perforation, marginal Otitis externa of left ear Family history of colon cancer Bilateral knee pain Allergic rhinitis Low back pain Fatigue History of tachycardia PONV (postoperative nausea and vomiting) Impaired fasting glucose Lumbar spondylosis Low TSH level Overweight (BMI 25.0-29.9) Anxiety Insomnia Complex cyst of left ovary Urinary incontinence GERD without esophagitis Migraine Degenerative arthritis of cervical spine Lumbar degenerative disc disease Pure hypercholesterolemia Depression Surgical History History of esophagogastroduodenoscopy (EGD) Hx laparoscopic cholecystectomy (~09/11/22) Hx of colonoscopy History of tympanoplasty of left ear History of surgery History of nasal surgery History of bladder surgery Family History Father Colon cancer Mother Bone cancer Social History Housing: House Are you a primary foster care therapist to a significant other at home: No Do you presently have visiting nurse or other home services: No Alcohol intake: current Alcohol intake frequency: holidays/special occasions only Alcohol type: wine Comment: pt reports this is her baseline pain level Patient Tobacco Use Status: Never used Tobacco e-Cigarette/Vaping Use: Never Used Second Hand Smoke Exposure: Yes service: No Current occupational status: disabled Cognitive needs: No Hearing needs: No Vision needs: No Physical Exam Vital Signs: Last Vital Signs Pulse 90 04/01/25 10:47 Resp 16 04/01/25 10:47 BP 126/74 04/01/25 10:47 Pulse Ox 96 04/01/25 10:47 Oxygen Delivery Method Room Air 04/01/25 10:47 BMI result Body Mass Index 25.7 Office Procedures Details: Radiofrequency lesioning cervical medial branch nerves, Left C3, C4 and C5 After obtaining written consent, pre-procedure blood pressure and heart rate were stable and recorded in the nursing record. The patient was placed in the prone position. The?cervical?area was prepped with chloraprep and draped in sterile fashion. The skin over the target for each medial branch nerve was anesthetized with 0.75% lidocaine. An 18 gauge radiofrequency cannula was advanced to each target site under fluoroscopic guidance. No paresthesias were elicited with needle placement and aspiration was negative for heme and CSF. Impedences were verified under 600 ohms. Motor testing (2 Hz) confirmed needle placement at each site within the appropriate voltage thresholds. Each site was injected with 1 ml 2% preservative-free lidocaine. Radiofrequency lesioning was performed for 90 seconds at 80 deg Celcius. The needle was removed, skin cleansed and a sterile bandage was applied. The patient tolerated the procedure well and no complications were encountered. Following the procedure the patient's vital signs were stable. The patient was discharged home in good condition with post-procedural instructions. Time Out: Immediately prior to the procedure, the following was verbally confirmed that there is a signed consent form and that the correct patient, planned procedure, site and side are consistent with documentation and that necessary equipment and/or blood products are available prior to the start of the case. Complications: none EBL: <5 cc 69356 - RFA Cervical Medial Branches 68420 - Cervical Medial Branches ADDNL Procedure code (CPT) selection complete Assessment & Plan Assessment & Plan (1) Cervical spondylosis: Code(s): M47.812 - Spondylosis without myelopathy or radiculopathy, cervical region Category: Medical Plan Patient is status post left C3, C4, C5 medial branch radiofrequency ablation. Patient tolerated procedure well and was discharged home in stable condition with discharge instructions. All questions were answered. We will follow-up via telephone or in clinic to assess response to therapy. A follow-up appointment was made during today's visit. Orders: Orders FL guidance in treatment room 04/01/25 M47.816 - Spondylosis without myelopathy or radiculopathy, lumbar region FL guidance in treatment room 04/01/25 M47.812 - Spondylosis without myelopathy or radiculopathy, cervical region Medications: New diazepam (Valium) please take 30minutes prior to arrival for procedure 5 mg PO ONCE PRN 1 tab 0RF sleep Coding Level of Care Code Procedure Only Diagnoses Cervical spondylosis M47.812 CPT Codes Radiofrequency Ablation - Rad-Ablation 1: 34574 - RFA Cervical Medial Branches ([id number]) Radiofrequency Ablation - Rad-Ablation 2: 95112 - Cervical Medial Branches ADDNL ([id number])
[2025-04-01 10:47] VITALS: BP 126/74; PULSE 90; RESP 16; O2SAT 96; BMI 25.7
== END 2025-04-01 12:33 | disposition home or self-care (01) ==
LOC: HO.PMCPRC 10:19
PROVIDERS: PCP Internal Medicine; Visit Provider Internal Medicine
DX: M47.812 Spondylosis without myelopathy or radiculopathy, cervical region (principal)
CPT/HCPCS: 64633; 64634

== ENCOUNTER 2025-04-26 09:22 | Outpatient (AMB) | payer MEDICARE, SELFPAY ==
--- NOTE | 2025-04-26 09:25 | MHC.OFFVIS ---
Vital Signs 04/26/25 09:27 Height 5 ft 1 in Weight 137 lb BMI 25.9 BP 130/73 Blood Pressure Location Lt brachial Position Sitting Respiration 16 Pulse 107 H Pulse Source Pulse Oximeter Pulse Oximetry (%) 99 Oxygen Delivery Method Room Air Intake Visit Reasons: s/p (L) C3-C4-C5 RFA 04/01 & (R) GM Tendon Inj Insole And Outsole Splitter Required: No Allergies No Known Allergies Allergy (Verified 04/26/25 09:28) Medication List - Last Reconciled 04/26/25 by Kraolyn Crenshaw LPN cetirizine 10 mg PO DAILY PRN 90 days cholestyramine (Cholestyramine Light) 4 grams PO QID cyclobenzaprine 10 mg PO TID PRN fluticasone propionate 50 mcg/actuation 2 sprays intranasal DAILY gabapentin 600 mg PO TID 30 days lorazepam 1 mg PO BEDTIME PRN 30 days multivitamin 1 tab PO DAILY omeprazole 20 mg PO DAILY oxycodone-acetaminophen 5-325 mg 1 tab PO Q6H PRN 28 days paroxetine HCl 20 mg PO DAILY 30 days [Probiotic 1 cap PO DAILY] rosuvastatin 5 mg PO Q3D 60 days topiramate 50 mg PO BEDTIME 30 days trazodone 50 mg PO BEDTIME PRN 30 days zolpidem 10 mg PO BEDTIME PRN 30 days HPI HPI s/p (L) C3-C4-C5 RFA 04/01 & (R) GM Tendon Inj: Details: History of Present Illness The patient is a 65-year-old female presenting with a follow-up after radiofrequency ablation for axial neck pain. She reports significant improvement in her neck pain, with 90% relief following the procedure. The patient also experiences bilateral sacroiliac joint pain, which was partially relieved by an injection in January, providing about 50% relief. Currently, she reports right-sided sacroiliac joint dysfunction, which remains bothersome. In August of the previous year, the patient sustained a pelvic fracture. She has been managing her pain primarily through walking, as physical therapy exacerbated her back pain. Pain Description - Axial neck pain: 90% relief post-radiofrequency ablation - Bilateral sacroiliac joint pain: 50% relief post-injection in January - Right-sided sacroiliac joint dysfunction: Persistent and bothersome - Pelvic fracture: Pain managed by walking, worsened by physical therapy Physical Exam - Appears afebrile. - Alert and oriented. - Mood and affect appropriate. - Follows and participates in conversation appropriately. - Respiratory effort is unlabored. - Able to transition from sit to stand unassisted. - Ambulates with bilaterally normal heel strike and toe off. - Able to stand and walk on toes and heels. PFSH Medical History RUQ abdominal pain Constipation Diarrhea Periumbilical abdominal pain Elevated LFTs Pelvic fracture Lumbar radiculitis Persistent fatigue after COVID-19 Tympanic membrane perforation Vertebrogenic low back pain Right sided abdominal pain History of gallstones Gallstones Shoulder pain Preoperative examination Tympanic membrane perforation, marginal Otitis externa of left ear Family history of colon cancer Bilateral knee pain Allergic rhinitis Low back pain Fatigue History of tachycardia PONV (postoperative nausea and vomiting) Impaired fasting glucose Lumbar spondylosis Low TSH level Overweight (BMI 25.0-29.9) Anxiety Insomnia Complex cyst of left ovary Urinary incontinence GERD without esophagitis Migraine Degenerative arthritis of cervical spine Lumbar degenerative disc disease Pure hypercholesterolemia Depression Surgical History History of esophagogastroduodenoscopy (EGD) Hx laparoscopic cholecystectomy (~09/11/22) Hx of colonoscopy History of tympanoplasty of left ear History of surgery History of nasal surgery History of bladder surgery Family History Father Colon cancer Mother Bone cancer Social History Housing: House Are you a primary pet care technician to a significant other at home: No Do you presently have visiting nurse or other home services: No Alcohol intake: current Alcohol intake frequency: holidays/special occasions only Alcohol type: wine Comment: pt reports this is her baseline pain level Patient Tobacco Use Status: Never used Tobacco e-Cigarette/Vaping Use: Never Used Second Hand Smoke Exposure: Yes service: No Current occupational status: disabled Cognitive needs: No Hearing needs: No Vision needs: No Physical Exam Vital Signs: Last Vital Signs Pulse 107 H 04/26/25 09:27 Resp 16 04/26/25 09:27 BP 130/73 08/18/25 09:27 Pulse Ox 99 04/26/25 09:27 Oxygen Delivery Method Room Air 04/26/25 09:27 BMI result Body Mass Index 25.9 Assessment & Plan Assessment & Plan (1) Sacroiliac dysfunction: Code(s): M53.3 - Sacrococcygeal disorders, not elsewhere classified Category: Medical (2) Cervical spondylosis: Code(s): M47.812 - Spondylosis without myelopathy or radiculopathy, cervical region Category: Medical Plan Plan - Plan to repeat the right-sided sacroiliac joint injection. Last therapeutic injection >50% relief for 3 months. - Schedule injection after the patient's vacation in May. Patient was informed and verbally consented to the use of an ambient scribe for clinic note documentation during this visit. Discussion Notes I discussed with the patient the plan to repeat the right-sided sacroiliac joint injection, explaining that we will seek insurance authorization for the procedure. We also talked about scheduling the follow-up after her vacation in May, ensuring that the timing is convenient for her. Patient Instructions - Continue walking as tolerated to manage pain. - Plan for the sacroiliac joint injection after vacation in May. Coding Level of Care Code Est Pt Level 3 (95780) Diagnoses Sacroiliac dysfunction M53.3 Cervical spondylosis M47.812
[2025-04-26 09:27] VITALS: BP 130/73; PULSE 107; RESP 16; O2SAT 99; BMI 25.9
== END 2025-04-26 10:12 | disposition home or self-care (01) ==
LOC: HO.PMC 09:22
PROVIDERS: PCP Internal Medicine; Visit Provider Internal Medicine
DX: M53.3 Sacrococcygeal disorders, not elsewhere classified (principal); M47.812 Spondylosis without myelopathy or radiculopathy, cervical region
CPT/HCPCS: 99213

== ENCOUNTER → 2025-04-26 09:22 | Outpatient (BNVA) | payer MEDICARE, SELFPAY | PROVIDERS: PCP Internal Medicine; Visit Provider Internal Medicine | DX: M53.3 Sacrococcygeal disorders, not elsewhere classified (principal); M47.812 Spondylosis without myelopathy or radiculopathy, cervical region | CPT/HCPCS: 99212 ==

== ENCOUNTER 2025-07-22 09:16 | Outpatient (REF) | payer MEDICARE, SELFPAY ==
[2025-07-22 09:37] LABS: MANUAL DIFF FLAG NO
[2025-07-22 10:03] LABS: Hematocrit 37.3 % (37.0-47.0); Hemoglobin 12.0 g/dl (12.0-16.0); Imm Gran Abs Auto 0.01 X10*3/uL (0.00-0.03); Imm Gran Pct Auto 0.2 % (0.0-0.4); Lymphocytes Absolute Auto 2.1 X10*3/uL (1.2-4.9); Mean Corpuscular HGB Conc 32.2 g/dl (31.0-35.0); Mean Corpuscular Hemoglobin 30.5 pg (27.0-33.0); Mean Corpuscular Volume 94.9 fL (80.0-98.0); NRBC Abs Auto 0.000 X10*3/uL (0.0-0.012); NRBC Pct Auto 0.0 /100WBC (0.0-0.2); Platelet Count 238 X10*3/uL (160-400); Red Blood Count 3.93 X10*6/uL (4.20-5.50); White Blood Count 5.0 X10*3/uL (4.8-10.8)
[2025-07-22 10:50] LABS: Appearance Urine Clear; Glucose Urine UA Negative (Negative); PH 6.5 (5.0-9.0); Specific Gravity - Urine 1.015 (1.005-1.025)
[2025-07-22 10:59] LABS: Alanine Aminotransferase 20 U/L (0-31); Albumin Level 4.2 g/dL (3.5-5.0); Alkaline Phosphatase 50 U/L (39-117); Anion Gap 12 (12-20); Aspartate Amino Transferase 23 U/L (5-31); Blood Urea Nitrogen 14 mg/dL (9-16); Calcium 9.2 mg/dL (8.4-10.2); Carbon Dioxide 27 mmol/L (22-29); Chloride 108 mmol/L (96-108); Cholesterol 191 mg/dL (<200); Estimated Glomerular Filt Rate > 60; HDL Cholesterol 61 mg/dL (>40); Potassium 3.9 mmol/L (3.3-5.1); Sodium 143 mmol/L (135-145); Total Protein 6.8 g/dL (6.5-8.0); Triglycerides 139 mg/dL (<150)
== END 2025-07-22 09:17 | disposition home or self-care (01) ==
LOC: HO.LAB 09:16
PROVIDERS: PCP Internal Medicine; Visit Provider Internal Medicine
DX: R30.0 Dysuria (principal); E78.00 Pure hypercholesterolemia, unspecified; D64.9 Anemia, unspecified
CPT/HCPCS: 36415; 80053; 80061; 81003; 84443; 85025

== ENCOUNTER 2025-07-26 10:55 | Outpatient (REF) | payer MEDICARE, SELFPAY ==
--- NOTE | ~2025-07-26 | MM_ITS ---
EXAMINATION: MM SCREENING DIGITAL BREAST TOMOSYNTHESIS, BILATERAL CLINICAL INFORMATION: Screening. Asymptomatic. COMPARISON: Comparison made to multiple prior, most recent June 17, 2024, and most remote May 16, 2018. TECHNIQUE: Digital breast tomosynthesis is performed in mediolateral oblique and craniocaudal views along with computer-aided detection (CAD). Synthesized 2D images are generated from the tomosynthesis. FINDINGS: BREAST COMPOSITION: There are scattered areas of fibroglandular density. BILATERAL BREASTS: No significant masses, suspicious calcifications or other abnormalities are seen in either breast. MM/MM tomosynthesis screening BI IMPRESSION: BILATERAL BREASTS: Negative, no mammographic evidence of malignancy. Normal interval follow-up is recommended in 12 months. ASSESSMENT: BI-RADS: Category 1: Negative RECOMMENDATION: Routine annual mammography screening. FOLLOW-UP: 1 year F/U This examination should not preclude the clinical evaluation of a suspicious palpable abnormality. This patient's information was entered into a reminder system with a target due date for their next mammogram. Electronically signed by: Landon Bradshaw MD 07/26/2025 08:32 PM [facility] [place], [place]
== END 2025-07-26 10:56 | disposition home or self-care (01) ==
LOC: HO.MAMMO 10:55
PROVIDERS: PCP Internal Medicine; Visit Provider Internal Medicine
DX: Z12.31 Encounter for screening mammogram for malignant neoplasm of breast (principal)
CPT/HCPCS: 77063; 77067

== ENCOUNTER → 2025-07-26 11:10 | Outpatient (BNV) | payer MEDICARE, SELFPAY | PROVIDERS: PCP Internal Medicine; Visit Provider Radiology Body Imaging | DX: Z12.31 Encounter for screening mammogram for malignant neoplasm of breast (principal) | CPT/HCPCS: 77063; 77067 ==

== ENCOUNTER 2025-07-27 12:57 | Outpatient (AMB) | payer MEDICARE, SELFPAY ==
[2025-07-27 13:27] VITALS: BP 126/84; PULSE 98; O2SAT 94; BMI 26.5
--- NOTE | 2025-07-27 13:28 | MHC.PC.OV ---
Vital Signs 07/27/25 13:27 Height 5 ft 1 in Weight 140 lb 8 oz BMI 26.5 BP 126/84 Blood Pressure Location Lt brachial Position Sitting Pulse 98 Pulse Source Pulse Oximeter Pulse Oximetry (%) 94 Oxygen Delivery Method Room Air Intake Visit Reasons: Hypertension Group Exercise Class Instructor Required: No Accompanied by: Self / Same As Patient Allergies No Known Allergies Allergy (Verified 07/27/25 13:58) Medication List - Last Reconciled 07/27/25 by Richar Verma MD cetirizine 10 mg PO DAILY PRN 90 days cholestyramine (Cholestyramine Light) 4 grams PO QID cyclobenzaprine 10 mg PO TID PRN fluticasone propionate 50 mcg/actuation 2 sprays intranasal DAILY gabapentin 600 mg PO TID 30 days lorazepam 1 mg PO BEDTIME PRN 30 days multivitamin 1 tab PO DAILY omeprazole 20 mg PO DAILY oxycodone-acetaminophen 5-325 mg 1 tab PO Q6H PRN 28 days paroxetine HCl 20 mg PO DAILY 30 days [Probiotic 1 cap PO DAILY] rosuvastatin 5 mg PO Q3D 60 days topiramate 50 mg PO BEDTIME 30 days trazodone 50 mg PO BEDTIME PRN 30 days zolpidem 10 mg PO BEDTIME PRN 30 days Tobacco use date assessed: 07/27/25 Fall risk assessment: No Falls in past year Last assessed Fall Risk: 07/27/25 Dental Screening Dental Screen Date: 07/27/25 Did you have a dental visit in the last 12 months?: Yes Did you have a dental problem in the last 6 months where you did not have access to dental care?: No Was dental information given to patient?: Patient has dentist HPI Hypertension HPI Details Patient comes in today for her follow up visit States that she feels okay She denies any headaches or dizziness Denies any chest pains, no increased shortness of breath No nausea/vomiting, no abdominal pain No change in bowel habits noted She continues to follow up with pain management regularly for her hip/pelvic pain and states that the injection(s) that she gets help a lot with her chronic pain She had her follow-up labs done a few days ago - to discuss her results [facility] Medical History RUQ abdominal pain Constipation Diarrhea Periumbilical abdominal pain Elevated LFTs Pelvic fracture Lumbar radiculitis Persistent fatigue after COVID-19 Tympanic membrane perforation Vertebrogenic low back pain Right sided abdominal pain History of gallstones Gallstones Shoulder pain Preoperative examination Tympanic membrane perforation, marginal Otitis externa of left ear Family history of colon cancer Bilateral knee pain Allergic rhinitis Low back pain Fatigue History of tachycardia PONV (postoperative nausea and vomiting) Impaired fasting glucose Lumbar spondylosis Low TSH level Overweight (BMI 25.0-29.9) Anxiety Insomnia Complex cyst of left ovary Urinary incontinence GERD without esophagitis Migraine Degenerative arthritis of cervical spine Lumbar degenerative disc disease Pure hypercholesterolemia Depression Surgical History History of esophagogastroduodenoscopy (EGD) Hx laparoscopic cholecystectomy (~09/11/22) Hx of colonoscopy History of tympanoplasty of left ear History of surgery History of nasal surgery History of bladder surgery Family History Father Colon cancer Mother Bone cancer Social History Housing: House Are you a primary dialysis patient care technician to a significant other at home: No Do you presently have visiting nurse or other home services: No Alcohol intake: current Alcohol intake frequency: holidays/special occasions only Alcohol type: wine Comment: pt reports this is her baseline pain level Patient Tobacco Use Status: Never used Tobacco e-Cigarette/Vaping Use: Never Used Second Hand Smoke Exposure: Yes service: No Current occupational status: disabled Cognitive needs: No Hearing needs: No Vision needs: No Questionnaire PHQ-9 Over the last 2 weeks, how often have you been bothered by any of the following problems? 1. Little interest or pleasure in doing things: several days 2. Feeling down, depressed, or hopeless: several days 3. Trouble falling or staying asleep, or sleeping too much: several days 4. Feeling tired or having little energy: several days 5. Poor appetite or overeating: not at all 6. Feeling bad about yourself - or that you are a failure or have let yourself or your family down: not at all 7. Trouble concentrating on things, such as reading the newspaper or watching television: not at all 8. Moving or speaking so slowly that other people could have noticed. Or the opposite - being so fidgety or restless that you have been moving around a lot more than usual: not at all 9. Thoughts that you would be better off or of hurting yourself in some way: not at all Total score: 4 Depression Screening Interpretation: Positive Depression Screening Follow-up: Existing condition and In treatment Depression Screening Done: Yes 30667 - PHQ-9 Billing: Yes Source: Developed by Drs. Angel Anthony, Clau Saleh, Guzman Moreno and colleagues, with an educational maria d from [employer]. Thrive Questionnaire Date Thrive assessed: 07/27/25 I am a: Patient What is your living situation today?: I have a steady place to live Within the past 12 months, did the food you bought not last and you didn't have the money to get more?: Never true Within the past 12 months, did you worry whether your food would run out before you got money to buy more?: Never true Do you have trouble paying for medicines?: No Do you have trouble getting transportation to medical appointments?: No Do you have trouble paying your heating and electricity bill?: No Do you have trouble taking care of your child, family member or friend?: No Do you have trouble with day-to-day activities such as bathing, preparing meals, shopping, managing finances, etc.?: No Are you currently unemployed and looking for a job?: No Are you interested in more education?: No Please select the resources that you would like help with: None Currently or been in a relationship where the following occur: No concerns reported THRIVE Score: 0 AUDIT C Alcohol Use Questionnaire (AUDIT-C) 1. How often do you have a drink containing alcohol?: Never 3. How often do you have six or more drinks on one occasion?: Never Total Score: 0 Score Reviewed/Action Taken: Yes ACE-7 AMB Questionnaire ACE-7 Date ACE - 7 assessed: 07/27/25 Feeling nervous, anxious, or on edge: 0 = Not at all Not being able to stop or control worryin = Not at all Worrying too much about different things: 0 = Not at all Trouble relaxin = Several days Being so restless that it is hard to sit still: 0 = Not at all Becoming easily annoyed or irritable: 0 = Not at all Feeling afraid as if something awful might happen: 0 = Not at all Total ACE-7 score (0-4 normal; 5-9 mild; 10-14 moderate; 15-21 severe): 1 Source: Developed by Drs. Angel Anthony, Clau Saleh, Guzman Moreno and colleagues, with an educational maria d from [employer]. Review of Systems Const Denies chills, Reports difficulty sleeping, Reports fatigue, Denies fever(s) and Denies headache(s) ENT Denies dysphagia, Denies dizziness, Reports otalgia (in the left ear - chronic), Denies headache(s), Reports hearing loss, Reports neck pain (chronic), Denies odynophagia, Reports tinnitus (in the left ear) and Denies sore throat Card Denies chest pain, Denies palpitations and Denies dyspnea Resp Denies chest congestion, Denies cough and Denies dyspnea GI Reports abdominal pain (on and off, over the RUQ), Denies hematochezia, Denies constipation, Denies dysphagia, Denies heartburn, Reports loose stools (at times), Denies nausea, Denies odynophagia and Denies vomiting Denies difficulty voiding, Denies nocturia, Denies dysuria and Denies urinary urgency Musc Details: (+) pelvic pain Reports back pain (over the lumbar spine - chronic), Reports myalgias, Reports arthralgias (over both knees) and Reports neck pain (chronic) Skin/Breast Denies rash Neuro Denies dizziness and Denies headache(s) Psych Reports depression (increasing) Endo Reports fatigue and Denies palpitations Physical exam (Primary Care) Vital Signs: Last Vital Signs Pulse 98 07/27/25 13:27 BP 126/84 07/27/25 13:27 Pulse Ox 94 07/27/25 13:27 Oxygen Delivery Method Room Air 07/27/25 13:27 BMI result Body Mass Index 26.5 Tobacco/Smoking Status: Tobacco use Status Tobacco use date assessed 07/27/25 07/27/25 13:41 Patient Tobacco Use Status Never used Tobacco 07/27/25 13:41 e-Cigarette/Vaping Use Never Used 07/27/25 13:41 PHQ-9: PHQ-9 Score PHQ-9: Total score 4 07/27/25 13:41 Depression Screening Interpretation: Positive Depression Screening Follow-up: Existing condition and In treatment Thrive Assessment: Date of Thrive Assessment Date Thrive assessed 07/27/25 07/27/25 13:41 Currently or been in a relationship where the following occur: No concerns reported Const General: no acute distress and alert HENMT Ears: TM normal on the right, EAC's normal and TM abnormal perforated (complete perforation/absent TM) without discharge on the left Throat: Yes posterior oropharynx normal and Yes tonsils normal (no TP congestion noted) Neck Neck: No lymphadenopathy and Yes tender (over the back of the neck - chronic) Thyroid: Thyroid normal Resp Auscultation: clear to auscultation bilaterally, no rales and no wheezes Cardio Rate: regular rate Rhythm: regular rhythm Heart sounds: no murmurs GI Palpation (GI): Soft to palpation, Tenderness to palpation present (GI) (mild ) in the RUQ, no guarding and No Rebound tenderness present Auscultation: normal bowel sounds General: Yes no CVA tenderness Back/Spine/Pelvis Back: no CVA tenderness Cervical Spine: Cervical spine tenderness Thoracic/Lumbar Spine: lumbar spinal tenderness Skin Rashes: no rashes Extrem General: Yes no clubbing, cyanosis or edema Right lower extremity: knee Details: tenderness and crepitus; no swelling Left lower extremity: knee Details: tenderness and crepitus; no swelling Results Reviewed Results Reviewed: Laboratory Tests 07/22/25 09:36 WBC 5.0 Hgb 12.0 Hct 37.3 Plt Count 238 Sodium 143 Potassium 3.9 Creatinine 0.75 Estimated GFR > 60 Fasting Glucose 92 AST 23 ALT 20 Triglycerides 139 Cholesterol 191 LDL Cholesterol, Calc 103 H HDL Cholesterol 61 TSH 0.66 Ur Specific [place] 1.015 Urine Protein Negative Urine Glucose (UA) Negative Urine Blood Negative Urine Nitrite Negative Ur Leukocyte Esterase Negative Coding Level of Care Code Est Pt Level 4 (91139) Diagnoses Pure hypercholesterolemia E78.00 Migraine without status migrainosus, not intractable, unspecified migraine type G43.909 Migraine type: unspecified Status migrainosus presence: without status migrainosus Intractability: not intractable Elevated LFTs R79.89 RUQ abdominal pain R10.11 Degeneration of intervertebral disc of lumbar region with discogenic back pain M51.360 Disc-related pain type: discogenic back pain only Osteoarthritis of cervical spine, unspecified spinal osteoarthritis complication status M47.812 Spinal osteoarthritis complication: unspecified spinal osteoarthritis Closed displaced fracture of pelvis, unspecified part of pelvis, sequela S32.9XXS Encounter type: sequela Pelvic bone location: unspecified part of pelvis Fracture type: closed Fracture alignment: displaced Constipation, unspecified constipation type K59.00 Constipation type: unspecified constipation type GERD without esophagitis K21.9 Allergic rhinitis, unspecified seasonality, unspecified trigger J30.9 Allergic rhinitis trigger: unspecified Allergic rhinitis seasonality: unspecified Chronic left ear pain H92.02; G89.29 Pain in both knees, unspecified chronicity M25.561; M25.562 Chronicity: unspecified Urinary incontinence, unspecified type R32 Urinary Incontinence type: unspecified incontinence Complex cyst of left ovary N83.292 Insomnia, unspecified type G47.00 Insomnia type: unspecified Anxiety F41.9 Episode of recurrent major depressive disorder, unspecified depression episode severity F33.9 Depression Type: major depressive disorder Major depression recurrence: recurrent Active/Remission status: currently active Major depression episode severity: unspecified Overweight (BMI 25.0-29.9) E66.3 Additional Codes PHQ-9 - 27258 - PHQ-9 Billing: Yes ([id number]) Assessment & Plan Assessment & Plan (1) Pure hypercholesterolemia: Code(s): E78.00 - Pure hypercholesterolemia, unspecified Category: Medical Plan: Results of her labs done a few days ago reviewed and discussed with patient - her cholesterol levels have improved significantly from previous now that she is back to taking her medications regularly Reinforced low cholesterol diet Continue Rosuvastatin 5 mg every 3 days - her LFTs have remained normal on her recent labs Patient was tolerating Rosuvastatin 5 mg but we had to cut her dosing back further from every other day to every 3 days at her previous visit last year as her LFTs continued to increase despite her reduced dosing frequency (Atorvastatin 10 mg QD was discontinued previously due to significantly elevated LFTs) Will recheck her labs and fasting lipids again in 4 months for follow-up (2) Migraine: Code(s): G43.909 - Migraine, unspecified, not intractable, without status migrainosus Category: Medical Qualifiers: Migraine type: unspecified Status migrainosus presence: without status migrainosus Intractability: not intractable Qualified Code(s): G43.909 - Migraine, unspecified, not intractable, without status migrainosus Plan: Reinforced avoidance of migraine triggers Continue Continue Fioricet PRN and Topiramate 50 mg once a day at bedtime for headache prophylaxis for now She has reportedly been advised by Neurology in the past that her headaches are most likely multifactorial and are not just simple migraine headaches and will most likely require a multifaceted approach involving medical as well as behavioral therapy and intervention -? she was advised to continue to follow-up with her psychiatrist for this as well As her headaches have increased significantly recently and in the absence of any brain imaging studies done in many years, she was sent for a head CT for further evaluation; if her head CT comes back negative and her headaches continue to occur frequently, can consider increasing her Topiramate dose Her head CT done in June 2024 was normal except for (+) bubbly sclerotic marginated abnormality in the posterior left occipital condyle/occipital bone for which IV contrast enhanced MRI brain/ IAC protocol was recommended Patient underwent a brain MRI last month (October 2024) which revealed no abnormal enhancement within the posterior left occipital condyle/left occipital bone. Stable since prior CT dated March 14, 2018 - probable benign. There is also a probable 10 x 6 x 8 mm meningioma at the left lesser wing of the sphenoid. Nonspecific T2 FLAIR signal foci supratentorial compartment Follow up with neurology as scheduled (3) Elevated LFTs: Comment: S/P lap gerald in September 2022, appears resolved as of October of 2024 Code(s): R79.89 - Other specified abnormal findings of blood chemistry Category: Medical Plan: Her LFTs are again normal on her recent labs Her liver appeared normal on abdominal US done in July 2022; repeat abdominal US done in January 2023 also came out normal Will continue to monitor her LFTs regularly (4) RUQ abdominal pain: Code(s): R10.11 - Right upper quadrant pain Category: Medical Plan: Patient states that this has been going on for a while now and imaging studies done in the past couple of years (abdominal US) have not revealed any abnormality or etiology for her symptoms She has been referred to GI and was seen in May 2024 and will continue to follow up with GI for this issue (5) Lumbar degenerative disc disease: Code(s): M51.36 - Other intervertebral disc degeneration, lumbar region Category: Medical Qualifiers: Disc-related pain type: discogenic back pain only Qualified Code(s): M51.360 - Other intervertebral disc degeneration, lumbar region with discogenic back pain only Plan: Reinforced activity and weight lifting restrictions to avoid aggravating her back pain Continue?Cyclobenzaprine?10 mg 3 times a day as needed and?Oxycodone-Acetaminophen?5-325 mg 1 tablet every 6 hours as needed?as well as Gabapentin to 600 mg TID She has received injections into her lower back before from pain management with some relief of her symptoms and it appears that pain management was also planning to try her on PNS for better pain control but her pelvic fracture affected her schedule and delayed/postponed all of her appointments but she is now seeing pain management again regularly (6) Degenerative arthritis of cervical spine: Code(s): M47.812 - Spondylosis without myelopathy or radiculopathy, cervical region Category: Medical Qualifiers: Spinal osteoarthritis complication: unspecified spinal osteoarthritis Qualified Code(s): M47.812 - Spondylosis without myelopathy or radiculopathy, cervical region Plan: States that her current medications help keep her neck pain manageable Is S/P RFA of the lumbar spine in February 2022 and diagnostic MBB of the cervical spine in June 2022 - states that her chronic pains have improved somewhat with ablation Tx but insurance is now declining to cover any further procedures and intervention for her chronic back pain Patient states that pain management has tried working on getting these approved unsuccessfully It appears that pain management was going to try her on a PNS device at her last visit with them a few months ago Follow up with pain management as scheduled (7) Pelvic fracture: Code(s): S32.9XXA - Fracture of unspecified parts of lumbosacral spine and pelvis, initial encounter for closed fracture Category: Medical Qualifiers: Encounter type: sequela Pelvic bone location: unspecified part of pelvis Fracture type: closed Fracture alignment: displaced Qualified Code(s): S32.9XXS - Fracture of unspecified parts of lumbosacral spine and pelvis, sequela Plan: Her pelvic fracture was mildly displaced and she did not require surgery and is being managed conservatively by [facility] Follow up with [facility] as scheduled (8) Constipation: Code(s): K59.00 - Constipation, unspecified Category: Medical Qualifiers: Constipation type: unspecified constipation type Qualified Code(s): K59.00 - Constipation, unspecified Plan: This is most likely opioid-induced Abdominal x-rays done a couple of years ago came out normal She is again encouraged on increased oral fluids and dietary fiber Continue Senna 8.6 mg 1-2 tablets daily at bedtime as needed Follow up with GI as scheduled (9) GERD without esophagitis: Code(s): K21.9 - Gastro-esophageal reflux disease without esophagitis Category: Medical Plan: Dietary restrictions reinforced Continue Omeprazole 20 mg QD (10) Allergic rhinitis: Code(s): J30.9 - Allergic rhinitis, unspecified Category: Medical Qualifiers: Allergic rhinitis trigger: unspecified Allergic rhinitis seasonality: unspecified Qualified Code(s): J30.9 - Allergic rhinitis, unspecified Plan: Continue Cetirizine 10 mg QD PRN (11) Chronic left ear pain: Code(s): H92.02 - Otalgia, left ear; G89.29 - Other chronic pain Category: Medical Plan: S/P tympanoplasty in 2021 Patient is advised that she currently does NOT have any TM covering her left ear and as her inner ear is completely exposed to the elements and is likely the primary reason for her chronic left ear pain She currently does not have any ear drainage or discharge or any ear findings to suggest that she has an ear infection Have advised her to try wearing some ear plug or ear covering to help protect her inner ear at all times and this may help, at least somewhat, with her ear pain (12) Bilateral knee pain: Code(s): M25.561 - Pain in right knee; M25.562 - Pain in left knee Category: Medical Qualifiers: Chronicity: unspecified Qualified Code(s): M25.561 - Pain in right knee; M25.562 - Pain in left knee Plan: Bilateral knee x-rays done in January 2023 revealed (+) mild degenerative changes in the patellofemoral areas in both knees Will consider referring her to orthopedics for further management if her knee pain progresse (13) Urinary incontinence: Code(s): R32 - Unspecified urinary incontinence Category: Medical Qualifiers: Urinary Incontinence type: unspecified incontinence Qualified Code(s): R32 - Unspecified urinary incontinence Plan: Follow up with urology (Dr.? Back) as scheduled (14) Complex cyst of left ovary: Code(s): N83.292 - Other ovarian cyst, left side Category: Medical Plan: She is being followed by [facility] regularly for this - her cyst has been < 1 cm and has remained stable in size over the past 2-3 years (likely a dermoid cyst) and will continue surveillance with regular ultrasound and CA-125 measurement (15) Insomnia: Code(s): G47.00 - Insomnia, unspecified Category: Medical Qualifiers: Insomnia type: unspecified Qualified Code(s): G47.00 - Insomnia, unspecified Plan: Sleep hygiene reinforced Continue Zolpidem 10 mg once a day at bedtime as needed and Trazodone 50 mg Q HS PRN only (16) Anxiety: Code(s): F41.9 - Anxiety disorder, unspecified Category: Medical Plan: Continue Lorazepam 1 mg daily at bedtime as needed (17) Depression: Code(s): F32.9 - Major depressive disorder, single episode, unspecified Category: Medical Qualifiers: Depression Type: major depressive disorder Major depression recurrence: recurrent Active/Remission status: currently active Major depression episode severity: unspecified Qualified Code(s): F33.9 - Major depressive disorder, recurrent, unspecified Plan: Continue Paroxetine 20 mg Q AM Follow-up with Psychiatry as scheduled (18) Overweight (BMI 25.0-29.9): Code(s): E66.3 - Overweight Category: Medical Plan: Reinforced diet; exercise and weight loss are not realistic given patient's multiple physical issues Plan Follow up in 4 months Orders: Orders UA CC w/rflx Micro + Cult 4 Months R30.0 - Dysuria Complete Blood Count Auto Diff 4 Months D64.9 - Anemia, unspecified Comprehensive [place]. Panel Fast 4 Months E78.00 - Pure hypercholesterolemia, unspecified Lipid Panel 4 Months E78.00 - Pure hypercholesterolemia, unspecified
== END 2025-07-27 14:09 | disposition home or self-care (01) ==
LOC: HO.HMCH 12:58
PROVIDERS: PCP Internal Medicine; Visit Provider Internal Medicine
DX: E78.00 Pure hypercholesterolemia, unspecified (principal); G43.909 Migraine, unspecified, not intractable, without status migrainosus; R79.89 Other specified abnormal findings of blood chemistry; R10.11 Right upper quadrant pain; M51.360 Other intervertebral disc degeneration, lumbar region with discogenic back pain only; M47.812 Spondylosis without myelopathy or radiculopathy, cervical region; S32.9XXS Fracture of unspecified parts of lumbosacral spine and pelvis, sequela; K59.00 Constipation, unspecified; K21.9 Gastro-esophageal reflux disease without esophagitis; J30.9 Allergic rhinitis, unspecified; H92.02 Otalgia, left ear; G89.29 Other chronic pain; M25.561 Pain in right knee; M25.562 Pain in left knee; R32 Unspecified urinary incontinence; N83.292 Other ovarian cyst, left side; G47.00 Insomnia, unspecified; F41.9 Anxiety disorder, unspecified; F33.9 Major depressive disorder, recurrent, unspecified; E66.3 Overweight

== ENCOUNTER → 2025-07-27 12:57 | Outpatient (BNVA) | payer MEDICARE, SELFPAY | PROVIDERS: PCP Internal Medicine; Visit Provider Internal Medicine | DX: E78.00 Pure hypercholesterolemia, unspecified (principal); G43.909 Migraine, unspecified, not intractable, without status migrainosus; R79.89 Other specified abnormal findings of blood chemistry; R10.11 Right upper quadrant pain; M51.360 Other intervertebral disc degeneration, lumbar region with discogenic back pain only; M47.812 Spondylosis without myelopathy or radiculopathy, cervical region; S32.9XXS Fracture of unspecified parts of lumbosacral spine and pelvis, sequela; K59.00 Constipation, unspecified; K21.9 Gastro-esophageal reflux disease without esophagitis; H92.02 Otalgia, left ear; G89.29 Other chronic pain; M25.561 Pain in right knee; M25.562 Pain in left knee; R32 Unspecified urinary incontinence; N83.292 Other ovarian cyst, left side; G47.00 Insomnia, unspecified; F41.9 Anxiety disorder, unspecified; F33.9 Major depressive disorder, recurrent, unspecified; E66.3 Overweight; Z68.26 Body mass index [BMI] 26.0-26.9, adult; Z79.899 Other long term (current) drug therapy | CPT/HCPCS: 96127; 99212 ==